=== PATIENT | female | born 1965 | race Caucasian/White ===

== ENCOUNTER → 2016-03-25 | Outpatient (CLI) | payer OTHER ==
[~2016-03-25] MED LIST: REGADENOSON 0.4 MG/5 ML SYRINGE IV ONE
--- NOTE | 2016-03-25 11:43 | EST ---
DATE OF SERVICE: 03/25/2016 AGE: 51Y SEX: F HT: WT: 154 lbs. Lexiscan Cardiolite Stress Test *Heart Rate Blood Pressure *Rest: 77 Rest: 140/80 * *Max. Achieved: 111 Maximum BP: 202/99 85% PMHR: - 100% PMHR: - *METS: - INDICATIONS: Chest pain. MEDICATIONS: Lisinopril, alprazolam, hydrocodone, gabapentin, Tizanidine, Tramadol, ibuprofen. STRESS DATA: Heart rate 77, pressure is 140/80 mmHg. Baseline EKG showed sinus rhythm; 0.4 mg of Lexiscan was given to the patient over 15 seconds per protocol. Max heart rate was 111 beats per minute, maximum pressure was 202/99 mmHg. Clinically, the patient did not have any symptoms and the EKG did not show any significant ST or T-wave abnormalities consistent with ischemia. CONCLUSION: 1. Nondiagnostic electrocardiogram stress test in response to Lexiscan. 2. Please follow up on the Cardiolite portion on a separate report from the Radiology Department.
--- NOTE | 2016-03-25 12:16 | NM ---
EXAMINATION TYPE: NM stress lexiscan cardiolite DATE OF EXAM: 03/25/2016 12:09 PM COMPARISON: NONE HISTORY: Heart palpitations TECHNIQUE: After the intravenous administration of 10.4 mCi Tc 99m Sestamibi - Cardiolite resting SP ECT images acquired 45 minutes post injection. The patient received 0.4mg Lexiscan, 27 mCi Tc 99m Sestamibi - Stress images obtained 30 minutes post injection. Patient was stressed with Lexiscan. FINDINGS: Review of stress and rest SPECT images demonstrates no distinct perfusion abnormality. Gated analysi s shows normal wall motion with an estimated left ventricular ejection fraction of 79 %. Gated wall motion is normal. No suspicious perfusion defects are evident. IMPRESSION: Normal ejection fraction No scintigraphic evidence for reversible ischemia.
== END | disposition home or self-care (01) ==
LOC: RADNMMAIN 09:01
PROVIDERS: ATTEND Family Medicine
DX: R00.2 Palpitations (principal)
CPT/HCPCS: 93017; 78452; A9500; J2785

== ENCOUNTER 2016-05-20 14:55 | Inpatient (IN) | payer OTHER ==
[2016-05-19 11:59] VITALS: BMI 26.6
[2016-05-27] MEDS ORDERED: TRANEXAMIC ACID 1,000 MG in SODIUM CHLORIDE 0.9% 100 ML IVPB ONE ×4 (05:00)
[2016-05-27] MEDS ORDERED: MELOXICAM 7.5 MG TAB PO ONE (05:00)
[2016-05-27] MEDS ORDERED: ACETAMINOPHEN TAB 500 MG TAB PO ONE (05:00)
[2016-05-27] MEDS ORDERED: ONDANSETRON 4 MG/2 ML VIAL IVP ONE ×2 (05:00→05:35)
[2016-05-27] MEDS ORDERED: ceFAZolin 2 GM in SODIUM CHLORIDE 0.9% 100 ML IVPB ONE (05:00)
[2016-05-27] MEDS ORDERED: MIDAZOLAM 2 MG/2 ML VIAL IV PRN (05:35)
[2016-05-27] MEDS ORDERED: DEXAMETHASONE SOD PHOSPHATE 10 MG/ML 1 ML VIAL IV ONE (05:35)
[2016-05-27] MEDS ORDERED: HYDROmorphone 1 MG/ML 1 ML SYRINGE IVP PRN ×4 (05:35→15:25)
[2016-05-27] MEDS ORDERED: ROPIVACAINE 246.25 MG, EPINEPHrine 0.5 MG, KETOROLAC 30 MG, cloNIDine HCL/PF 80 MCG, WA... MISCELLANE ONE ×5 (09:39)
[2016-05-27] MEDS: LACTATED RINGERS 1,000 ML IV SCH ×2 (13:05→20:41)
[2016-05-27] MEDS ORDERED: LIDOCAINE 1% 20 ML VIAL (10MG/ML) FOR IV START INTRADERMA ONE (13:05)
[2016-05-27] MEDS ORDERED: fentaNYL (PF) 50 MCG/ML 2 ML AMP ONE (13:20)
[2016-05-27] MEDS ORDERED: PROPOFOL 10 MG/ML 20 ML VIAL IV ONE (13:20)
[2016-05-27] MEDS ORDERED: ceFAZolin 3,000 MG in SODIUM CHLORIDE 0.9% IRRIGATIO 3,000 ML IRRIGATION ONE (13:20)
[2016-05-27] MEDS ORDERED: MIDAZOLAM 2 MG/2 ML VIAL ONE (13:20)
[2016-05-27] MEDS ORDERED: NALBUPHINE 10 MG/ML AMPUL IV PRN (14:10)
[2016-05-27] MEDS ORDERED: diphenhydrAMINE 50 MG/ML 1 ML VIAL IVP PRN (14:10)
[2016-05-27] MEDS ORDERED: MORPHINE SULFATE 4 MG/ML SYRINGE IVP PRN (14:10)
[2016-05-27] MEDS ORDERED: PROMETHAZINE INJ 6.25 MG in SODIUM CHLORIDE 0.9% 50 ML IVPB PRN (14:10)
[2016-05-27] MEDS ORDERED: NALOXONE 0.4 MG/ML 1 ML VIAL IV PRN (14:10)
[2016-05-27] MEDS ORDERED: LACTATED RINGERS 1,000 ML IV ONE (14:30)
[2016-05-27] MEDS ORDERED: ONDANSETRON 4 MG/2 ML VIAL IVP PRN (15:25)
[2016-05-27] MEDS ORDERED: TEMAZEPAM 15 MG CAP PO PRN (15:25)
[2016-05-27] MEDS ORDERED: HYDROcodone/APAP 7.5-325MG 1 EACH TAB PO PRN (15:25)
[2016-05-27] MEDS ORDERED: ACETAMINOPHEN TAB 325 MG TAB PO PRN (15:25)
[2016-05-27] MEDS ORDERED: NA PHOS,M-B/NA PHOS,DI-BA 133 ML ENEMA RECTAL PRN (15:25)
[2016-05-27] MEDS ORDERED: BISACODYL 10 MG SUPP RECTAL PRN (15:25)
[2016-05-27] MEDS ORDERED: MAGNESIUM HYDROXIDE 2,400 MG/10 ML CUP PO PRN (15:25)
--- NOTE | 2016-05-27 15:57 | XR ---
EXAMINATION TYPE: XR knee limited LT DATE OF EXAM: 05/27/2016 3:51 PM COMPARISON: NONE HISTORY: Post knee replacement TECHNIQUE: 2 views left knee FINDINGS: Tibial and femoral components are present. No acute fractures are evident. Postsurgical juan manuel nges are evident. IMPRESSION: 1. No acute fractures post knee replacement
[2016-05-27] MEDS ORDERED: MORPHINE SULFATE 2 MG/ML SYRINGE IVP PRN (19:00)
[2016-05-27] MEDS: SENNOSIDES-DOCUSATE SODIUM 1 EACH TAB PO SCH (20:42)
[2016-05-27] MEDS: ASPIRIN 325 MG TAB PO SCH (20:43)
[2016-05-27] MEDS: ceFAZolin 2 GM in SODIUM CHLORIDE 0.9% 100 ML IVPB SCH (20:43)
[2016-05-27] MEDS ORDERED: ALBUTEROL NEBULIZED 2.5 MG/3 ML INHALATION PRN (22:14)
[2016-05-27] MEDS ORDERED: FAMOTIDINE 20 MG TAB PO PRN (22:14)
[2016-05-28] MEDS ORDERED: NALBUPHINE 10 MG/ML AMPUL ONE (01:20)
--- NOTE | 2016-05-28 04:19 | OP ---
DATE OF SERVICE: SURGEON: ML ORTIZ MD CLOTH REELER: ELBERT CR PA-C. PREOPERATIVE DIAGNOSIS: Left knee osteoarthrosis. POSTOPERATIVE DIAGNOSIS: Left knee osteoarthrosis. OPERATION: Left total knee arthroplasty. ANESTHESIA: Spinal with sedation. ESTIMATED BLOOD LOSS: 100 mL. Tourniquet time: 59 minutes at 250 mmHg. SPECIMENS REMOVED: COMPLICATIONS: None apparent. DRAINS: None. DISPOSITION: Postanesthesia care unit. OPERATIVE FINDINGS: INDICATIONS: Is a 51-year-old female with long-standing history of left knee pain. History and physical examination are consistent with advanced left knee osteoarthrosis. She has been through significant nonoperative management up to this point. Further treatment options were discussed and she has decided to go forward with a left total knee arthroplasty. The risks of the procedure were discussed with her in detail. These risks include, but are not limited to risk of infection, nerve damage, bleeding, pain, and a small risk of deep vein thrombosis, which could lead to fatal pulmonary embolism. There is also a risk of loosening of the implant, which could require revision operation. The patient understands these risks. All of her questions were answered to her satisfaction. Appropriate informed consent was obtained. DESCRIPTION OF THE PROCEDURE: The patient was identified in the preoperative holding area. The surgical site was marked by both the patient and myself. She was given 2 grams of Ancef IV for prophylactic purposes. She was then transferred to the operative suite where she was placed supine on the operating room table. Spinal anesthetic was administered and dosed per the anesthesia department without apparent complication. Examination under anesthesia was then performed. The patient was 2 to 3 degrees shy of full extension. She had 100 degrees of flexion. The medial collateral ligament, lateral collateral ligament and posterior cruciate ligaments were stable. Tourniquet was then placed high on the left upper thigh, well-padded in preparation for surgery. The patient's left lower extremity was then prepped and draped usual sterile fashion. Standard surgical pause was then undertaken to ensure that we were operating on the correct site and that appropriate preoperative antibiotics had been given. All staff in the room were in agreement and we proceeded. The outlines of the patella were then marked with a surgical pen. A planned 12 cm vertical incision centered over the patella was marked with a surgical pen. The leg was then exsanguinated with an Esmarch dressing. The knee was then flexed and tourniquet was inflated to 250 mmHg. Total tourniquet time for the procedure was 59 minutes. Incision was then made with a 10 blade scalpel. Dissection was carried down sharply to the overlying fascia. Great care was taken to minimize the skin flaps. The knee was then exposed using a standard medial parapatellar approach. Small cuff of quadriceps tendon was left for suturing. She was in a bit of varus preoperatively. A standard medial release was then made. Superficial medial collateral ligament was dissected off the bone around to the posterior aspect of the proximal tibia. The medial meniscus was then excised as well. The lateral meniscus was also released anteriorly. The leg was then externally rotated. The patella was then everted and the knee was flexed. Retractors were then placed to protect the collateral ligaments. I then proceeded to remove the infrapatellar fat pad. This was excised sharply tangentially with the fibers of the patellar tendon. I then proceeded to remove the peripheral osteophytes. This was done with a rongeur. I then proceeded with distal femoral resection. She was at near full extension. A planned 9 mm resection was done. The femoral canal was then entered in the midline of the femur approximately 10 mm anterior to the dorsum of the posterior cruciate ligament. The sindi was then advanced down the center of the femur and placed intramedullary. Based on preoperative radiographs, the angle between the anatomic and mechanical axis of the femur was approximately 4 to 5 degrees. The valgus angle of the distal femoral cutting guide was then set at 4 degrees for the left knee. The distal femoral cutting guide was then advanced over the intramedullary sindi. This was seated firmly against the femur. I then, as mentioned, planned to take 9 mm off the distal femur. The cutting block was then secured onto the femur with pins. Jig was then removed and the distal femoral cut was made through the slot of the block. The pins then removed and the distal femoral cutting block was removed. The accuracy of the distal femoral cuts was checked with 2 flat bars. I then proceeded with femoral sizing. The posterior referencing sizing guide was held firmly against resected distal surface of the femur. Posterior condyles were resting on the posterior plane of the guide. The sizing stylus was then placed onto the anterior femur. Size measured a size 7. I then assessed for femoral rotation. The plan was for 3 degrees of external rotation. 3 degrees of external rotation was placed onto the jig. These holes were then marked. I then confirmed the rotation by 3 separate methods. This was done using epicondylar axis as well as Whitesides line and posterior referencing. It was deemed that the external rotation was proper. I then went forward with placing the femoral cutting block. This was placed over the previously placed pinholes. The robert wing was then placed onto the anterior slots to ensure we would not notch the anterior femur with the anterior femoral cut. I then proceeded with the anterior femoral cut. This was flush with the anterior cortex of femur. Posterior cuts were then made followed by the anterior chamfer cut and then the posterior chamfer cut. The cutting block was then removed. Throughout the resection, the collateral ligaments were protected with retractors. I then placed a trial size 7 femur. It fit very nice medial to lateral and fit flush with the distal end of the femur. Drill holes were then made. I then proceeded with the tibial cut. I planned for cruciate-retaining knee. The knee was then placed and set for varus valgus and for slope. The height was set for an approximately 2 mm resection from the medial tibial plateau, which was the lower side. I was happy with the alignment and the amount of resection. The cutting block was then pinned to the proximal tibia. The alignment sindi was removed and the proximal tibia was resected with reciprocating saw. Again, this was done with retractors, protecting the collateral ligaments as well as posterior cruciate ligament. I then proceeded to evaluate the flexion and extension gaps. A 10 mm block was placed. Flexion-extension gaps were equal. I then proceeded with resection of the posterior osteophytes. She had very extensive posterior osteophytes. This was done using a curved osteotome. This resected the posterior osteophytes and posterior capsule stripping was also done off the posterior aspect of the femur at this time. The osteophytes were then removed. I then proceeded with resection of the patella. Thickness of the patella was measured using the caliper. The thickness was 24 mm. The thickness of the anticipated patellar dome was taken into account. Resection was then performed and confirmed to be equal in 4 quadrants using the caliper. Approximately 14 mm of bone remained after the resection, A 32 x 8.5 standard patellar trial was then placed. The holes were then drilled and trial was then placed. I then proceeded with sizing tibial plate. A size D tibial plate fit very nicely. I then placed a trial femur, the tibial tray and the patellar button. A 10 mm trial insert was placed. I then trialed up to a 13 mm tibial insert. The components fit very nicely. She had full flexion-extension. The extension and flexion gaps were equal and stable to both varus and valgus stress. The patella tracked appropriately. Tibial tray rotation was marked with a Bovie. This was externally rotated properly. I then proceeded with tibial preparation. I first drilled femoral holes and removed femoral component. The tibial tray was then set for proper external rotation as well as mediolateral placement onto the tibia. It was then pinned into place. I then proceeded with punching the keel. I then decided to proceed with cementing of all of our components. The knee was thoroughly irrigated with sterile saline solution via pulse lavage. The lateral geniculate artery was identified and cauterized. All blood was removed from the bone of the tibia, femur and patella with pulse lavage. I then proceeded with cementing. 2 packs of antibiotic bone cement were prepared on the back table by the surgical garment inspector. I then proceeded with cementing of the tibia first. The cement was impacted in the keel as well as deeply seated into bone. A second coat of cement was then placed. The tibia was then impacted into place. Excess cement was removed with Gerald's and jokers. I then proceeded with cementing the femoral component. The femoral component was also cemented using standard technique. Excess cement was removed. A 13 mm trial insert was then placed into the knee. It was brought into full extension with a constant axial load placed until the cement had hardened. The patellar component was then cemented. This was held firmly with a compressive device until the cement had dried. Once the cement had dried, the knee was taken out of extension. All excess cement was removed from around the prosthesis. I then trialed the knee with a 13 mm insert. Flexion-extension gaps felt very good. The knee was stable. It came into full extension. I decided to go forward with 13 mm cross-linked cruciate-retaining tibial insert. Polyethylene was then placed onto the tibial tray and the pin locked into place. The knee was then reduced. The knee was again further irrigated with sterile saline solution with antibiotic added. The tourniquet was then deflated. Total tourniquet time for the procedure was 59 minutes at 250 mmHg. Final components were Yang persona, size 7 narrow cruciate-retaining femoral component, a size D tibial tray, a 13 mm medial congruent cruciate retaining polyethylene insert and a 32 x 8.5 mm patella. I then proceeded with closure. Again, the knee was thoroughly irrigated. The quadriceps tendon and the sindi medial retinaculum were reapproximated with #2 Ethibond suture. The extensor mechanism was then closed with running #2 Quill suture. Subcutaneous tissues then closed with 2-0 Vicryl interrupted suture and the skin of the skin was closed with a running 3-0 Quill suture. Dermabond was applied to the incision. Sterile compressive dressings were then applied. All sponge and needle counts were deemed correct prior to closure. The patient tolerated the procedure without apparent complication. She was transferred to recovery room in stable condition.
[2016-05-28] MEDS: ceFAZolin 2 GM in SODIUM CHLORIDE 0.9% 100 ML IVPB SCH (05:17)
[2016-05-28] MEDS: LACTATED RINGERS 1,000 ML IV SCH ×6 (05:18→21:19)
[2016-05-28] MEDS: GABAPENTIN 300 MG CAP PO SCH ×4 (05:48→20:23)
[2016-05-28] MEDS: LISINOPRIL-HCTZ 20-25 MG 1 EACH TAB PO SCH ×3 (05:49→20:22)
[2016-05-28] MEDS: MAGNESIUM OXIDE 400 MG TAB PO SCH ×2 (05:49→07:12)
--- NOTE | 2016-05-28 06:26 | CONS ---
DATE OF CONSULTATION: 05/27/2016 REASON FOR CONSULTATION: Medical management requested Dr. Jiang. CONSULTATION: This is a very pleasant 51-year-old patient of Dr. Moreland. Chronic stable medical conditions include fibromyalgia, GERD, hypertension, chronic urinary retention, bipolar disorder. The patient does self catheterize herself. She is having a workup done by Dr. Landon ( ) involved. Patient does have chronic pain in multiple joints. Patient today has undergone a left total knee arthroplasty. Some pain is also present. Having some muscle cramps too. Denies any cardiac history. REVIEW OF SYSTEMS: CONSTITUTIONAL: Tired. HEENT: None. RESPIRATORY: None. CARDIOVASCULAR: None. GASTROINTESTINAL: Heartburn. GENITOURINARY: Does self-catheterization. DERMATOLOGICAL: None. HEMATOLOGICAL: None. LYMPHATIC: None. PSYCHIATRY: Some anxiety. NEUROLOGICAL: Urinary retention. PAST MEDICAL HISTORY: Fibromyalgia, GERD, hypertension, urinary retention, bipolar disorder. PAST SURGICAL HISTORY: Back surgery, tubal ligation, cervical decompression, discectomy. SOCIAL HISTORY: Smoking a bit right now, smoking since the age of 13. No alcohol. FAMILY HISTORY: Reviewed, noncontributory to presentation. HOME MEDICATIONS: 1. Ultram 200 mg p.o. b.i.d. 2. Zanaflex 4 mg p.o. t.i.d. p.r.n. 3. Vitamin E 400 units p.o. daily. 4. Fish oil 1 capsule p.o. daily. 5. Magnesium oxide 250 mg p.o. daily. 6. Zestoretic 20/25 one tablet p.o. daily and half tablet at night. 7. Motrin 800 mg p.o. t.i.d. p.r.n. 8. Tavares 7.5 one tablet p.o. t.i.d. p.r.n. 9. Garlic 1 tablet p.o. daily. 10. Neurontin 600 mg p.o. t.i.d. 11. Pepcid AC 10 mg p.o. q.12 p.r.n. 12. Echinacea 400 mg p.o. daily. 13. Vitamin B12, 2000 mcg p.o. daily. 14. Vitamin D3, 1000 units p.o. daily. 15. Vitamin C 1000 mg p.o. daily. 16. Ventolin HFA 2 puffs q.6 p.r.n. 17. Tylenol 1000 mg p.o. q.4 p.r.n. 18. Xanax 0.25 p.o. t.i.d. p.r.n. Allergies to CIPRO, BACTRIM. On examination, temperature 97, pulse 51, respiration 18, blood pressure 158/84, pulse ox 100% on room air. GENERAL APPEARANCE: Average build, lying in bed, not in distress. EYES: Pupils equal. Conjunctivae normal. HEENT: Oral cavity normal. NECK: JVD not raised. Mass not palpable. RESPIRATORY: Effort normal. LUNGS: Slightly decreased breath sounds. CARDIOVASCULAR: First and second sounds normal. No edema. ABDOMEN: Soft, nontender. Liver and spleen not palpable. LYMPHATIC: No lymph node palpable in neck or axillae. PSYCHIATRY: Alert and oriented x3. Mood and affect slightly anxious appearing. NEUROLOGICAL: Pupils equal. Cranial nerves grossly intact. INVESTIGATIONS: No blood work today. ASSESSMENT: 1. Left total knee arthroplasty. 2. Chronic fibromyalgia. 3. Gastroesophageal reflux disease. 4. Essential hypertension. 5. Chronic urinary retention. Patient does self-catheterization. 6. Bipolar disorder, chronic, controlled. PLAN: Patient's home medications are resumed. DVT prophylaxis per Dr. Jiang. Pain control is in place. Care was discussed with the patient. Also getting IV fluids. Thank you Dr. Jiang.
[2016-05-28] MEDS: ASPIRIN 325 MG TAB PO SCH ×2 (07:11→20:22)
[2016-05-28 07:43] LABS: Basophils % (A) 0 %; Eosinophils % (A) 0 %; HCT 32.5 % (34.0-46.0); HGB 11.2 gm/dL (11.4-16.0); Luc % (Auto) 1; Lymphocytes # (A) 1.5 k/uL (1.0-4.8); Lymphocytes % (A) 13 %; MCH 36.8 pg (25.0-35.0); MCHC 34.6 g/dL (31.0-37.0); MCV 106.3 fL (80.0-100.0); Macrocytosis Slight; Mean Platelet Volume 7.2; Monocytes # (A) 0.5 k/uL (0-1.0); Monocytes % (A) 5 %; Neutrophils # (A) 9.7 k/uL (1.3-7.7); Neutrophils % (A) 82 %; RBC 3.06 m/uL (3.80-5.40); RDW 12.4 % (11.5-15.5); WBC 11.9 k/uL (3.8-10.6); WBC (Perox) 11.28
[2016-05-28] MEDS: HYDROcodone/APAP 7.5-325MG 1 EACH TAB PO PRN ×2 (08:58→14:55)
[2016-05-28] MEDS: ALPRAZolam 0.25 MG TAB PO PRN ×2 (08:58→17:32)
--- NOTE | 2016-05-28 10:22 | P.PN ---
Progress Note - Text Date:05/28 Time:710 Patient is status post tkr. Patient seen this morning with VAS score of 4. c/o of pruritus, no c/o nausea/vomiting, comfortable and doing well.
[2016-05-28] MEDS ORDERED: VANCOMYCIN 1,000 MG in SODIUM CHLORIDE 0.9% 250 ML IVPB STA (11:22)
--- NOTE | 2016-05-28 11:28 | P.PN ---
Subjective Principal diagnosis: Status post left total knee arthroplasty Patient is postop day #1 from a left total knee arthroplasty performed by Dr. Jiang. She is pain at the surgical site as expected. She denies other new complaints. She denies new numbness,tingling or calf pain. Review of systems is negative for fever, chills, chest pain, shortness of breath, nausea, vomiting , abdominal pain or other. Objective - Vital Signs Vital signs: Vital Signs Temp 97.8 F 05/28/16 02:16 Pulse 64 05/28/16 02:16 Resp 16 05/28/16 02:16 BP 137/69 05/28/16 02:16 Pulse Ox 98 05/28/16 03:00 Intake & Output 05/27/16 05/28/16 05/28/16 18:59 06:59 18:59 Intake Total 1702 1700 600 Output Total 450 1650 1000 Balance 1252 50 -400 Weight 70.307 kg Intake: IV 1702 1200 Lactated Ringers 1,000 ml 1200 @ 100 mls/hr IV .Q10H SHORTY Rx#:[id number] Oral 500 600 Output: Urine 350 1650 1000 Uretheral (Berman) 1650 600 Estimated Blood Loss 100 Other: Voiding Method Indwelling Catheter Indwelling Catheter - Exam Inspection of the left lower extremity reveals benign surgical wound. There is no active bleeding, dehiscence or drainage. Sensation to touch is intact throughout the left lower extremity. She has active motor at the ankle, foot and toes. Calf is soft and nontender. 2+ dorsalis pedis pulse and less than 2 second cap refill is present. - Constitutional General appearance: Present: no acute distress - Psychiatric Psychiatric: Present: A&O x's 3, appropriate affect, intact judgment & insight - Labs CBC & Chem 7: 05/28/16 07:02 Labs: Abnormal Lab Results - Last 24 Hours (Table) 05/28/16 Range/Units 07:02 WBC 11.9 H (3.8-10.6) k/uL RBC 3.06 L (3.80-5.40) m/uL Hgb 11.2 L (11.4-16.0) gm/dL Hct 32.5 L (34.0-46.0) % MCV 106.3 H (80.0-100.0) fL MCH 36.8 H (25.0-35.0) pg Neutrophils # 9.7 H (1.3-7.7) k/uL Assessment and Plan (1) Osteoarthritis of left knee Narrative/Plan: Patient will continue with routine postop orthopedic protocol including pain management, wound care, physical therapy, DVT prophylaxis and medical management. Her her nasal swabs were positive for MRSA and thus she will be given a dose of vancomycin today. Expect that she will discharge to home in the next 1-2 days. Status: Acute Time with Patient: Less than 30
[2016-05-28] MEDS: tiZANidine 4 MG TAB PO PRN ×2 (12:23→17:31)
[2016-05-28] MEDS: DIAZEPAM 5 MG TAB PO PRN (12:27)
[2016-05-28] MEDS: traMADol 50 MG TAB PO PRN ×2 (12:36→17:31)
[2016-05-28] MEDS: NICOTINE 14MG/24HR PATCH TRANSDERM SCH (13:41)
[2016-05-28] MEDS: MULTIVITAMINS, THERA 1 EACH TAB PO SCH (13:44)
[2016-05-28] MEDS: hydrOXYzine PAMOATE 25 MG CAP PO PRN (14:56)
[2016-05-28] MEDS: SENNOSIDES-DOCUSATE SODIUM 1 EACH TAB PO SCH (20:17)
[2016-05-28] MEDS: HYDROcodone/APAP 10-325MG 1 EACH TAB PO PRN (20:21)
--- NOTE | 2016-05-28 22:59 | PN ---
DATE OF SERVICE: 05/28/2016 This patient is status post left knee surgery, having had cramps in the left leg. Patient does have chronic pain. Did tolerate a diet. Review of systems done for constitutional, cardiovascular, GI, pulmonary, musculoskeletal relevant findings as above. Current medications are reviewed. On examination, temperature 98.3, pulse 65, respiratory rate 16, blood pressure 162/79, pulse ox 99% on room air. GENERAL APPEARANCE: Sitting up, not in distress. EYES: Pupils equal, conjunctivae normal. NECK: JVD not raised. Mass not palpable. RESPIRATORY: Effort normal. Lungs are clear. CARDIOVASCULAR: First and second sounds normal. No edema. ABDOMEN: Soft, nontender. PSYCHIATRY: Alert and oriented times three. Mood and affect normal. EXTREMITIES: No edema. INVESTIGATIONS: White count 11.9, hemoglobin 11.2. ASSESSMENT: 1. Left total knee arthroplasty. 2. Muscle spasm in the operative site. 3. Chronic fibromyalgia. 4. Gastroesophageal reflux disease. 5. Essential hypertension. 6. Chronic urinary retention. Patient self-catheterizes. 7. Bipolar disorder, chronic, controlled. PLAN: Care was discussed with the patient. Continue current medication and treatment plan. Thank you Dr. Jiang.
[2016-05-28 23:17] LABS: Appearance,Urine Clear (Clear); Bilirubin,Urine Negative (Negative); Glucose,Urine (UA) Negative (Negative); Ketones,Urine Negative (Negative); Leukocyte Esterase,Urine Negative (Negative); Nitrite,Urine Negative (Negative); Protein,Urine Negative (Negative); Specific Gravity,Urine 1.003 (1.001-1.035); UA Billing (MACRO vs. MICRO) CHEM; Urobilinogen,Urine <2.0 mg/dL (<2.0)
[2016-05-29] MEDS: DIAZEPAM 5 MG TAB PO PRN ×3 (00:47→21:56)
[2016-05-29] MEDS: hydrOXYzine PAMOATE 25 MG CAP PO PRN ×5 (01:20→21:24)
[2016-05-29] MEDS: HYDROcodone/APAP 10-325MG 1 EACH TAB PO PRN ×5 (01:20→21:23)
[2016-05-29] MEDS: ALPRAZolam 0.25 MG TAB PO PRN ×2 (01:23→08:25)
[2016-05-29] MEDS: ASPIRIN 325 MG TAB PO SCH ×2 (08:12→21:23)
[2016-05-29] MEDS: GABAPENTIN 300 MG CAP PO SCH ×3 (08:13→21:56)
[2016-05-29] MEDS: MAGNESIUM OXIDE 400 MG TAB PO SCH (08:13)
[2016-05-29] MEDS: LISINOPRIL-HCTZ 20-25 MG 1 EACH TAB PO SCH ×2 (08:13→21:23)
[2016-05-29] MEDS: NICOTINE 14MG/24HR PATCH TRANSDERM SCH (08:14)
[2016-05-29] MEDS: MULTIVITAMINS, THERA 1 EACH TAB PO SCH (08:15)
--- NOTE | 2016-05-29 10:17 | P.PN ---
Progress Note - Text Patient is a very pleasant 51-year-old female who is well known to our service who is seen and examined at the bedside for follow-up evaluation after undergoing a left total knee arthroplasty on 05/27/[address] Lex Jiang. Patient has been progressing postsurgically. She continues to have pain at the left knee following surgical intervention. She feels some tightness and muscle spasm of the left lateral thigh. She's been able to increase ambulation with the assistance of a walker. She was able to work with physical therapy this morning. Her pain has not been adequate control with [place] 7.5 mg/325 mg and has been increased to [place] 10 mg/325 mg. She continues straight catheterization for difficulty with voiding which is a chronic condition for her over the last 6-7 years. Physical Exam Total Knee Arthroplasty: Status post surgical day number 2 Patient is awake, alert, and oriented 3 Vital signs stable Good chest excursion with deep inspiration and expiration Abdomen soft nontender No signs or symptoms of DVT; no calf pain Dressing is clean, dry, and intact; no erythema, purulence, or signs of infection Some generalized swelling over the left knee at the surgical site Patient has full foot and ankle motion without difficulty bilateral lower extremities Dorsiflexion, plantar flexion, and extensor hallucis longus positive sustained bilaterally Neurovascular status left lower extremity intact Capillary refill lower extremity is bilaterally less than 2 seconds Assessment: Status post left total knee arthroplasty Left knee pain Plan: 1. Patient to remain weight-bear as tolerated on the lower extremity; patient may work with physical therapy to increase mobility and ambulation 2. Continue pain control; patient will continue to receive [place] 10 mg/325 mg 1 -2 tabs every 6 hours as needed for pain 3. Medicine to continue following the patient 4. Patient to continue with anticoagulation therapy with aspirin 325 mg twice a day 5. We'll continue to follow the patient; if the patient continues to progress, we will plan for discharge home tomorrow, 05/30/2016 6. Patient can follow-up with Dr. Lex Jiang at [facility] in 2 weeks following discharge
[2016-05-29] MEDS: traMADol 50 MG TAB PO PRN ×2 (13:26→19:48)
--- NOTE | 2016-05-29 14:54 | PN ---
DATE OF VISIT: 05/29/2016 Elisabeth is postoperative day #2, status post left total knee arthroplasty. She is resting comfortably. She does have some pain in the knee but it is a fairly well controlled with oral pain medicine at this point. She otherwise has no new complaints. PHYSICAL EXAM: T-max 98.7. Blood pressure was high this morning 184/84, pulse rate is 79 and she is satting 97% on room air. Laboratory values from yesterday white count 11.9, hemoglobin 11.2, platelets are 211. Elisabeth is sitting up at the bedside when I saw her today. The incision is dry. There is no drainage. She has a normal amount of mild postoperative knee swelling. There is no increased swelling in the thigh or in the calf. The calf is soft. She has intact flexion extension, inversion eversion of the left foot. She has intact lateral, medial, plantar and first dorsal web space sensation in the foot. She is 2+ posterior tibial pulse and brisk capillary refill in all digits. IMPRESSION: Postoperative day #2, status post left total knee arthroplasty. RECOMMENDATIONS: Elisabeth is doing quite well postoperatively. She is likely to be going home tomorrow. We will keep her one more day today for another day of physical therapy. She is on an aspirin for postoperative DVT prophylaxis. All of Elisabeth's questions were answered to her satisfaction.
[2016-05-29] MEDS: LACTATED RINGERS 1,000 ML IV SCH (15:32)
[2016-05-29 19:27] LABS: Appearance,Urine Clear (Clear); Bilirubin,Urine Negative (Negative); Glucose,Urine (UA) Negative (Negative); Ketones,Urine Negative (Negative); Leukocyte Esterase,Urine Negative (Negative); Nitrite,Urine Negative (Negative); Protein,Urine Negative (Negative); Specific Gravity,Urine 1.005 (1.001-1.035); UA Billing (MACRO vs. MICRO) CHEM; Urobilinogen,Urine <2.0 mg/dL (<2.0)
[2016-05-29] MEDS: SENNOSIDES-DOCUSATE SODIUM 1 EACH TAB PO SCH (21:23)
[2016-05-30] MEDS: traMADol 50 MG TAB PO PRN (02:05)
[2016-05-30] MEDS: LACTATED RINGERS 1,000 ML IV SCH ×2 (02:06)
[2016-05-30] MEDS: hydrOXYzine PAMOATE 25 MG CAP PO PRN ×3 (02:43→13:02)
[2016-05-30] MEDS: HYDROcodone/APAP 10-325MG 1 EACH TAB PO PRN ×3 (02:44→13:02)
--- NOTE | 2016-05-30 07:21 | PN ---
DATE OF SERVICE: 05/29/2016 PRESENTING COMPLAINT: Left knee surgery. INTERVAL HISTORY: Patient is status post left knee surgery. Pain is better controlled. Did walk more with physical therapy and leg cramping somewhat better. Patient did make some urine on her own. Also had a bowel movement. Did tolerate his diet. Eating well. Review of systems done for constitutional, cardiovascular, GI, pulmonary; relevant findings as above. Current medications are reviewed. On examination, temperature 97.2, pulse 75, respiratory rate 16, blood pressure 126/74, pulse ox 96% on room air. GENERAL APPEARANCE: Sitting up, comfortable. EYES: Pupils equal. Conjunctivae normal. NECK: JVD not raised. Mass not palpable. RESPIRATORY: Effort normal. Lungs are clear. CARDIOVASCULAR: First and second sounds normal. No edema. ABDOMEN: Soft, nontender. Liver and spleen not palpable. PSYCHIATRY: Alert and oriented times three. Mood and affect normal. EXTREMITIES: No edema. INVESTIGATIONS: No blood work from today. ASSESSMENT: 1. Left total knee arthroplasty. 2. Muscle spasm at the operative site. 3. Chronic fibromyalgia. 4. Gastroesophageal reflux disease. 5. Essential hypertension. 6. Chronic urinary retention. Patient self-catheterizes. 7. Bipolar disorder, chronic, controlled. PLAN: Care was discussed with the patient. Continue current medications and treatment plan. Follow.
[2016-05-30 07:47] LABS: Basophils % (A) 0 %; CH 35.4; CHCM 32.4; Eosinophils # (A) 0.2 k/uL (0-0.7); Eosinophils % (A) 2 %; HCT 35.6 % (34.0-46.0); HGB 11.5 gm/dL (11.4-16.0); Luc % (Auto) 1; Lymphocytes # (A) 2.2 k/uL (1.0-4.8); Lymphocytes % (A) 28 %; MCH 35.6 pg (25.0-35.0); MCHC 32.4 g/dL (31.0-37.0); MCV 110.1 fL (80.0-100.0); Macrocytosis Marked; Mean Platelet Volume 6.9; Monocytes # (A) 0.5 k/uL (0-1.0); Monocytes % (A) 6 %; Neutrophils # (A) 5.1 k/uL (1.3-7.7); Neutrophils % (A) 63 %; RBC 3.23 m/uL (3.80-5.40); RDW 13.1 % (11.5-15.5); WBC 8.1 k/uL (3.8-10.6); WBC (Perox) 8.68
[2016-05-30 08:07] VITALS: BP 131/82; PULSE 84; RESP 16; TEMP 97.8
[2016-05-30] MEDS: ASPIRIN 325 MG TAB PO SCH (08:07)
[2016-05-30] MEDS: MAGNESIUM OXIDE 400 MG TAB PO SCH (08:08)
[2016-05-30] MEDS: GABAPENTIN 300 MG CAP PO SCH (08:08)
[2016-05-30] MEDS: NICOTINE 14MG/24HR PATCH TRANSDERM SCH (08:08)
[2016-05-30] MEDS: LISINOPRIL-HCTZ 20-25 MG 1 EACH TAB PO SCH (08:08)
[2016-05-30] MEDS: DIAZEPAM 5 MG TAB PO PRN (08:13)
[2016-05-30 08:20] LABS: Manual Review Performed
--- NOTE | 2016-05-30 11:43 | P.DS ---
Providers Date of admission: 05/27/16 12:04 Expected date of discharge: 05/30/16 Attending physician: Lex Jiang Consults: 05/27/16 15:25 Consult Physician Routine Consulting Provider: James Moreland Consult Reason/Comments: post op medical management Do you want consulting provider notified?: Yes Primary care physician: James Moreland - Discharge Diagnosis(es) (1) S/P total knee arthroplasty Current Visit: Yes Status: Acute (2) Osteoarthritis of left knee Current Visit: Yes Status: Acute Priority: Medium Hospital Course: This is a pleasant 51-year-old female who presented with left knee osteoarthritis who failed outpatient conservative therapy. She admitted for a left total knee arthroplasty performed by Dr. Lex Jiang. The patient tolerated the procedure well and did well postoperatively. She has been improving postsurgically and has been able to increase ambulation. She was having significant spasms of the left lateral thigh that has been improving. Patient states she is ready for discharge home. Condition on day of discharge stable. Patient was cleared preoperatively for surgery by Dr. Moreland. Patient currently denies any nausea, vomiting, fever, or chills. Patient is eating and voiding freely without difficulty. She does perform straight catheterization for urinary retention which is a chronic condition that is been ongoing for approximately 6-7 years. Patient may shower with Dermabond dressing intact over the left knee if no drainage for 48 hours. Patient should avoid soaking in the tub. She should continue to keep dressing over the left knee clean, dry, and intact except while showering. She may continue to weight- bear as tolerated on left lower extremity. She may continue to elevate and ice for comfort and support as needed. She was prescribed Faucett 7.5 mg/325 mg to be given at discharge. She was having some difficulty with pain control and Faucett was increased to 10 mg/325 mg. She'll be given a new prescription for Faucett 10 mg/325 mg 1-2 tabs every 6 hours as needed for pain. The prescription for Faucett 7.5 mg/325 mg will be discontinued. She will also continue with anticoagulation therapy with aspirin 325 mg twice per day. She's given a prescription for aspirin 325 mg by mouth 2 tabs per day dispense 60. Physical Exam on day of discharge: Status post surgical day number 3 Patient is awake, alert, and oriented 3 Vital signs stable Good chest excursion with deep inspiration and expiration Abdomen soft nontender No signs or symptoms of DVT; no calf pain Dressing is clean, dry, and intact; no erythema, purulence, or signs of infection Some generalized swelling over the left knee at the surgical site Patient has full foot and ankle motion without difficulty bilateral lower extremities Dorsiflexion, plantar flexion, and extensor hallucis longus positive sustained bilaterally Neurovascular status left lower extremity intact Capillary refill lower extremity is bilaterally less than 2 seconds Procedures: Left total knee arthroplasty Patient Condition at Discharge: Stable Plan - Discharge Summary New Discharge Prescriptions: Aspirin 325 mg PO BID #60 tab HYDROcodone/APAP 10-325MG [Faucett 10] 1 - 2 each PO Q6H PRN #90 tab PRN Reason: Pain Discharge Medication List Gabapentin [Neurontin] 600 mg PO TID 06/24/15 [History] traMADol HCl [Ultram] 200 mg PO BID 06/24/15 [History] ALPRAZolam [Xanax] 0.25 mg PO TID PRN 07/29/15 [History] Famotidine [Pepcid AC] 10 mg PO Q12H PRN 07/29/15 [History] Ibuprofen [Motrin] 800 mg PO TID PRN 07/29/15 [History] Acetaminophen [Tylenol] 1,000 mg PO Q4H PRN 05/19/16 [History] Albuterol Inhaler [Ventolin Hfa Inhaler] 2 puff INHALATION RT-Q6H PRN 05/19/16 [ History] Ascorbic Acid [Vitamin C] 1,000 mg PO DAILY 05/19/16 [History] Cholecalciferol [Vitamin D3] 1,000 unit PO DAILY 05/19/16 [History] Cyanocobalamin (Vitamin B-12) [Vitamin B-12] 2,000 mcg PO DAILY 05/19/16 [ History] Echinacea 400 mg PO DAILY 05/19/16 [History] Garlic 1 tab PO DAILY 05/19/16 [History] Hydrocodone/Acetaminophen [Faucett 7.5-325] 1 tab PO TID PRN 05/19/16 [History] Lisinopril-Hctz 20-25 mg [Zestoretic 20-25] 0.5 tab PO HS 05/19/16 [History] Lisinopril-Hctz 20-25 mg [Zestoretic 20-25] 1 tab PO DAILY 05/19/16 [History] Magnesium Oxide [Mag-Ox] 250 mg PO DAILY 05/19/16 [History] [place]-3 Fatty Acids/Fish Oil [Fish Oil 1,000 mg Softgel] 1 cap PO DAILY [History] Vitamin E (Dl,Tocopheryl Acet) [Vitamin E] 400 unit PO DAILY 05/19/16 [History] tiZANidine [Zanaflex] 4 mg PO TID PRN 05/19/16 [History] Aspirin 325 mg PO BID #60 tab 05/28/16 [Rx] HYDROcodone/APAP 10-325MG [Faucett 10] 1 - 2 each PO Q6H PRN #90 tab 05/30/16 [Rx] Follow up Appointment(s)/Referral(s): Lex Jiang MD [STAFF PHYSICIAN] - 2 Weeks Activity/Diet/Wound Care/Special Instructions: 1. Patient may shower with Dermabond dressing intact over the left knee if no drainage for 48 hours. 2. Patient should avoid soaking in the tub. 3. Patient should continue to keep dressing over the left knee clean, dry, and intact except while showering. 4. Patient may continue to weight-bear as tolerated on left lower extremity. 5. Patient may continue to elevate and ice for comfort and support as needed. 6. Patient should continue taking medications as prescribed 7. For questions or concerns, patient may call [facility] at [phone] [facility] -[phone] Discharge Disposition: HOME SELF-CARE
== END 2016-05-30 13:11 | disposition home or self-care (01) | DRG 470 ==
LOC: 2ORMAIN 05-27 12:04 → 3SUR 05-27 15:28
PROVIDERS: ADMIT Orthopaedic Surgery Sports Medicine; ATTEND Orthopaedic Surgery Sports Medicine
PROC: 0SRD0J9 Replacement of Left Knee Joint with Synthetic Substitute, Cemented, Open Approach (ICD-10-PCS; principal; 2016-05-27 13:25)
DX: M17.12 Unilateral primary osteoarthritis, left knee (principal); I10 Essential (primary) hypertension; F31.9 Bipolar disorder, unspecified; G89.29 Other chronic pain; K21.9 Gastro-esophageal reflux disease without esophagitis; M79.7 Fibromyalgia; R33.9 Retention of urine, unspecified; Z79.82 Long term (current) use of aspirin; Z79.899 Other long term (current) drug therapy; Z88.1 Allergy status to other antibiotic agents; Z88.2 Allergy status to sulfonamides
CPT/HCPCS: 81003; 81025; 85025; 88300

== ENCOUNTER → 2016-05-25 | Outpatient (CLI) | payer OTHER ==
[2016-05-25 16:15] LABS: CH 35.4; HDW 2.21; MCH 35.1 pg (25.0-35.0); MCHC 32.5 g/dL (31.0-37.0); Macrocytosis Moderate; Mean Platelet Volume 6.7; RBC 3.98 m/uL (3.80-5.40); RDW 12.9 % (11.5-15.5); WBC 8.3 k/uL (3.8-10.6)
[2016-05-25 16:24] LABS: Appearance,Urine Clear (Clear); Bilirubin,Urine Negative (Negative); Glucose,Urine (UA) Negative (Negative); Ketones,Urine Negative (Negative); Leukocyte Esterase,Urine Negative (Negative); Mucus,Urine Rare /hpf; Nitrite,Urine Negative (Negative); Particle Count 435; Protein,Urine Negative (Negative); RBC,Urine 1 /hpf (0-5); Specific Gravity,Urine 1.002 (1.001-1.035); Squamous Epithelial Cell,Urine <1 /hpf (0-4); UA Billing (MACRO vs. MICRO) MICRO; Urobilinogen,Urine <2.0 mg/dL (<2.0)
[2016-05-25 16:27] LABS: ALT 28 U/L (9-52); AST 26 U/L (14-36); Alkaline Phosphatase 129 U/L (38-126); Anion Gap 12 mmol/L; Blood Urea Nitrogen 9 mg/dL (7-17); Calcium 10.2 mg/dL (8.4-10.2); Carbon Dioxide 26 mmol/L (22-30); Chloride 94 mmol/L (98-107); Glucose 87 mg/dL (74-99); Non-African American GFR(MDRD) >60 (>60 ml/min/1.73 sqM); Potassium 4.7 mmol/L (3.5-5.1); Sodium 132 mmol/L (137-145); Total Bilirubin 0.6 mg/dL (0.2-1.3); Total Protein 7.8 g/dL (6.3-8.2)
[2016-05-25 16:40] LABS: Prothrombin Time 10.1 sec (9.0-12.0)
== END ==
LOC: LABPAT 15:50
PROVIDERS: ATTEND Orthopaedic Surgery Sports Medicine
DX: Z01.818 Encounter for other preprocedural examination (principal); Z01.810 Encounter for preprocedural cardiovascular examination; Z01.812 Encounter for preprocedural laboratory examination
CPT/HCPCS: 80053; 81001; 85027; 85610; 85730; 87070

== ENCOUNTER → 2016-07-13 | Outpatient (CLI) | payer OTHER ==
[2016-07-13 16:07] LABS: Blood Urea Nitrogen 8 mg/dL (7-17); Non-African American GFR(MDRD) >60 (>60 ml/min/1.73 sqM)
--- NOTE | 2016-07-13 17:13 | MR ---
EXAMINATION TYPE: MR lumbar spine wo con DATE OF EXAM: 07/13/2016 COMPARISON: NONE HISTORY: LBP, LLE radic for several years, hx MS CONTRAST: 0 mL intravenous MultiHance. TECHNIQUE: Multiplanar, multisequence images of the lumbar spine were acquired. FINDINGS: L5-S1: There is a small central protrusion. This has anterior thecal sac contact without deformity. No spinal canal stenosis or neural foraminal stenosis is present. Mild facet hypertrophy with ligamen shelton flavum laxity is present. L4-L5: Facet hypertrophy is present with ligamentum flavum laxity. This has posterior lateral thecal sac compression. Broad-based disc bulge has moderate anterior thecal sac flattening. No AP spinal can al stenosis present. The neural foramen are patent. L3-L4: Minimal disc contact with the anterior thecal sac is present. No stenosis is present. Facet hy pertrophy has mild posterior lateral thecal sac contact. L2-L3: No focal disc herniation or significant disc bulge is evident. Facet hypertrophy is mild right posterior lateral thecal sac contact. No stenosis is present. L1-L2: No significant disc bulge or disc herniation. No spinal canal stenosis. No foraminal stenosi s. Mild facet hypertrophy is present with posterior lateral thecal sac compression.. T12-L1: No significant disc bulge or disc herniation. No spinal canal stenosis. No foraminal stenos is. Mild facet hypertrophy is present with posterior lateral thecal sac compression.. Cord terminates at the L1 level. IMPRESSION: 1. Mild disc bulging L4-5 L3-4. 2. Small central protrusion L5-S1. 3. Multilevel facet hypertrophy with some ligamentum flavum laxity through the lumbar spine. These pardo ve mild posterior lateral thecal sac compression and appear greatest at the L4-5 level.
--- NOTE | 2016-07-13 18:34 | MR ---
EXAMINATION TYPE: MR brain wo/w con DATE OF EXAM: 07/13/2016 COMPARISON: NONE HISTORY: Dizziness, White matter changes, MS CONTRAST: Standard multiplanar, multisequence MRI departmental protocol utilizing 15 mL intravenous MultiHance gadolinium contrast. FINDINGS: Craniovertebral junction is normal. Pituitary appears within normal limits for the patient age. Diffusion-weighted imaging is performed. No suspicious hyperintensity is suggesting acute areas of gl iosis or acute ischemic change is evident. Cerebellar pontine angles and internal auditory canals appear normal. There are normal vascular flow voids are within the distal internal carotid arteries A1 and M1 segments and posterior cerebral vascu lature as visualized. Ventricles and sulci are appropriate for the patient age. There are scattered white matter changes in the subcortical white matter within the centrum semiovale . The largest is within the left parietal lobe and measures 1.1 x 0.9 x 0.7 cm. Series 501, image 19, series 601 image 7. Multiple additional punctate areas are present bilaterally. Following intravenous administration of contrast no abnormal enhancement is evident. IMPRESSIONS: 1. Multiple white matter changes are nonspecific. Gliosis such as from microvascular ischemic change could be considered. Multiple sclerosis should be considered. Differential diagnosis would also inclu de Lyme disease and vasculitis.
== END | disposition home or self-care (01) ==
LOC: RADMRIMAIN 15:38
PROVIDERS: ATTEND Nurse Practitioner Acute Care
DX: M51.27 Other intervertebral disc displacement, lumbosacral region (principal); M51.26 Other intervertebral disc displacement, lumbar region; M53.86 Other specified dorsopathies, lumbar region; M24.28 Disorder of ligament, vertebrae; R90.82 White matter disease, unspecified; G93.89 Other specified disorders of brain
CPT/HCPCS: 82565; 84520; 70553; 72148; A9577

== ENCOUNTER → 2017-03-08 | Outpatient (CLI) | payer OTHER ==
[2017-03-08 19:15] LABS: Total Protein,CSF 42 mg/dL (12-60)
[2017-03-08 20:03] LABS: Appearance,CSF Clear; CSF Tube Number 4; CSF Tube Volume 2.5; Nucleated Cells, CSF 0 u/L (0-5); Red Blood Cell,CSF 0 u/L (0-10)
[2017-03-15 13:13] LABS: IgG - CSF 3.2 mg/dL (0.0 - 3.4); IgG/Albumin Index (CSF) 0.48 (0.00 - 0.77)
== END | disposition home or self-care (01) ==
LOC: LABWHC1 13:25
PROVIDERS: ATTEND Nurse Practitioner Acute Care
DX: R90.82 White matter disease, unspecified (principal); H53.8 Other visual disturbances; R42 Dizziness and giddiness
CPT/HCPCS: 36415; 82040; 82042; 82784; 83873; 83916; 84157; 87476; 88108; 89050

== ENCOUNTER 2017-04-21 12:08 | Day surgery (SDC) | payer OTHER ==
[~2017-04-21 12:08] MED LIST changes: +LACTATED RINGERS 1,000 ML IV SCH; +LIDOCAINE 1% 20 ML VIAL (10MG/ML) FOR IV START INTRADERMA PRN; -REGADENOSON 0.4 MG/5 ML SYRINGE IV ONE
[2017-04-21 12:25] VITALS: TEMP 98
[2017-04-21] MEDS ORDERED: LACTATED RINGERS 1,000 ML IV ONE (12:25)
[2017-04-21] MEDS ORDERED: PROPOFOL 10 MG/ML 20 ML VIAL IV ONE (13:51)
[2017-04-21] MEDS ORDERED: LIDOCAINE 1% INJ 10MG/ML (20 ML MDV) ONE (13:51)
--- NOTE | 2017-04-21 14:27 | P.PCN ---
Date of Procedure: 04/21/17 Procedure(s) Performed: Procedure: Total colonoscopy. Preoperative diagnosis: Screening for neoplasia. Postoperative diagnosis: Sigmoid diverticulosis with no evidence of acute diverticulitis, strictures, polyps or cancer. Preparation: HalfLytely prep. Sedation: Was provided by anesthesia. Brief clinical history: The patient is a 52-year-old female who is scheduled for this evaluation for screening for neoplasia age being her risk factor. There is no family history of colon cancer and this would be her first colonoscopy. The patient has occasional issues with alternating bowel movements but no alarm symptoms. Procedure: With the patient on her left lateral decubitus position and after informed consent and adequate sedation, the perianal area was inspected and it did not show any fissures or fistulas. There were no masses felt on digital rectal examination. The Olympus CFQ 160L video colonoscope was then inserted in the rectum in the usual fashion and advanced to the cecum. I intubated the ileocecal valve and examined the terminal ileum. There was few small diverticular orifices seen scattered in the sigmoid with no evidence of acute diverticulitis or strictures. Otherwise, exam of the colon and terminal ileum was within normal limits. There were no polyps or tumors seen or any evidence of inflammation. I retroflexed the endoscope in the rectum before the endoscope was withdrawn. The patient tolerated the procedure well. Plan: The patient was reassured. Discussed dietary measures. She will follow- up with you as planned and I recommended repeat exam in 10 years.
[2017-04-21 14:52] VITALS: BP 123/77; PULSE 81
[2017-04-21 14:55] VITALS: RESP 16
== END 2017-04-21 15:17 | disposition home or self-care (01) ==
LOC: ORWHC2ENDO 12:08
DX: Z12.11 Encounter for screening for malignant neoplasm of colon (principal); K57.30 Diverticulosis of large intestine without perforation or abscess without bleeding; K21.9 Gastro-esophageal reflux disease without esophagitis; F17.210 Nicotine dependence, cigarettes, uncomplicated; I10 Essential (primary) hypertension; J45.909 Unspecified asthma, uncomplicated; M79.7 Fibromyalgia; Z88.2 Allergy status to sulfonamides; Z88.1 Allergy status to other antibiotic agents; Z79.1 Long term (current) use of non-steroidal anti-inflammatories (NSAID); Z79.899 Other long term (current) drug therapy; Z79.891 Long term (current) use of opiate analgesic; Z79.51 Long term (current) use of inhaled steroids
CPT/HCPCS: 45378; J2001; J2704

== ENCOUNTER → 2017-10-04 | Outpatient (CLI) | payer OTHER ==
--- NOTE | 2017-10-04 14:33 | XR ---
EXAMINATION TYPE: XR wrist complete LT DATE OF EXAM: 10/04/2017 CLINICAL HISTORY: Pain and swelling per patient. Effusion per order. TECHNIQUE: Frontal, lateral, scaphoid, and oblique images of the left wrist are obtained. COMPARISON: None FINDINGS: There is no acute fracture/dislocation evident in the left wrist. There is advanced joint space loss at radiocarpal articulation. There is marked widening of the scapholunate joint space with small ossific bone fragments. There is destruction of the proximal one half of the scaphoid. Hamate is proximally displaced now articulating with the distal radius. There is moderate focal soft tissue swelling along the radial aspect. Mild narrowing at base of first metacarpal is present. 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
--- NOTE | 2017-10-06 12:03 | MM ---
Reason for exam: screening (asymptomatic). Last mammogram was performed 2 years and 8 months ago. History: Patient is postmenopausal. Physical Findings: A clinical breast exam by your physician is recommended on an annual basis and results should be correlated with mammographic findings. MG Screening Mammo w CAD Bilateral CC and MLO view(s) were taken. XCCL view(s) were taken of the right breast. Prior study comparison: January 29, 2015, bilateral MG 3d diag mammo w/cad LUPE. The breast tissue is heterogeneously dense. This may lower the sensitivity of mammography. There is no discrete abnormality including area of concern. No significant changes when compared with prior studies. ASSESSMENT: Negative, BI-RAD 1 RECOMMENDATION: Routine screening mammogram of both breasts in 1 year.
== END | disposition home or self-care (01) ==
LOC: RADMAMWWP 13:40
PROVIDERS: ATTEND Family Medicine
DX: Z12.31 Encounter for screening mammogram for malignant neoplasm of breast (principal); M25.432 Effusion, left wrist
CPT/HCPCS: 77067

== ENCOUNTER → 2018-01-14 | Outpatient (CLI) | payer OTHER ==
--- NOTE | 2018-01-14 21:11 | MR ---
EXAMINATION TYPE: MR brain wo/w con DATE OF EXAM: 01/14/2018 COMPARISON: NONE HISTORY: Dizziness, lightheadedness, suspect multiple sclerosis TECHNIQUE: Multiplanar, multisequence images of the brain and brainstem is performed without and with IV contras t, utilizing 7.5 mL intravenous Gadavist . FINDINGS: Diffusion weighted images demonstrate no evidence of a recent infarct or other diffusion ab normality. There is no extra-axial fluid collection. The ventricular system and cisternal spaces ar e normal in size and appearance. The brain volume is age appropriate. Scattered areas of high FLAIR and T2 signal are seen in the periventricular white matter without evidence of enhancement or diffusi on restriction. The largest is in the periventricular left white matter again measuring 1.1 x 0.9 cm (FLAIR sequence 21). These are all similar when compared to the prior study. Midline structures demonstrate normal morphology. The craniocervical junction appears within normal limits. Post contrast images demonstrate no abnormal enhancement. The dural venous sinuses appear pa tent. The visualized sinuses are clear and the globes are intact. Post contrast images demonstrate no evidence of enhancement. IMPRESSION: Redemonstration of multiple bilateral periventricular white matter changes. Distribution and signal c haracteristics are identical to prior study of 07/13/2016. Largest is again located in the left centru m semiovale and measures up to 1.1 cm. None of these abnormal signal focuses demonstrate any diffusio n restriction or enhancement. Etiology remains similar and a demyelinating process such as multiple s clerosis remains a primary differential.
== END | disposition home or self-care (01) ==
LOC: RADMRIMAIN 14:28
PROVIDERS: ATTEND Psychiatry & Neurology Neurology
DX: R90.82 White matter disease, unspecified (principal)
CPT/HCPCS: 70553; A9585

== ENCOUNTER 2018-02-14 07:51 | Emergency (ER) | payer OTHER ==
[2018-02-14 08:38] VITALS: RESP 16
--- NOTE | 2018-02-14 08:54 | CT ---
EXAMINATION TYPE: CT brain s[place] DATE OF EXAM: 02/14/2018 COMPARISON: None HISTORY: 52-year-old female with pain after Fall CT DLP: 1293.5 mGycm Automated exposure control for dose reduction was used. Technique: Examination of the head was done in axial plane without intravenous contrast. Coronal and sagittal reconstructions performed. CT of the cervical spine was obtained in axial plane without intravenous injection of contrast mater ial. Coronal and sagittal reformatted images were obtained from the axial views for evaluation of f ractures, spinal alignment and canal. FINDINGS: Head: There is no evidence of acute intracranial hemorrhage, acute ischemic changes, mass, mass-effect, or extra-axial fluid collection. There is no effacement of cerebral sulci or basal subarachnoid cister ns. There is no hydrocephalus. There is no midline shift. Barth-white matter distinction is preserv ed. Some patchy subcortical hypodensity in the lateral aspect of the left frontal lobe is unchanged from 2011 suggesting some chronic change, possibly related to chronic small vessel ischemic disease. Paranasal sinuses and mastoid air cells well pneumatized. Orbits and globes are intact. No calvarial fracture. Cervical spine: Retropharyngeal course left ICA. No craniocervical junction abnormality, predental space widening, or prevertebral soft tissue swellin g. Degenerative changes at the C1 dens articulation. Reversal of the normal cervical lordosis. Trace grade 1 anterolisthesis (C4-C5) above the patient's C5-C7 ACDF. Metal hardware artifact limit a ssessment of the spinal canal particularly at the surgical levels but there is residual posterior ost eophytic ridging minimally to mildly narrowing the spinal canal along the surgical levels. No acute fracture of the cervical spine. Uncovertebral joint arthropathy above the fusion. Moderate right neuroforaminal stenosis at C4-C5, mild to moderate bilateral C5-C6, moderate left grea ter than right at C6-C7. Sagittal and coronal reformatted images confirm above findings. COMBINED IMPRESSION: 1. No acute intracranial abnormality seen. 2. No acute fracture of the cervical spine. Uncomplicated appearance to the C5-C7 ACDF. Degenerative trace grade 1 anterolisthesis above the fusion at C4-C5. Variable bony neuroforaminal narrowing as me ntioned above and some residual posterior osteophytic ridging at the surgical levels.
--- NOTE | 2018-02-14 08:54 | ED ---
General Adult HPI <Chirag Parker - Last Filed: 02/14/18 10:59> - General Source: patient, RN notes reviewed Mode of arrival: EMS Limitations: no limitations <Clive Mckeon - Last Filed: 02/14/18 11:35> - General Chief complaint: Extremity Injury, Upper Stated complaint: [place] pain/injury Time Seen by Provider: 02/14/18 08:14 - History of Present Illness Initial comments: Patient's a 52-year-old female presenting to the emergency room today by EMS, the chief complaint of increased pain to the right shoulder. She does admit that she was drinking last night and when she was walking into the house she tripped over the rug falling into she believes the refrigerator. Patient states she did not lose consciousness. She does admit that she was alcohol last night. She does admit that she's has noticed that having difficult time with certain movements of the right hand. She states she's had numbness tingling from the elbow down. Patient states pain with movement of the right shoulder. Patient denies any other complaints or injuries at this time. Patient denies any recent fever, chills, shortness of breath, chest pain, back pain, abdominal pain, nausea or vomiting, headaches or visual changes, or any other complaints. (Clive Mckeon) - Related Data Home Medications Medication Instructions Recorded Confirmed Gabapentin [Neurontin] 600 mg PO TID 06/24/15 04/18/17 Famotidine [Pepcid AC] 10 mg PO Q12H PRN 07/29/15 04/18/17 Ibuprofen [Motrin] 800 mg PO TID PRN 07/29/15 04/18/17 Acetaminophen [Tylenol] 1,000 mg PO Q4H PRN 05/19/16 04/18/17 Albuterol Inhaler [Ventolin Hfa 2 puff INHALATION RT-Q6H PRN 05/19/16 04/18/17 Inhaler] Ascorbic Acid [Vitamin C] 1,000 mg PO DAILY 05/19/16 04/18/17 Cholecalciferol [Vitamin D3] 1,000 unit PO DAILY 05/19/16 04/18/17 Cyanocobalamin (Vitamin B-12) 2,000 mcg PO DAILY 05/19/16 04/18/17 [Vitamin B-12] Echinacea 400 mg PO DAILY 05/19/16 04/18/17 Garlic 1 tab PO DAILY 05/19/16 04/18/17 Hydrocodone/Acetaminophen [[place] 1 tab PO TID PRN 05/19/16 04/18/17 7.5-325] Lisinopril-Hctz 20-25 mg 0.5 tab PO HS 05/19/16 04/18/17 [Zestoretic 20-25] Lisinopril-Hctz 20-25 mg 1 tab PO DAILY 05/19/16 04/18/17 [Zestoretic 20-25] Magnesium Oxide [Mag-Ox] 250 mg PO DAILY 05/19/16 04/18/17 [place]-3 Fatty Acids/Fish Oil [Fish 1 cap PO DAILY 05/19/16 04/18/17 Oil 1,000 mg Softgel] Vitamin E (Dl,Tocopheryl Acet) 400 unit PO DAILY 05/19/16 04/18/17 [Vitamin E] Previous Rx's Medication Instructions Recorded Clindamycin HCl 300 mg PO Q6H #40 cap 02/14/18 Allergies Allergy/AdvReac Type Severity Reaction Status Date / Time ciprofloxacin [From Cipro] Allergy Swelling. Verified 02/14/18 08:38 SOB. ciprofloxacin HCl Allergy Swelling. Verified 02/14/18 08:38 [From Cipro] SOB. sulfamethoxazole Allergy Unknown Verified 02/14/18 08:38 [From Bactrim] trimethoprim [From Bactrim] Allergy Unknown Verified 02/14/18 08:38 Review of Systems ROS Other: All systems not noted in ROS Statement are negative. <Chirag Parker - Last Filed: 02/14/18 10:59> ROS Other: All systems not noted in ROS Statement are negative. <Clive Mckeon - Last Filed: 02/14/18 11:35> ROS Statement: Those systems with pertinent positive or pertinent negative responses have been documented in the HPI. Past Medical History Past Medical History: Fibromyalgia, GERD/Reflux, Hypertension, Musculoskeletal Disorder Additional Past Medical History / Comment(s): OCC. PALPITATIONS, herniated disks , NECK PAIN, NUMBNESS IN ARMS and left leg, PT DOES SELF CATHETERIZATION. , HX OF ANEMIA. DIZZINESS. VIRAL MENIGITIS WHEN YOUNGER, History of Any Multi-Drug Resistant Organisms: None Reported Past Surgical History: Back Surgery, Tubal Ligation Additional Past Surgical History / Comment(s): CERVICAL DECOMPRESSION/DISCESTOMY /FUSION Past Anesthesia/Blood Transfusion Reactions: Previous Problems w/ Anesthesia Additional Past Anesthesia/Blood Transfusion Reaction / Comment(s): PT WOKE UP ANGRY.- STATES HER DAUGHTER HAS THE SAME REACTION. Past Psychological History: Anxiety, Bipolar, Depression, Panic Disorder Smoking Status: Current every day smoker Past Alcohol Use History: Abuse, Daily Past Drug Use History: None Reported - Past Family History Father Family Medical History: Coronary Artery Disease (CAD), Diabetes Mellitus Mother Additional Family Medical History / Comment(s): SUBDURAL HEMATOMA <Clive Mckeon - Last Filed: 02/14/18 11:35> General Exam <NicholeayushChirag Trish - Last Filed: 02/14/18 10:59> Limitations: no limitations <Clive Mckeon - Last Filed: 02/14/18 11:35> - General Exam Comments Initial Comments: General: The patient is awake and alert, mild distress. Eye: Pupils are equal, round and reactive to light, extra-ocular movements are intact. No nystagmus. There is normal conjunctiva bilaterally. No signs of icterus. Ears, nose, mouth and throat: There are moist mucous membranes and no oral lesions. Neck: The neck is supple. Cardiovascular: There is a regular rate and rhythm. No murmur, rub or gallop is appreciated. Respiratory: Lungs are clear to auscultation, respirations are non-labored, breath sounds are equal. No wheezes, stridor, rales, or rhonchi. Musculoskeletal: Patient shows limited range of motion of the right arm due to pain. Patient does have feeling to touch down into the right hand and fingers. She is able to open and close fingers but not able to make tight fist or fully extend fingers. Patient able to flex at the right wrist but with extension only comes back to neutral position. Normal appearance of the cervical and thoracic spine. No step-off or deformity. Mild tenderness at the base of the cervical spine from C5 to C6. Radial pulses equal bilaterally 2+. Neurological: A&O x 3. CN II-XII intact, There are no obvious motor or sensory deficits. Coordination appears grossly intact. Speech is normal. Skin: Skin is warm and dry and no rashes or lesions are noted. Psychiatric: Cooperative, appropriate mood & affect, normal judgment. (Clive Mckeon) Vital Signs 02/14/18 02/14/18 02/14/18 08:35 09:56 10:00 Temperature 98.0 F Pulse Rate 75 76 81 Respiratory 16 16 16 Rate Blood Pressure 106/85 123/70 123/90 O2 Sat by Pulse 96 96 97 Oximetry Procedures - Orthopedic Joint Reduction Joint #1 Consent Obtained: written consent Time Out Performed: Yes Side: right Analgesia: procedural sedation Shoulder Technique Used (if applicable): traction/counter-traction, external rotation Post-Reduction Neuro Exam: no change Post-Reduction Vascular Exam: no change Post Reduction X-Ray Obtained: Yes Post Reduction X-Ray Results: reduced Splint Applied: Yes Patient Tolerated Procedure: well, no complications - Procedural Sedation Procedural Sedation Start Time: 09:56 Procedural Sedation Stop Time: 10:36 Indications: fracture/dislocation reduction ASA Class: II Mallampati Airway Score: 3 Preparation: utility worker film processing applied, pulse oximeter, capnometry used, supplemental O2 applied, suction/airway equipment at bedside, IV secured IV Etomidate Dose (mgs): 20 Complications: none Patient Tolerated Procedure: well <Chirag Parker - Last Filed: 02/14/18 10:59> Medical Decision Making <Chirag Parker - Last Filed: 02/14/18 10:59> <Clive Mckeon - Last Filed: 02/14/18 11:35> - Medical Decision Making 52-year-old female, fall onto right upper extremity, patient has dislocated shoulder anteriorly. Consents are signed, procedural sedation for shoulder dislocation is performed with 2 providers, respiratory therapist, and nurse at bedside. Patient tolerates the procedure well, she has reduction of right shoulder. She does have some weakness and extension at the wrist and some numbness in the distal right upper extremity probably dorsally. This was present prior to reduction. Patient is able to emergency department after sedation, no complications, will follow up with orthopedics. (Chirag Parker) Patient's x-ray did show a anterior right shoulder dislocation. Patient prior to reduction did have slight deficits to the right hand and wrist area. Post reduction deficits remain the same. Patient still able to open and close hand but not with a tight fist or fully extend the fingers. Patient is able to flex at the wrist but has difficult time with extension past a neutral position. Conscious sedation and reduction was performed by attending physician Dr. Parker. Patient's CT the head neck shows no acute abnormality. Results were discussed with the patient. She's been placed in an arm sling. Patient will have a ride coming to get her to take her home. She is advised follow-up with orthopedics over the next 2 days. Patient also was stated that she has a small spot to her buttocks and a history of MRSA and was concerned that this may be the beginnings. Patient will be started on clindamycin due to ALLERGY to Bactrim. (Clive Mckeon) Disposition <Chirag Parker - Last Filed: 02/14/18 10:59> Is patient prescribed a controlled substance at d/c from ED?: No Time of Disposition: 11:35 <Clive Mckeon - Last Filed: 02/14/18 11:35> Clinical Impression: Shoulder dislocation Disposition: HOME SELF-CARE Condition: Good Instructions: Shoulder Dislocation (ED) Additional Instructions: Please use medication as discussed. Please follow-up with orthopedic/family doctor in the next 2 days. Please return to emergency room if the symptoms increase or worsen or for any other concerns. Prescriptions: Clindamycin HCl 300 mg PO Q6H #40 cap Referrals: James Moreland DO [Primary Care Provider] - 1-2 days Patel Alonzo MD [STAFF PHYSICIAN] - 1-2 days
--- NOTE | 2018-02-14 08:55 | XR ---
EXAMINATION TYPE: XR shoulder limited RT DATE OF EXAM: 02/14/2018 COMPARISON: NONE HISTORY: 52-year-old female with pain after fall TECHNIQUE: 2 views FINDINGS: Images demonstrate in the anterior subcoracoid glenohumeral joint dislocation. Suspect moderate to se maryjane degenerative change at the AC joint. Visualized right hemithorax is clear. No acute fracture see n. IMPRESSION: Anterior, subcoracoid glenohumeral joint dislocation.
[2018-02-14] MEDS ORDERED: MORPHINE SULFATE 4 MG/ML SYRINGE IV STA (09:30)
[2018-02-14] MEDS ORDERED: KETOROLAC 30 MG/ML 1 ML VIAL IVP STA (09:32)
[2018-02-14] MEDS: ETOMIDATE 2 MG/ML 10 ML VIAL IVP STA ×2 (09:56→10:06)
--- NOTE | 2018-02-14 10:24 | XR ---
EXAMINATION TYPE: XR shoulder limited RT DATE OF EXAM: 02/14/2018 COMPARISON: Exam performed earlier same day HISTORY: Pain TECHNIQUE: Shoulder examined in a single AP view. FINDINGS: The humeral head articulates with the glenoid. The acromio-clavicular junction is normal. No acute fractures or dislocations are evident. IMPRESSION: 1. Reduction of previously dislocated right shoulder.
[2018-02-14 11:54] VITALS: BP 111/73; PULSE 75; TEMP 97.9
== END 2018-02-14 11:56 | disposition home or self-care (01) ==
LOC: EC 07:51
DX: S43.004A Unspecified dislocation of right shoulder joint, initial encounter (principal); M79.7 Fibromyalgia; K21.9 Gastro-esophageal reflux disease without esophagitis; I10 Essential (primary) hypertension; F17.200 Nicotine dependence, unspecified, uncomplicated; Z79.899 Other long term (current) drug therapy; Z88.1 Allergy status to other antibiotic agents; Z88.2 Allergy status to sulfonamides; Z98.1 Arthrodesis status; W01.0XXA Fall on same level from slipping, tripping and stumbling without subsequent striking against object, initial encounter; Y93.01 Activity, walking, marching and hiking
CPT/HCPCS: 99284; 23650; 99152; 99153 ×2; 96374; 96375; 73020; 72125; 70450; J2270; J1885; 82075

== ENCOUNTER 2018-07-07 16:20 | Inpatient (IN) | payer OTHER ==
[2018-07-07] MEDS ORDERED: SODIUM CHLORIDE 0.9% 1,000 ML IV STA ×2 (17:16)
[2018-07-07] MEDS ORDERED: PANTOPRAZOLE 40 MG/10 ML VIAL IVP STA (17:40)
--- NOTE | 2018-07-07 17:40 | ED ---
General Adult HPI - General Chief complaint: Weakness Stated complaint: Weakness Time Seen by Provider: 07/07/18 16:47 Source: patient, RN notes reviewed, old records reviewed Mode of arrival: ambulatory Limitations: no limitations - History of Present Illness Initial comments: 53-year-old female presents emergency department today via EMS. She reports that her ex- called EMS for her. According to a note from her ex- Patient was recently discharged from [facility] with concerns for anemia, uterus enlargement, UTI, acute kidney injury and a thrush. Patient at that time received multiple units of blood had low blood pressures. Patient states that she's been having some abdominal pain since discharge. Patient's 's note also reports that she's been very dizzy unable to ambulate to the bathroom and not able to remember that she needs to feed herself. Patient's reportedly have increased confusion according to . Patient does admit to generalized weakness and having black tarry hard stools. Patient has upper abdominal pain at this time. She denies any chest pain or shortness breath. - Related Data Home Medications Medication Instructions Recorded Confirmed Gabapentin [Neurontin] 600 mg PO TID 06/24/15 04/18/17 Famotidine [Pepcid AC] 10 mg PO Q12H PRN 07/29/15 04/18/17 Ibuprofen [Motrin] 800 mg PO TID PRN 07/29/15 04/18/17 Acetaminophen [Tylenol] 1,000 mg PO Q4H PRN 05/19/16 04/18/17 Albuterol Inhaler [Ventolin Hfa 2 puff INHALATION RT-Q6H PRN 05/19/16 04/18/17 Inhaler] Ascorbic Acid [Vitamin C] 1,000 mg PO DAILY 05/19/16 04/18/17 Cholecalciferol [Vitamin D3] 1,000 unit PO DAILY 05/19/16 04/18/17 Cyanocobalamin (Vitamin B-12) 2,000 mcg PO DAILY 05/19/16 04/18/17 [Vitamin B-12] Echinacea 400 mg PO DAILY 05/19/16 04/18/17 Garlic 1 tab PO DAILY 05/19/16 04/18/17 Hydrocodone/Acetaminophen [[place] 1 tab PO TID PRN 05/19/16 04/18/17 7.5-325] Lisinopril-Hctz 20-25 mg 0.5 tab PO HS 05/19/16 04/18/17 [Zestoretic 20-25] Lisinopril-Hctz 20-25 mg 1 tab PO DAILY 05/19/16 04/18/17 [Zestoretic 20-25] Magnesium Oxide [Mag-Ox] 250 mg PO DAILY 05/19/16 04/18/17 [place]-3 Fatty Acids/Fish Oil [Fish 1 cap PO DAILY 05/19/16 04/18/17 Oil 1,000 mg Softgel] Vitamin E (Dl,Tocopheryl Acet) 400 unit PO DAILY 05/19/16 04/18/17 [Vitamin E] Previous Rx's Medication Instructions Recorded Clindamycin HCl 300 mg PO Q6H #40 cap 02/14/18 Allergies Allergy/AdvReac Type Severity Reaction Status Date / Time ciprofloxacin [From Cipro] Allergy Swelling. Verified 02/14/18 08:38 SOB. ciprofloxacin HCl Allergy Swelling. Verified 02/14/18 08:38 [From Cipro] SOB. sulfamethoxazole Allergy Unknown Verified 02/14/18 08:38 [From Bactrim] trimethoprim [From Bactrim] Allergy Unknown Verified 02/14/18 08:38 Review of Systems ROS Statement: Those systems with pertinent positive or pertinent negative responses have been documented in the HPI. ROS Other: All systems not noted in ROS Statement are negative. Past Medical History Past Medical History: Fibromyalgia, GERD/Reflux, Hypertension, Musculoskeletal Disorder Additional Past Medical History / Comment(s): OCC. PALPITATIONS, herniated disks, NECK PAIN, NUMBNESS IN ARMS and left leg, PT DOES SELF CATHETERIZATION. , HX OF ANEMIA. DIZZINESS. VIRAL MENIGITIS WHEN YOUNGER, History of Any Multi-Drug Resistant Organisms: None Reported Past Surgical History: Back Surgery, Tubal Ligation Additional Past Surgical History / Comment(s): CERVICAL DECOMPRESSION/DISCES POLLY/FUSION Past Anesthesia/Blood Transfusion Reactions: Previous Problems w/ Anesthesia Additional Past Anesthesia/Blood Transfusion Reaction / Comment(s): PT WOKE UP ANGRY.- STATES HER DAUGHTER HAS THE SAME REACTION. Past Psychological History: Anxiety, Bipolar, Depression, Panic Disorder Smoking Status: Current every day smoker Past Alcohol Use History: Abuse, Daily Past Drug Use History: None Reported - Past Family History Father Family Medical History: Coronary Artery Disease (CAD), Diabetes Mellitus Mother Additional Family Medical History / Comment(s): SUBDURAL HEMATOMA General Exam - General Exam Comments Initial Comments: 33-year-old female. Somewhat confused conversation. Alert and oriented 3, tangential conversations noted. Limitations: no limitations General appearance: alert, in no apparent distress Head exam: Present: atraumatic, normocephalic, normal inspection Eye exam: Present: normal appearance, PERRL, EOMI. Absent: scleral icterus, conjunctival injection, periorbital swelling ENT exam: Present: normal exam, mucous membranes moist Neck exam: Present: normal inspection. Absent: tenderness, meningismus, lym phadenopathy Respiratory exam: Present: normal lung sounds bilaterally. Absent: respiratory distress, wheezes, rales, rhonchi, stridor Cardiovascular Exam: Present: regular rate, normal rhythm, normal heart sounds. Absent: systolic murmur, diastolic murmur, rubs, gallop, clicks GI/Abdominal exam: Present: soft, tenderness (Epigastric pain), normal bowel sounds. Absent: distended, guarding, rebound, rigid Extremities exam: Present: normal inspection, full ROM, normal capillary refill. Absent: tenderness, pedal edema, joint swelling, calf tenderness Back exam: Present: normal inspection Neurological exam: Present: alert, oriented X3, CN II-XII intact Psychiatric exam: Present: normal affect, normal mood Skin exam: Present: warm, dry, intact, normal color. Absent: rash Course Vital Signs 07/07/18 07/07/18 16:33 19:37 Temperature 98.7 F 98.8 F Pulse Rate 93 89 Respiratory 18 20 Rate Blood Pressure 127/84 130/82 O2 Sat by Pulse 100 97 Oximetry - Reevaluation(s) Reevaluation #1: 07/07/18 17:37 Please see note attached to patient's chart from patient's ex-. Medical Decision Making - Medical Decision Making 53-year-old female presents emergency department today encouraged by her for multiple complaints of increased confusion dark stools, or and increased confusion and weakness. Upon reviewing patient's chart as [facility] recent admission she is admitted for a uterine enlargement concern for possible cancer and ureteral instructions that time. She was on antibiotics. She was also found to be significantly anemic at that time and received blood transfusions. Her hemoglobin was 6 and discharged with a hemoglobin of 9. Patient reports that she is scheduled to have an upper endoscopy in a few weeks. She does states she's had continued abdominal pain. Her husbands concern for decline in mental status, worsening dark stools. On arrival Patient had EKG which touch significant anterior and lateral ischemic T-wave changes. Patient's hemoglobin is 9.9. On rectal exam she had no significant black tarry stool, occult completed. Patient kidney function was reviewed and normal. Urinalysis did show some sign of infection, Patient does have to straight catheterized herself for the past 5 years. Patient will be started on Rocephin, Protonix and aspirin. Troponin was noted to be elevated at 0.92. Unconcerned start the Patient on heparin with the concerns for GI bleed. - Lab Data Result diagrams: 07/07/18 17:50 07/07/18 17:50 Lab Results 07/07/18 07/07/18 07/07/18 Range/Units 17:50 17:50 17:50 WBC 9.2 (3.8-10.6) k/uL RBC 2.84 L (3.80-5.40) m/uL Hgb 9.9 L (11.4-16.0) gm/dL Hct 30.4 L (34.0-46.0) % MCV 107.2 H (80.0-100.0) fL MCH 34.8 (25.0-35.0) pg MCHC 32.5 (31.0-37.0) g/dL RDW 19.2 H (11.5-15.5) % Plt Count 280 (150-450) k/uL Neutrophils % 70 % Lymphocytes % 23 % Monocytes % 5 % Eosinophils % 1 % Basophils % 1 % Neutrophils # 6.4 (1.3-7.7) k/uL Lymphocytes # 2.1 (1.0-4.8) k/uL Monocytes # 0.4 (0-1.0) k/uL Eosinophils # 0.1 (0-0.7) k/uL Basophils # 0.0 (0-0.2) k/uL Anisocytosis Slight Macrocytosis Marked A PT (9.0-12.0) sec INR (<1.2) APTT (22.0-30.0) sec Sodium 137 (137-145) mmol/L Potassium 3.8 (3.5-5.1) mmol/L Chloride 108 H (98-107) mmol/L Carbon Dioxide 18 L (22-30) mmol/L Anion Gap 11 mmol/L BUN 14 (7-17) mg/dL Creatinine 0.82 (0.52-1.04) mg/dL Est GFR (CKD-EPI)AfAm >90 (>60 ml/min/1.73 sqM) Est GFR (CKD-EPI)NonAf 81 (>60 ml/min/1.73 sqM) Glucose 89 (74-99) mg/dL Plasma Lactic Acid Ayo (0.7-2.0) mmol/L Calcium 11.2 H (8.4-10.2) mg/dL Magnesium 1.7 (1.6-2.3) mg/dL Total Bilirubin 0.8 (0.2-1.3) mg/dL AST 84 H (14-36) U/L ALT 45 (9-52) U/L Alkaline Phosphatase 245 H (38-126) U/L Troponin I (0.000-0.034) ng/mL Total Protein 7.4 (6.3-8.2) g/dL Albumin 3.7 (3.5-5.0) g/dL Urine Color Urine Appearance (Clear) Urine pH (5.0-8.0) Ur Specific [place] (1.001-1.035) Urine Protein (Negative) Urine Glucose (UA) (Negative) Urine Ketones (Negative) Urine Blood (Negative) Urine Nitrite (Negative) Urine Bilirubin (Negative) Urine Urobilinogen (<2.0) mg/dL Ur Leukocyte Esterase (Negative) Urine RBC (0-5) /hpf Urine WBC (0-5) /hpf Ur Squamous Epith Cells (0-4) /hpf Amorphous Sediment (None) /hpf Urine Bacteria (None) /hpf Urine Mucus (None) /hpf Blood Type O Positive Blood Type Recheck No Antibody Screen NEGATIVE Spec Expiration Date 07/10/2018 - 234907/07/18 07/07/18 07/07/18 Range/Units 17:50 17:50 17:50 WBC (3.8-10.6) k/uL RBC (3.80-5.40) m/uL Hgb (11.4-16.0) gm/dL Hct (34.0-46.0) % MCV (80.0-100.0) fL MCH (25.0-35.0) pg MCHC (31.0-37.0) g/dL RDW (11.5-15.5) % Plt Count (150-450) k/uL Neutrophils % % Lymphocytes % % Monocytes % % Eosinophils % % Basophils % % Neutrophils # (1.3-7.7) k/uL Lymphocytes # (1.0-4.8) k/uL Monocytes # (0-1.0) k/uL Eosinophils # (0-0.7) k/uL Basophils # (0-0.2) k/uL Anisocytosis Macrocytosis PT 10.7 (9.0-12.0) sec INR 1.0 (<1.2) APTT 22.2 (22.0-30.0) sec Sodium (137-145) mmol/L Potassium (3.5-5.1) mmol/L Chloride (98-107) mmol/L Carbon Dioxide (22-30) mmol/L Anion Gap mmol/L BUN (7-17) mg/dL Creatinine (0.52-1.04) mg/dL Est GFR (CKD-EPI)AfAm (>60 ml/min/1.73 sqM) Est GFR (CKD-EPI)NonAf (>60 ml/min/1.73 sqM) Glucose (74-99) mg/dL Plasma Lactic Acid Ayo 1.2 (0.7-2.0) mmol/L Calcium (8.4-10.2) mg/dL Magnesium (1.6-2.3) mg/dL Total Bilirubin (0.2-1.3) mg/dL AST (14-36) U/L ALT (9-52) U/L Alkaline Phosphatase (38-126) U/L Troponin I 0.092 H* (0.000-0.034) ng/mL Total Protein (6.3-8.2) g/dL Albumin (3.5-5.0) g/dL Urine Color Urine Appearance (Clear) Urine pH (5.0-8.0) Ur Specific [place] (1.001-1.035) Urine Protein (Negative) Urine Glucose (UA) (Negative) Urine Ketones (Negative) Urine Blood (Negative) Urine Nitrite (Negative) Urine Bilirubin (Negative) Urine Urobilinogen (<2.0) mg/dL Ur Leukocyte Esterase (Negative) Urine RBC (0-5) /hpf Urine WBC (0-5) /hpf Ur Squamous Epith Cells (0-4) /hpf Amorphous Sediment (None) /hpf Urine Bacteria (None) /hpf Urine Mucus (None) /hpf Blood Type Blood Type Recheck Antibody Screen Spec Expiration Date 07/07/18 Range/Units 18:08 WBC (3.8-10.6) k/uL RBC (3.80-5.40) m/uL Hgb (11.4-16.0) gm/dL Hct (34.0-46.0) % MCV (80.0-100.0) fL MCH (25.0-35.0) pg MCHC (31.0-37.0) g/dL RDW (11.5-15.5) % Plt Count (150-450) k/uL Neutrophils % % Lymphocytes % % Monocytes % % Eosinophils % % Basophils % % Neutrophils # (1.3-7.7) k/uL Lymphocytes # (1.0-4.8) k/uL Monocytes # (0-1.0) k/uL Eosinophils # (0-0.7) k/uL Basophils # (0-0.2) k/uL Anisocytosis Macrocytosis PT (9.0-12.0) sec INR (<1.2) APTT (22.0-30.0) sec Sodium (137-145) mmol/L Potassium (3.5-5.1) mmol/L Chloride (98-107) mmol/L Carbon Dioxide (22-30) mmol/L Anion Gap mmol/L BUN (7-17) mg/dL Creatinine (0.52-1.04) mg/dL Est GFR (CKD-EPI)AfAm (>60 ml/min/1.73 sqM) Est GFR (CKD-EPI)NonAf (>60 ml/min/1.73 sqM) Glucose (74-99) mg/dL Plasma Lactic Acid Ayo (0.7-2.0) mmol/L Calcium (8.4-10.2) mg/dL Magnesium (1.6-2.3) mg/dL Total Bilirubin (0.2-1.3) mg/dL AST (14-36) U/L ALT (9-52) U/L Alkaline Phosphatase (38-126) U/L Troponin I (0.000-0.034) ng/mL Total Protein (6.3-8.2) g/dL Albumin (3.5-5.0) g/dL Urine Color Yellow Urine Appearance Cloudy H (Clear) Urine pH 6.0 (5.0-8.0) Ur Specific [place] 1.014 (1.001-1.035) Urine Protein 1+ H (Negative) Urine Glucose (UA) Negative (Negative) Urine Ketones Negative (Negative) Urine Blood Trace H (Negative) Urine Nitrite Negative (Negative) Urine Bilirubin Negative (Negative) Urine Urobilinogen <2.0 (<2.0) mg/dL Ur Leukocyte Esterase Moderate H (Negative) Urine RBC 3 (0-5) /hpf Urine WBC 37 H (0-5) /hpf Ur Squamous Epith Cells 68 H (0-4) /hpf Amorphous Sediment Occasional H (None) /hpf Urine Bacteria Few H (None) /hpf Urine Mucus Rare H (None) /hpf Blood Type Blood Type Recheck Antibody Screen Spec Expiration Date 07/07/18 19:16 EKG shows normal sinus rhythm with sinus arrhythmia, inferior infarct agent determined. ST and marked to evaluate consider anterolateral ischemia prolonged QT. Genitourinary 94 beats were minute. Was 140 ms. She caodaism 94 ms. QT QTc is 428/435 ms. Patient has significant change in EKG compared to prior EKG in 2016. - Radiology Data Radiology results: report reviewed Chest x-ray shows negative for cardio pulmonary disease. Normal heart. No change. CT of the brain shows mild atrophy. No acute intracranial abnormality. No change. Disposition Clinical Impression: UTI (urinary tract infection), Non-STEMI (non-ST elevated myocardial infarction), Anemia, Prolonged QT interval, Confusion state Disposition: ADMITTED IP TO THIS HOSP Condition: Good Is patient prescribed a controlled substance at d/c from ED?: No Referrals: James Moreland DO [Primary Care Provider] - 1-2 days Time of Disposition: 19:53
[2018-07-07 18:02] LABS: Anisocytosis Slight; Basophils % (A) 1 %; Eosinophils # (A) 0.1 k/uL (0-0.7); Eosinophils % (A) 1 %; HCT 30.4 % (34.0-46.0); HGB 9.9 gm/dL (11.4-16.0); Lymphocytes # (A) 2.1 k/uL (1.0-4.8); Lymphocytes % (A) 23 %; MCH 34.8 pg (25.0-35.0); MCHC 32.5 g/dL (31.0-37.0); MCV 107.2 fL (80.0-100.0); Macrocytosis Marked; Mean Platelet Volume 8.4; Monocytes # (A) 0.4 k/uL (0-1.0); Monocytes % (A) 5 %; Neutrophils # (A) 6.4 k/uL (1.3-7.7); Neutrophils % (A) 70 %; Platelet Count 280 k/uL (150-450); RBC 2.84 m/uL (3.80-5.40); RDW 19.2 % (11.5-15.5); WBC 9.2 k/uL (3.8-10.6)
[2018-07-07 18:11] LABS: ALT 45 U/L (9-52); AST 84 U/L (14-36); Albumin 3.7 g/dL (3.5-5.0); Alkaline Phosphatase 245 U/L (38-126); Anion Gap 11 mmol/L; Blood Urea Nitrogen 14 mg/dL (7-17); Calcium 11.2 mg/dL (8.4-10.2); Carbon Dioxide 18 mmol/L (22-30); Chloride 108 mmol/L (98-107); Glucose 89 mg/dL (74-99); Magnesium 1.7 mg/dL (1.6-2.3); Potassium 3.8 mmol/L (3.5-5.1); Sodium 137 mmol/L (137-145); Total Bilirubin 0.8 mg/dL (0.2-1.3); Total Protein 7.4 g/dL (6.3-8.2)
[2018-07-07 18:16] LABS: Partial Thromboplastin Time 22.2 sec (22.0-30.0); Prothrombin Time 10.7 sec (9.0-12.0)
[2018-07-07 18:21] LABS: Amorphous Sediment,Urine Occasional /hpf; Appearance,Urine Cloudy (Clear); Bacteria,Urine Few /hpf; Bilirubin,Urine Negative (Negative); Blood,Urine Trace (Negative); Color,Urine Yellow; Glucose,Urine (UA) Negative (Negative); Ketones,Urine Negative (Negative); Leukocyte Esterase,Urine Moderate (Negative); Mucus,Urine Rare /hpf; Nitrite,Urine Negative (Negative); Protein,Urine 1+ (Negative); RBC,Urine 3 /hpf (0-5); Specific Gravity,Urine 1.014 (1.001-1.035); Squamous Epithelial Cell,Urine 68 /hpf (0-4); Urobilinogen,Urine <2.0 mg/dL (<2.0)
--- NOTE | 2018-07-07 18:54 | CT ---
EXAMINATION TYPE: CT brain wo con DATE OF EXAM: 07/07/2018 COMPARISON: 02/14/2018 HISTORY: weakness CT DLP: 1123.4 mGycm Automated exposure control for dose reduction was used. FINDINGS: There is mild cerebral cortical atrophy. There is no mass effect nor midline shift. There is no sign of intracranial hemorrhage. The calvarium is intact. IMPRESSION: MILD ATROPHY. NO ACUTE INTRACRANIAL ABNORMALITY. NO CHANGE.
--- NOTE | 2018-07-07 19:06 | XR ---
EXAMINATION TYPE: XR chest 2V DATE OF EXAM: 07/07/2018 COMPARISON: 06/05/2015 HISTORY: Weakness TECHNIQUE: Frontal and lateral views of the chest are obtained. FINDINGS: Heart and mediastinum are normal. Lungs are clear of consolidation. There is no pleural ef fusion. Bony thorax is intact. There is increased density over the left lower lung field that is prob ably nipple shadow. IMPRESSION: No active cardiopulmonary disease. Normal heart. No change.
[2018-07-07] MEDS ORDERED: ASPIRIN 325 MG TAB PO STA (19:48)
[2018-07-07] MEDS ORDERED: POTASSIUM CHLORIDE ER 20 MEQ TAB.ER PO STA (19:51)
[2018-07-07] MEDS ORDERED: NITROGLYCERIN SL TABS 0.4 MG TAB SUBLINGUAL PRN (20:02)
[2018-07-07] MEDS: ATORVASTATIN 40 MG TAB PO SCH (23:18)
[2018-07-07] MEDS: HYDROcodone/APAP 7.5-325MG 1 EACH TAB PO PRN (23:18)
[2018-07-08 05:54] LABS: Cholesterol 113 mg/dL (<200); HDL Cholesterol 42 mg/dL (40-60); LDL Cholesterol,Calculated 49 mg/dL (0-99); Triglycerides 112 mg/dL (<150)
--- NOTE | 2018-07-08 08:05 | P.CRDCN ---
History of Present Illness Consult date: 07/08/18 Requesting physician: Carmen Coughlin Reason for Consult (text): Abnormal troponin Chief complaint: Abdominal discomfort, weakness, mental status changes History of present illness: This is a 53-year-old female history is very difficult to obtain from the patient, she doesn't recall exactly why she is here, she doesn't remember any recent workup that she has had although apparently she's been in [facility] recently. She is very weak, she has some chills and shaking. Appare ntly according to the emergency records, she was recently in [facility] with concerns for anemia, uterus enlargement, UTI, acute kidney injury, and thrush. She apparently had received multiple units of blood and had low blood pressures there. Since her discharge from [facility] she's been having abdominal discomfort, she's been dizzy and unable to ambulate, she's also forgetting to even eat. Increased confusion at home and significant weakness. According to the patient she does remember having black tarry stools, she is unsure exactly of what the workup was at [facility]. The patient states that she does have a history of high blood pressure, nicotine dependence, she denies being a diabetic, no hyperlipidemia according to her. A CAT scan of the brain was performed on arrival here which revealed mild atrophy with no acute intracranial abnormality. Chest x-ray did not reveal any active cardiopulmonary disease. Her EKG on arrival shows a normal sinus rhythm with significant ST-T wave changes noted in the ant/ lateral leads as well as inferior leads. We do have an EKG from 2016, that time she had a normal sinus rhythm with no changes. White blood cell count 9.2, hemoglobin 9.9, platelet count 280. Sodium 137, potassium 3.8, BUN 14 and creatinine 0.8. AST 84 ALT 45 alk phos 245 magnesium 1.7. Troponin 0.092, 0.117, 0.094. According to the patient, she states that she has been experiencing intermittent chest discomfort. Again her history is very difficult to obtain, once she says something then she shakes her head and is unsure if that was the correct answer or not. Past Medical History Past Medical History: Fibromyalgia, GERD/Reflux, Hypertension, Musculoskeletal Disorder, Osteoarthritis (OA) Additional Past Medical History / Comment(s): OCC. PALPITATIONS, herniated disks, NECK PAIN, NUMBNESS IN ARMS and left leg, PT DOES SELF CATHETERIZATION. , HX OF ANEMIA. DIZZINESS. VIRAL MENIGITIS WHEN YOUNGER, History of Any Multi-Drug Resistant Organisms: None Reported Past Surgical History: No Surgical Hx Reported Additional Past Surgical History / Comment(s): . Past Anesthesia/Blood Transfusion Reactions: Previous Problems w/ Anesthesia Additional Past Anesthesia/Blood Transfusion Reaction / Comment(s): PT WOKE UP ANGRY.- STATES HER DAUGHTER HAS THE SAME REACTION. Past Psychological History: Anxiety, Bipolar, Depression, Panic Disorder Smoking Status: Current every day smoker Past Alcohol Use History: Abuse, Daily Additional Past Alcohol Use History / Comment(s): started smoking age 13, smokes occationally now Past Drug Use History: None Reported - Past Family History Father Family Medical History: Coronary Artery Disease (CAD), Diabetes Mellitus Mother Additional Family Medical History / Comment(s): SUBDURAL HEMATOMA Medications and Allergies Home Medications Medication Instructions Recorded Confirmed Type Gabapentin [Neurontin] 600 mg PO BID 06/24/15 07/07/18 History Ibuprofen [Motrin] 800 mg PO TID PRN 07/29/15 07/07/18 History Albuterol Inhaler [Ventolin Hfa 2 puff INHALATION RT-Q6H PRN 05/19/16 07/07/18 History Inhaler] Hydrocodone/Acetaminophen [[place] 1 tab PO TID PRN 05/19/16 07/07/18 History 7.5-325] Ipratropium [place] [Atrovent Hfa] 2 puff INHALATION RT-TID 07/07/18 07/07/18 History Lisinopril-Hctz 10-12.5 mg 1 tab PO BID 07/07/18 07/07/18 History [Zestoretic 10-12.5] Meclizine [Antivert] 12.5 mg PO BID 07/07/18 07/07/18 History Omeprazole 20 mg PO DAILY 07/07/18 07/07/18 History Allergies Allergy/AdvReac Type Severity Reaction Status Date / Time ciprofloxacin [From Cipro] Allergy Swelling. Verified 07/07/18 20:17 SOB. ciprofloxacin HCl Allergy Swelling. Verified 07/07/18 20:17 [From Cipro] SOB. sulfamethoxazole Allergy Unknown Verified 07/07/18 20:17 [From Bactrim] trimethoprim [From Bactrim] Allergy Unknown Verified 07/07/18 20:17 Physical Exam Vitals: Vital Signs Temp Pulse Pulse Resp BP BP Pulse Ox 07/08/18 04:00 97.6 F 89 18 110/60 93 L 07/08/18 00:14 98.6 F 87 18 117/67 100 07/07/18 20:54 98.4 F 87 20 124/88 100 07/07/18 19:37 98.8 F 89 20 130/82 97 07/07/18 16:33 98.7 F 93 18 127/84 100 Intake and Output 07/07/18 07/08/18 07/08/18 22:59 06:59 14:59 Intake Total 100 Balance 100 Intake: IV 100 Sodium Chloride 0.9% 1, 100 000 ml @ 100 mls/hr IV . Q10H STA Rx#:[id number] Other: Voiding Method Self-Catheterization Weight 65.771 kg 65 kg PHYSICAL EXAMINATION: GENERAL: 53-year-old female in no acute distress at the time of my examination HEENT: Head is atraumatic, normocephalic. Pupils equal, round. Sclera anicteric. Conjunctiva are clear. Mucous membranes of the mouth are moist. Neck is supple. There is no elevated jugular venous pressure. No carotid bruit is heard. HEART EXAMINATION: S1 and S2 1 systolic murmur is heard CHEST EXAMINATION: Lungs are clear to auscultation and precussion. No chest wall tenderness is noted on palpation or with deep breathing. ABDOMEN: Soft, generalized tenderness throughout. Bowel sounds are heard. No organomegaly noted. EXTREMITIES: 2+ peripheral pulses with no evidence of peripheral edema and no calf tenderness noted. NEUROLOGIC patient is awake, alert and oriented 1 . . Results 07/07/18 17:50 07/07/18 17:50 Cardiac Enzymes 07/07/18 07/07/18 07/07/18 Range/Units 17:50 17:50 23:04 AST 84 H (14-36) U/L Troponin I 0.092 H* 0.117 H* (0.000-0.034) ng/mL 07/08/18 Range/Units 05:31 AST (14-36) U/L Troponin I 0.094 H* (0.000-0.034) ng/mL Coagulation 07/07/18 Range/Units 17:50 PT 10.7 (9.0-12.0) sec APTT 22.2 (22.0-30.0) sec Lipids 07/08/18 Range/Units 05:31 Triglycerides 112 (<150) mg/dL Cholesterol 113 (<200) mg/dL HDL Cholesterol 42 (40-60) mg/dL CBC 07/07/18 Range/Units 17:50 WBC 9.2 (3.8-10.6) k/uL RBC 2.84 L (3.80-5.40) m/uL Hgb 9.9 L (11.4-16.0) gm/dL Hct 30.4 L (34.0-46.0) % Plt Count 280 (150-450) k/uL Comprehensive Metabolic Panel 07/07/18 Range/Units 17:50 Sodium 137 (137-145) mmol/L Potassium 3.8 (3.5-5.1) mmol/L Chloride 108 H (98-107) mmol/L Carbon Dioxide 18 L (22-30) mmol/L BUN 14 (7-17) mg/dL Creatinine 0.82 (0.52-1.04) mg/dL Glucose 89 (74-99) mg/dL Calcium 11.2 H (8.4-10.2) mg/dL AST 84 H (14-36) U/L ALT 45 (9-52) U/L Alkaline Phosphatase 245 H (38-126) U/L Total Protein 7.4 (6.3-8.2) g/dL Albumin 3.7 (3.5-5.0) g/dL Current Medications Generic Name Dose Route Start Last Admin Trade Name Freq PRN Reason Stop Dose Admin Hydrocodone Bitart/Acetaminophen 1 each 07/07/18 23:10 07/07/18 23:18 [place] 7.5-325 PO 1 each BID PRN Administration Pain Aspirin 325 mg 07/08/18 09:00 Aspirin PO DAILY SHORTY Atorvastatin Calcium 40 mg 07/07/18 21:00 07/07/18 23:18 Lipitor PO 40 mg HS SHORTY Administration Lisinopril 10 mg 07/08/18 09:00 Zestril PO DAILY SHORTY Nitroglycerin 0.4 mg 07/07/18 20:02 Nitrostat SUBLINGUAL Q5M PRN Chest Pain Intake and Output 07/07/18 07/08/18 07/08/18 22:59 06:59 14:59 Intake Total 100 Balance 100 Intake: IV 100 Sodium Chloride 0.9% 1, 100 000 ml @ 100 mls/hr IV . Q10H STA Rx#:[id number] Other: Voiding Method Self-Catheterization Weight 65.771 kg 65 kg 07/07/18 17:50 07/07/18 17:50 EKG Interpretations (text) EKG shows a normal sinus rhythm with ST-T wave changes noted in the anterior lateral and inferior leads. Deep T-wave inversions. Assessment and Plan Plan: Assessment and plan #1 symptoms of abdominal discomfort with associated weakness #2 recent hospitalization to [facility], unsure exactly of the details, she apparently was admitted with anemia and received several units of blood #3 chest discomfort, EKG shows normal sinus rhythm with anterior lateral and inferior T wave inversion. Troponins 0.092, 0.117, 0.094. #4 history of hypertension #5 nicotine dependence #6 anemia, hemoglobin 9.9, stool for occult blood is negative. #7 abnormal AST and alk phos Plan We will continue her aspirin and Lipitor along with Zestril. We'll obtain an echocardiogram with Doppler study. We will also obtain records from [facility] regarding the patient's recent admission there. Patient's EKG does have significant changes from her old EKG performed here, and does have associated abnormality in troponin. She will require cardiac catheterization to rule out underlying coronary artery disease, and we will await clearance from GI service for this. Further recommendations to follow. DNP note has been reviewed, I agree with a documented findings and plan of care. Patient was seen and examined.
--- NOTE | 2018-07-08 09:51 | P.HPIM ---
History of Present Illness Chief Complaint: Confusion, weakness This is a 53-year-old female who is brought in by the EMS for above-mentioned complaint. Patient the time examination was alert oriented 3 but she was acting confused. She didn't know why she was here and when I asked her who her primary was here in of any of the primary and she thinks that she's been in for a while. Ex- was there at the bedside later on during the second attempt seeing her. He says that her confusion has been going on for at least 6 weeks where it was noticed by one of the friends. The daughter is also concerned when they went to see the patient at Mother's Day. thinks that she is probably having early onset dementia. She was taken to [facility] and she was admitted for possible uterine mass, anemia, UTI and thrush. She was treated for UTI but her confusion still remains. Apparently the patient also has not been eating much patient is complaining of abdominal pain while at [facility]. She was also having black tarry stools while in [facility]. Plan was to do an EGD as an outpatient. At the time examination of the here the patient does not complain of any shortness of breath or cough she does complain of chest pain in the center of the chest, she does not complain any abdominal pain she says that she is nauseous but no vomiting, she does not complain of any diarrhea constipation. She does not complain of any tingling numbness of any extremities, and additional rash. Next ER course-temperature 97.6 pulse 89 respiration 18 blood pressure 110/60 satting 93% on room air. Labwork was initial W BC 9.2 hemoglobin 9.9 platelets 280 sodium 137 potassium 3.8 bun 14 and creatinine 0.82 troponins were elevated. They've air 0.092, 0.117 and 0.094 respectively. Patient was thus admitted to [facility] hospitalist service a further management management with cardiology and GI on consult Review of Systems All systems: negative Past Medical History Past Medical History: Fibromyalgia, GERD/Reflux, Hypertension, Musculoskeletal Disorder, Osteoarthritis (OA) Additional Past Medical History / Comment(s): OCC. PALPITATIONS, herniated disks, NECK PAIN, NUMBNESS IN ARMS and left leg, PT DOES SELF CATHETERIZATION. , HX OF ANEMIA. DIZZINESS. VIRAL MENIGITIS WHEN YOUNGER, History of Any Multi-Drug Resistant Organisms: None Reported Past Surgical History: No Surgical Hx Reported Additional Past Surgical History / Comment(s): . Past Anesthesia/Blood Transfusion Reactions: Previous Problems w/ Anesthesia Additional Past Anesthesia/Blood Transfusion Reaction / Comment(s): PT WOKE UP ANGRY.- STATES HER DAUGHTER HAS THE SAME REACTION. Past Psychological History: Anxiety, Bipolar, Depression, Panic Disorder Smoking Status: Current every day smoker Past Alcohol Use History: Abuse, Daily Additional Past Alcohol Use History / Comment(s): started smoking age 13, smokes occationally now Past Drug Use History: None Reported - Past Family History Father Family Medical History: Coronary Artery Disease (CAD), Diabetes Mellitus Mother Additional Family Medical History / Comment(s): SUBDURAL HEMATOMA Medications and Allergies Home Medications Medication Instructions Recorded Confirmed Type Gabapentin [Neurontin] 600 mg PO BID 06/24/15 07/07/18 History Ibuprofen [Motrin] 800 mg PO TID PRN 07/29/15 07/07/18 History Albuterol Inhaler [Ventolin Hfa 2 puff INHALATION RT-Q6H PRN 05/19/16 07/07/18 History Inhaler] Hydrocodone/Acetaminophen [[place] 1 tab PO TID PRN 05/19/16 07/07/18 History 7.5-325] Ipratropium [place] [Atrovent Hfa] 2 puff INHALATION RT-TID 07/07/18 07/07/18 History Lisinopril-Hctz 10-12.5 mg 1 tab PO BID 07/07/18 07/07/18 History [Zestoretic 10-12.5] Meclizine [Antivert] 12.5 mg PO BID 07/07/18 07/07/18 History Omeprazole 20 mg PO DAILY 07/07/18 07/07/18 History Allergies Allergy/AdvReac Type Severity Reaction Status Date / Time ciprofloxacin [From Cipro] Allergy Swelling. Verified 07/07/18 20:17 SOB. ciprofloxacin HCl Allergy Swelling. Verified 07/07/18 20:17 [From Cipro] SOB. sulfamethoxazole Allergy Unknown Verified 07/07/18 20:17 [From Bactrim] trimethoprim [From Bactrim] Allergy Unknown Verified 07/07/18 20:17 Physical Exam Vitals: Vital Signs Temp Pulse Pulse Resp BP BP Pulse Ox 07/08/18 04:00 97.6 F 89 18 110/60 93 L 07/08/18 00:14 98.6 F 87 18 117/67 100 07/07/18 20:54 98.4 F 87 20 124/88 100 07/07/18 19:37 98.8 F 89 20 130/82 97 07/07/18 16:33 98.7 F 93 18 127/84 100 Intake and Output 07/07/18 07/08/18 07/08/18 22:59 06:59 14:59 Intake Total 100 Balance 100 Intake: IV 100 Sodium Chloride 0.9% 1, 100 000 ml @ 100 mls/hr IV . Q10H STA Rx#:[id number] Other: Voiding Method Self-Catheterization # Voids 0 # Bowel Movements 0 Weight 65.771 kg 65 kg On exam, alert and oriented x3. She is confused having tangential thoughts HEENT: Conjunctivae normal. eyes normal. NECK: No JVD. No thyroid enlargement. No LNs CARDIOVASCULAR: S1, S2 muffled. No murmur RESPIRATION: Breath sounds diminished in the bases. No rhonchi or crackles. No bronchial breathing. ABDOMEN: Soft, nontender . No guarding. no masses palpable. No ascites, No hepatosplenomegaly.Bowel sounds heard. LEGS: No edema. no swelling NERVOUS SYSTEM: Cranial N 2-12 grossly normal. Moves all 4 limbs. No focal deficits. No sensory deficit. No signs of cerebellar dysfucntion. Results CBC & Chem 7: 07/07/18 17:50 07/07/18 17:50 Labs: Abnormal Lab Results - Last 24 Hours (Table) 07/07/18 07/07/18 07/07/18 Range/Units 17:50 17:50 17:50 RBC 2.84 L (3.80-5.40) m/uL Hgb 9.9 L (11.4-16.0) gm/dL Hct 30.4 L (34.0-46.0) % MCV 107.2 H (80.0-100.0) fL RDW 19.2 H (11.5-15.5) % Macrocytosis Marked A Chloride 108 H (98-107) mmol/L Carbon Dioxide 18 L (22-30) mmol/L Plasma Lactic Acid Ayo (0.7-2.0) mmol/L Calcium 11.2 H (8.4-10.2) mg/dL AST 84 H (14-36) U/L Alkaline Phosphatase 245 H (38-126) U/L Troponin I 0.092 H* (0.000-0.034) ng/mL Urine Appearance (Clear) Urine Protein (Negative) Urine Blood (Negative) Ur Leukocyte Esterase (Negative) Urine WBC (0-5) /hpf Ur Squamous Epith Cells (0-4) /hpf Amorphous Sediment (None) /hpf Urine Bacteria (None) /hpf Urine Mucus (None) /hpf 07/07/18 07/07/18 07/08/18 Range/Units 18:08 23:04 00:20 RBC (3.80-5.40) m/uL Hgb (11.4-16.0) gm/dL Hct (34.0-46.0) % MCV (80.0-100.0) fL RDW (11.5-15.5) % Macrocytosis Chloride (98-107) mmol/L Carbon Dioxide (22-30) mmol/L Plasma Lactic Acid Ayo 0.6 L (0.7-2.0) mmol/L Calcium (8.4-10.2) mg/dL AST (14-36) U/L Alkaline Phosphatase (38-126) U/L Troponin I 0.117 H* (0.000-0.034) ng/mL Urine Appearance Cloudy H (Clear) Urine Protein 1+ H (Negative) Urine Blood Trace H (Negative) Ur Leukocyte Esterase Moderate H (Negative) Urine WBC 37 H (0-5) /hpf Ur Squamous Epith Cells 68 H (0-4) /hpf Amorphous Sediment Occasional H (None) /hpf Urine Bacteria Few H (None) /hpf Urine Mucus Rare H (None) /hpf 07/08/18 Range/Units 05:31 RBC (3.80-5.40) m/uL Hgb (11.4-16.0) gm/dL Hct (34.0-46.0) % MCV (80.0-100.0) fL RDW (11.5-15.5) % Macrocytosis Chloride (98-107) mmol/L Carbon Dioxide (22-30) mmol/L Plasma Lactic Acid Ayo (0.7-2.0) mmol/L Calcium (8.4-10.2) mg/dL AST (14-36) U/L Alkaline Phosphatase (38-126) U/L Troponin I 0.094 H* (0.000-0.034) ng/mL Urine Appearance (Clear) Urine Protein (Negative) Urine Blood (Negative) Ur Leukocyte Esterase (Negative) Urine WBC (0-5) /hpf Ur Squamous Epith Cells (0-4) /hpf Amorphous Sediment (None) /hpf Urine Bacteria (None) /hpf Urine Mucus (None) /hpf Microbiology - Last 24 Hours (Table) 07/07/18 18:08 Urine Culture - Preliminary Urine,Voided Thrombosis Risk Factor Assmnt - Choose All That Apply Any of the Below Risk Factors Present?: Yes Each Factor Represents 1 point: Age 41-60 years Other Risk Factors: No Thrombosis Risk Factor Assessment Total Risk Factor Score: 1 Thrombosis Risk Factor Assessment Level: Low Risk Assessment and Plan Assessment: - Encephalopathy probably having early onset dementia need to rule out underlying infection as a source - Non-STEMI - Anemia - History of hypertension - History of alcoholism apparently she recently quit drinking - Nicotine dependence - Weakness Plan - Patient is admitted to stepdown with telemetry - Cardiology is consulted. Appreciate the recommendations - Patient is nothing by mouth as of now. GI is consulted for possible endoscopy. Patient apparently has a history of alcoholism and she recently quit drinking. So there is a risk of upper GI bleed. Her FOBT is negative for now. Patient might need interventions like cardiac cath with cardiology and there is any stent placed, patient might need to be on antiplatelets. It would be better on the patient's part to have the scope done to see if there is any ulcer or any cause of bleeding that can be fixed. - We'll resume the patient's home medications - We will also call neurology for encephalopathy. - DVT and GI prophylaxis - We'll order for lab work in the morning - Expected length of stay more than 2 midnights - Patient is full code Time with Patient: Greater than 30
[2018-07-08] MEDS: ASPIRIN 325 MG TAB PO SCH (12:28)
[2018-07-08] MEDS: LISINOPRIL 10 MG TAB PO SCH (12:28)
--- NOTE | 2018-07-08 12:49 | P.CONS ---
History of Present Illness - Reason for Consult Consult date: 07/08/18 Anemia, melena Requesting physician: Juan Christopher - Chief Complaint Weakness - History of Present Illness 53-year-old female who was brought in by EMS due to concerns over confusion. Of note history is been taken in conversation with the patient, the nursing staff and on review of the EMR. Reports are that the patient has been confused for at least 6 weeks with concerns for possible early onset dementia. The patient was recently hospitalized at [facility] where she was seen for vaginal bleeding and a possible uterine mass with the ACCOUNTS MANAGER service on consult. There are notes indicate concern for possible fibroids. The patient was also noted to be anemic with a hemoglobin in the 6 range and refused transfusion with packed red blood cells. She was also treated for a UTI and thrush. There is also concern that the patient has been having dark stools for approximately 2 weeks. However the patient reports that she has not noted any dark stool, and she also had stool testing for occult blood which was negative. Laboratory evaluation on admission were significant for a WBC 9.2, hemoglobin 9.9, platelet count 280,000, MCV 107.2, total bilirubin 0.8, alkaline phosphatase 245, AST 84 and ALT 45. The patient was also noted to have elevation in her troponins and EKG changes and concern at this time is for an NSTEMI with plans for cardiac catheterization. He reports yellow color on wiping after her last bowel movement. She does report some left sided achy abdominal pain which is mild and constant. At home the patient is taking Motrin 800 mg up to twice daily for treatment of osteoarthritis. She is unsure if she has had an EGD or colonoscopy in the past but believes so. Currently she is denying any vaginal bleeding. Review of Systems REVIEW OF SYSTEMS: CONSTITUTIONAL: Denies any fevers, chills, weight change or fatigue. CARDIOVASCULAR: Denies any chest pain, palpitations high or low blood pressures RESPIRATORY: Denies any shortness of breath, hemoptysis or cough. GENITOURINARY: No dysuria or hematuria. MUSCULOSKELETAL: No weakness reported. SKIN: Denies any new rashes or lesions, jaundice or pallor. PSYCHIATRIC: Denies any depression or anxiety. NEUROLOGY: Denies headache, denies any new focal deficits, there is concern that patient has been having increasing forgetfulness. EARS/NOSE/THROAT: No recent hearing change, congestion, nasal discharge or sore throat. EYES: No pain in eyes, discharge or change in vision. GASTROINTESTINAL: As per HPI. Past Medical History Past Medical History: Fibromyalgia, GERD/Reflux, Hypertension, Musculoskeletal Disorder, Osteoarthritis (OA) Additional Past Medical History / Comment(s): OCC. PALPITATIONS, herniated disks, NECK PAIN, NUMBNESS IN ARMS and left leg, PT DOES SELF CATHETERIZATION. , HX OF ANEMIA. DIZZINESS. VIRAL MENIGITIS WHEN YOUNGER, History of Any Multi-Drug Resistant Organisms: None Reported Past Surgical History: No Surgical Hx Reported Additional Past Surgical History / Comment(s): . Past Anesthesia/Blood Transfusion Reactions: Previous Problems w/ Anesthesia Additional Past Anesthesia/Blood Transfusion Reaction / Comm: PT WOKE UP ANGRY.- STATES HER DAUGHTER HAS THE SAME REACTION. Past Psychological History: Anxiety, Bipolar, Depression, Panic Disorder Smoking Status: Current every day smoker Past Alcohol Use History: Abuse, Daily Additional Past Alcohol Use History / Comment(s): started smoking age 13, smokes occationally now Past Drug Use History: None Reported - Past Family History Father Family Medical History: Coronary Artery Disease (CAD), Diabetes Mellitus Mother Additional Family Medical History / Comment(s): SUBDURAL HEMATOMA Medications and Allergies Home Medications Medication Instructions Recorded Confirmed Type Gabapentin [Neurontin] 600 mg PO BID 06/24/15 07/07/18 History Ibuprofen [Motrin] 800 mg PO TID PRN 07/29/15 07/07/18 History Albuterol Inhaler [Ventolin Hfa 2 puff INHALATION RT-Q6H PRN 05/19/16 07/07/18 History Inhaler] Hydrocodone/Acetaminophen [[place] 1 tab PO TID PRN 05/19/16 07/07/18 History 7.5-325] Ipratropium [place] [Atrovent Hfa] 2 puff INHALATION RT-TID 07/07/18 07/07/18 H istory Lisinopril-Hctz 10-12.5 mg 1 tab PO BID 07/07/18 07/07/18 History [Zestoretic 10-12.5] Meclizine [Antivert] 12.5 mg PO BID 07/07/18 07/07/18 History Omeprazole 20 mg PO DAILY 07/07/18 07/07/18 History Allergies Allergy/AdvReac Type Severity Reaction Status Date / Time ciprofloxacin [From Cipro] Allergy Swelling. Verified 07/07/18 20:17 SOB. ciprofloxacin HCl Allergy Swelling. Verified 07/07/18 20:17 [From Cipro] SOB. sulfamethoxazole Allergy Unknown Verified 07/07/18 20:17 [From Bactrim] trimethoprim [From Bactrim] Allergy Unknown Verified 07/07/18 20:17 Physical Exam Vitals: Vital Signs Temp Pulse Pulse Pulse Resp BP BP 07/08/18 08:00 97.7 F 82 20 109/74 07/08/18 04:00 97.6 F 89 18 110/60 07/08/18 00:14 98.6 F 87 18 117/67 07/07/18 20:54 98.4 F 87 20 124/88 07/07/18 19:37 98.8 F 89 20 130/82 07/07/18 16:33 98.7 F 93 18 127/84 Pulse Ox 07/08/18 08:00 100 07/08/18 04:00 93 L 07/08/18 00:14 100 07/07/18 20:54 100 07/07/18 19:37 97 07/07/18 16:33 100 Intake and Output 07/07/18 07/08/18 07/08/18 22:59 06:59 14:59 Intake Total 100 Balance 100 Intake: IV 100 Sodium Chloride 0.9% 1, 100 000 ml @ 100 mls/hr IV . Q10H STA Rx#:[id number] Other: Voiding Method Self-Catheterization Self-Catheterization # Voids 0 # Bowel Movements 0 Weight 65.771 kg 65 kg On physical examination, patient appears comfortable in no apparent distress. HEAD: Normocephalic, atraumatic. EYES: No scleral icterus. No conjunctival injection. MOUTH: No lesions, tongue midline. NECK: Trachea midline, no gross abnormalities. CHEST: Clear to auscultation with no wheezing or rhonchi appreciated. HEART: Regular rate and rhythm. ABDOMEN: Soft, obese. Bowel sounds are positive. No organomegaly. No guarding or rigidity. EXTREMITIES: No pedal edema. SKIN: No rashes, no jaundice. NEUROLOGIC: Alert and oriented x3, with poor long-term memory. No focal deficits. Results CBC & Chem 7: 07/07/18 17:50 07/07/18 17:50 Labs: Abnormal Lab Results - Last 24 Hours (Table) 07/07/18 07/07/18 07/07/18 Range/Units 17:50 17:50 17:50 RBC 2.84 L (3.80-5.40) m/uL Hgb 9.9 L (11.4-16.0) gm/dL Hct 30.4 L (34.0-46.0) % MCV 107.2 H (80.0-100.0) fL RDW 19.2 H (11.5-15.5) % Macrocytosis Marked A Chloride 108 H (98-107) mmol/L Carbon Dioxide 18 L (22-30) mmol/L Plasma Lactic Acid Ayo (0.7-2.0) mmol/L Calcium 11.2 H (8.4-10.2) mg/dL AST 84 H (14-36) U/L Alkaline Phosphatase 245 H (38-126) U/L Troponin I 0.092 H* (0.000-0.034) ng/mL Urine Appearance (Clear) Urine Protein (Negative) Urine Blood (Negative) Ur Leukocyte Esterase (Negative) Urine WBC (0-5) /hpf Ur Squamous Epith Cells (0-4) /hpf Amorphous Sediment (None) /hpf Urine Bacteria (None) /hpf Urine Mucus (None) /hpf 07/07/18 07/07/18 07/08/18 Range/Units 18:08 23:04 00:20 RBC (3.80-5.40) m/uL Hgb (11.4-16.0) gm/dL Hct (34.0-46.0) % MCV (80.0-100.0) fL RDW (11.5-15.5) % Macrocytosis Chloride (98-107) mmol/L Carbon Dioxide (22-30) mmol/L Plasma Lactic Acid Ayo 0.6 L (0.7-2.0) mmol/L Calcium (8.4-10.2) mg/dL AST (14-36) U/L Alkaline Phosphatase (38-126) U/L Troponin I 0.117 H* (0.000-0.034) ng/mL Urine Appearance Cloudy H (Clear) Urine Protein 1+ H (Negative) Urine Blood Trace H (Negative) Ur Leukocyte Esterase Moderate H (Negative) Urine WBC 37 H (0-5) /hpf Ur Squamous Epith Cells 68 H (0-4) /hpf Amorphous Sediment Occasional H (None) /hpf Urine Bacteria Few H (None) /hpf Urine Mucus Rare H (None) /hpf 07/08/18 Range/Units 05:31 RBC (3.80-5.40) m/uL Hgb (11.4-16.0) gm/dL Hct (34.0-46.0) % MCV (80.0-100.0) fL RDW (11.5-15.5) % Macrocytosis Chloride (98-107) mmol/L Carbon Dioxide (22-30) mmol/L Plasma Lactic Acid Ayo (0.7-2.0) mmol/L Calcium (8.4-10.2) mg/dL AST (14-36) U/L Alkaline Phosphatase (38-126) U/L Troponin I 0.094 H* (0.000-0.034) ng/mL Urine Appearance (Clear) Urine Protein (Negative) Urine Blood (Negative) Ur Leukocyte Esterase (Negative) Urine WBC (0-5) /hpf Ur Squamous Epith Cells (0-4) /hpf Amorphous Sediment (None) /hpf Urine Bacteria (None) /hpf Urine Mucus (None) /hpf Microbiology - Last 24 Hours (Table) 07/07/18 18:08 Urine Culture - Preliminary Urine,Voided Assessment and Plan (1) Anemia Narrative/Plan: 53-year-old female presenting due to increasing confusion and found to be anemic on presentation. Patient has a macrocytic anemia of unknown etiology with reports of recent transfusion at [facility] with the patient was found to have a hemoglobin in the 6 range, currently hemoglobin is 9.9. There was concern over vaginal bleeding on her admission to [facility], with reports of melena as well. Currently the patient is reporting non-melanotic, nonbloody stools and also had stool testing for occult blood which was negative. It is unclear if anemia is secondary to acute blood loss, either vaginal or from the GI tract, secondary to chronic disease or other etiology. Current Visit: Yes Status: Acute Code(s): D64.9 - ANEMIA, UNSPECIFIED SNOMED Code(s): 173774801 (2) Melena Narrative/Plan: Reports of dark stool from patient's family, however she states bowel movements have been nonbloody melanotic, nonbloody and had stool testing for occult blood which was negative. The patient does have risk factors such as Motrin use but is also on GI prophylaxis with Pepcid at home. Patient is unclear of her endoscopic history. Current Visit: Yes Status: Acute Code(s): K92.1 - MELENA SNOMED Code(s): 5622170 (3) Non-STEMI (non-ST elevated myocardial infarction) Current Visit: Yes Status: Acute Code(s): I21.4 - NON-ST ELEVATION (NSTEMI) MYOCARDIAL INFARCTION SNOMED Code(s): 11759102 Plan: Supportive care Okay for diet Continue twice daily Protonix therapy Continue to monitor hemoglobin and hematocrit and transfuse as needed No plan for endoscopic evaluation at this time, will wait and see what p.m. hemoglobin is, if patient has any signs or symptoms of GI bleeding or further fall in hemoglobin will consider upper endoscopy for further evaluation Okay for further workup per cardiology service who are planning on cardiac catheterization Will order folate, B12 and iron levels Thank you for allowing us to participate in the care of the patient we will continue to follow
[2018-07-08 18:17] LABS: Anisocytosis Slight; HCT 24.5 % (34.0-46.0); Hypochromasia Slight; MCH 34.6 pg (25.0-35.0); MCHC 32.7 g/dL (31.0-37.0); MCV 105.7 fL (80.0-100.0); Macrocytosis Marked; Mean Platelet Volume 8.6; Platelet Count 294 k/uL (150-450); RBC 2.32 m/uL (3.80-5.40); RDW 18.7 % (11.5-15.5); WBC 7.8 k/uL (3.8-10.6)
[2018-07-08] MEDS: HYDROcodone/APAP 7.5-325MG 1 EACH TAB PO PRN (21:05)
[2018-07-08] MEDS: ATORVASTATIN 40 MG TAB PO SCH (21:08)
[2018-07-08] MEDS: PANTOPRAZOLE 40 MG TABLET PO SCH (21:08)
[2018-07-09 06:29] LABS: Anisocytosis Slight; HGB 7.5 gm/dL (11.4-16.0); Hypochromasia Slight; MCH 34.5 pg (25.0-35.0); MCHC 31.3 g/dL (31.0-37.0); MCV 110.4 fL (80.0-100.0); Platelet Count 294 k/uL (150-450); RBC 2.17 m/uL (3.80-5.40); RDW 19.4 % (11.5-15.5); WBC 6.2 k/uL (3.8-10.6)
[2018-07-09 06:31] LABS: Macrocytosis Marked
[2018-07-09] MEDS: PANTOPRAZOLE 40 MG TABLET PO SCH ×2 (06:32→17:24)
[2018-07-09 06:38] LABS: Calcium 9.7 mg/dL (8.4-10.2); Potassium 3.4 mmol/L (3.5-5.1)
[2018-07-09] MEDS: LISINOPRIL 10 MG TAB PO SCH (09:05)
[2018-07-09] MEDS: ASPIRIN 325 MG TAB PO SCH (09:05)
--- NOTE | 2018-07-09 11:03 | P.PN ---
Subjective Progress Note Date: 07/09/18 Principal diagnosis: Macrocytic anemia The patient is seen sitting bedside with her ex-. No acute events overnight.Tolerating diet. no abdominal pain. Objective - Vital Signs Vital signs: Vital Signs Temp 98.2 F 07/09/18 08:00 Pulse 89 07/09/18 08:00 Resp 20 07/09/18 08:00 BP 132/83 07/09/18 08:00 Pulse Ox 100 07/09/18 08:00 Intake & Output 07/08/18 07/09/18 07/09/18 18:59 06:59 18:59 Intake Total 120 Output Total 400 Balance -400 120 Weight 66.7 kg Intake: Oral 120 Output: Urine 400 Other: Voiding Method Self-Catheterization Self-Catheterization # Voids 2 3 1 # Bowel Movements 0 - Exam On physical examination, patient appears comfortable in no apparent distress. HEAD: Normocephalic, atraumatic. EYES: No scleral icterus. No conjunctival injection. MOUTH: No lesions, tongue midline. NECK: Trachea midline, no gross abnormalities. CHEST: Clear to auscultation with no wheezing or rhonchi appreciated. HEART: Regular rate and rhythm. ABDOMEN: Soft, obese. Bowel sounds are positive. No organomegaly. No guarding or rigidity. EXTREMITIES: No pedal edema. SKIN: No rashes, no jaundice. NEUROLOGIC: Alert and oriented x3, but continues. No focal deficits. - Labs CBC & Chem 7: 07/09/18 05:31 07/09/18 05:31 Labs: Abnormal Lab Results - Last 24 Hours (Table) 07/08/18 07/09/18 07/09/18 Range/Units 17:47 05:31 05:31 RBC 2.32 L 2.17 L (3.80-5.40) m/uL Hgb 8.0 L D 7.5 L (11.4-16.0) gm/dL Hct 24.5 L 24.0 L (34.0-46.0) % MCV 105.7 H 110.4 H (80.0-100.0) fL RDW 18.7 H 19.4 H (11.5-15.5) % Macrocytosis Marked A Marked A Potassium 3.4 L (3.5-5.1) mmol/L Chloride 115 H (98-107) mmol/L Carbon Dioxide 16 L (22-30) mmol/L Microbiology - Last 24 Hours (Table) 07/07/18 20:46 Blood Culture - Preliminary Blood No Growth after 24 hours 07/07/18 18:08 Urine Culture - Preliminary Urine,Voided Group D Enterococcus Assessment and Plan (1) Anemia Narrative/Plan: 53-year-old female presenting due to increasing confusion and found to be anemic on presentation. Patient has a macrocytic anemia of unknown etiology with reports of recent transfusion at [facility] with the patient was found to have a hemoglobin in the 6 range, currently hemoglobin is 9.9. There was concern over vaginal bleeding on her admission to [facility], with reports of melena as well. Currently the patient is reporting non-melanotic, nonbloody stools and also had stool testing for occult blood which was negative. It is unclear if anemia is secondary to acute blood loss, either vaginal or from the GI tract, secondary to chronic disease or other etiology. Current Visit: Yes Status: Acute Code(s): D64.9 - ANEMIA, UNSPECIFIED SNOMED Code(s): 869257234 (2) Melena Narrative/Plan: Reports of dark stool from patient's family, however she states bowel movements have been nonbloody melanotic, nonbloody and had stool testing for occult blood which was negative. The patient does have risk factors such as Motrin use but is also on GI prophylaxis with Pepcid at home. Patient is unclear of her endoscopic history. Current Visit: Yes Status: Acute Code(s): K92.1 - MELENA SNOMED Code(s): 0065059 (3) Non-STEMI (non-ST elevated myocardial infarction) Current Visit: Yes Status: Acute Code(s): I21.4 - NON-ST ELEVATION (NSTEMI) MYOCARDIAL INFARCTION SNOMED Code(s): 89454183 Plan: Supportive care Okay for diet Continue twice daily Protonix therapy Continue to monitor hemoglobin and hematocrit and transfuse as needed Plan for EGD tomorrow for further evaluation of anemia Okay for further workup per cardiology service who are planning on cardiac catheterization Folate, B12 and iron levels pending Thank you for allowing us to participate in the care of the patient we will continue to follow
--- NOTE | 2018-07-09 11:26 | P.PN ---
Subjective Progress Note Date: 07/09/18 Principal diagnosis: Acute non-ST elevation ID This is a pleasant 53-year-old female patient with a past medical history significant for smoking, and history of hypertension, and history of possible GI bleed, was admitted to the hospital with feeling of weak and tiredness. She was ruled in for acute non-ST patient myocardial infarction. The troponin came in to be abnormal and the EKG showed ischemic changes. On follow-up with the patient today, she remains asymptomatic at this point. The patient's hemoglobin dropped to 7.5 this morning. She was seen by the GI service and the plan is to pursue with endoscopy tomorrow. Meanwhile I will continue the current medical regimen, with the patient to have the upper endoscopy, and then possibly proceed with coronary angiogram after that. Objective - Vital Signs Vital signs: Vital Signs Temp 98.2 F 07/09/18 08:00 Pulse 89 07/09/18 08:00 Resp 20 07/09/18 08:00 BP 132/83 07/09/18 08:00 Pulse Ox 100 07/09/18 08:00 Intake & Output 07/08/18 07/09/18 07/09/18 18:59 06:59 18:59 Intake Total 120 Output Total 400 Balance -400 120 Weight 66.7 kg Intake: Oral 120 Output: Urine 400 Other: Voiding Method Self-Catheterization Self-Catheterization # Voids 2 3 1 # Bowel Movements 0 - Constitutional General appearance: Present: no acute distress - Respiratory Respiratory: bilateral: CTA - Cardiovascular Rhythm: regular Heart sounds: normal: S1, S2 - Labs CBC & Chem 7: 07/09/18 05:31 07/09/18 05:31 Labs: Abnormal Lab Results - Last 24 Hours (Table) 07/08/18 07/09/18 07/09/18 Range/Units 17:47 05:31 05:31 RBC 2.32 L 2.17 L (3.80-5.40) m/uL Hgb 8.0 L D 7.5 L (11.4-16.0) gm/dL Hct 24.5 L 24.0 L (34.0-46.0) % MCV 105.7 H 110.4 H (80.0-100.0) fL RDW 18.7 H 19.4 H (11.5-15.5) % Macrocytosis Marked A Marked A Potassium 3.4 L (3.5-5.1) mmol/L Chloride 115 H (98-107) mmol/L Carbon Dioxide 16 L (22-30) mmol/L Microbiology - Last 24 Hours (Table) 07/07/18 20:46 Blood Culture - Preliminary Blood No Growth after 24 hours 07/07/18 18:08 Urine Culture - Preliminary Urine,Voided Group D Enterococcus Assessment and Plan Assessment: Assessment #1 acute non-ST elevation ID #2 GI bleeding #3 blood loss anemia secondary to the above #4 history of smoking Plan #1 continue the current medical regimen #2 awaiting to the endoscopy to be done tomorrow #3 follow-up on the echocardiogram #4 follow-up with the patient
[2018-07-09] MEDS: QUEtiapine 25 MG TAB PO SCH (13:02)
[2018-07-09] MEDS: NITROFURANTOIN MONOHYD/M-CRYST 100 MG CAP PO SCH (13:02)
--- NOTE | 2018-07-09 14:06 | P.PN ---
Subjective This is a 53-year-old female who is brought in by the EMS for above-mentioned complaint. Patient the time examination was alert oriented 3 but she was acting confused. She didn't know why she was here and when I asked her who her primary was here in of any of the primary and she thinks that she's been in for a while. Ex- was there at the bedside later on during the second attempt seeing her. He says that her confusion has been going on for at least 6 weeks where it was noticed by one of the friends. The daughter is also concerned when they went to see the patient at Mother's Day. thinks that she is probably having early onset dementia. She was taken to [facility] and she was admitted for possible uterine mass, anemia, UTI and thrush. She was treated for UTI but her confusion still remains. Apparently the patient also has not been eating much patient is complaining of abdominal pain while at [facility]. She was also having black tarry stools while in [facility]. Plan was to do an EGD as an outpatient. At the time examination of the here the patient does not complain of any shortn ess of breath or cough she does complain of chest pain in the center of the chest, she does not complain any abdominal pain she says that she is nauseous but no vomiting, she does not complain of any diarrhea constipation. She does not complain of any tingling numbness of any extremities, and additional rash. On 07/09/2018 Patient still confused. But alert No chest pain or racing heart She's complaining of pain in her belly. Urine culture shows enterococcus group D Objective - Vital Signs Vital signs: Vital Signs Temp 98.0 F 07/09/18 12:00 Pulse 89 07/09/18 12:00 Resp 20 07/09/18 12:00 BP 144/67 07/09/18 12:00 Pulse Ox 100 07/09/18 12:00 Intake & Output 07/08/18 07/09/18 07/09/18 18:59 06:59 18:59 Intake Total 600 Output Total 400 500 Balance -400 100 Weight 66.7 kg Intake: Oral 600 Output: Urine 400 500 Other: Voiding Method Self-Catheterization Self-Catheterization # Voids 2 3 1 # Bowel Movements 0 - Exam On exam, alert and oriented x3. She is confused having tangential thoughts HEENT: Conjunctivae normal. eyes normal. NECK: No JVD. No thyroid enlargement. No LNs CARDIOVASCULAR: S1, S2 muffled. No murmur RESPIRATION: Breath sounds diminished in the bases. No rhonchi or crackles. No bronchial breathing. ABDOMEN: Soft, nontender . No guarding. no masses palpable. No ascites, No hepatosplenomegaly.Bowel sounds heard. LEGS: No edema. no swelling NERVOUS SYSTEM: Cranial N 2-12 grossly normal. Moves all 4 limbs. No focal deficits. No sensory deficit. No signs of cerebellar dysfucntion. - Labs CBC & Chem 7: 07/09/18 05:31 07/09/18 05:31 Labs: Abnormal Lab Results - Last 24 Hours (Table) 07/08/18 07/09/18 07/09/18 Range/Units 17:47 05:31 05:31 RBC 2.32 L 2.17 L (3.80-5.40) m/uL Hgb 8.0 L D 7.5 L (11.4-16.0) gm/dL Hct 24.5 L 24.0 L (34.0-46.0) % MCV 105.7 H 110.4 H (80.0-100.0) fL RDW 18.7 H 19.4 H (11.5-15.5) % Macrocytosis Marked A Marked A Potassium 3.4 L (3.5-5.1) mmol/L Chloride 115 H (98-107) mmol/L Carbon Dioxide 16 L (22-30) mmol/L Microbiology - Last 24 Hours (Table) 07/07/18 20:46 Blood Culture - Preliminary Blood No Growth after 24 hours 07/07/18 18:08 Urine Culture - Preliminary Urine,Voided Group D Enterococcus Assessment and Plan Assessment: - Encephalopathy probably having early onset dementia need to rule out underlying infection as a source - Non-STEMI - Anemia - History of hypertension - History of alcoholism apparently she recently quit drinking - Nicotine dependence - Weakness Plan - Patient is admitted to stepdown with telemetry - Cardiology is consulted. Appreciate the recommendations - Patient is nothing by mouth as of now. GI is consulted for possible endoscopy. Patient apparently has a history of alcoholism and she recently quit drinking. So there is a risk of upper GI bleed. Her FOBT is negative for now. Patient might need interventions like cardiac cath with cardiology and there is any stent placed, patient might need to be on antiplatelets. It would be better on the patient's part to have the scope done to see if there is any ulcer or any cause of bleeding that can be fixed. - We'll resume the patient's home medications - We will also call neurology for encephalopathy. - DVT and GI prophylaxis - We'll order for lab work in the morning - Expected length of stay more than 2 midnights - Patient is full code 07/09/2018 - We'll start her on Macrobid for possible UTI due to enterococcus. Is probably is a contaminant - Patient probably get an EGD tomorrow morning -Cardiology will probably do a cath after the EGD is done depending upon these results - Continue rest of the medical care - We'll start her on Seroquel 25 mg daily - We'll follow up on the patient Time with Patient: Less than 30
--- NOTE | 2018-07-09 14:33 | P.CNNES ---
History of Present Illness Consult date: 07/09/18 Chief complaint: Confusion History of Present Illness: Patient is a 53-year-old female who has three-week history of episodes of intermittent mental confusion. Patient was recently admitted to [facility] for mass in the uterus, anemia UTI acute kidney injury and thrush. Agent required multiple units of blood transfusions. In the past 3 weeks she has developed episodes of mental confusion, in which she is in and out of childlike behavior. Sometimes she is hyper verbal, other times her parents have several years ago and she has regular conversation with her parents. Patient still knows date time and is well oriented. No focal weakness. Her ex- was also present, who states the patient has been feeling very weak, unsteady, dizzy, sometimes have tendency to fall. Patient does agree that she has depression Patient has history of tobacco use of one pack per day for 30 years, cutback to 5-8 cigarettes per day in the past 1 year. She used to drink fairly heavily, sometimes up to 12 pack of beer a day. In the last 2 years, she has cut back significantly down, and drinks only once in a while. Denies any drugs. Patient had an MRI of brain with and without contrast on 01/14/2018, which revealed redemonstration of multiple bilateral periventricular white matter changes. Distribution and signal characteristics are identical to prior study of 07/13/2016. Largest is again located in the left centrum semiovale and measures up to 1.1 cm. None of these abnormal signal focuses demonstrate any diffusion restriction or enhancement. Etiology remains similar and demyelinating process such as multiple sclerosis remains a primary differential. MRI of the lumbar spine from 07/13/2016 showed mild disc bulging at L4 5, L3 4. Small central protrusion L5-S1. No significant spinal stenosis documented. MRI of the cervical spine from 2016 showed straightening of the cervical spine with degenerative changes most pronounced at C5 6 level. There is significant spinal canal effacement with abnormal cord signal suggesting some cord edema is present. Neurosurgical follow-up is advised. Patient had undergone cervical decompressive surgery. Patient also follows up with neurologist Dr. Ivelisse merida MD. Patient has a spinal fluid also performed, in which her proteins was 42 which is normal. Oligoclonal bands were positive in the CSF as well as in the serum, therefore was not supportive evidence of MS. Myelin basic proteins negative. Lyme titer in CSF was negative. Patient previously had normal B12 was 621, B6 was slightly low 4, vitamin D 14.5.. Review of Systems As mentioned above. Denies any chest pain shortness of breath wheezing or cough. Denies diplopia, loss of vision. Denies slurred speech dysphagia. No history of diabetes, CVA. Past Medical History Past Medical History: Fibromyalgia, GERD/Reflux, Hypertension, Musculoskeletal Disorder, Osteoarthritis (OA) Additional Past Medical History / Comment(s): OCC. PALPITATIONS, herniated disks, NECK PAIN, NUMBNESS IN ARMS and left leg, PT DOES SELF CATHETERIZATION. , HX OF ANEMIA. DIZZINESS. VIRAL MENIGITIS WHEN YOUNGER, History of Any Multi-Drug Resistant Organisms: None Reported Past Surgical History: No Surgical Hx Reported Additional Past Surgical History / Comment(s): . Past Anesthesia/Blood Transfusion Reactions: Previous Problems w/ Anesthesia Additional Past Anesthesia/Blood Transfusion Reaction / Comment(s): PT WOKE UP ANGRY.- STATES HER DAUGHTER HAS THE SAME REACTION. Past Psychological History: Anxiety, Bipolar, Depression, Panic Disorder Smoking Status: Current every day smoker Past Alcohol Use History: Abuse, Daily Additional Past Alcohol Use History / Comment(s): started smoking age 13, smokes occationally now Past Drug Use History: None Reported - Past Family History Father Family Medical History: Coronary Artery Disease (CAD), Diabetes Mellitus Mother Additional Family Medical History / Comment(s): SUBDURAL HEMATOMA Medications and Allergies Home Medications Medication Instructions Recorded Confirmed Type Gabapentin [Neurontin] 600 mg PO BID 06/24/15 07/07/18 History Ibuprofen [Motrin] 800 mg PO TID PRN 07/29/15 07/07/18 History Albuterol Inhaler [Ventolin Hfa 2 puff INHALATION RT-Q6H PRN 05/19/16 07/07/18 History Inhaler] Hydrocodone/Acetaminophen [[place] 1 tab PO TID PRN 05/19/16 07/07/18 History 7.5-325] Ipratropium [place] [Atrovent Hfa] 2 puff INHALATION RT-TID 07/07/18 07/07/18 History Lisinopril-Hctz 10-12.5 mg 1 tab PO BID 07/07/18 07/07/18 History [Zestoretic 10-12.5] Meclizine [Antivert] 12.5 mg PO BID 07/07/18 07/07/18 History Omeprazole 20 mg PO DAILY 07/07/18 07/07/18 History Allergies Allergy/AdvReac Type Severity Reaction Status Date / Time ciprofloxacin [From Cipro] Allergy Swelling. Verified 07/07/18 20:17 SOB. ciprofloxacin HCl Allergy Swelling. Verified 07/07/18 20:17 [From Cipro] SOB. sulfamethoxazole Allergy Unknown Verified 07/07/18 20:17 [From Bactrim] trimethoprim [From Bactrim] Allergy Unknown Verified 07/07/18 20:17 Physical Examination - Vital Signs Vital Signs: Vital Signs Temp Pulse Pulse Resp BP Pulse Ox 07/09/18 12:00 98.0 F 89 20 144/67 100 07/09/18 08:00 98.2 F 89 20 132/83 100 07/09/18 04:00 97.9 F 81 81 18 110/66 97 07/09/18 00:00 98.2 F 90 90 18 125/69 99 07/08/18 20:00 97.3 F L 96 96 18 133/66 100 07/08/18 16:00 96 20 125/75 100 Intake and Output 07/08/18 07/09/18 07/09/18 22:59 06:59 14:59 Intake Total 600 Output Total 400 500 Balance -400 100 Intake: Oral 600 Output: Urine 400 500 Other: Voiding Method Self-Catheterization Self-Catheterization # Voids 2 3 1 Weight 66.7 kg On examination patient is a middle aged female, in no distress. Patient is alert and awake, fairly well oriented. Patient knows it is 2018, and that she is in [facility]. There is no aphasia or dysarthria. Patient does have some altered affect. He can sometimes laughs and sometimes cries for no reason. On cranial exertion pupils are round and reactive to light visual sheppard are full. Face is symmetric and tongue protrudes the midline. Muscle strength testing there is no pronator drift and the strength is normal in arms and legs distally and proximally. Right shoulder not checked because of recent surgery. Reflexes are 2+ and plantars are downgoing sensory touch is equal. No ataxia for [id number] testing. Tone and bulk of muscles normal. Gait deferred. fully oriented. Results - Laboratory Findings CBC and BMP: 07/09/18 05:31 07/09/18 05:31 Abnormal Lab Findings: Abnormal Labs 07/07/18 07/07/18 07/07/18 17:50 17:50 17:50 RBC 2.84 L Hgb 9.9 L Hct 30.4 L MCV 107.2 H RDW 19.2 H Macrocytosis Marked A Potassium Chloride 108 H Carbon Dioxide 18 L Plasma Lactic Acid Ayo Calcium 11.2 H AST 84 H Alkaline Phosphatase 245 H Troponin I 0.092 H* Urine Appearance Urine Protein Urine Blood Ur Leukocyte Esterase Urine WBC Ur Squamous Epith Cells Amorphous Sediment Urine Bacteria Urine Mucus 07/07/18 07/07/18 07/08/18 18:08 23:04 00:20 RBC Hgb Hct MCV RDW Macrocytosis Potassium Chloride Carbon Dioxide Plasma Lactic Acid Ayo 0.6 L Calcium AST Alkaline Phosphatase Troponin I 0.117 H* Urine Appearance Cloudy H Urine Protein 1+ H Urine Blood Trace H Ur Leukocyte Esterase Moderate H Urine WBC 37 H Ur Squamous Epith Cells 68 H Amorphous Sediment Occasional H Urine Bacteria Few H Urine Mucus Rare H 07/08/18 07/08/18 07/09/18 05:31 17:47 05:31 RBC 2.32 L 2.17 L Hgb 8.0 L D 7.5 L Hct 24.5 L 24.0 L MCV 105.7 H 110.4 H RDW 18.7 H 19.4 H Macrocytosis Marked A Marked A Potassium Chloride Carbon Dioxide Plasma Lactic Acid Ayo Calcium AST Alkaline Phosphatase Troponin I 0.094 H* Urine Appearance Urine Protein Urine Blood Ur Leukocyte Esterase Urine WBC Ur Squamous Epith Cells Amorphous Sediment Urine Bacteria Urine Mucus 07/09/18 05:31 RBC Hgb Hct MCV RDW Macrocytosis Potassium 3.4 L Chloride 115 H Carbon Dioxide 16 L Plasma Lactic Acid Ayo Calcium AST Alkaline Phosphatase Troponin I Urine Appearance Urine Protein Urine Blood Ur Leukocyte Esterase Urine WBC Ur Squamous Epith Cells Amorphous Sediment Urine Bacteria Urine Mucus Assessment and Plan Assessment: * Altered mental status, probably due to depressive disorder with some delusional features. Neurologically patient appears stable. * Weakness, unclear etiology. Her neurological examination is normal. Could be depression related. * History of cervical spinal stenosis, status post decompressive surgery in 2016. * History of vitamin B6 deficiency * Tobacco user * Previous history of alcoholism. Plan: * Patient is undergoing B12, folate level checked. * Neurologically patient is stable. * Suggest psychiatric consultation to evaluate for affective disorder. * Patient should continue to follow up with her neurologist as outpatient
[2018-07-09] MEDS ORDERED: LORazepam 2 MG/ML INJ IV PRN ×3 (14:45)
[2018-07-09] MEDS ORDERED: THIAMINE 100 MG/ML 2 ML VIAL IM STA (14:45)
[2018-07-09] MEDS: THIAMINE 100 MG TAB PO SCH (17:24)
[2018-07-10] MEDS: ATORVASTATIN 40 MG TAB PO SCH (00:03)
[2018-07-10] MEDS: NITROFURANTOIN MONOHYD/M-CRYST 100 MG CAP PO SCH ×2 (00:03→10:24)
[2018-07-10] MEDS: GABAPENTIN 300 MG CAP PO SCH ×2 (00:03→10:24)
[2018-07-10 05:45] LABS: Anisocytosis Slight; HCT 25.4 % (34.0-46.0); HGB 8.1 gm/dL (11.4-16.0); Hypochromasia Slight; MCH 34.6 pg (25.0-35.0); MCHC 31.8 g/dL (31.0-37.0); MCV 108.8 fL (80.0-100.0); Mean Platelet Volume 7.7; Platelet Count 368 k/uL (150-450); RBC 2.34 m/uL (3.80-5.40); RDW 19.2 % (11.5-15.5); WBC 6.6 k/uL (3.8-10.6)
[2018-07-10 05:46] LABS: Macrocytosis Marked
[2018-07-10 06:07] LABS: Calcium 10.7 mg/dL (8.4-10.2); Potassium 3.4 mmol/L (3.5-5.1)
[2018-07-10] MEDS: PANTOPRAZOLE 40 MG TABLET PO SCH ×2 (08:47→17:05)
[2018-07-10] MEDS: ASPIRIN 325 MG TAB PO SCH ×2 (08:47→10:24)
[2018-07-10] MEDS: THIAMINE 100 MG TAB PO SCH ×2 (08:47→17:05)
[2018-07-10] MEDS: LISINOPRIL 10 MG TAB PO SCH (10:24)
[2018-07-10] MEDS: QUEtiapine 25 MG TAB PO SCH (10:24)
--- NOTE | 2018-07-10 10:48 | P.PN ---
Subjective Progress Note Date: 07/10/18 Principal diagnosis: Acute non-ST elevation [place] This is a pleasant 53-year-old female patient with a past medical history significant for smoking, and history of hypertension, and history of possible GI bleed, was admitted to the hospital with feeling of weak and tiredness. She was ruled in for acute non-ST patient myocardial infarction. The troponin came in to be abnormal and the EKG showed ischemic changes. On follow-up with the patient today, 07/10/2018, she remains asymptomatic from a cardiovascular standpoint of view. She supposedly was going to have an endoscopy today but that was postponed until tomorrow. The hemoglobin this morning is above 8. She is on aspirin as well as a statin as well as lisinopril. I'm going to add metoprolol to her current medical regimen. Follow-up on the echocardiogram. Follow-up on the endoscopy. Objective - Vital Signs Vital signs: Vital Signs Temp 98.2 F 07/10/18 06:00 Pulse 95 07/10/18 06:00 Resp 20 07/10/18 06:00 BP 136/85 07/10/18 06:00 Pulse Ox 99 07/10/18 06:00 Intake & Output 07/09/18 07/10/18 07/10/18 18:59 06:59 18:59 Intake Total 600 Output Total 750 700 Balance -150 -700 Weight 67.5 kg Intake: Oral 600 Output: Urine 750 700 Other: Voiding Method Self-Catheterization # Voids 1 0 - Constitutional General appearance: Present: no acute distress - Respiratory Respiratory: bilateral: CTA - Cardiovascular Rhythm: regular Heart sounds: normal: S1, S2 - Labs CBC & Chem 7: 07/10/18 05:35 07/10/18 05:35 Labs: Abnormal Lab Results - Last 24 Hours (Table) 07/10/18 07/10/18 Range/Units 05:35 05:35 RBC 2.34 L (3.80-5.40) m/uL Hgb 8.1 L (11.4-16.0) gm/dL Hct 25.4 L (34.0-46.0) % MCV 108.8 H (80.0-100.0) fL RDW 19.2 H (11.5-15.5) % Macrocytosis Marked A Potassium 3.4 L (3.5-5.1) mmol/L Chloride 116 H (98-107) mmol/L Carbon Dioxide 14 L (22-30) mmol/L Calcium 10.7 H (8.4-10.2) mg/dL Microbiology - Last 24 Hours (Table) 07/07/18 18:08 Urine Culture - Final Urine,Voided Enterococcus faecalis 07/07/18 20:46 Blood Culture - Preliminary Blood No Growth after 48 hours Assessment and Plan Assessment: Assessment #1 acute non-ST elevation [place] #2 GI bleeding #3 blood loss anemia secondary to the above #4 history of smoking Plan #1 continue the current medical regimen #2 awaiting to the endoscopy to be done tomorrow #3 follow-up on the echocardiogram #4 add metoprolol to the current medical regimen
--- NOTE | 2018-07-10 12:26 | P.PN ---
Subjective Progress Note Date: 07/10/18 Principal diagnosis: Macrocytic anemia The patient is seen sitting bedside with her ex- and daughter. Patient is eaten very little since yesterday and the patient reports no bowel movement since yesterday with her daughter confirming. No signs or symptoms of GI bleeding. Objective - Vital Signs Vital signs: Vital Signs Temp 98.2 F 07/10/18 06:00 Pulse 95 07/10/18 06:00 Resp 20 07/10/18 06:00 BP 136/85 07/10/18 06:00 Pulse Ox 99 07/10/18 06:00 Intake & Output 07/09/18 07/10/18 07/10/18 18:59 06:59 18:59 Intake Total 600 Output Total 750 700 Balance -150 -700 Weight 67.5 kg Intake: Oral 600 Output: Urine 750 700 Other: Voiding Method Self-Catheterization # Voids 1 0 - Exam On physical examination, patient appears comfortable in no apparent distress. HEAD: Normocephalic, atraumatic. EYES: No scleral icterus. No conjunctival injection. MOUTH: No lesions, tongue midline. NECK: Trachea midline, no gross abnormalities. CHEST: Clear to auscultation with no wheezing or rhonchi appreciated. HEART: Regular rate and rhythm. ABDOMEN: Soft, obese. Bowel sounds are positive. No organomegaly. No guarding or rigidity. EXTREMITIES: No pedal edema. SKIN: No rashes, no jaundice. NEUROLOGIC: Alert and oriented x3, but continues. No focal deficits. - Labs CBC & Chem 7: 07/10/18 05:35 07/10/18 05:35 Labs: Abnormal Lab Results - Last 24 Hours (Table) 07/10/18 07/10/18 Range/Units 05:35 05:35 RBC 2.34 L (3.80-5.40) m/uL Hgb 8.1 L (11.4-16.0) gm/dL Hct 25.4 L (34.0-46.0) % MCV 108.8 H (80.0-100.0) fL RDW 19.2 H (11.5-15.5) % Macrocytosis Marked A Potassium 3.4 L (3.5-5.1) mmol/L Chloride 116 H (98-107) mmol/L Carbon Dioxide 14 L (22-30) mmol/L Calcium 10.7 H (8.4-10.2) mg/dL Microbiology - Last 24 Hours (Table) 07/07/18 18:08 Urine Culture - Final Urine,Voided Enterococcus faecalis 07/07/18 20:46 Blood Culture - Preliminary Blood No Growth after 48 hours Assessment and Plan (1) Anemia Narrative/Plan: 53-year-old female presenting due to increasing confusion and found to be anemic on presentation. Patient has a macrocytic anemia of unknown etiology with reports of recent transfusion at [facility] with the patient was found to have a hemoglobin in the 6 range, currently hemoglobin is 9.9. There was concern over vaginal bleeding on her admission to [facility], with reports of melena as well. Currently the patient is reporting non-melanotic, nonbloody stools and also had stool testing for occult blood which was negative. It is unclear if anemia is secondary to acute blood loss, either vaginal or from the GI tract, secondary to chronic disease or other etiology. Current Visit: Yes Status: Acute Code(s): D64.9 - ANEMIA, UNSPECIFIED SNOMED Code(s): 001330149 (2) Melena Narrative/Plan: Reports of dark stool from patient's family, however she states bowel movements have been nonbloody melanotic, nonbloody and had stool testing for occult blood which was negative. The patient does have risk factors such as Motrin use but is also on GI prophylaxis with Pepcid at home. Patient is unclear of her endoscopic history. Current Visit: Yes Status: Acute Code(s): K92.1 - MELENA SNOMED Code(s): 6408008 (3) Non-STEMI (non-ST elevated myocardial infarction) Current Visit: Yes Status: Acute Code(s): I21.4 - NON-ST ELEVATION (NSTEMI) MYOCARDIAL INFARCTION SNOMED Code(s): 30238737 Plan: Supportive care Okay for diet Continue twice daily Protonix therapy Continue to monitor hemoglobin and hematocrit and transfuse as needed Plan for EGD tomorrow for further evaluation of anemia Okay for further workup per cardiology service who are planning on cardiac catheterization, likely on Tuesday Folate, B12 and iron levels pending Thank you for allowing us to participate in the care of the patient we will continue to follow
--- NOTE | 2018-07-10 14:46 | ECHOF ---
Referral Reason:nstemi MEASUREMENTS -------- HEIGHT: 162.6 cm WEIGHT: 67.1 kg BP: 136/85 RVIDd: 2.4 cm (< 3.3) IVSd: 1.2 cm (0.6 - 1.1) LVIDd: 5.3 cm (3.9 - 5.3) LVPWd: 1.2 cm (0.6 - 1.1) IVSs: 1.7 cm LVIDs: 3.0 cm LVPWs: 1.7 cm LA Diam: 2.6 cm (2.7 - 3.8) Ao Diam: 3.2 cm (2.0 - 3.7) AV Cusp: 2.2 cm (1.5 - 2.6) MV EXCURSION: 20.651 mm (> 18.000) MV EF SLOPE: 168 mm/s (70 - 150) EPSS: 0.5 cm MV E Catarino: 0.63 m/s MV DecT: 261 ms MV A Catarino: 0.80 m/s MV E/A Ratio: 0.79 FINDINGS -------- Sinus rhythm. This was a technically adequate study. The left ventricular size is normal. There is borderline concentric left ventricular hypertrophy. Overall left ventricular systolic function is mild-moderately impaired with, an EF between 40 - 45 % . Apical anterior LV wall motion is hypokinetic. Apical lateral LV wall motion is hypokinetic. Apical inferior LV wall motion is hypokinetic. Apical septum LV wall motion is hypokinetic. The right ventricle is normal in size. Normal LA size by volume 22+/-6 ml/m2. The right atrium is normal in size. Interatrial and interventricular septum intact. There is mild aortic valve sclerosis. The mitral valve leaflets are mildly thickened. Mild mitral annular calcification present. There is trace mitral regurgitation. The tricuspid valve appears structurally normal. Trace/mild (physiologic) pulmonic regurgitation. The aortic root size is normal. Normal inferior vena cava with normal inspiratory collapse consistent with estimated right atrial pre ssure of 5 mmHg. The inferior vena cava is mildly dilated. There is no pericardial effusion. CONCLUSIONS -------- 1. Sinus rhythm. 2. This was a technically adequate study. 3. The left ventricular size is normal. 4. There is borderline concentric left ventricular hypertrophy. 5. Overall left ventricular systolic function is mild-moderately impaired with, an EF between 40 - 45 %. 6. Apical anterior LV wall motion is hypokinetic. 7. Apical lateral LV wall motion is hypokinetic. 8. Apical inferior LV wall motion is hypokinetic. 9. Apical septum LV wall motion is hypokinetic. 10. The right ventricle is normal in size. 11. Normal LA size by volume 22+/-6 ml/m2. 12. The right atrium is normal in size. 13. Interatrial and interventricular septum intact. 14. There is mild aortic valve sclerosis. 15. The mitral valve leaflets are mildly thickened. 16. Mild mitral annular calcification present. 17. There is trace mitral regurgitation. 18. The tricuspid valve appears structurally normal. 19. Trace/mild (physiologic) pulmonic regurgitation. 20. The aortic root size is normal. 21. Normal inferior vena cava with normal inspiratory collapse consistent with estimated right atrial pressure of 5 mmHg. 22. The inferior vena cava is mildly dilated. 23. There is no pericardial effusion. INHALATION THERAPIST: Eliana Cheng RDCS
--- NOTE | 2018-07-10 17:00 | P.PN ---
Subjective Progress Note Date: 07/10/18 Patient's family members were present. Heparin she continues to be delusional at times. Patient would be talking, and starts telling stories, sometimes has truth, whereas at other times are fabricating stories. Almost appears delusional. No speech or language problems. Objective - Vital Signs Vital signs: Vital Signs Temp 97.8 F 07/10/18 16:00 Pulse 84 07/10/18 16:00 Resp 20 07/10/18 16:00 BP 131/88 07/10/18 16:00 Pulse Ox 100 07/10/18 16:00 Intake & Output 07/09/18 07/10/18 07/10/18 18:59 06:59 18:59 Intake Total 600 120 Output Total 750 700 850 Balance -150 -700 -730 Weight 67.5 kg Intake: Oral 600 120 Output: Urine 750 700 850 Other: Voiding Method Self-Catheterization Self-Catheterization # Voids 1 0 1 - Exam Patient sitting in the recliner, in no distress. She has slightly odd affect. Strength is equal. - Labs CBC & Chem 7: 07/10/18 05:35 07/10/18 05:35 Labs: Abnormal Lab Results - Last 24 Hours (Table) 07/10/18 07/10/18 Range/Units 05:35 05:35 RBC 2.34 L (3.80-5.40) m/uL Hgb 8.1 L (11.4-16.0) gm/dL Hct 25.4 L (34.0-46.0) % MCV 108.8 H (80.0-100.0) fL RDW 19.2 H (11.5-15.5) % Macrocytosis Marked A Potassium 3.4 L (3.5-5.1) mmol/L Chloride 116 H (98-107) mmol/L Carbon Dioxide 14 L (22-30) mmol/L Calcium 10.7 H (8.4-10.2) mg/dL Microbiology - Last 24 Hours (Table) 07/07/18 18:08 Urine Culture - Final Urine,Voided Enterococcus faecalis 07/07/18 20:46 Blood Culture - Preliminary Blood No Growth after 48 hours Assessment and Plan Assessment: * Altered mental status, probably due to depressive disorder with some delusional features. Neurologically patient appears stable. * Weakness, unclear etiology. Her neurological examination is normal. Could be depression related. * History of cervical spinal stenosis, status post decompressive surgery in 2016. * History of abnormal brain MRI, with evidence of demyelinating disease. * History of vitamin B6 deficiency * Tobacco user * Previous history of alcoholism. Plan: * Patient is undergoing B12, folate level checked. * Neurologically patient is stable. * Await psychiatric consultation to evaluate for affective/delusional disorder. * Continue thiamine 100 mg. * Patient should continue to follow up with her neurologist as outpatient
--- NOTE | 2018-07-10 20:18 | P.PN ---
Subjective This is a 53-year-old female who is brought in by the EMS for above-mentioned complaint. Patient the time examination was alert oriented 3 but she was acting confused. She didn't know why she was here and when I asked her who her primary was here in of any of the primary and she thinks that she's been in for a while. Ex- was there at the bedside later on during the second attempt seeing her. He says that her confusion has been going on for at least 6 weeks where it was noticed by one of the friends. The daughter is also concerned when they went to see the patient at Mother's Day. thinks that she is probably having early onset dementia. She was taken to [facility] and she was admitted for possible uterine mass, anemia, UTI and thrush. She was treated for UTI but her confusion still remains. Apparently the patient also has not been eating much patient is complaining of abdominal pain while at [facility]. She was also having black tarry stools while in [facility]. Plan was to do an EGD as an outpatient. At the time examination of the here the patient does not complain of any shortn ess of breath or cough she does complain of chest pain in the center of the chest, she does not complain any abdominal pain she says that she is nauseous but no vomiting, she does not complain of any diarrhea constipation. She does not complain of any tingling numbness of any extremities, and additional rash. On 07/09/2018 Patient still confused. But alert No chest pain or racing heart She's complaining of pain in her belly. Urine culture shows enterococcus group D 07/10/18 Pt still confused and delusional says she wants to eat. Objective - Vital Signs Vital signs: Vital Signs Temp 97.8 F 07/10/18 16:00 Pulse 84 07/10/18 16:00 Resp 20 07/10/18 16:00 BP 131/88 07/10/18 16:00 Pulse Ox 100 07/10/18 16:00 Intake & Output 07/10/18 07/10/18 07/11/18 06:59 18:59 06:59 Intake Total 245 Output Total 700 850 Balance -700 -605 Weight 67.5 kg Intake: Oral 245 Output: Urine 700 850 Other: Voiding Method Self-Catheterization Self-Catheterization # Voids 0 1 - Exam On exam, alert and oriented x3. She is confused having tangential thoughts HEENT: Conjunctivae normal. eyes normal. NECK: No JVD. No thyroid enlargement. No LNs CARDIOVASCULAR: S1, S2 muffled. No murmur RESPIRATION: Breath sounds diminished in the bases. No rhonchi or crackles. No bronchial breathing. ABDOMEN: Soft, nontender . No guarding. no masses palpable. No ascites, No hepatosplenomegaly.Bowel sounds heard. LEGS: No edema. no swelling NERVOUS SYSTEM: Cranial N 2-12 grossly normal. Moves all 4 limbs. No focal deficits. No sensory deficit. No signs of cerebellar dysfucntion. - Labs CBC & Chem 7: 07/10/18 05:35 07/10/18 05:35 Labs: Abnormal Lab Results - Last 24 Hours (Table) 07/10/18 07/10/18 Range/Units 05:35 05:35 RBC 2.34 L (3.80-5.40) m/uL Hgb 8.1 L (11.4-16.0) gm/dL Hct 25.4 L (34.0-46.0) % MCV 108.8 H (80.0-100.0) fL RDW 19.2 H (11.5-15.5) % Macrocytosis Marked A Potassium 3.4 L (3.5-5.1) mmol/L Chloride 116 H (98-107) mmol/L Carbon Dioxide 14 L (22-30) mmol/L Calcium 10.7 H (8.4-10.2) mg/dL Microbiology - Last 24 Hours (Table) 07/07/18 18:08 Urine Culture - Final Urine,Voided Enterococcus faecalis 07/07/18 20:46 Blood Culture - Preliminary Blood No Growth after 48 hours Assessment and Plan Assessment: - Encephalopathy probably having early onset dementia need to rule out underlying infection as a source - Non-STEMI - UTI with enterococcus - Anemia - Abd pain - Mild hypercalcemia - History of hypertension - History of alcoholism apparently she recently quit drinking - Nicotine dependence - Weakness Plan - Patient is admitted to stepdown with telemetry - Cardiology is consulted. Appreciate the recommendations - Patient is nothing by mouth as of now. GI is consulted for possible endoscopy. Patient apparently has a history of alcoholism and she recently quit drinking. So there is a risk of upper GI bleed. Her FOBT is negative for now. Patient might need interventions like cardiac cath with cardiology and there is any stent placed, patient might need to be on antiplatelets. It would be better on the patient's part to have the scope done to see if there is any ulcer or any cause of bleeding that can be fixed. - We'll resume the patient's home medications - We will also call neurology for encephalopathy. - DVT and GI prophylaxis - We'll order for lab work in the morning - Expected length of stay more than 2 midnights - Patient is full code 07/09/2018 - We'll start her on Macrobid for possible UTI due to enterococcus. Is probably is a contaminant - Patient probably get an EGD tomorrow morning -Cardiology will probably do a cath after the EGD is done depending upon these results - Continue rest of the medical care - We'll start her on Seroquel 25 mg daily - We'll follow up on the patient 07/10/18 - will change anx to cipro - will get egd tomorrow and then cath he next day - Pt also c/o abd pain, apparently was found to have uterine mass in the [facility]. - She will need to be manager event after cath is completed. - Also he ca is mildly high . follow up on the calcium tomorrow - consulted psych for delusional behavior. Time with Patient: Greater than 30
[2018-07-11] MEDS: ATORVASTATIN 40 MG TAB PO SCH ×2 (00:03→21:30)
[2018-07-11] MEDS: METOPROLOL TARTRATE 12.5 MG TAB PO SCH ×3 (00:04→21:30)
[2018-07-11] MEDS: GABAPENTIN 300 MG CAP PO SCH ×3 (00:04→21:30)
[2018-07-11] MEDS: NITROFURANTOIN MONOHYD/M-CRYST 100 MG CAP PO SCH ×3 (05:11→21:30)
[2018-07-11 07:23] LABS: Anisocytosis Slight; HCT 26.2 % (34.0-46.0); HGB 8.1 gm/dL (11.4-16.0); Hypochromasia Slight; MCH 33.6 pg (25.0-35.0); MCHC 30.9 g/dL (31.0-37.0); Macrocytosis Marked; Platelet Count 404 k/uL (150-450); RDW 19.4 % (11.5-15.5); WBC 8.9 k/uL (3.8-10.6)
[2018-07-11 07:45] LABS: Potassium 3.5 mmol/L (3.5-5.1)
[2018-07-11] MEDS: ASPIRIN 325 MG TAB PO SCH (09:43)
[2018-07-11] MEDS: PANTOPRAZOLE 40 MG TABLET PO SCH (09:43)
[2018-07-11] MEDS: THIAMINE 100 MG TAB PO SCH ×2 (09:44→17:06)
[2018-07-11] MEDS: LISINOPRIL 10 MG TAB PO SCH (09:44)
[2018-07-11] MEDS: HYDROcodone/APAP 7.5-325MG 1 EACH TAB PO PRN ×2 (09:45→16:17)
[2018-07-11] MEDS: QUEtiapine 25 MG TAB PO SCH (09:45)
--- NOTE | 2018-07-11 13:35 | P.PN ---
Subjective Progress Note Date: 07/11/18 This is a 53-year-old female history is very difficult to obtain from the patient, she doesn't recall exactly why she is here, she doesn't remember any recent workup that she has had although apparently she's been in [facility] recently. She is very weak, she has some chills and shaking. Apparently according to the emergency records, she was recently in [facility] with concerns for anemia, uterus enlargement, UTI, acute kidney injury, and thrush. She apparently had received multiple units of blood and had low blood pressures there. Since her discharge from [facility] she's been having abdominal discomfort, she's been dizzy and unable to ambulate, she's also forgetting to even eat. Increased confusion at home and significant weakness. According to the patient she does remember having black tarry stools, she is unsure exactly of what the workup was at [facility]. The patient states that she does have a history of high blood pressure, nicotine dependence, she denies being a diabetic, no hyperlipidemia according to her. A CAT scan of the brain was performed on arrival here which revealed mild atrophy with no acute intracranial abnormality. Chest x-ray did not reveal any active cardiopulmonary disease. Her EKG on arrival shows a normal sinus rhythm with significant ST-T wave changes noted in the ant/ lateral leads as well as inferior leads. We do have an EKG from 2016, that time she had a normal sinus rhythm with no changes. White blood cell count 9.2, hemoglobin 9.9, platelet count 280. Sodium 137, potassium 3.8, BUN 14 and creatinine 0.8. AST 84 ALT 45 alk phos 245 magnesium 1.7. Troponin 0.092, 0.117, 0.094. According to the patient, she states that she has been experiencing intermittent chest discomfort. Again her history is very difficult to obtain, once she says something then she shakes her head and is unsure if that was the correct answer or not. 07/11/2018 Patient was seen and examined this morning, no complaints overall. She is scheduled to undergo an EGD today with . Blood pressure 104/54 with a heart rate in the 90s, 98% on room air. White blood cell count 8.9, hemoglobin 8.1, platelet count 404. Sodium 140, potassium 3.5, BUN 8 and creatinine 0.9. Objective - Vital Signs Vital signs: Vital Signs Temp 98.7 F 07/11/18 08:00 Pulse 91 07/11/18 12:00 Resp 16 07/11/18 11:29 BP 104/54 07/11/18 11:29 Pulse Ox 98 07/11/18 11:29 Intake & Output 07/10/18 07/11/18 07/11/18 18:59 06:59 18:59 Intake Total 245 0 Output Total 850 500 Balance -605 -500 0 Weight 62.5 kg Intake: Oral 245 0 Output: Urine 850 500 Other: Voiding Method Self-Catheterization Self-Catheterization Self-Catheterization # Voids 1 1 1 - Exam PHYSICAL EXAMINATION: GENERAL: 53-year-old female in no acute distress at the time of my examination HEENT: Head is atraumatic, normocephalic. Pupils equal, round. Sclera anicteric. Conjunctiva are clear. Mucous membranes of the mouth are moist. Neck is supple. There is no elevated jugular venous pressure. No carotid bruit is heard. HEART EXAMINATION: S1 and S2 1 systolic murmur is heard CHEST EXAMINATION: Lungs are clear to auscultation and precussion. No chest wall tenderness is noted on palpation or with deep breathing. ABDOMEN: Soft, generalized tenderness throughout. Bowel sounds are heard. No organomegaly noted. EXTREMITIES: 2+ peripheral pulses with no evidence of peripheral edema and no calf tenderness noted. NEUROLOGIC patient is awake, alert and oriented 2 . - Labs CBC & Chem 7: 07/11/18 06:03 07/11/18 06:03 Labs: Abnormal Lab Results - Last 24 Hours (Table) 07/11/18 07/11/18 Range/Units 06:03 06:03 RBC 2.40 L (3.80-5.40) m/uL Hgb 8.1 L (11.4-16.0) gm/dL Hct 26.2 L (34.0-46.0) % MCV 109.0 H (80.0-100.0) fL MCHC 30.9 L (31.0-37.0) g/dL RDW 19.4 H (11.5-15.5) % Macrocytosis Marked A Chloride 115 H (98-107) mmol/L Carbon Dioxide 16 L (22-30) mmol/L Microbiology - Last 24 Hours (Table) 07/07/18 20:46 Blood Culture - Preliminary Blood No Growth after 72 hours Assessment and Plan Plan: Assessment and plan #1 symptoms of abdominal discomfort with associated weakness #2 recent hospitalization to [facility], unsure exactly of the details, she farheen arently was admitted with anemia and received several units of blood #3 chest discomfort, EKG shows normal sinus rhythm with anterior lateral and inferior T wave inversion. Troponins 0.092, 0.117, 0.094. #4 history of hypertension #5 nicotine dependence #6 anemia, hemoglobin 9.9, stool for occult blood is negative. #7 abnormal AST and alk phos Plan From cardiology's perspective, we will continue to follow the patient, if the EGD is negative, we would recommend a hematology consultation. Patient will require cardiac catheterization. DNP note has been reviewed, I agree with a documented findings and plan of care. Patient was seen and examined.
[2018-07-11] MEDS ORDERED: fentaNYL (PF) 50 MCG/ML 2 ML AMP ONE (13:36)
[2018-07-11] MEDS ORDERED: PROPOFOL 10 MG/ML 20 ML VIAL IV ONE (13:36)
[2018-07-11] MEDS ORDERED: LIDOCAINE 1% INJ 10MG/ML (20 ML MDV) ONE (13:36)
[2018-07-11] MEDS ORDERED: MIDAZOLAM 2 MG/2 ML VIAL ONE (13:36)
[2018-07-11] MEDS ORDERED: SODIUM CHLORIDE 0.9% 500 ML 500 ML IV ONE (13:43)
[2018-07-11] MEDS ORDERED: Potassium Replacement Protocol 1 EACH MISC MISCELLANE PRN (13:46)
--- NOTE | 2018-07-11 14:09 | P.PCN ---
Date of Procedure: 07/11/18 Description of Procedure: BRIEF HISTORY: 53-year-old female who was brought in by EMS due to concerns over confusion. Reports are that the patient has been confused for at least 6 weeks with concerns for possible early onset dementia. The patient was recently hospitalized at [facility] where she was seen for vaginal bleeding and a possible uterine mass with the [employer] service on consult. There are notes indicate concern for possible fibroids. The patient was also noted to be anemic with a hemoglobin in the 6 range and refused transfusion with packed red blood cells. She was also treated for a UTI and thrush. There is also concern that the patient has been having dark stools for approximately 2 weeks. However the patient reports that she has not noted any dark stool, and she also had stool testing for occult blood which was negative. Laboratory evaluation on admission were significant for a WBC 9.2, hemoglobin 9.9, platelet count 280,000, MCV 107.2, total bilirubin 0.8, alkaline phosphatase 245, AST 84 and ALT 45. At home the patient is taking Motrin 800 mg up to twice daily for treatment of osteoarthritis. She is unsure if she has had an EGD or colonoscopy in the past but believes so. PROCEDURE PERFORMED: Esophagogastroduodenoscopy. PREOPERATIVE DIAGNOSIS: Melena, anemia acute blood loss. ESTIMATED BLOOD LOSS: Minimal. IV sedation per anesthesia. PROCEDURE: After informed consent was obtained, the patient was brought into the endoscopy unit. IV sedation was administered by Anesthesia under continuous monitoring. Initially the Olympus GIF-190 video endoscope was inserted into the mouth. Esophagus intubated without any difficulty. It was gradually advanced into the stomach and duodenum and carefully examined. 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 The scope at this time was withdrawn to the stomach, adequately insufflated with air, and upon careful examination, mucosa of the antrum, body, cardia and the fundus appeared grossly normal there was mild erythema and nodularity throughout the entire stomach suggestive of mild gastritis with biopsies of the antrum and body taken. The scope was then withdrawn into the esophagus. The GE junction was located at 39 cm from the incisors. The esophagus appeared normal. There were no erosions or ulcerations seen and the patient tolerated the procedure well. IMPRESSION: 1. 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 2. Mild gastritis, biopsied. Duodenal biopsies. RECOMMENDATIONS: The findings of this examination were discussed with the patient and her family. Okay to resume diet. Continue daily Protonix therapy. Okay for cardiac catheterization and anticoagulation as needed. Patient will need to follow-up in the outpatient setting for colonoscopy and possible video capsule endoscopy.
[2018-07-11 14:37] LABS: Reticulocyte % 2.2 % (0.5-2.0)
[2018-07-11 14:48] LABS: Iron Saturation 15.82 (12.00-45.00)
[2018-07-11 14:49] LABS: Folate, Serum QNS ng/mL (())
[2018-07-11] MEDS: POTASSIUM CHLORIDE ER 20 MEQ TAB.ER PO SCH ×2 (16:17→17:06)
--- NOTE | 2018-07-11 20:14 | P.PN ---
Subjective Progress Note Date: 07/11/18 Patient's daughter was present today. She states that patient has been having episodes of confusion, delusions, talking ramble. This has been getting worse. No other focal symptoms present. Patient sleeping at this time. No speech or language problems. Objective - Vital Signs Vital signs: Vital Signs Temp 97.6 F 07/11/18 16:00 Pulse 75 07/11/18 16:00 Resp 18 07/11/18 16:00 BP 132/72 07/11/18 16:00 Pulse Ox 100 07/11/18 16:00 Intake & Output 07/11/18 07/11/18 07/12/18 06:59 18:59 06:59 Intake Total 300 Output Total 500 Balance -500 300 Weight 62.5 kg Intake: IV 100 Oral 200 Output: Urine 500 Other: Voiding Method Self-Catheterization Self-Catheterization # Voids 1 1 - Exam Patient sleeping at this time. Examination deferred. - Labs CBC & Chem 7: 07/11/18 06:03 07/11/18 06:03 Labs: Abnormal Lab Results - Last 24 Hours (Table) 07/08/18 07/11/18 07/11/18 Range/Units 17:47 06:03 06:03 RBC 2.40 L (3.80-5.40) m/uL Hgb 8.1 L (11.4-16.0) gm/dL Hct 26.2 L (34.0-46.0) % MCV 109.0 H (80.0-100.0) fL MCHC 30.9 L (31.0-37.0) g/dL RDW 19.4 H (11.5-15.5) % Macrocytosis Marked A Retic Count (0.5-2.0) % Chloride 115 H (98-107) mmol/L Carbon Dioxide 16 L (22-30) mmol/L Iron 28 L (50-170) ug/dL TIBC 177 L (228-460) ug/dL 07/11/18 Range/Units 06:03 RBC (3.80-5.40) m/uL Hgb (11.4-16.0) gm/dL Hct (34.0-46.0) % MCV (80.0-100.0) fL MCHC (31.0-37.0) g/dL RDW (11.5-15.5) % Macrocytosis Retic Count 2.2 H (0.5-2.0) % Chloride (98-107) mmol/L Carbon Dioxide (22-30) mmol/L Iron (50-170) ug/dL TIBC (228-460) ug/dL Microbiology - Last 24 Hours (Table) 07/07/18 20:46 Blood Culture - Preliminary Blood No Growth after 72 hours Assessment and Plan Assessment: * Altered mental status, probably due to depressive disorder with some delusional features. Neurologically patient appears stable. * Weakness, unclear etiology. Her neurological examination is normal. Could be depression related. * History of cervical spinal stenosis, status post decompressive surgery in 2016. * History of abnormal brain MRI, with evidence of demyelinating disease. * History of vitamin B6 deficiency * Tobacco user * Previous history of alcoholism. Plan: * Patient's B12 is normal 797. * We will check EEG. * Await psychiatric consultation to evaluate for affective/delusional disorder. * Continue thiamine 100 mg. * Patient should continue to follow up with her neurologist as outpatient
[2018-07-11] MEDS ORDERED: HYDROcodone/APAP 7.5-325MG 1 EACH TAB PO ONE (21:52)
[2018-07-12] MEDS: THIAMINE 100 MG TAB PO SCH ×2 (06:20→17:16)
[2018-07-12] MEDS: PANTOPRAZOLE 40 MG TABLET PO SCH (06:20)
[2018-07-12] MEDS: METOPROLOL TARTRATE 12.5 MG TAB PO SCH ×2 (07:46→21:34)
[2018-07-12] MEDS: ASPIRIN 81 MG PO SCH (07:46)
[2018-07-12] MEDS: LISINOPRIL 10 MG TAB PO SCH (07:46)
[2018-07-12] MEDS: NITROFURANTOIN MONOHYD/M-CRYST 100 MG CAP PO SCH ×2 (07:46→21:34)
[2018-07-12] MEDS: GABAPENTIN 300 MG CAP PO SCH ×2 (07:46→21:34)
[2018-07-12] MEDS: QUEtiapine 25 MG TAB PO SCH (08:03)
[2018-07-12] MEDS: HYDROcodone/APAP 7.5-325MG 1 EACH TAB PO PRN (08:07)
--- NOTE | 2018-07-12 10:33 | P.PN ---
Subjective Progress Note Date: 07/12/18 Principal diagnosis: Melena acute blood loss anemia Status post EGD with findings of nonbleeding duodenal AVM status post cold probe ablation. Passed black-colored bowel movement last night. Denies abdominal pain. Objective - Vital Signs Vital signs: Vital Signs Temp 97.9 F 07/12/18 07:56 Pulse 80 07/12/18 07:57 Resp 18 07/12/18 07:57 BP 137/66 07/12/18 07:56 Pulse Ox 100 07/12/18 07:56 Intake & Output 07/11/18 07/12/18 07/12/18 18:59 06:59 18:59 Intake Total 300 Output Total 425 Balance 300 -425 Weight 65.1 kg Intake: IV 100 Oral 200 Output: Urine 425 Other: Voiding Method Self-Catheterization Self-Catheterization Self-Catheterization # Voids 1 1 1 # Bowel Movements 0 - Exam General appearance: The patient is alert, oriented, in no acute distress. HET: Head is normocephalic and atraumatic. Pupils are equal and reactive. Oropharynx is clear without lesions. Neck: Supple without lymphadenopathy. Trachea midline. Heart: S1 S2. Regular rate and rhythm. Lungs: No crackles or wheezes are heard. Abdomen: Soft, nontender, nondistended with bowel sounds. No peritoneal signs. No palpable organomegaly or masses. Extremities: Normal skin color and turgor. No cyanosis, rash, ulceration, clubbing, or edema. Radial and pedal pulses are 2/4 bilaterally. Neurological: No focal deficits. Strength and sensation are grossly intact. - Labs CBC & Chem 7: 07/11/18 06:03 07/11/18 06:03 Labs: Abnormal Lab Results - Last 24 Hours (Table) 07/08/18 07/11/18 Range/Units 17:47 06:03 Retic Count 2.2 H (0.5-2.0) % Iron 28 L (50-170) ug/dL TIBC 177 L (228-460) ug/dL Microbiology - Last 24 Hours (Table) 07/07/18 20:46 Blood Culture - Preliminary Blood No Growth after 96 hours Assessment and Plan (1) Duodenal arteriovenous malformation Current Visit: Yes Status: Acute Code(s): K31.819 - ANGIODYSPLASIA OF STOMAC H AND DUODENUM WITHOUT BLEEDING SNOMED Code(s): 971563496 (2) GI bleed Current Visit: Yes Status: Acute Code(s): K92.2 - GASTROINTESTINAL HEMORRHAGE, UNSPECIFIED SNOMED Code(s): 04382301 (3) Acute blood loss anemia Current Visit: Yes Status: Acute Code(s): D62 - ACUTE POSTHEMORRHAGIC ANEMIA SNOMED Code(s): 485537249 (4) Melena Current Visit: Yes Status: Acute Code(s): K92.1 - MELENA SNOMED Code(s): 6875187 Plan: 1. Protonix 40 mg daily. Daily CBC monitoring. Dr. Little recommends proceeding with cardiac catheterization and anti-correlation is needed. We'll continue to follow. Assessment and plan a care discussed with Dr. Little
[2018-07-12 13:04] LABS: Anisocytosis Slight; Basophils % (A) 0 %; Eosinophils # (A) 0.2 k/uL (0-0.7); Eosinophils % (A) 3 %; HGB 8.3 gm/dL (11.4-16.0); Hypochromasia Marked; Lymphocytes # (A) 1.6 k/uL (1.0-4.8); Lymphocytes % (A) 20 %; MCH 34.2 pg (25.0-35.0); MCHC 30.9 g/dL (31.0-37.0); MCV 110.7 fL (80.0-100.0); Macrocytosis Marked; Mean Platelet Volume 8.4; Monocytes # (A) 0.5 k/uL (0-1.0); Monocytes % (A) 6 %; Neutrophils # (A) 5.7 k/uL (1.3-7.7); Neutrophils % (A) 70 %; Platelet Count 409 k/uL (150-450); RBC 2.44 m/uL (3.80-5.40); WBC 8.2 k/uL (3.8-10.6)
[2018-07-12] MEDS ORDERED: ASPIRIN 325 MG TAB PO STA (14:06)
[2018-07-12] MEDS ORDERED: ATORVASTATIN 80 MG TAB PO STA (14:06)
[2018-07-12] MEDS ORDERED: ALPRAZolam 0.5 MG TAB PO PRN (14:06)
[2018-07-12] MEDS ORDERED: ALPRAZolam 0.25 MG TAB PO PRN (14:06)
[2018-07-12] MEDS ORDERED: SODIUM CHLORIDE 0.9% 1,000 ML in EMPTY BAG 1 BAG IV ONE (14:06)
--- NOTE | 2018-07-12 15:06 | P.PN ---
Subjective Progress Note Date: 07/12/18 Patient just had her EEG completed. Patient is alert and awake. She is slightly odd affect. Right shoulder pain. No other focal symptoms present. No speech or language problems. Per pressure testing technician, patient was very noncooperative with the testing. She would cry for no reason. Objective - Vital Signs Vital signs: Vital Signs Temp 97.6 F 07/12/18 14:11 Pulse 73 07/12/18 14:11 Resp 18 07/12/18 14:11 BP 128/74 07/12/18 14:11 Pulse Ox 100 07/12/18 14:11 Intake & Output 07/11/18 07/12/18 07/12/18 18:59 06:59 18:59 Intake Total 300 Output Total 825 Balance 300 -825 Weight 65.1 kg Intake: IV 100 Oral 200 Output: Urine 825 Other: Voiding Method Self-Catheterization Self-Catheterization Self-Catheterization # Voids 1 1 1 # Bowel Movements 0 - Exam Patient is alert and awake. Patient states the year is 2018, could not tell the month, perhaps April. She thinks it is still winter season. When I asked about president, she states "it's not Trump". "It's a girl president". Then she said no, it's not a girl, it's a male and stated was "[place]". I asked which country, states [place]. Patient knows that she is in [facility] and that she is in the hospital does not know the name. Her speech and language functions are normal. Some poor thought content, flight of ideas. On cranial nerve examination pupils are round and reacting, visual sheppard are full, face is symmetric and tongue protrudes the midline. Muscle strength testing the strength is normal in the arms except right shoulder, which she could not cooperate well due to pain. Strength in the lower extremities is normal except hip flexion, which may be 5-only on the right, normal on left. Sensations are equal. No ataxia for [id number] testing. Tone and bulk of muscles normal. Patient started crying when she could not remember name of the president. - Labs CBC & Chem 7: 07/12/18 12:15 07/11/18 06:03 Labs: Abnormal Lab Results - Last 24 Hours (Table) 07/11/18 07/12/18 Range/Units 06:03 12:15 RBC 2.44 L (3.80-5.40) m/uL Hgb 8.3 L (11.4-16.0) gm/dL Hct 27.0 L (34.0-46.0) % MCV 110.7 H (80.0-100.0) fL MCHC 30.9 L (31.0-37.0) g/dL RDW 19.0 H (11.5-15.5) % Macrocytosis Marked A Retic Count 2.2 H (0.5-2.0) % Microbiology - Last 24 Hours (Table) 07/07/18 20:46 Blood Culture - Preliminary Blood No Growth after 96 hours Assessment and Plan Assessment: * Altered mental status, probably due to depressive disorder with some delusional features. Neurologically patient appears stable. * Weakness, unclear etiology. Her neurological examination is normal. Could be depression related. * History of cervical spinal stenosis, status post decompressive surgery in 2016. * History of abnormal brain MRI, with evidence of demyelinating disease. * History of vitamin B6 deficiency * Tobacco user * Previous history of alcoholism. Plan: * Patient's B12 is normal 797. * Will review EEG. * Follow-up with psychiatry for affective/delusional disorder. * Continue thiamine 100 mg. * Patient should continue to follow up with her neurologist as outpatient
[2018-07-12] MEDS ORDERED: SODIUM CHLORIDE 0.9% 500 ML 500 ML IV ONE (16:14)
[2018-07-12] MEDS ORDERED: IV FLUID CONTINUATION 1,000 ML IV ONE (16:14)
[2018-07-12] MEDS ORDERED: LIDOCAINE 1% INJ 10MG/ML (20 ML MDV) ONE (16:28)
[2018-07-12] MEDS ORDERED: VERAPAMIL 2.5 MG/ML 2 ML AMP ONE (16:28)
[2018-07-12] MEDS ORDERED: LIDOCAINE 1% INJ 10MG/ML (20 ML MDV) SQ ONE (16:37)
[2018-07-12] MEDS ORDERED: MIDAZOLAM (PF) 2 MG/2 ML VIAL IV ONE (16:38)
[2018-07-12] MEDS: VERAPAMIL SYRINGE (5 MG/10 ML) INTRAARTER ONE ×2 (16:39→16:48)
[2018-07-12] MEDS ORDERED: fentaNYL (PF) 50 MCG/ML 2 ML AMP ONE (16:40)
[2018-07-12] MEDS ORDERED: HEPARIN SODIUM 1,000 UN/ML (10ML VL) ONE (16:40)
[2018-07-12] MEDS ORDERED: fentaNYL (PF) 50 MCG/ML 2 ML AMP IV ONE (16:42)
[2018-07-12] MEDS ORDERED: HEPARIN SODIUM 1,000 UN/ML (10ML VL) IV ONE (16:47)
[2018-07-12] MEDS ORDERED: RX INFO: IV CONTRAST WAS GIVEN 1 EACH MISC MISCELLANE PRN (16:55)
--- NOTE | 2018-07-12 16:56 | EEG ---
ELECTROENCEPHALOGRAM REPORT ELECTROENCEPHALOGRAM REPORT: DATE OF SERVICE: 07/12/2018. PREAMBLE: This is a 53-year-old female with altered mental status. This study is performed to evaluate for encephalopathy and to rule out any epileptiform activity. CURRENT MEDICATIONS: 1. Potassium. 2. Lorazepam. 3. Lisinopril. 4. Gabapentin. 5. Lipitor. 6. Aspirin. 7. Seroquel. 8. Pantoprazole. EEG FINDINGS: A routine 21-channel awake digital EEG recording was accomplished utilizing 10-20 international system with bipolar and referential montages. The background consists of well-developed but poorly regulated, predominantly 7-8 Hz activity mixed with some lower frequency delta and theta activity. Background does not seem to be reactive to eye opening or closing. A lot of myogenic activity was seen throughout this study. Different stages of sleep were not seen. Photic driving response was not seen. No focal or generalized epileptiform activity was seen. IMPRESSION: This is an abnormal EEG due to background disorganization and slowing. This is suggestive of generalized cerebral dysfunction, as can be seen with toxic metabolic encephalopathy or related to diffuse structural brain abnormality. Clinical correlation is recommended. No definitive epileptiform activity was seen. This study was technically limited due to frequent movement artifact. If your suspicion for seizures is high, consider prolonged or sleep-deprived EEG. MMODL / IJN: [id number] /
[2018-07-12] MEDS ORDERED: SODIUM CHLORIDE 0.9% 1,000 ML IV SCH (17:00)
[2018-07-12] MEDS ORDERED: IOPAMIDOL-370 125ML BTL INJ ONE (17:02)
[2018-07-12 17:08] LABS: Folate, Serum 3.6 ng/mL
--- NOTE | 2018-07-12 18:40 | P.CONS ---
History of Present Illness - Reason for Consult Consult date: 07/12/18 Anemia Requesting physician: Monique Terrzaas - Chief Complaint Altered mental status - History of Present Illness Patient was initially admitted on 07/07 with altered mental status and confusion. Since that time patient has had EGD with biopsies that were negative for any malignant process, she is also had a cardiac catheterization with stent placement. Patient's hemoglobin today is 8.1, elevated MCV of 109. Patient denies any known history of anemia, she states some black stools recently, denies hematemesis, abdominal pain or bloating, history of chronic urinary c atheterization-she is unable to tell me why-she does see occasional hematuria, nothing new or unusual, patient has been in menopause for about 5 years. Patient was having some difficulties answering my questions, [id number] was at the bedside, her was not available for questioning. She denies ever having a colonoscopy, she did not remember having the EGD. Review of Systems Collected what data I was able to ROS unobtainable: due to mental status Past Medical History Past Medical History: Fibromyalgia, GERD/Reflux, Hypertension, Musculoskeletal Disorder, Osteoarthritis (OA) Additional Past Medical History / Comment(s): OCC. PALPITATIONS, herniated disks, NECK PAIN, NUMBNESS IN ARMS and left leg, PT DOES SELF CATHETERIZATION. , HX OF ANEMIA. DIZZINESS. VIRAL MENIGITIS WHEN YOUNGER, History of Any Multi-Drug Resistant Organisms: None Reported Past Surgical History: No Surgical Hx Reported Additional Past Surgical History / Comment(s): . Past Anesthesia/Blood Transfusion Reactions: Previous Problems w/ Anesthesia Additional Past Anesthesia/Blood Transfusion Reaction / Comm: PT WOKE UP ANGRY.- STATES HER DAUGHTER HAS THE SAME REACTION. Past Psychological History: Anxiety, Bipolar, Depression, Panic Disorder Smoking Status: Current every day smoker Past Alcohol Use History: Abuse, Daily Additional Past Alcohol Use History / Comment(s): started smoking age 13, smokes occationally now Past Drug Use History: None Reported - Past Family History Father Family Medical History: Coronary Artery Disease (CAD), Diabetes Mellitus Mother Additional Family Medical History / Comment(s): SUBDURAL HEMATOMA Medications and Allergies Home Medications Medication Instructions Recorded Confirmed Type Gabapentin [Neurontin] 600 mg PO BID 06/24/15 07/07/18 History Ibuprofen [Motrin] 800 mg PO TID PRN 07/29/15 07/07/18 History Albuterol Inhaler [Ventolin Hfa 2 puff INHALATION RT-Q6H PRN 05/19/16 07/07/18 History Inhaler] Hydrocodone/Acetaminophen [[place] 1 tab PO TID PRN 05/19/16 07/07/18 History 7.5-325] Ipratropium [place] [Atrovent Hfa] 2 puff INHALATION RT-TID 07/07/18 07/07/18 History Lisinopril-Hctz 10-12.5 mg 1 tab PO BID 07/07/18 07/07/18 History [Zestoretic 10-12.5] Meclizine [Antivert] 12.5 mg PO BID 07/07/18 07/07/18 History Omeprazole 20 mg PO DAILY 07/07/18 07/07/18 History Allergies Allergy/AdvReac Type Severity Reaction Status Date / Time ciprofloxacin [From Cipro] Allergy Swelling. Verified 07/07/18 20:17 SOB. ciprofloxacin HCl Allergy Swelling. Verified 07/07/18 20:17 [From Cipro] SOB. sulfamethoxazole Allergy Unknown Verified 07/07/18 20:17 [From Bactrim] trimethoprim [From Bactrim] Allergy Unknown Verified 07/07/18 20:17 Physical Exam Vitals: Vital Signs Temp Pulse Pulse Pulse Resp BP Pulse Ox 07/12/18 18:10 16 121/56 96 07/12/18 17:40 81 18 114/63 96 07/12/18 17:25 76 18 108/58 96 07/12/18 17:10 75 18 116/56 96 07/12/18 16:25 98.7 F 75 76 18 127/74 100 07/12/18 14:11 97.6 F 73 18 128/74 100 07/12/18 12:15 97.6 F 75 18 125/73 100 07/12/18 11:19 75 80 18 07/12/18 07:57 80 18 07/12/18 07:56 97.9 F 80 18 137/66 100 07/12/18 04:58 98.2 F 71 14 116/66 99 07/12/18 01:28 71 15 93/53 97 07/11/18 21:28 98.6 F 77 15 119/61 97 Intake and Output 0507/12/18 07/12/18 06:59 14:59 22:59 Intake Total 640 Output Total 825 300 Balance -825 340 Intake: IV 100 Intake, IV Titration 300 Amount Sodium Chloride 0.9% 1, 300 000 ml @ 75 mls/hr IV . [id number] SHORTY Rx#:[id number] Oral 240 Output: Urine 825 300 Other: Voiding Method Self-Catheterization Self-Catheterization Self-Catheterization # Voids 1 1 1 # Bowel Movements 0 Weight 65.1 kg - Constitutional General appearance: average body habitus, cooperative, mild distress - EENT Eyes: anicteric sclerae, EOMI ENT: hearing grossly normal, normal oropharynx - Neck Neck: no lymphadenopathy - Respiratory Respiratory: bilateral: diminished - Cardiovascular Heart sounds: normal: S1, S2 leg Peripheral Edema: bilateral: None - Gastrointestinal General gastrointestinal: no absent bowel sounds, no decreased bowel sounds, no distended, no hepatomegaly, no hyperactive bowel sounds, normal bowel sounds, no organomegaly, no rigid, no scaphoid, soft, no splenomegaly, no tenderness, no umbilical hernia, no ventral hernia - Integumentary Integumentary: pale - Neurologic Slight generalized tremor noted in the upper extremities Neurologic: CNII-XII intact - Musculoskeletal Musculoskeletal: generalized weakness - Psychiatric Mild confusion, unable to stand topic, oriented to self and her [id number]. Results CBC & Chem 7: 07/12/18 12:15 07/11/18 06:03 Labs: Abnormal Lab Results - Last 24 Hours (Table) 07/12/18 07/12/18 Range/Units 12:15 12:15 RBC 2.44 L (3.80-5.40) m/uL Hgb 8.3 L (11.4-16.0) gm/dL Hct 27.0 L (34.0-46.0) % MCV 110.7 H (80.0-100.0) fL MCHC 30.9 L (31.0-37.0) g/dL RDW 19.0 H (11.5-15.5) % Macrocytosis Marked A Ferritin 1521.6 H (10.0-291.0) ng/mL Microbiology - Last 24 Hours (Table) 07/07/18 20:46 Blood Culture - Preliminary Blood No Growth after 96 hours Assessment and Plan (1) Macrocytic anemia Narrative/Plan: Anemia is of new onset, macrocytosis noted back into 2016. Patient is noted to be folate deficient. Her iron studies are more suggestive of inflammation as the ferritin is significantly elevated greater than 1000. Patient has been started on a B supplement at this time. Multiple other labs ordered for evaluation Would recommend continuing her supplementation ordered. CBC follow-up over the next several months. Current Visit: Yes Status: Acute Priority: High Code(s): D53.9 - NUTRITIONAL ANEMIA, UNSPECIFIED SNOMED Code(s): 13413116
[2018-07-12] MEDS: ATORVASTATIN 40 MG TAB PO SCH (21:34)
--- NOTE | 2018-07-12 22:14 | CC ---
CARDIAC CATHETERIZATION REPORT DATE OF SERVICE: 07/12/2018 PERFORMING PHYSICIAN: Mendez Tejada MD, yardage control operator. PROCEDURES PERFORMED: 1. Selective right and left coronary angiogram. 2. Left heart catheterization. INDICATION: This is a pleasant 53-year-old female patient with history of hypertension, dyslipidemia, and significant history of smoking. She presented to the hospital with chest discomfort and ruled in for acute [id number] myocardial infarction. She also was found to have GI bleeding. She underwent upper endoscopy and that revealed no evidence of active bleeding. Because of that, a heart catheterization was advised. APPROACH: Right radial artery. COMPLICATIONS: None. LEVEL OF SEDATION: Moderate, with sedation length of 14 minutes. PROCEDURE DESCRIPTION: After obtaining informed consent, the patient was brought to the cardiac labor employment associate. The right radial artery was cannulated using micropuncture technique. The micropuncture wire passed easily. Then I placed a 6-Romansh sheath in the right radial artery. After that I did selective right and left coronary angiogram using JR4 and JL3.5 catheters. Left heart catheterization was performed using the JR4 catheter, which crossed the and was then pulled back across the aortic valve. The procedure was completed without any complication. The patient was given 10,000 units of heparin IV. SELECTIVE CORONARY ANGIOGRAM: The right coronary artery is a large caliber vessel and appeared to be angiographically normal. The left main is angiographically normal. angiographically normal. LAD appeared to be angiographically normal as well. HEMODYNAMICS: The left ventricular end-diastolic pressure was 12 mmHg without significant gradient across the aortic valve. CONCLUSION: 1. Normal coronary angiogram. 2. Normal left ventricular end-diastolic pressure. POST-PROCEDURE MANAGEMENT: Medical treatment. MMODL / IJN: [id number] /
--- NOTE | 2018-07-12 22:44 | P.PN ---
Subjective Progress Note Date: 07/11/18 Principal diagnosis: Acute metabolic encephalopathy Delirium Enterococcus urinary tract infection Acute blood loss anemia secondary to GI bleed This is a 53-year-old female who is brought in by the EMS for above-mentioned complaint. Patient the time examination was alert oriented 3 but she was acting confused. She didn't know why she was here and when I asked her who her primary was here in of any of the primary and she thinks that she's been in for a while. Ex- was there at the bedside later on during the second attempt seeing her. He says that her confusion has been going on for at least 6 weeks where it was noticed by one of the friends. The daughter is also concerned when they went to see the patient at Mother's Day. thinks that she is probably having early onset dementia. She was taken to [facility] and she was admitted for possible uterine mass, anemia, UTI and thrush. She was treated for UTI but her confusion still remains. Apparently the patient also has not been eating much patient is complaining of abdominal pain while at [facility]. She was also having black tarry stools while in [facility]. Plan was to do an EGD as an outpatient. At the time examination of the here the patient does not complain of any shortness of breath or cough she does complain of chest pain in the center of the chest, she does not complain any abdominal pain she says that she is nauseous but no vomiting, she does not complain of any diarrhea constipation. She does not complain of any tingling numbness of any extremities, and additional rash. On 07/09/2018 Patient still confused. But alert No chest pain or racing heart She's complaining of pain in her belly. Urine culture shows enterococcus group D 07/10/18 Pt still confused and delusional says she wants to eat. 07/11/2018 Patient is able to sit in the chair comfortably but otherwise she is still confused and is starting to nonexistent persons. 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 Hemoglobin is 8.1. No complaints of chest pain or shortness of breath. No nausea vomiting or diarrhea. No abdominal pain. Gastroenterology, cardiology and neurology is following. Complete review of systems could not be apparent from the patient. Current medications reviewed. Objective - Vital Signs Vital signs: Vital Signs Temp 98.6 F 07/11/18 21:28 Pulse 77 07/11/18 21:28 Resp 15 07/11/18 21:28 BP 119/61 07/11/18 21:28 Pulse Ox 97 07/11/18 21:28 Intake & Output 07/11/18 07/11/18 07/12/18 06:59 18:59 06:59 Intake Total 300 Output Total 500 Balance -500 300 Weight 62.5 kg Intake: IV 100 Oral 200 Output: Urine 500 Other: Voiding Method Self-Catheterization Self-Catheterization # Voids 1 1 - Exam On exam, alert and oriented x2-3. She is confused having tangential thoughts HEENT: Conjunctivae normal. eyes normal. NECK: No JVD. No thyroid enlargement. No LNs CARDIOVASCULAR: S1, S2 muffled. No murmur RESPIRATION: Breath sounds diminished in the bases. No rhonchi or crackles. No bronchial breathing. ABDOMEN: Soft, nontender . No guarding. no masses palpable. No ascites, No hepatosplenomegaly.Bowel sounds heard. LEGS: No edema. no swelling NERVOUS SYSTEM: Cranial N 2-12 grossly normal. Moves all 4 limbs. No focal deficits. No sensory deficit. No signs of cerebellar dysfucntion. - Labs CBC & Chem 7: 07/12/18 12:15 07/11/18 06:03 Labs: Abnormal Lab Results - Last 24 Hours (Table) 07/08/18 07/11/18 07/11/18 Range/Units 17:47 06:03 06:03 RBC 2.40 L (3.80-5.40) m/uL Hgb 8.1 L (11.4-16.0) gm/dL Hct 26.2 L (34.0-46.0) % MCV 109.0 H (80.0-100.0) fL MCHC 30.9 L (31.0-37.0) g/dL RDW 19.4 H (11.5-15.5) % Macrocytosis Marked A Retic Count (0.5-2.0) % Chloride 115 H (98-107) mmol/L Carbon Dioxide 16 L (22-30) mmol/L Iron 28 L (50-170) ug/dL TIBC 177 L (228-460) ug/dL 07/11/18 Range/Units 06:03 RBC (3.80-5.40) m/uL Hgb (11.4-16.0) gm/dL Hct (34.0-46.0) % MCV (80.0-100.0) fL MCHC (31.0-37.0) g/dL RDW (11.5-15.5) % Macrocytosis Retic Count 2.2 H (0.5-2.0) % Chloride (98-107) mmol/L Carbon Dioxide (22-30) mmol/L Iron (50-170) ug/dL TIBC (228-460) ug/dL Microbiology - Last 24 Hours (Table) 07/07/18 20:46 Blood Culture - Preliminary Blood No Growth after 72 hours Assessment and Plan Assessment: - Altered mental status likely secondary to delirium - Possible Acute metabolic encephalopathy with infection - Non-STEMI - UTI with enterococcus faecalis - Dark-colored stools with Acute blood loss anemia. Status post EGD showed nonbleeding AVM - Normocytic Anemia/anemia of chronic disease - Mild hypercalcemia - Hypertension - History of alcoholism apparently she recently quit drinking - History of cervical spinal stenosis status post decompressive surgery in 2016 - Nicotine dependence - Generalized Weakness - DVT prophylaxis with SCDs Plan: Patient will be continued on telemetry monitoring. Monitor H&H. Patient is status post EGD today. Cardiology is planning for catheterization tomorrow. Continue with Protonix 40 mg daily. Continue with thiamine and multivitamins. B12 within normal limits. Gastroenterology and neurology on board. EEG was ordered. Time with Patient: Greater than 30
--- NOTE | 2018-07-12 22:48 | P.PN ---
Subjective Progress Note Date: 07/12/18 Principal diagnosis: Acute metabolic encephalopathy Delirium Enterococcus urinary tract infection Acute blood loss anemia secondary to GI bleed This is a 53-year-old female who is brought in by the EMS for above-mentioned complaint. Patient the time examination was alert oriented 3 but she was acting confused. She didn't know why she was here and when I asked her who her primary was here in of any of the primary and she thinks that she's been in for a while. Ex- was there at the bedside later on during the second attempt seeing her. He says that her confusion has been going on for at least 6 weeks where it was noticed by one of the friends. The daughter is also concerned when they went to see the patient at Mother's Day. thinks that she is probably having early onset dementia. She was taken to [facility] and she was admitted for possible uterine mass, anemia, UTI and thrush. She was treated for UTI but her confusion still remains. Apparently the patient also has not been eating much patient is complaining of abdominal pain while at [facility]. She was also having black tarry stools while in [facility]. Plan was to do an EGD as an outpatient. At the time examination of the here the patient does not complain of any shortness of breath or cough she does complain of chest pain in the center of the chest, she does not complain any abdominal pain she says that she is nauseous but no vomiting, she does not complain of any diarrhea constipation. She does not complain of any tingling numbness of any extremities, and additional rash. On 07/09/2018 Patient still confused. But alert No chest pain or racing heart She's complaining of pain in her belly. Urine culture shows enterococcus group D 07/10/18 Pt still confused and delusional says she wants to eat. 07/11/2018 Patient is able to sit in the chair comfortably but otherwise she is still confused and is starting to nonexistent persons. 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 Hemoglobin is 8.1. No complaints of chest pain or shortness of breath. No nausea vomiting or diarrhea. No abdominal pain. Gastroenterology, cardiology and neurology is following. 07/12/2018 Patient is still confused and delirious. No complaints of chest pain or shortness of breath. No complains abdominal pain. Patient is status post EGD showed nonbleeding AVM in the second part of duodenum. Hemoglobin is 8.3 today. Patient is being continued on Protonix. Patient is going for cardiac catheterization today. Currently undergoing EEG No fever no chills. Complete review of systems could not be apparent from the patient. Current medications reviewed. Objective - Vital Signs Vital signs: Vital Signs Temp 98.0 F 07/12/18 21:28 Pulse 71 07/12/18 21:28 Resp 15 07/12/18 21:28 BP 104/71 07/12/18 21:28 Pulse Ox 97 07/12/18 21:28 Intake & Output 07/12/18 07/12/18 07/13/18 06:59 18:59 06:59 Intake Total 640 Output Total 1125 Balance -485 Weight 65.1 kg Intake: IV 100 Intake, IV Titration 300 Amount Sodium Chloride 0.9% 1, 300 000 ml @ 75 mls/hr IV . [id number] SHORTY Rx#:[id number] Oral 240 Output: Urine 1125 Other: Voiding Method Self-Catheterization Self-Catheterization # Voids 1 1 # Bowel Movements 0 - Exam On exam, alert and oriented x2-3. She is confused having tangential thoughts HEENT: Conjunctivae normal. eyes normal. NECK: No JVD. No thyroid enlargement. No LNs CARDIOVASCULAR: S1, S2 muffled. No murmur RESPIRATION: Breath sounds diminished in the bases. No rhonchi or crackles. No bronchial breathing. ABDOMEN: Soft, nontender . No guarding. no masses palpable. No ascites, No hepatosplenomegaly.Bowel sounds heard. LEGS: No edema. no swelling NERVOUS SYSTEM: Cranial N 2-12 grossly normal. Moves all 4 limbs. No focal deficits. No sensory deficit. No signs of cerebellar dysfucntion. - Labs CBC & Chem 7: 07/12/18 12:15 07/11/18 06:03 Labs: Abnormal Lab Results - Last 24 Hours (Table) 07/12/18 07/12/18 Range/Units 12:15 12:15 RBC 2.44 L (3.80-5.40) m/uL Hgb 8.3 L (11.4-16.0) gm/dL Hct 27.0 L (34.0-46.0) % MCV 110.7 H (80.0-100.0) fL MCHC 30.9 L (31.0-37.0) g/dL RDW 19.0 H (11.5-15.5) % Macrocytosis Marked A Ferritin 1521.6 H (10.0-291.0) ng/mL Microbiology - Last 24 Hours (Table) 07/07/18 20:46 Blood Culture - Preliminary Blood No Growth after 96 hours Assessment and Plan Assessment: - Altered mental status likely secondary to delirium - Possible Acute metabolic encephalopathy with infection - Non-STEMI - UTI with enterococcus faecalis - Dark-colored stools with Acute blood loss anemia. Status post EGD showed nonbleeding AVM - Normocytic Anemia/anemia of chronic disease - Mild hypercalcemia - Hypertension - History of alcoholism apparently she recently quit drinking - History of cervical spinal stenosis status post decompressive surgery in 2016 - Nicotine dependence - Generalized Weakness - DVT prophylaxis with SCDs Plan: Patient will be continued on telemetry monitoring. Monitor H&H. Patient is status post EGD showed AVM in the [place]. Cardiology is planning for catheterization today. Continue with Protonix 40 mg daily. Continue with thiamine and multivitamins. B12 within normal limits. Gastroenterology and neurology on board. EEG was ordered. Continue with antibiotics in the form of ciprofloxacin for enterococcus fecalis urinary tract infection. Time with Patient: Greater than 30
[2018-07-13] MEDS: PANTOPRAZOLE 40 MG TABLET PO SCH (07:14)
[2018-07-13] MEDS: THIAMINE 100 MG TAB PO SCH ×2 (07:14→12:00)
[2018-07-13 07:41] LABS: Anisocytosis Slight; HCT 27.5 % (34.0-46.0); HGB 8.5 gm/dL (11.4-16.0); Hypochromasia Marked; MCH 34.2 pg (25.0-35.0); MCHC 30.7 g/dL (31.0-37.0); MCV 111.1 fL (80.0-100.0); Macrocytosis Marked; Mean Platelet Volume 8.1; Platelet Count 464 k/uL (150-450); RBC 2.48 m/uL (3.80-5.40); WBC 8.9 k/uL (3.8-10.6)
[2018-07-13] MEDS: NITROFURANTOIN MONOHYD/M-CRYST 100 MG CAP PO SCH ×2 (08:23→20:03)
[2018-07-13] MEDS: ASPIRIN 81 MG PO SCH (08:23)
[2018-07-13] MEDS: LISINOPRIL 10 MG TAB PO SCH (08:23)
[2018-07-13] MEDS: METOPROLOL TARTRATE 12.5 MG TAB PO SCH ×2 (08:23→20:03)
[2018-07-13] MEDS: HYDROcodone/APAP 7.5-325MG 1 EACH TAB PO PRN ×2 (08:23→18:47)
[2018-07-13 08:52] LABS: Eosinophils # (M) 0.27 k/uL (0-0.7); Lymphocytes # (M) 1.16 k/uL (1.0-4.8); Monocytes # (M) 0.27 k/uL (0-1.0); Neutrophils # (M) 7.21 k/uL (1.3-7.7); Neutrophils % (M) 81 %; Nucleated Red Blood Cells 0 /100 WBC (0-0); Total Cells Counted 100
[2018-07-13 10:46] VITALS: BMI 23.9
[2018-07-13] MEDS: GABAPENTIN 300 MG CAP PO SCH ×2 (11:29→20:02)
[2018-07-13] MEDS: QUEtiapine 25 MG TAB PO SCH (11:29)
[2018-07-13] MEDS ORDERED: CYANOCOBALAMIN 1,000 MCG/ML 1 ML VIAL IM ONE (11:30)
[2018-07-13] MEDS: FOLIC ACID 1 MG TAB PO SCH (12:00)
[2018-07-13] MEDS: CHOLECALCIFEROL 1,000 UNIT TAB PO SCH (12:00)
--- NOTE | 2018-07-13 13:58 | P.CN ---
Psychiatric Consult - . Consult date: 07/13/18 Consult:: Delusional depression anxiety 07/13/18 13:44 Assessment and Plan (1) Major depressive disorder, recurrent episode with mood-incongruent psychotic features Narrative/Plan: This is a 53-year-old female presents emergency department today via EMS. She reports that her ex- called EMS for her. According to a note from her ex- Patient was recently discharged from [facility] with concerns for anemia, uterus enlargement, UTI, acute kidney injury and a thrush. Patient at that time received multiple units of blood had low blood pressures. Patient states that she's been having some abdominal pain since discharge. Patient's 's note also reports that she's been very dizzy unable to ambulate to the bathroom and not able to remember that she needs to feed herself. Patient does admit to generalized weakness and having black tarry hard stools. Patient has upper abdominal pain at this time. She denies any chest pain or shortness breath. - Related Data Home Medications Medication Instructions Recorded Confirmed Gabapentin [Neurontin] 600 mg PO TID 06/24/15 04/18/17 Famotidine [Pepcid AC] 10 mg PO Q12H PRN 07/29/15 04/18/17 Ibuprofen [Motrin] 800 mg PO TID PRN 07/29/15 04/18/17 Acetaminophen [Tylenol] 1,000 mg PO Q4H PRN 05/19/16 04/18/17 Albuterol Inhaler [Ventolin Hfa 2 puff INHALATION RT-Q6H PRN 05/19/16 04/18/17 Inhaler] Ascorbic Acid [Vitamin C] 1,000 mg PO DAILY 05/19/16 04/18/17 Cholecalciferol [Vitamin D3] 1,000 unit PO DAILY 05/19/16 04/18/17 Cyanocobalamin (Vitamin B-12) 2,000 mcg PO DAILY 05/19/16 04/18/17 [Vitamin B-12] Echinacea 400 mg PO DAILY 05/19/16 04/18/17 Garlic 1 tab PO DAILY 05/19/16 04/18/17 Hydrocodone/Acetaminophen [[place] 1 tab PO TID PRN 05/19/16 04/18/17 7.5-325] Lisinopril-Hctz 20-25 mg 0.5 tab PO HS 05/19/16 04/18/17 [Zestoretic 20-25] Lisinopril-Hctz 20-25 mg 1 tab PO DAILY 05/19/16 04/18/17 [Zestoretic 20-25] Magnesium Oxide [Mag-Ox] 250 mg PO DAILY 05/19/16 04/18/17 [place]-3 Fatty Acids/Fish Oil [Fish 1 cap PO DAILY 05/19/16 04/18/17 Oil 1,000 mg Softgel] Vitamin E (Dl,Tocopheryl Acet) 400 unit PO DAILY 05/19/16 04/18/17 [Vitamin E] Previous Rx's Medication Instructions Recorded Clindamycin HCl 300 mg PO Q6H #40 cap 02/14/18 Allergies Allergy/AdvReac Type Severity Reaction Status Date / Time ciprofloxacin [From Cipro] Allergy Swelling. Verified 02/14/18 08:38 SOB. ciprofloxacin HCl Allergy Swelling. Verified 02/14/18 08:38 [From Cipro] SOB. sulfamethoxazole Allergy Unknown Verified 02/14/18 08:38 [From Bactrim] trimethoprim [From Bactrim] Allergy Unknown Verified 02/14/18 08:38 Past Medical History Past Medical History: Fibromyalgia, GERD/Reflux, Hypertension, Musculoskeletal Disorder Additional Past Medical History / Comment(s): OCC. PALPITATIONS, herniated disks, NECK PAIN, NUMBNESS IN ARMS and left leg, PT DOES SELF CATHETERIZATION. , HX OF ANEMIA. DIZZINESS. VIRAL MENIGITIS WHEN YOUNGER, History of Any Multi-Drug Resistant Organisms: None Reported Past Surgical History: Back Surgery, Tubal Ligation Additional Past Surgical History / Comment(s): CERVICAL DECOMPRESSION/DISCESTOMY/FUSION Past Anesthesia/Blood Transfusion Reactions: Previous Problems w/ Anesthesia Additional Past Anesthesia/Blood Transfusion Reaction / Comment(s): PT WOKE UP ANGRY.- STATES HER DAUGHTER HAS THE SAME REACTION. Past Psychological History: Anxiety, Bipolar, Depression, Panic Disorder Smoking Status: Current every day smoker Past Alcohol Use History: Abuse, Daily Past Drug Use History: None Reported - Past Family History Father Family Medical History: Coronary Artery Disease (CAD), Diabetes Mellitus Mother Additional Family Medical History / Comment(s): SUBDURAL HEMATOMA Mental Status Examination - this is a pleasant 53-year-old female who was interviewed at bedside and was good historian. She was able to describe multiple stressors in life and what effect that has taken on her. She had a previous history of being on Zoloft for depression and worked rather well. General Appearance: [ casual, appears stated age Speech/Language: [spontaneous, soft] Attitude/Behavior: [ guarded, withdrawn, indifferent] Mood: [ depressed, anxious, fearful, hopelessness] Affect: [flat, blunted constricted Orientation: [time, person, place situation] Thought Content: [wnl Risk Factors: [Denies suicidal (ideations, plan), and/or Homicidal (ideations, plan), other] Perception: [wnl, denies hallucinations (auditory, visual, tactile), other] Thought Processes: [goal-oriented Concentration/Attention Span: [wnl] [Per observation and interview with the patient] Recent Memory: [wnl 2 out of 3 in 3 minutes] Remote Memory: [wnl] [past events, as related history] Intelligence: [ average] [based on history, based on vocabulary, syntax, grammar, and content] Judgement: [good] [per patient's behavior/history of present illness] Insight: [good] [understanding severity of illness/history of present illness] Psychiatric impression: Major depressive disorder recurrent severe Psychiatric recommendation: Zoloft 50 mg by mouth daily at bedtime and recommended that she see an outpatient psychiatrist and therapist. She is not a candidate for [address] [place] [address] Thank you for the consult Ed Flores D.O. PhD Current Visit: Yes Status: Acute Priority: High Code(s): F33.3 - MAJOR DEPRESSV DISORDER, RECURRENT, SEVERE W PSYCH SYMPTOMS SNOMED Code(s): 85862500 Time with Patient: Greater than 30
--- NOTE | 2018-07-13 14:06 | P.PN ---
Subjective Progress Note Date: 07/13/18 This is a 53-year-old female history is very difficult to obtain from the patient, she doesn't recall exactly why she is here, she doesn't remember any recent workup that she has had although apparently she's been in [facility] recently. She is very weak, she has some chills and shaking. Apparently according to the emergency records, she was recently in [facility] with concerns for anemia, uterus enlargement, UTI, acute kidney injury, and thrush. She apparently had received multiple units of blood and had low blood pressures there. Since her discharge from [facility] she's been having abdominal discomfort, she's been dizzy and unable to ambulate, she's also forgetting to even eat. Increased confusion at home and significant weakness. According to the patient she does remember having black tarry stools, she is unsure exactly of what the workup was at [facility]. The patient states that she does have a history of high blood pressure, nicotine dependence, she denies being a diabetic, no hyperlipidemia according to her. A CAT scan of the brain was performed on arrival here which revealed mild atrophy with no acute intracranial abnormality. Chest x-ray did not reveal any active cardiopulmonary disease. Her EKG on arrival shows a normal sinus rhythm with significant ST-T wave changes noted in the ant/ lateral leads as well as inferior leads. We do have an EKG from 2016, that time she had a normal sinus rhythm with no changes. White blood cell count 9.2, hemoglobin 9.9, platelet count 280. Sodium 137, potassium 3.8, BUN 14 and creatinine 0.8. AST 84 ALT 45 alk phos 245 magnesium 1.7. Troponin 0.092, 0.117, 0.094. According to the patient, she states that she has been experiencing intermittent chest discomfort. Again her history is very difficult to obtain, once she says something then she shakes her head and is unsure if that was the correct answer or not. 07/11/2018 Patient was seen and examined this morning, no complaints overall. She is scheduled to undergo an EGD today with . Blood pressure 104/54 with a heart rate in the 90s, 98% on room air. White blood cell count 8.9, hemoglobin 8.1, platelet count 404. Sodium 140, potassium 3.5, BUN 8 and creatinine 0.9. 07/13/2018 Patient underwent a cardiac catheterization yesterday which did not reveal any significant coronary artery disease, it was essentially normal. Patient was seen and examined today, she's been up ambulating in the hallway, denies any chest pain. Breathing is stable. Blood pressure 102/70 with a heart rate in the 80s, 96% on room air. Objective - Vital Signs Vital signs: Vital Signs Temp 98.1 F 07/13/18 11:27 Pulse 80 07/13/18 11:27 Resp 18 07/13/18 11:27 BP 103/77 07/13/18 11:27 Pulse Ox 96 07/13/18 11:27 Intake & Output 07/12/18 07/13/18 07/13/18 18:59 06:59 18:59 Intake Total 640 600 360 Output Total 1125 425 Balance -485 600 -65 Weight 63.3 kg 63.3 kg Intake: IV 100 Intake, IV Titration 300 600 Amount Sodium Chloride 0.9% 1, 300 600 000 ml @ 75 mls/hr IV . [id number] [facility] Rx#:[id number] Oral 240 360 Output: Urine 1125 425 Other: Voiding Method Self-Catheterization Self-Catheterization Self-Catheterization # Voids 1 2 1 # Bowel Movements 0 - Exam PHYSICAL EXAMINATION: GENERAL: 53-year-old female in no acute distress at the time of my examination HEENT: Head is atraumatic, normocephalic. Pupils equal, round. Sclera anicteric. Conjunctiva are clear. Mucous membranes of the mouth are moist. Neck is supple. There is no elevated jugular venous pressure. No carotid bruit is heard. HEART EXAMINATION: S1 and S2 1 systolic murmur is heard CHEST EXAMINATION: Lungs are clear to auscultation and precussion. No chest wall tenderness is noted on palpation or with deep breathing. ABDOMEN: Soft, generalized tenderness throughout. Bowel sounds are heard. No organomegaly noted. EXTREMITIES: 2+ peripheral pulses with no evidence of peripheral edema and no calf tenderness noted. Right radial site clean and dry, good distal pulse. NEUROLOGIC patient is awake, alert and oriented 2 . - Labs CBC & Chem 7: 07/13/18 07:06 07/11/18 06:03 Labs: Abnormal Lab Results - Last 24 Hours (Table) 07/12/18 07/13/18 Range/Units 12:15 07:06 RBC 2.48 L (3.80-5.40) m/uL Hgb 8.5 L (11.4-16.0) gm/dL Hct 27.5 L (34.0-46.0) % MCV 111.1 H (80.0-100.0) fL MCHC 30.7 L (31.0-37.0) g/dL RDW 19.0 H (11.5-15.5) % Plt Count 464 H (150-450) k/uL Macrocytosis Marked A Ferritin 1521.6 H (10.0-291.0) ng/mL Microbiology - Last 24 Hours (Table) 07/07/18 20:46 Blood Culture - Preliminary Blood No Growth after 120 hours Assessment and Plan Plan: Assessment and plan #1 symptoms of abdominal discomfort with associated weakness #2 recent hospitalization to [facility], unsure exactly of the details, she apparently was admitted with anemia and received several units of blood #3 chest discomfort, EKG shows normal sinus rhythm with anterior lateral and inferior T wave inversion. Troponins 0.092, 0.117, 0.094. Status post catheterization which revealed normal coronary arteries #4 history of hypertension #5 nicotine dependence #6 anemia, #7 abnormal AST and alk phos Plan From cardiology's perspective, patient may be discharged once cleared by primary. We will follow her along now on an as-needed basis only, please don't hesitate to call with any questions. DNP note has been reviewed, I agree with a documented findings and plan of care. Patient was seen and examined.
--- NOTE | 2018-07-13 15:16 | P.PN ---
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 No reports of melena or GI bleeding. Denies abdominal pain. Hemoglobin 8.5. Objective - Vital Signs Vital signs: Vital Signs Temp 98.1 F 07/13/18 11:27 Pulse 80 07/13/18 11:27 Resp 18 07/13/18 11:27 BP 103/77 07/13/18 11:27 Pulse Ox 96 07/13/18 11:27 Intake & Output 07/12/18 07/13/18 07/13/18 18:59 06:59 18:59 Intake Total 640 600 360 Output Total 1125 425 Balance -485 600 -65 Weight 63.3 kg 63.3 kg Intake: IV 100 Intake, IV Titration 300 600 Amount Sodium Chloride 0.9% 1, 300 600 000 ml @ 75 mls/hr IV . [id number] [facility] Rx#:[id number] Oral 240 360 Output: Urine 1125 425 Other: Voiding Method Self-Catheterization Self-Catheterization Self-Catheterization # Voids 1 2 1 # Bowel Movements 0 - Exam General appearance: The patient is alert, oriented, in no acute distress. HET: Head is normocephalic and atraumatic. Pupils are equal and reactive. Oropharynx is clear without lesions. Neck: Supple without lymphadenopathy. Trachea midline. Heart: S1 S2. Regular rate and rhythm. Lungs: No crackles or wheezes are heard. Abdomen: Soft, nontender, nondistended with bowel sounds. No peritoneal signs. No palpable organomegaly or masses. Extremities: Normal skin color and turgor. No cyanosis, rash, ulceration, clubbing, or edema. Radial and pedal pulses are 2/4 bilaterally. Neurological: No focal deficits. Strength and sensation are grossly intact. - Labs CBC & Chem 7: 07/13/18 07:06 07/11/18 06:03 Labs: Abnormal Lab Results - Last 24 Hours (Table) 07/12/18 07/13/18 Range/Units 12:15 07:06 RBC 2.48 L (3.80-5.40) m/uL Hgb 8.5 L (11.4-16.0) gm/dL Hct 27.5 L (34.0-46.0) % MCV 111.1 H (80.0-100.0) fL MCHC 30.7 L (31.0-37.0) g/dL RDW 19.0 H (11.5-15.5) % Plt Count 464 H (150-450) k/uL Macrocytosis Marked A Ferritin 1521.6 H (10.0-291.0) ng/mL Microbiology - Last 24 Hours (Table) 07/07/18 20:46 Blood Culture - Preliminary Blood No Growth after 120 hours Assessment and Plan (1) Duodenal arteriovenous malformation Current Visit: Yes Status: Acute Code(s): K31.819 - ANGIODYSPLASIA OF STOMACH AND DUODENUM WITHOUT BLEEDING SNOMED Code(s): 130635877 (2) GI bleed Current Visit: Yes Status: Acute Code(s): K92.2 - GASTROINTESTINAL HEMORRHAGE, UNSPECIFIED SNOMED Code(s): 37016404 (3) Acute blood loss anemia Current Visit: Yes Status: Acute Code(s): D62 - ACUTE POSTHEMORRHAGIC ANEMIA SNOMED Code(s): 250972195 (4) Melena Current Visit: Yes Status: Acute Code(s): K92.1 - MELENA SNOMED Code(s): 6852585 Plan: 1. Protonix 40 mg daily. Daily CBC monitoring. We'll follow on an as-needed basis. Assessment and plan a care discussed with Dr. Little
--- NOTE | 2018-07-13 15:52 | P.PN ---
Subjective Progress Note Date: 07/13/18 Principal diagnosis: anemia In f/u today pt remains very confused and suspect hallucinating, she is talking to people who are not there, crying at times. Objective - Vital Signs Vital signs: Vital Signs Temp 98.1 F 07/13/18 11:27 Pulse 80 07/13/18 11:27 Resp 18 07/13/18 11:27 BP 103/77 07/13/18 11:27 Pulse Ox 96 07/13/18 11:27 Intake & Output 07/12/18 07/13/18 07/13/18 18:59 06:59 18:59 Intake Total 640 600 360 Output Total 1125 425 Balance -485 600 -65 Weight 63.3 kg 63.3 kg Intake: IV 100 Intake, IV Titration 300 600 Amount Sodium Chloride 0.9% 1, 300 600 000 ml @ 75 mls/hr IV . [id number] [facility] Rx#:[id number] Oral 240 360 Output: Urine 1125 425 Other: Voiding Method Self-Catheterization Self-Catheterization Self-Catheterization # Voids 1 2 1 # Bowel Movements 0 - Constitutional General appearance: Present: average body habitus - EENT Eyes: Present: anicteric sclerae, EOMI ENT: Present: hearing grossly normal - Respiratory Respiratory: bilateral: CTA - Cardiovascular Heart sounds: normal: S1, S2 - Peripheral edema leg Peripheral Edema: bilateral: None - Gastrointestinal General gastrointestinal: Present: normal bowel sounds, soft - Integumentary Integumentary: Present: normal - Musculoskeletal Musculoskeletal: Present: strength equal bilaterally - Psychiatric Psychiatric Comment(s): alert, oriented to self, place Psychiatric: Absent: appropriate affect, intact judgment & insight - Labs CBC & Chem 7: 07/13/18 07:06 07/11/18 06:03 Labs: Abnormal Lab Results - Last 24 Hours (Table) 07/12/18 07/13/18 Range/Units 12:15 07:06 RBC 2.48 L (3.80-5.40) m/uL Hgb 8.5 L (11.4-16.0) gm/dL Hct 27.5 L (34.0-46.0) % MCV 111.1 H (80.0-100.0) fL MCHC 30.7 L (31.0-37.0) g/dL RDW 19.0 H (11.5-15.5) % Plt Count 464 H (150-450) k/uL Macrocytosis Marked A Ferritin 1521.6 H (10.0-291.0) ng/mL Microbiology - Last 24 Hours (Table) 07/07/18 20:46 Blood Culture - Preliminary Blood No Growth after 120 hours Assessment and Plan (1) Macrocytic anemia Narrative/Plan: Anemia is of new onset, macrocytosis noted back into 2015. Stable, no transfusion needed today Folate deficient, being supplemented. MMA ordered for low normal B12 level Ordered small bowel follow through, looking for blind loop as a potential cause for her folate deficiency, pending results Pt PCP Dr. Moreland office called while I was in room. Pt was being contacted to start OTC vit D supplement, 2000IU daily. This was ordered for her EGD revelaing AVM, path negative for malignant process-GI evaluation and recommendations Current Visit: Yes Status: Acute Priority: High Code(s): D53.9 - NUTRITIONAL ANEMIA, UNSPECIFIED SNOMED Code(s): 88813562
[2018-07-13 16:12] LABS: Protein, Total 5.9 g/dL (6.2-8.2)
[2018-07-13] MEDS: NICOTINE 14MG/24HR PATCH TRANSDERM SCH (16:43)
[2018-07-13] MEDS: ATORVASTATIN 40 MG TAB PO SCH (20:03)
[2018-07-13] MEDS ORDERED: SERTRALINE 50 MG TAB PO SCH (21:00)
--- NOTE | 2018-07-13 23:41 | PN ---
PROGRESS NOTE DATE OF SERVICE: 07/13/2018 PRESENTING COMPLAINT: Tired. INTERVAL HISTORY: This patient presented with some confusion. The patient until about 4 weeks ago was drinking significant amounts of alcohol. Patient was admitted to an outside hospital. On this admission patient has had rather extensive testing; all is coming back negative. The patient was seen earlier today by Dr. Flores, who thinks the patient has depression and has put her on Zoloft. The patient is slow to answer questions. According to the family, she has stopped drinking. She has been intermittently confused. The patient did tolerate diet. Sitting at the edge of the bed. REVIEW OF SYSTEMS: Done for constitutional, cardiovascular, GI, pulmonary; relevant findings as above. CURRENT MEDICATIONS: Reviewed. They include: 1. Lipitor. 2. Aspirin. 3. Neurontin 600 mg twice a day. 4. Ativan p.r.n. 5. Lopressor. 6. Seroquel 25 mg a day. 7. Zoloft was started for tonight. PHYSICAL EXAMINATION: Temperature 98.1, pulse 80, respiration 18, blood pressure 103/77, pulse ox 96% on room air. GENERAL APPEARANCE: Sitting up on the edge of the bed with a slightly flat affect. EYES: Pupils equal. Conjunctivae normal. HEENT: External appearance of nose and ears normal. Oral cavity normal. NECK: JVD not raised. Mass not palpable. RESPIRATORY: Effort normal. LUNGS: Fair air entry. CARDIOVASCULAR: First and second sounds normal. No edema. ABDOMEN: Soft, non-tender. PSYCHIATRY: Patient knows where she is. She knows the year, knows the month. Somewhat slow to answer questions, though. INVESTIGATIONS: White count 8.9, hemoglobin 8.5, platelets 464. ASSESSMENT: 1. Macrocytic anemia from history of chronic alcoholism. 2. Metabolic acidosis. Bicarb is 16. 3. Major depressive disorder, recurrent episode, with mood-incongruent psychotic features. 4. Possible mild cognitive impairment from underlying chronic alcoholism. 5. Chronic fibromyalgia. 6. Gastroesophageal reflux disease. 7. Essential hypertension. 8. Primary osteoarthritis. 9. Chronic nicotine dependence. Patient was a smoker until recently. There may be an element of a sedative effect from significant doses of Neurontin. PLAN: Patient's current medications will be continued. Will stop patient's Seroquel. Will also cut back on the dose of Neurontin. Family is requesting a second opinion from Psychiatry. Will tend to that tomorrow morning. In the meantime, patient is looking to go to inpatient rehab at [facility]. I did speak at length with the patient's daughter at the bedside and the patient. We will see how the patient is tomorrow morning. Total time spent today was about 45 minutes, with over 25 to 30 minutes of discussion. RAYSHAWN / STEVEN: [id number] /
[2018-07-14 06:04] VITALS: TEMP 97.6
[2018-07-14] MEDS: METOPROLOL TARTRATE 12.5 MG TAB PO SCH (07:36)
[2018-07-14] MEDS: NICOTINE 14MG/24HR PATCH TRANSDERM SCH (07:37)
[2018-07-14] MEDS: ASPIRIN 81 MG PO SCH ×2 (07:37→13:24)
[2018-07-14] MEDS: LISINOPRIL 10 MG TAB PO SCH (07:37)
[2018-07-14] MEDS: CHOLECALCIFEROL 1,000 UNIT TAB PO SCH ×2 (07:37→13:24)
[2018-07-14] MEDS: THIAMINE 100 MG TAB PO SCH ×2 (07:37→13:24)
[2018-07-14] MEDS: FOLIC ACID 1 MG TAB PO SCH ×2 (07:37→13:24)
[2018-07-14] MEDS: PANTOPRAZOLE 40 MG TABLET PO SCH (07:37)
[2018-07-14] MEDS: NITROFURANTOIN MONOHYD/M-CRYST 100 MG CAP PO SCH ×2 (07:39→13:24)
[2018-07-14] MEDS: HYDROcodone/APAP 7.5-325MG 1 EACH TAB PO PRN (07:49)
[2018-07-14 10:06] LABS: Anisocytosis Slight; Basophils % (A) 0 %; Eosinophils # (A) 0.2 k/uL (0-0.7); Eosinophils % (A) 3 %; HCT 27.1 % (34.0-46.0); HGB 7.9 gm/dL (11.4-16.0); Hypochromasia Marked; Lymphocytes # (A) 1.6 k/uL (1.0-4.8); Lymphocytes % (A) 19 %; MCH 32.9 pg (25.0-35.0); MCHC 29.3 g/dL (31.0-37.0); MCV 112.1 fL (80.0-100.0); Macrocytosis Marked; Mean Platelet Volume 8.1; Monocytes # (A) 0.5 k/uL (0-1.0); Monocytes % (A) 6 %; Neutrophils # (A) 6.2 k/uL (1.3-7.7); Neutrophils % (A) 72 %; Platelet Count 484 k/uL (150-450); RBC 2.41 m/uL (3.80-5.40); RDW 18.5 % (11.5-15.5); WBC 8.7 k/uL (3.8-10.6)
[2018-07-14 11:07] LABS: Toxic Vacuolation Present
--- NOTE | 2018-07-14 11:41 | FL ---
EXAMINATION TYPE: FL UGI w small bowel DATE OF EXAM: 07/14/2018 COMPARISON: NONE HISTORY: Folate related deficiency, anemia, possible blind loop. TECHNIQUE: A single contrast UGI study is performed with small bowel follow through. Exam was subopt imal due to patient's underlying altered mental status. FINDINGS: Health Plan Specialist image of the abdomen shows no gross abnormality. The esophagus shows dysmotility with abnormal secondary tertiary contractions. No evidence of hiatal hernia or stricture noted. The stomach shows no large pooling ulcer. Limited evaluation due to lack of air contrast. Some gastro esophageal reflux noted during real-time performance. The duodenal bulb and sweep are unremarkable. The small bowel study shows normal transit to the colon in less than 60 minutes. There is normal muc osal fold pattern throughout the small bowel. There is no evidence of any stricture or filling defec t noted. The terminal ileum is unremarkable. IMPRESSION: Suboptimal study with esophageal dysmotility and gastroesophageal reflux. Unremarkable s mall bowel follow-through.
[2018-07-14] MEDS ORDERED: GABAPENTIN 300 MG CAP PO SCH (14:00)
[2018-07-14 14:16] VITALS: BP 116/73; PULSE 68; RESP 16
--- NOTE | 2018-07-14 15:03 | DS ---
DISCHARGE SUMMARY DATE OF ADMISSION: 07/07/2018 DATE OF DISCHARGE: 07/14/2018 FINAL DIAGNOSES: 1. Major depressive disorder, recurrent episode with mood incongruent psychotic features. 2. Macrocytic anemia from history of chronic alcoholism. 3. Metabolic acidosis. 4. Mild cognitive impairment from underlying chronic alcoholism, now discontinued. 5. Chronic fibromyalgia. 6. Gastroesophageal reflux disease. 7. Essential hypertension. 8. Primary osteoarthritis. 9. Chronic nicotine dependence, patient was a smoker until recently. 10.Dilated cardiomyopathy, possibly related to alcoholic cardiomyopathy. HOSPITAL COURSE: This is a patient who was admitted with some change in mental status, confused. Patient was seen by Dr. Flores from Psychiatry, felt the patient admitted with depression with some psychotic features. Doing much better now with Zoloft. Patient's dose of Neurontin was also cut back. Patient recently was at [facility] and she was treated there for UTI, uterine mass, anemia. Patient used to follow up as an outpatient with a [employer]. Patient also had black tarry stools. Patient did undergo EGD by Dr. Little. Patient was found to have known bleeding AV malformation in the second portion of duodenum and was treated with a cold probe ablation. Also was found to have mild gastritis. Patient is able answer simple questions. Patient also was worked up by Neurology and did have an EEG, is suggestive of toxic metabolic encephalopathy. There was no seizure activity. A 2D echocardiogram showed an EF of 40%-45%. Has no wall motion abnormalities. Will have patient follow up with Cardiology as an outpatient for the same. No active cardiac symptoms. CT scan of the brain showed some mild atrophy. CONSULTATIONS: 1. Dr. Weldon from Neurology. 2. Dr. Little from GI. 3. Mallory Rush from Cardiology. PHYSICAL EXAMINATION: Temperature 97.6, pulse 64, respiration 20, blood pressure 112/71, pulse ox 93% on room air. Sitting up answering simple questions. LUNGS: Fair air entry. INVESTIGATIONS: Hemoglobin 7.9, BUN and creatinine are normal. Patient's ferritin is 1521. Free kappa light chain and free lambda light chain is high. Patient did have a cardiac catheterization that did show normal coronaries. Today, I spoke at length to the patient's family at the bedside. Questions were answered. DISCHARGE MEDICATIONS: 1. Ventolin HFA 2 puffs q.6 p.r.n. 2. Atrovent HFA 2 puffs t.i.d. 3. Omeprazole 20 mg p.o. daily. 4. Aspirin 81 mg p.o. daily. 5. Lipitor 40 mg q.h.s. 6. Vitamin D3 two thousand units p.o. daily. 7. Folic acid 1 mg p.o. daily. 8. Neurontin 300 mg p.o. t.i.d. 9. [place] 7.5 one tablet p.o. t.i.d. p.r.n. 10.Zestril 2.5 mg p.o. q.h.s. 11.Nicotine 14 mg patch daily. 12.Macrobid 100 mg p.o. b.i.d. 6 capsules. 13.Zoloft 50 mg q.h.s. 14.Thiamine 100 mg p.o. b.i.d. 15.Lopressor 12.5 p.o. b.i.d. Follow up with [facility] Urban in 1 week. Follow up with Dr. Tejada on 07/24/2018. Follow up with Dr. Little on 08/07/2018. Follow up with Dr. Moreland after DC from [facility]. Follow up with Dr. Bray at the [facility]. DISPOSITION: [facility]. Discussion and discharge planning more than 35 minutes. MMODL / IJN: [id number] /
--- NOTE | 2018-07-14 19:18 | P.PN ---
Subjective Progress Note Date: 07/13/18 Patient was sitting in the bed, daughter and X- were present. She continues to be confused off and on. Often has flight of ideas. Psychiatric seen the patient, who have started her on Zoloft. Patient had 2-D echo performed, which revealed low ejection fraction 40-45%, with multiple wall motion abnormalities. Left atrial and right atrial size normal. Cardiology is on the case. Patient is on aspirin 81 mg daily. Objective - Vital Signs Vital signs: Vital Signs Temp 98.1 F 07/13/18 11:27 Pulse 80 07/13/18 11:27 Resp 18 07/13/18 11:27 BP 103/77 07/13/18 11:27 Pulse Ox 96 07/13/18 11:27 Intake & Output 07/12/18 07/13/18 07/13/18 18:59 06:59 18:59 Intake Total 640 600 360 Output Total 1125 425 Balance -485 600 -65 Weight 63.3 kg 63.3 kg Intake: IV 100 Intake, IV Titration 300 600 Amount Sodium Chloride 0.9% 1, 300 600 000 ml @ 75 mls/hr IV . [id number] [facility] Rx#:[id number] Oral 240 360 Output: Urine 1125 425 Other: Voiding Method Self-Catheterization Self-Catheterization Self-Catheterization # Voids 1 2 1 # Bowel Movements 0 - Exam Patient is alert and awake. Her speech and language functions are normal. Some poor thought content, flight of ideas. On cranial nerve examination pupils are round and reacting, visual sheppard are full, face is symmetric and tongue protrudes the midline. Muscle strength testing the strength is normal in the arms except right shoulder, which she could not cooperate well due to pain. Strength in the lower extremities is normal except hip flexion, which may be 4+ bilaterally. Knees ankles and toes are normal. Sensations are equal. No ataxia for [id number] testing. Tone and bulk of muscles normal. - Labs CBC & Chem 7: 07/14/18 09:19 07/11/18 06:03 Labs: Abnormal Lab Results - Last 24 Hours (Table) 07/12/18 07/13/18 07/13/18 Range/Units 12:15 07:06 07:06 RBC 2.48 L (3.80-5.40) m/uL Hgb 8.5 L (11.4-16.0) gm/dL Hct 27.5 L (34.0-46.0) % MCV 111.1 H (80.0-100.0) fL MCHC 30.7 L (31.0-37.0) g/dL RDW 19.0 H (11.5-15.5) % Plt Count 464 H (150-450) k/uL Macrocytosis Marked A Ferritin 1521.6 H (10.0-291.0) ng/mL Total Protein (PEP) 5.9 L (6.2-8.2) g/dL Microbiology - Last 24 Hours (Table) 07/07/18 20:46 Blood Culture - Preliminary Blood No Growth after 120 hours Assessment and Plan Assessment: * Altered mental status, probably due to mild encephalopathy. Patient's anemia, vitamin deficiency (folate), CHF may be contributory to encephalopathy. * Weakness, unclear etiology. Her neurological examination is nonfocal. She does have slight weakness of hip flexion bilaterally but otherwise normal. * History of cervical spinal stenosis, status post decompressive surgery in 2016. * History of abnormal brain MRI, with evidence of demyelinating disease. * Folate deficiency * Anemia * CHF. * History of vitamin B6 deficiency * Tobacco user * Previous history of alcoholism. Plan: * Patient's B12 is normal 797. * Folate is low 3.6, currently on folic acid replacement 1 mg daily. Patient also on vitamin D and thiamine replacement. * Your medical management for anemia. * EEG showed background slowing and disorganization, suggestive of toxic metabolic encephalopathy, or medication effect. No epileptiform activity was seen. I suspect her anemia, CHF, vitamin deficiency or medications may be the cause. * Continue thiamine 100 mg. * Patient should continue to follow up with her neurologist as outpatient * Neurologically patient is clear.
[2018-07-15 13:50] LABS: Albumin 2.47 g/dL (3.80-4.90); Gamma Globulin 1.77 g/dL (0.70-1.50)
== END 2018-07-14 16:13 | DRG 280 ==
LOC: EC 16:20 → 4MS4W 20:10 → 3SCARD 20:32 → 4MS4W 07-13 20:49
PROVIDERS: ADMIT Hospitalist; ATTEND Hospitalist
PROC: 4A023N7 Measurement of Cardiac Sampling and Pressure, Left Heart, Percutaneous Approach (ICD-10-PCS; principal; 2018-07-07)
PROC: B2111ZZ Fluoroscopy of Multiple Coronary Arteries using Low Osmolar Contrast (ICD-10-PCS; 2018-07-07)
PROC: B2151ZZ Fluoroscopy of Left Heart using Low Osmolar Contrast (ICD-10-PCS; 2018-07-07)
PROC: 0DB98ZX Excision of Duodenum, Via Natural or Artificial Opening Endoscopic, Diagnostic (ICD-10-PCS; 2018-07-11)
PROC: 0DB68ZX Excision of Stomach, Via Natural or Artificial Opening Endoscopic, Diagnostic (ICD-10-PCS; 2018-07-11)
PROC: 0W3P8ZZ Control Bleeding in Gastrointestinal Tract, Via Natural or Artificial Opening Endoscopic (ICD-10-PCS; 2018-07-11)
DX: I21.4 Non-ST elevation (NSTEMI) myocardial infarction (principal); K31.811 Angiodysplasia of stomach and duodenum with bleeding; G93.41 Metabolic encephalopathy; N39.0 Urinary tract infection, site not specified; D62 Acute posthemorrhagic anemia; F33.3 Major depressive disorder, recurrent, severe with psychotic symptoms; E87.2 Acidosis; I42.6 Alcoholic cardiomyopathy; I45.81 Long QT syndrome; M79.7 Fibromyalgia; K21.9 Gastro-esophageal reflux disease without esophagitis; I10 Essential (primary) hypertension; M19.90 Unspecified osteoarthritis, unspecified site; D63.8 Anemia in other chronic diseases classified elsewhere; F41.9 Anxiety disorder, unspecified; M19.91 Primary osteoarthritis, unspecified site; R29.6 Repeated falls; K29.70 Gastritis, unspecified, without bleeding; F10.21 Alcohol dependence, in remission; F03.90 Unspecified dementia, unspecified severity, without behavioral disturbance, psychotic disturbance, mood disturbance, and anxiety; F17.210 Nicotine dependence, cigarettes, uncomplicated; D52.9 Folate deficiency anemia, unspecified; E78.5 Hyperlipidemia, unspecified; E83.52 Hypercalcemia; B95.2 Enterococcus as the cause of diseases classified elsewhere; F41.0 Panic disorder [episodic paroxysmal anxiety]; I11.0 Hypertensive heart disease with heart failure; I50.9 Heart failure, unspecified; Z79.899 Other long term (current) drug therapy; Z82.49 Family history of ischemic heart disease and other diseases of the circulatory system; Z83.3 Family history of diabetes mellitus; Z88.1 Allergy status to other antibiotic agents; Z79.82 Long term (current) use of aspirin; Z88.2 Allergy status to sulfonamides
CPT/HCPCS: 36415; 43239; 43270; 70450; 71046; 74245; 80048; 80053; 80061; 81001; 82272; 82607; 82728; 82746; 83540; 83550; 83605; 83735; 83883; 83921; 84165; 84484; 85025; 85027; 85045; 85610; 85730; 86334; 86850; 86900; 86901; 87040; 87077; 87086; 87186; 88305; 93005; 93306; 93458; 94760; 95816; 96361; 96374; 99285

== ENCOUNTER 2019-01-10 14:38 | Emergency (ER) | payer OTHER ==
[2019-01-10 14:58] VITALS: RESP 20; TEMP 97.8
[2019-01-10 15:23] LABS: Appearance,Urine Cloudy (Clear); Bacteria,Urine Few /hpf; Bilirubin,Urine Negative (Negative); Blood,Urine Negative (Negative); Color,Urine Light Yellow; Glucose,Urine (UA) Negative (Negative); Hyaline Casts,Urine 1 /lpf (0-2); Ketones,Urine Negative (Negative); Leukocyte Esterase,Urine Large (Negative); Mucus,Urine Rare /hpf; Nitrite,Urine Positive (Negative); Protein,Urine Trace (Negative); RBC,Urine 11 /hpf (0-5); Specific Gravity,Urine 1.004 (1.001-1.035); Urobilinogen,Urine <2.0 mg/dL (<2.0); WBC,Urine 57 /hpf (0-5)
[2019-01-10] MEDS ORDERED: cefTRIAXone 1,000 MG VIAL (IM USE) IM STA (15:42)
--- NOTE | 2019-01-10 15:51 | ED ---
Nausea/Vomiting/Diarrhea HPI - General Chief complaint: Nausea/Vomiting/Diarrhea Stated complaint: UNABLE TO URINATE Time Seen by Provider: 01/10/19 14:39 Source: patient, EMS, RN notes reviewed, old records reviewed Mode of arrival: EMS Limitations: no limitations - History of Present Illness Initial comments: Ezrypft-[id number] female presented today for urinary retention. She has chronic urinary retention is been out of her Berman catheters. She's not been able to self count. Self cath herself since last night. She complains for severe suprapubic pain and distention and fullness. Patient states that she's had no fevers or chills. Denies any other complaints at this time. Patient reports that she is not able to get her. Straight catheter equipment until next week. - Related Data Home Medications Medication Instructions Recorded Confirmed Albuterol Inhaler [Ventolin Hfa 2 puff INHALATION RT-Q6H PRN 05/19/16 07/07/18 Inhaler] Ipratropium [place] [Atrovent Hfa] 2 puff INHALATION RT-TID 07/07/18 07/07/18 Omeprazole 20 mg PO DAILY 07/07/18 07/07/18 Previous Rx's Medication Instructions Recorded Aspirin 81 mg PO DAILY chew 07/14/18 Atorvastatin [Lipitor] 40 mg PO HS tab 07/14/18 Cholecalciferol [Vitamin D3 (25 2,000 unit PO DAILY tab 07/14/18 Mcg = 1000 Iu)] Folic Acid 1 mg PO DAILY tab 07/14/18 Gabapentin [Neurontin] 300 mg PO TID #9 cap 07/14/18 Hydrocodone/Acetaminophen [[place] 1 tab PO TID PRN #9 tablet 07/14/18 7.5-325] Lisinopril [Zestril] 2.5 mg PO HS #1 tab 07/14/18 Lisinopril [Zestril] 10 mg PO DAILY tab 07/14/18 Metoprolol Tartrate [Lopressor] 12.5 mg PO BID #1 dose 07/14/18 Nicotine 14Mg/24Hr Patch [Habitrol] 1 patch TRANSDERM DAILY #14 patch 07/14/18 Nitrofurantoin Monohyd/M-Cryst 100 mg PO BID #6 cap 07/14/18 [Macrobid] Sertraline [Zoloft] 50 mg PO HS tab 07/14/18 Thiamine [Vitamin B-1] 100 mg PO BID-W/MEALS tab 07/14/18 Cephalexin [Keflex] 500 mg PO Q6H #28 cap 01/10/19 Allergies Allergy/AdvReac Type Severity Reaction Status Date / Time ciprofloxacin [From Cipro] Allergy Swelling. Verified 07/07/18 20:17 SOB. ciprofloxacin HCl Allergy Swelling. Verified 07/07/18 20:17 [From Cipro] SOB. sulfamethoxazole Allergy Unknown Verified 07/07/18 20:17 [From Bactrim] trimethoprim [From Bactrim] Allergy Unknown Verified 07/07/18 20:17 Review of Systems ROS Statement: Those systems with pertinent positive or pertinent negative responses have been documented in the HPI. ROS Other: All systems not noted in ROS Statement are negative. Past Medical History Past Medical History: Fibromyalgia, GERD/Reflux, Hypertension, Musculoskeletal Disorder, Osteoarthritis (OA) Additional Past Medical History / Comment(s): OCC. PALPITATIONS, herniated disks, NECK PAIN, NUMBNESS IN ARMS and left leg, PT DOES SELF CATHETERIZATION. , HX OF ANEMIA. DIZZINESS. VIRAL MENIGITIS WHEN YOUNGER, History of Any Multi-Drug Resistant Organisms: None Reported Past Surgical History: No Surgical Hx Reported Additional Past Surgical History / Comment(s): . Past Anesthesia/Blood Transfusion Reactions: Previous Problems w/ Anesthesia Additional Past Anesthesia/Blood Transfusion Reaction / Comment(s): PT WOKE UP ANGRY.- STATES HER DAUGHTER HAS THE SAME REACTION. Past Psychological History: Anxiety, Bipolar, Depression, Panic Disorder Smoking Status: Current every day smoker Past Alcohol Use History: Abuse, Daily Past Drug Use History: None Reported - Past Family History Father Family Medical History: Coronary Artery Disease (CAD), Diabetes Mellitus Mother Additional Family Medical History / Comment(s): SUBDURAL HEMATOMA General Exam - General Exam Comments Initial Comments: 53-year-old female. Patient is a moderate discomfort. Limitations: no limitations General appearance: alert, in no apparent distress Head exam: Present: atraumatic, normocephalic, normal inspection Eye exam: Present: normal appearance, PERRL, EOMI. Absent: scleral icterus, conjunctival injection, periorbital swelling ENT exam: Present: normal exam, mucous membranes moist Neck exam: Present: normal inspection. Absent: tenderness, meningismus, lymphadenopathy Respiratory exam: Present: normal lung sounds bilaterally. Absent: respiratory distress, wheezes, rales, rhonchi, stridor Cardiovascular Exam: Present: regular rate, normal rhythm, normal heart sounds. Absent: systolic murmur, diastolic murmur, rubs, gallop, clicks GI/Abdominal exam: Present: soft, tenderness (Suprapubic tenderness), normal bowel sounds. Absent: distended, guarding, rebound, rigid Extremities exam: Present: normal inspection, full ROM, normal capillary refill. Absent: tenderness, pedal edema, joint swelling, calf tenderness Back exam: Present: normal inspection Neurological exam: Present: alert, oriented X3, CN II-XII intact Psychiatric exam: Present: normal affect, normal mood Course Vital Signs 01/10/19 01/10/19 01/10/19 14:52 14:57 15:57 Temperature 97.8 F Pulse Rate 80 65 Respiratory 20 20 20 Rate Blood Pressure 109/75 109/75 104/75 O2 Sat by Pulse 96 Oximetry Medical Decision Making - Medical Decision Making [id number]-[id number]-[id number] female presented today for evaluation for abdominal distention, and urinary retention. She's been out of her at-home chepe catheters to straight cath herself. Patient had a indwelling Berman catheter placed. Patient does have evidence of urinary tract infection. Urine culture be completed. We'll start the Patient on Keflex. Patient advised to follow-up with her primary care doctor to have Berman catheter removed on Tuesday she has these supplies to have a straight cath herself again. I discussed the Patient needs to take antibiotics as discussed. All questions were answered. - Lab Data Lab Results 01/10/19 Range/Units 14:50 Urine Color Light Yellow Urine Appearance Cloudy H (Clear) Urine pH 6.0 (5.0-8.0) Ur Specific [place] 1.004 (1.001-1.035) Urine Protein Trace H (Negative) Urine Glucose (UA) Negative (Negative) Urine Ketones Negative (Negative) Urine Blood Negative (Negative) Urine Nitrite Positive H (Negative) Urine Bilirubin Negative (Negative) Urine Urobilinogen <2.0 (<2.0) mg/dL Ur Leukocyte Esterase Large H (Negative) Urine RBC 11 H (0-5) /hpf Urine WBC 57 H (0-5) /hpf Urine WBC Clumps Rare H (None) /hpf Urine Bacteria Few H (None) /hpf Hyaline Casts 1 (0-2) /lpf Urine Mucus Rare H (None) /hpf Disposition Clinical Impression: UTI (urinary tract infection), Urinary retention Disposition: HOME SELF-CARE Condition: Good Instructions (If sedation given, give patient instructions): Chronic Urinary Retention in Women (ED) Additional Instructions: Patient advised to take antibiotics as prescribed. Have close follow-up with your primary care physician. Recommended having the Berman removed once you have straight cath available. Return to the emergency department if any alarming signs or symptoms occur. Prescriptions: Cephalexin [Keflex] 500 mg PO Q6H #28 cap Is patient prescribed a controlled substance at d/c from ED?: No Referrals: James Moreland DO [Primary Care Provider] - 1-2 days Time of Disposition: 15:51
[2019-01-10 16:04] VITALS: BP 104/75; PULSE 65
== END 2019-01-10 16:19 | disposition home or self-care (01) ==
LOC: EC 14:38
DX: N39.0 Urinary tract infection, site not specified (principal); R33.9 Retention of urine, unspecified; K21.9 Gastro-esophageal reflux disease without esophagitis; I10 Essential (primary) hypertension; F17.200 Nicotine dependence, unspecified, uncomplicated; Z79.899 Other long term (current) drug therapy; Z88.1 Allergy status to other antibiotic agents; Z88.2 Allergy status to sulfonamides
CPT/HCPCS: 81001; 99284; 51702; 96372; J0696

== ENCOUNTER 2019-01-18 20:43 | Emergency (ER) | payer OTHER ==
--- NOTE | 2019-01-18 21:34 | ED ---
Female Urogenital HPI - General Chief complaint: Urogenital Stated complaint: Needs catheter taken out Time Seen by Provider: 01/18/19 21:09 Source: patient Mode of arrival: ambulatory Limitations: no limitations - History of Present Illness Initial comments: This patient's 53-year-old woman with history of recurrent atonic bladder, who presents requesting removal of her Berman catheter. The patient normally performs intermittent straight catheterization for urination. She had run out of her catheterization supplies so she came here and as result she had a Berman catheter placed. She states that her supplies have now arrived in the mail and she would like the catheter out. The patient states she is currently being treated for urinary tract infection related to the indwelling catheter. She does realize she has low-grade fever, but she is refusing other workup. The patient had been at her primary physician and states she had urine and culture as well as blood tests sent today. MD Complaint: other (Catheter discomfort) -: days(s) Location: perineum Radiation: non-radiating Severity: moderate Quality: burning Consistency: constant Improves with: none Worsens with: none Patient : No - Related Data Home Medications Medication Instructions Recorded Confirmed Albuterol Inhaler [Ventolin Hfa 2 puff INHALATION RT-Q6H PRN 05/19/16 07/07/18 Inhaler] Ipratropium [place] [Atrovent Hfa] 2 puff INHALATION RT-TID 07/07/18 07/07/18 Omeprazole 20 mg PO DAILY 07/07/18 07/07/18 Previous Rx's Medication Instructions Recorded Aspirin 81 mg PO DAILY chew 07/14/18 Atorvastatin [Lipitor] 40 mg PO HS tab 07/14/18 Cholecalciferol [Vitamin D3 (25 2,000 unit PO DAILY tab 07/14/18 Mcg = 1000 Iu)] Folic Acid 1 mg PO DAILY tab 07/14/18 Gabapentin [Neurontin] 300 mg PO TID #9 cap 07/14/18 Hydrocodone/Acetaminophen [[place] 1 tab PO TID PRN #9 tablet 07/14/18 7.5-325] Lisinopril [Zestril] 2.5 mg PO HS #1 tab 07/14/18 Lisinopril [Zestril] 10 mg PO DAILY tab 07/14/18 Metoprolol Tartrate [Lopressor] 12.5 mg PO BID #1 dose 07/14/18 Nicotine 14Mg/24Hr Patch [Habitrol] 1 patch TRANSDERM DAILY #14 patch 07/14/18 Nitrofurantoin Monohyd/M-Cryst 100 mg PO BID #6 cap 07/14/18 [Macrobid] Sertraline [Zoloft] 50 mg PO HS tab 07/14/18 Thiamine [Vitamin B-1] 100 mg PO BID-W/MEALS tab 07/14/18 Cephalexin [Keflex] 500 mg PO Q6H #28 cap 01/10/19 Allergies Allergy/AdvReac Type Severity Reaction Status Date / Time ciprofloxacin [From Cipro] Allergy Swelling. Verified 01/18/19 20:59 SOB. ciprofloxacin HCl Allergy Swelling. Verified 01/18/19 20:59 [From Cipro] SOB. sulfamethoxazole Allergy Unknown Verified 01/18/19 20:59 [From Bactrim] trimethoprim [From Bactrim] Allergy Unknown Verified 01/18/19 20:59 Review of Systems ROS Statement: Those systems with pertinent positive or pertinent negative responses have been documented in the HPI. ROS Other: All systems not noted in ROS Statement are negative. Constitutional: Reports: fever. Denies: chills, weakness Respiratory: Denies: cough, dyspnea Cardiovascular: Denies: chest pain, palpitations, edema Gastrointestinal: Reports: as per HPI. Denies: abdominal pain, vomiting, diarrhea, constipation Genitourinary: Reports: as per HPI, other (Catheter related pain) Musculoskeletal: Denies: back pain Skin: Denies: rash Past Medical History Past Medical History: Fibromyalgia, GERD/Reflux, Hypertension, Musculoskeletal Disorder, Osteoarthritis (OA) Additional Past Medical History / Comment(s): OCC. PALPITATIONS, herniated disks, NECK PAIN, NUMBNESS IN ARMS and left leg, PT DOES SELF CATHETERIZATION. , HX OF ANEMIA. DIZZINESS. VIRAL MENIGITIS WHEN YOUNGER, History of Any Multi-Drug Resistant Organisms: None Reported Past Surgical History: No Surgical Hx Reported Additional Past Surgical History / Comment(s): . Past Anesthesia/Blood Transfusion Reactions: Previous Problems w/ Anesthesia Additional Past Anesthesia/Blood Transfusion Reaction / Comment(s): PT WOKE UP ANGRY.- STATES HER DAUGHTER HAS THE SAME REACTION. Past Psychological History: Anxiety, Bipolar, Depression, Panic Disorder Smoking Status: Current every day smoker Past Alcohol Use History: Abuse, Daily Past Drug Use History: None Reported - Past Family History Father Family Medical History: Coronary Artery Disease (CAD), Diabetes Mellitus Mother Additional Family Medical History / Comment(s): SUBDURAL HEMATOMA General Exam Limitations: no limitations General appearance: alert, in no apparent distress Head exam: Present: atraumatic, normocephalic Eye exam: Present: normal appearance GI/Abdominal exam: Present: soft. Absent: distended, tenderness, guarding, rebound, rigid Back exam: Present: normal inspection. Absent: CVA tenderness (R), CVA tenderness (L) Neurological exam: Present: alert, normal gait Skin exam: Present: warm, dry, intact, normal color. Absent: rash Course Vital Signs 01/18/19 21:00 Temperature 100.0 F H Pulse Rate 104 H Respiratory 20 Rate Blood Pressure 121/67 O2 Sat by Pulse 100 Oximetry Medical Decision Making - Medical Decision Making Patient's 53-year-old woman who presents with complaint that her indwelling Berman catheters causing discomfort in the perineal area. Her intermit straight cath supplies arrived and she requests that the Berman catheter be discontinued. She is refusing other workup, stating that she did see her physician today and had blood and urine sent. She deftly will return if her symptoms do not resolve after removal of the catheter. She declined perineal inspection. Discussed appropriate further care and follow-up as well as return parameters. Disposition Clinical Impression: Berman catheter problem, UTI (urinary tract infection) Disposition: HOME SELF-CARE Condition: Undetermined Instructions (If sedation given, give patient instructions): Urinary Tract Infection in Women (ED), Berman Catheter Removal (DC) Is patient prescribed a controlled substance at d/c from ED?: No Referrals: James Moreland DO [Primary Care Provider] - 1-2 days
[2019-01-18 21:38] LABS: Appearance,Urine Clear (Clear); Bacteria,Urine Rare /hpf; Bilirubin,Urine Negative (Negative); Blood,Urine Moderate (Negative); Color,Urine Light Yellow; Glucose,Urine (UA) Negative (Negative); Ketones,Urine Negative (Negative); Leukocyte Esterase,Urine Moderate (Negative); Mucus,Urine Rare /hpf; Nitrite,Urine Negative (Negative); PH, Urine 6.5 (5.0-8.0); Protein,Urine 1+ (Negative); RBC,Urine 10 /hpf (0-5); Specific Gravity,Urine 1.004 (1.001-1.035); Squamous Epithelial Cell,Urine 1 /hpf (0-4); Urobilinogen,Urine <2.0 mg/dL (<2.0)
[2019-01-18 21:44] VITALS: BP 126/72; PULSE 83; RESP 18; TEMP 99.8
== END 2019-01-18 21:44 | disposition home or self-care (01) ==
LOC: EC 20:43
DX: N39.0 Urinary tract infection, site not specified (principal); T83.091A Other mechanical complication of indwelling urethral catheter, initial encounter; K21.9 Gastro-esophageal reflux disease without esophagitis; F17.200 Nicotine dependence, unspecified, uncomplicated; Z79.899 Other long term (current) drug therapy; Z88.1 Allergy status to other antibiotic agents; Z88.2 Allergy status to sulfonamides; Z96.0 Presence of urogenital implants
CPT/HCPCS: 81001; 87086; 99283

== ENCOUNTER 2019-04-17 05:55 | Inpatient (IN) | payer OTHER ==
--- NOTE | 2019-04-17 06:13 | ED ---
Fall HPI - General Source: patient, RN/MD, EMS, RN notes reviewed, old records reviewed Mode of arrival: EMS <Brenna Ledezma - Last Filed: 04/17/19 08:04> <Chirag Madrigal - Last Filed: 04/17/19 08:21> - General Chief Complaint: Fall Stated Complaint: fall Time Seen by Provider: 04/17/19 06:03 - History of Present Illness Initial Comments: Patient's 63 year old female presents emergency department today after a fall trying to ambulate to the toilet. Patient is currently at [facility] facility. Patient reports she felt dizzy and lightheaded, and fell striking her head on the edge of the bed. Patient reports she has a bruise over her left eyebrow. She denies any loss of conscious. Patient reports she yelled for help, was on ground for short period of time before aids arrived. Patient states that she has no neck pain. She denies any nausea or vomiting. Patient reports that she does have history of intermittent urinary tract infections that she has a history of atonic bladder. She has felt increasingly weak for the pas t few days. Patient reports that she's been able to urinate well on her own without any difficulty and has not had to cath Herself recently. Patient did have blood work obtained yesterday at her [facility] facility. Was noted that she did have an elevated white blood cell count, sodium of 129 hemoglobin of 8. Hemoglobin of 8 seems to be chronic for Patient. (Brenna Ledezma) - Related Data Home Medications Medication Instructions Recorded Confirmed Acetaminophen Tab [Tylenol] 650 mg PO Q6H PRN 04/17/19 04/17/19 Methocarbamol [Robaxin] 750 mg PO TID 04/17/19 04/17/19 Multivitamins, Thera [Multivitamin 1 tab PO DAILY 04/17/19 04/17/19 (formulary)] Sennosides/Docusate Sodium [Senna 1 tab PO BID 04/17/19 04/17/19 Plus 8.6-50 mg Tablet] oxyCODONE HCL [Roxicodone] 5 mg PO Q4H PRN 04/17/19 04/17/19 Allergies Allergy/AdvReac Type Severity Reaction Status Date / Time ciprofloxacin [From Cipro] Allergy Swelling. Verified 01/18/19 20:59 SOB. ciprofloxacin HCl Allergy Swelling. Verified 01/18/19 20:59 [From Cipro] SOB. sulfamethoxazole Allergy Unknown Verified 01/18/19 20:59 [From Bactrim] trimethoprim [From Bactrim] Allergy Unknown Verified 01/18/19 20:59 Review of Systems ROS Other: All systems not noted in ROS Statement are negative. <Brenna Ledezma - Last Filed: 04/17/19 08:04> ROS Other: All systems not noted in ROS Statement are negative. <Chirag Madrigal - Last Filed: 04/17/19 08:21> ROS Statement: Those systems with pertinent positive or pertinent negative responses have been documented in the HPI. Past Medical History Past Medical History: Fibromyalgia, GERD/Reflux, Hypertension, Musculoskeletal Disorder, Osteoarthritis (OA) Additional Past Medical History / Comment(s): OCC. PALPITATIONS, herniated disks, NECK PAIN, NUMBNESS IN ARMS and left leg, PT DOES SELF CATHETERIZATION. , HX OF ANEMIA. DIZZINESS. VIRAL MENIGITIS WHEN YOUNGER, History of Any Multi-Drug Resistant Organisms: None Reported Past Surgical History: No Surgical Hx Reported Additional Past Surgical History / Comment(s): . Past Anesthesia/Blood Transfusion Reactions: Previous Problems w/ Anesthesia Additional Past Anesthesia/Blood Transfusion Reaction / Comment(s): PT WOKE UP ANGRY.- STATES HER DAUGHTER HAS THE SAME REACTION. Past Psychological History: Anxiety, Bipolar, Depression, Panic Disorder Smoking Status: Current every day smoker Past Alcohol Use History: Abuse, Daily Past Drug Use History: None Reported - Past Family History Father Family Medical History: Coronary Artery Disease (CAD), Diabetes Mellitus Mother Additional Family Medical History / Comment(s): SUBDURAL HEMATOMA <Brenna Ledezma - Last Filed: 04/17/19 08:04> General Exam Limitations: physical limitation General appearance: alert, in no apparent distress Head exam: Present: atraumatic, normocephalic, normal inspection, other (Patient has contusion over the left eyebrow. No open laceration.) Eye exam: Present: normal appearance, PERRL, EOMI. Absent: scleral icterus, conjunctival injection, periorbital swelling ENT exam: Present: normal exam, mucous membranes moist, other (Poor dentition). Absent: normal oropharynx (Dry oropharynx) Neck exam: Present: normal inspection. Absent: tenderness, meningismus, lymphadenopathy Respiratory exam: Present: normal lung sounds bilaterally. Absent: respiratory distress, wheezes, rales, rhonchi, stridor Cardiovascular Exam: Present: regular rate, normal rhythm, normal heart sounds. Absent: systolic murmur, diastolic murmur, rubs, gallop, clicks GI/Abdominal exam: Present: soft, normal bowel sounds. Absent: distended, tenderness, guarding, rebound, rigid Extremities exam: Present: normal inspection, full ROM, normal capillary refill. Absent: tenderness, pedal edema, joint swelling, calf tenderness Back exam: Present: normal inspection Neurological exam: Present: alert, oriented X3, CN II-XII intact Psychiatric exam: Present: normal affect, normal mood Skin exam: Present: warm, dry, intact, normal color. Absent: rash <Brenna Ledezma - Last Filed: 04/17/19 08:04> - General Exam Comments Initial Comments: Thin a weak-appearing 54-year-old female. (Brenna Ledezma) Course <Chirag Madrigal - Last Filed: 04/17/19 08:21> Vital Signs 04/17/19 04/17/19 04/17/19 05:57 06:40 07:46 Temperature 97.6 F Pulse Rate 115 H 111 H 105 H Respiratory 18 18 16 Rate Blood Pressure 91/57 94/55 86/55 O2 Sat by Pulse 100 99 97 Oximetry 04/17/19 08:00 Temperature Pulse Rate 102 H Respiratory 18 Rate Blood Pressure 95/59 O2 Sat by Pulse 97 Oximetry - Reevaluation(s) Reevaluation #1: 04/17/19 08:21 PA supervision: I proceeded [id number] evaluation the patient she does present with complaints of weakness and was found have a urinary tract infection as well as hypotension and lactic acidosis. Patient get IV fluids IV antibiotics and will be admitted for inpatient treatment I discuss case with Dr. Obrien. I do agree with the assessment and plan. (Chirag Madrigal) Medical Decision Making - Lab Data Result diagrams: 04/17/19 06:35 04/17/19 06:35 - Radiology Data Radiology results: report reviewed <Brenna Ledezma - Last Filed: 04/17/19 08:04> - Lab Data Result diagrams: 04/17/19 06:35 04/17/19 06:35 <Chirag Madrigal - Last Filed: 04/17/19 08:21> - Medical Decision Making 54-year-old female presents emergency department today for a fall, minor head injury, and feeling weak lightheaded. She struck her left eyebrow small bruise at this time. Patient's had progressive weakness the past 2 days. Patient is noted to be tachycardic and hypotensive on arrival. Patient had IV established blood work obtained. Patient's labs show evidence of leukocytosis of 28,000. Patient's lactic acid is 4.2. Patient's chemistry panels show some signs of de hydration as well. She is given 2 L bolus, started on 2 g of Rocephin. Patient at this time has a CT of the brain showing no acute changes. Chest x-ray shows negative for any acute cardiac process. Urinalysis did show 53 white blood cells. This catheterized sample. Urine culture and blood culture obtained. Patient was started on 2 g of Rocephin at this time. Patient's case was discussed with Dr. Madrigal who discussed the case with Dr. Obrien. Patient will be admitted at this time. (Brenna Ledezma) - Lab Data Lab Results 04/17/19 04/17/19 04/17/19 Range/Units 06:35 06:35 06:35 WBC 28.8 H (3.8-10.6) k/uL RBC 2.38 L (3.80-5.40) m/uL Hgb 8.1 L (11.4-16.0) gm/dL Hct 27.0 L (34.0-46.0) % MCV 113.5 H (80.0-100.0) fL MCH 33.8 (25.0-35.0) pg MCHC 29.8 L (31.0-37.0) g/dL RDW 13.7 (11.5-15.5) % Plt Count 674 H (150-450) k/uL Neutrophils % 91 % Lymphocytes % 6 % Monocytes % 2 % Eosinophils % 1 % Basophils % 0 % Neutrophils # 26.1 H (1.3-7.7) k/uL Lymphocytes # 1.7 (1.0-4.8) k/uL Monocytes # 0.6 (0-1.0) k/uL Eosinophils # 0.2 (0-0.7) k/uL Basophils # 0.0 (0-0.2) k/uL Hypochromasia Marked Macrocytosis Marked A PT 12.0 (9.0-12.0) sec INR 1.2 H (<1.2) APTT 18.1 L (22.0-30.0) sec Sodium 131 L (137-145) mmol/L Potassium 4.8 (3.5-5.1) mmol/L Chloride 98 (98-107) mmol/L Carbon Dioxide 16 L (22-30) mmol/L Anion Gap 17 mmol/L BUN 17 (7-17) mg/dL Creatinine 1.18 H (0.52-1.04) mg/dL Est GFR (CKD-EPI)AfAm 60 (>60 ml/min/1.73 sqM) Est GFR (CKD-EPI)NonAf 52 (>60 ml/min/1.73 sqM) Glucose 97 (74-99) mg/dL Plasma Lactic Acid Ayo (0.7-2.0) mmol/L Calcium 10.3 H (8.4-10.2) mg/dL Total Bilirubin 0.7 (0.2-1.3) mg/dL AST 22 (14-36) U/L ALT 12 (4-34) U/L Alkaline Phosphatase 168 H (38-126) U/L Total Protein 7.1 (6.3-8.2) g/dL Albumin 2.6 L (3.5-5.0) g/dL Urine Color Urine Appearance (Clear) Urine pH (5.0-8.0) Ur Specific [place] (1.001-1.035) Urine Protein (Negative) Urine Glucose (UA) (Negative) Urine Ketones (Negative) Urine Blood (Negative) Urine Nitrite (Negative) Urine Bilirubin (Negative) Urine Urobilinogen (<2.0) mg/dL Ur Leukocyte Esterase (Negative) Urine RBC (0-5) /hpf Urine WBC (0-5) /hpf Urine WBC Clumps (None) /hpf Ur Squamous Epith Cells (0-4) /hpf Urine Bacteria (None) /hpf Hyaline Casts (0-2) /lpf Urine Mucus (None) /hpf 04/17/19 04/17/19 Range/Units 06:35 07:42 WBC (3.8-10.6) k/uL RBC (3.80-5.40) m/uL Hgb (11.4-16.0) gm/dL Hct (34.0-46.0) % MCV (80.0-100.0) fL MCH (25.0-35.0) pg MCHC (31.0-37.0) g/dL RDW (11.5-15.5) % Plt Count (150-450) k/uL Neutrophils % % Lymphocytes % % Monocytes % % Eosinophils % % Basophils % % Neutrophils # (1.3-7.7) k/uL Lymphocytes # (1.0-4.8) k/uL Monocytes # (0-1.0) k/uL Eosinophils # (0-0.7) k/uL Basophils # (0-0.2) k/uL Hypochromasia Macrocytosis PT (9.0-12.0) sec INR (<1.2) APTT (22.0-30.0) sec Sodium (137-145) mmol/L Potassium (3.5-5.1) mmol/L Chloride (98-107) mmol/L Carbon Dioxide (22-30) mmol/L Anion Gap mmol/L BUN (7-17) mg/dL Creatinine (0.52-1.04) mg/dL Est GFR (CKD-EPI)AfAm (>60 ml/min/1.73 sqM) Est GFR (CKD-EPI)NonAf (>60 ml/min/1.73 sqM) Glucose (74-99) mg/dL Plasma Lactic Acid Ayo 4.2 H* (0.7-2.0) mmol/L Calcium (8.4-10.2) mg/dL Total Bilirubin (0.2-1.3) mg/dL AST (14-36) U/L ALT (4-34) U/L Alkaline Phosphatase (38-126) U/L Total Protein (6.3-8.2) g/dL Albumin (3.5-5.0) g/dL Urine Color Yellow Urine Appearance Cloudy H (Clear) Urine pH 7.0 (5.0-8.0) Ur Specific [place] 1.016 (1.001-1.035) Urine Protein 1+ H (Negative) Urine Glucose (UA) Negative (Negative) Urine Ketones Negative (Negative) Urine Blood Negative (Negative) Urine Nitrite Negative (Negative) Urine Bilirubin Negative (Negative) Urine Urobilinogen <2.0 (<2.0) mg/dL Ur Leukocyte Esterase Large H (Negative) Urine RBC 5 (0-5) /hpf Urine WBC 53 H (0-5) /hpf Urine WBC Clumps Moderate H (None) /hpf Ur Squamous Epith Cells 1 (0-4) /hpf Urine Bacteria Moderate H (None) /hpf Hyaline Casts 2 (0-2) /lpf Urine Mucus Occasional H (None) /hpf 04/17/19 06:56 EKG performed at 651 shows sinus tachycardia with premature atrial complexes. No specific ST upper malate. Abnormal EKG. Ventricular rate of 117 beats were minute period. Intervals 120 ms. QRS duration is 70 ms. QT QTc is 318/443 ms. No evidence of ST elevation. (Brenna Ledezma) - Radiology Data Chest x-ray shows no acute cardiopulmonary process. No significant change from prior. CT shows no acute intracranial hemorrhage or midline shift. Mild diffuse cerebral atrophy greatest over bilateral frontal lobes and probable mild chronic small vessel ischemic change. No change from recent CT. (Brenna Ledezma) Critical Care Time Critical Care Time: Yes Total Critical Care Time: 35 <Brenna Ledezma - Last Filed: 04/17/19 08:04> Critical Care Time: Greater than 35 minutes of critical care time when she is managing patient's sepsis, with initiation of antibiotics, fluid boluses and analyzing patient's lab work in reviewing imaging studies. (Brenna Ledezma) Disposition Is patient prescribed a controlled substance at d/c from ED?: No Time of Disposition: 08:10 <Brenna Ledezma - Last Filed: 04/17/19 08:04> <Chirag Madrigal - Last Filed: 04/17/19 08:21> Clinical Impression: Fall, Contusion of left eyebrow, Sepsis, UTI (urinary tract infection), Weakness Disposition: ADMITTED IP TO THIS HOSP Condition: Stable Referrals: Cy Pearson DO [Primary Care Provider] - 1-2 days
[2019-04-17] MEDS ORDERED: MORPHINE SULFATE 2 MG/ML SYRINGE IVP ONE (06:26)
[2019-04-17] MEDS: SODIUM CHLORIDE 0.9% 500 ML 500 ML IV SCH ×2 (06:56→07:33)
[2019-04-17] MEDS: SODIUM CHLORIDE 0.9% 1,000 ML IV SCH ×3 (06:56→20:54)
[2019-04-17 06:57] LABS: Basophils % (A) 0 %; Eosinophils # (A) 0.2 k/uL (0-0.7); Eosinophils % (A) 1 %; HGB 8.1 gm/dL (11.4-16.0); Hypochromasia Marked; Lymphocytes # (A) 1.7 k/uL (1.0-4.8); Lymphocytes % (A) 6 %; MCH 33.8 pg (25.0-35.0); MCHC 29.8 g/dL (31.0-37.0); Macrocytosis Marked; Mean Platelet Volume 7.8; Monocytes # (A) 0.6 k/uL (0-1.0); Monocytes % (A) 2 %; Neutrophils # (A) 26.1 k/uL (1.3-7.7); Neutrophils % (A) 91 %; Platelet Count 674 k/uL (150-450); RBC 2.38 m/uL (3.80-5.40); RDW 13.7 % (11.5-15.5); WBC 28.8 k/uL (3.8-10.6)
[2019-04-17 06:58] LABS: MCV 113.5 fL (80.0-100.0)
[2019-04-17] MEDS: ACETAMINOPHEN TAB 500 MG TAB PO STA ×2 (06:58→07:01)
[2019-04-17 07:10] LABS: Albumin 2.6 g/dL (3.5-5.0); Calcium 10.3 mg/dL (8.4-10.2); Potassium 4.8 mmol/L (3.5-5.1); Total Bilirubin 0.7 mg/dL (0.2-1.3); Total Protein 7.1 g/dL (6.3-8.2)
[2019-04-17 07:16] LABS: INR 1.2 (<1.2)
[2019-04-17 07:28] LABS: Partial Thromboplastin Time 18.1 sec (22.0-30.0)
--- NOTE | 2019-04-17 07:36 | CT ---
EXAMINATION TYPE: CT brain wo con DATE OF EXAM: 04/17/2019 HISTORY: Fall injury with headache. Near syncope. CT DLP: 1080.4 mGycm. Automated Exposure Control for Dose Reduction was Utilized. TECHNIQUE: CT scan of the head is performed without contrast. COMPARISON: CT brain July 07, 2018. FINDINGS: There is no acute intracranial hemorrhage or midline shift identified. There is diffuse v entricular and sulcal prominence greatest over bilateral frontal lobes redemonstrated. There is some vague area of low-attenuation in the left frontal white matter redemonstrated axial image 27, nonspe cific. The calvarium is intact. The globes are intact and the visualized sinuses are clear. IMPRESSION: No acute intracranial hemorrhage or midline shift. There is mild diffuse cerebral atrop hy greatest over bilateral frontal lobes and probable mild chronic small vessel ischemic change . No significant change from most recent CT.
--- NOTE | 2019-04-17 07:43 | XR ---
EXAMINATION TYPE: XR chest 2V DATE OF EXAM: 04/17/2019 COMPARISON: Chest x-ray July 07, 2018. HISTORY: Weakness. TECHNIQUE: Frontal and lateral views of the chest are obtained. FINDINGS: Overlying EKG leads are seen. There is some chronic parenchymal change without suspicious n ew focal air space opacity, pleural effusion, or pneumothorax seen. Slightly elevated left hemidiaph ragm redemonstrated. The cardiac silhouette size remains within normal limits. Fusion hardware lower cervical spine redemonstrated. IMPRESSION: No acute cardiopulmonary process. No significant change from prior.
[2019-04-17 07:56] LABS: Appearance,Urine Cloudy (Clear); Bacteria,Urine Moderate /hpf; Bilirubin,Urine Negative (Negative); Blood,Urine Negative (Negative); Color,Urine Yellow; Glucose,Urine (UA) Negative (Negative); Hyaline Casts,Urine 2 /lpf (0-2); Ketones,Urine Negative (Negative); Leukocyte Esterase,Urine Large (Negative); Mucus,Urine Occasional /hpf; Nitrite,Urine Negative (Negative); Protein,Urine 1+ (Negative); RBC,Urine 5 /hpf (0-5); Specific Gravity,Urine 1.016 (1.001-1.035); Squamous Epithelial Cell,Urine 1 /hpf (0-4); Urobilinogen,Urine <2.0 mg/dL (<2.0); WBC,Urine 53 /hpf (0-5)
[2019-04-17] MEDS ORDERED: Acetaminophen-Codeine 300-30mg TAB PO PRN (08:11)
[2019-04-17] MEDS ORDERED: ONDANSETRON 4 MG/2 ML VIAL IVP PRN (08:11)
[2019-04-17] MEDS ORDERED: IBUPROFEN 400 MG TAB PO PRN (08:11)
[2019-04-17] MEDS ORDERED: ACETAMINOPHEN TAB 325 MG TAB PO PRN ×2 (08:11→08:20)
[2019-04-17] MEDS ORDERED: NALOXONE 0.4 MG/ML 1 ML VIAL IV PRN (08:11)
[2019-04-17] MEDS ORDERED: MORPHINE SULFATE 4 MG/ML SYRINGE IV PRN (08:11)
[2019-04-17] MEDS ORDERED: PANTOPRAZOLE 40 MG/10 ML VIAL IV SCH (09:00)
[2019-04-17] MEDS: METHOCARBAMOL 750 MG TAB PO SCH ×3 (11:23→23:13)
[2019-04-17] MEDS: MULTIVITAMINS, THERA 1 EACH TAB PO SCH (11:23)
[2019-04-17] MEDS: SENNOSIDES-DOCUSATE SODIUM 1 EACH TAB PO SCH ×2 (11:23→20:53)
[2019-04-17 15:06] VITALS: BMI 16.4
[2019-04-17] MEDS: PSYLLIUM HUSK 100% 6 GM PACKET PO SCH ×2 (15:16→20:52)
--- NOTE | 2019-04-17 19:00 | P.HPIM ---
History of Present Illness H&P Date: 04/17/19 Chief Complaint: Dizzy and fall History of presenting complaint: This is a pleasant 54-year-old patient of Dr. Pearson. Chronic stable medical conditions include major depressive disorder, macrocytic anemia from chronic alcoholism, chronic fibromyalgia, GERD, essential hypertension, primary osteoarthritis, elevated alcoholic cardiomyopathy. Patient is currently a resident at [facility] patient got up and felt dizzy and fell down. Never really passed out. Patient appetite has not been good though she's been taking liquids. Patient has about 2 bowel movements every week. No fever no chills. No chest pain. No palpitation. No fever or chills. Able to walk herself slowly. Review of systems: GEN.: Tired EYES: None HEENT: None NECK: None RESPIRATORY: None CARDIOVASCULAR: None GASTROINTESTINAL: Constipation GENITOURINARY: None MUSCULOSKELETAL: Joint pains] LYMPHATICS: None HEMATOLOGICAL: None PSYCHIATRY: Depression controlled NEUROLOGICAL: No focal. 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 Currently at [facility]. Smoking since the age of 13.down to a few cigarettes a day.. Physical examination: VITAL SIGNS: 98.1, 1 or 2, 18, 101/76, 97% on 2 L GENERAL: BMI 16.4, laying in bed tired., Wasting of subcutaneous fat EYES: Pupils equal. Conjunctiva palel. HEENT: External appearance of nose and ears normal, oral cavity grossly normal. NECK: JVD not raised; masses not palpable. HEART: First and second heart sounds are normal; no edema. LUNGS: Respiratory rate normal; decreased breath sounds. ABDOMEN: Soft, some upper tenderness, no guarding or rigidity liver spleen not palpable, no masses palpable. PSYCH: Alert and oriented x3; mood and affect tiredl. NEUROLOGICAL: Cranial nerves grossly intact; no facial asymmetry, power and sensation grossly intact. LYMPHATICS: No lymph nodes palpable in the axilla and neck INVESTIGATIONS, reviewed in the clinical context: White count 28.8 hemoglobin 8.1. Platelet 674 Sodium 131 potassium 4.8 creatinine 1.18 calcium 10.3 albumin 2.6 EKG tracing personally reviewed by me-nonspecific ST segment changes Chest x-ray film personally reviewed by me-lung sheppard clear Computed tomography scan brain-evidence of cerebral atrophy more so in the bilateral frontal lobes Assessment: -Patient has known autonomic dysfunction likely secondary to alcoholism and dizziness was likely from the same. We'll check orthostatics. 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 Fall precautions. Ultrasound of the abdomen. We will Get GI consultation. Check anemia parameters including therefore B12 folate TSH and iron studies. Other home medications resumed. Care was discussed with the patient question were answered. Past Medical History Past Medical History: Fibromyalgia, GERD/Reflux, Hypertension, Osteoarthritis (OA) Additional Past Medical History / Comment(s): ETOH abuse, pancreatitis, splenic vein injury, idiopathic autonomic neuropathy, numbness bilateral arms/left leg, atonic bladder-self caths, UTIs, dilated cardiomyopathy, occasional palpitations, macrocytic anemia, chronic back pain, cervical pain, viral meningitis as a young person. History of Any Multi-Drug Resistant Organisms: None Reported Past Surgical History: Orthopedic Surgery Additional Past Surgical History / Comment(s): L knee meniscus/ACL surgery, 2019 cardiac cath-normal. Past Anesthesia/Blood Transfusion Reactions: Previous Problems w/ Anesthesia Additional Past Anesthesia/Blood Transfusion Reaction / Comment(s): PT WOKE UP ANGRY.- STATES HER DAUGHTER HAS THE SAME REACTION. Past Psychological History: Anxiety, Bipolar, Depression, Panic Disorder Additional Psychological History / Comment(s): Pt resides at [facility] she states for rehab. Pt has a Public legal guardian. [employer] spoke with Violeta and pt is a full code. She has a visitor restriction-[place] is not allowed to visit/receive any information about pt. [employer] shared this information with [facility] care charge nurse. Pt states she is depressed d/t her health problems but denies increased depression or any thoughts/plans of suicide. Smoking Status: Current some day smoker Past Alcohol Use History: Abuse, Daily Additional Past Alcohol Use History / Comment(s): Pt started smoking age 13, smokes occationally now. She has hx of alcohol abuse but states she has not had any alcohol for months now. Past Drug Use History: None Reported - Past Family History Father Family Medical History: Coronary Artery Disease (CAD), Diabetes Mellitus Mother Additional Family Medical History / Comment(s): SUBDURAL HEMATOMA Medications and Allergies Home Medications Medication Instructions Recorded Confirmed Type Acetaminophen Tab [Tylenol] 650 mg PO Q6H PRN 04/17/19 04/17/19 History Methocarbamol [Robaxin] 750 mg PO TID 04/17/19 04/17/19 History Multivitamins, Thera [Multivitamin 1 tab PO DAILY 04/17/19 04/17/19 History (formulary)] Sennosides/Docusate Sodium [Senna 1 tab PO BID 04/17/19 04/17/19 History Plus 8.6-50 mg Tablet] oxyCODONE HCL [Roxicodone] 5 mg PO Q4H PRN 04/17/19 04/17/19 History Allergies Allergy/AdvReac Type Severity Reaction Status Date / Time ciprofloxacin [From Cipro] Allergy Swelling. Verified 01/18/19 20:59 SOB. ciprofloxacin HCl Allergy Swelling. Verified 01/18/19 20:59 [From Cipro] SOB. sulfamethoxazole Allergy Unknown Verified 01/18/19 20:59 [From Bactrim] trimethoprim [From Bactrim] Allergy Unknown Verified 01/18/19 20:59 Physical Exam Vitals: Vital Signs Temp Pulse Resp BP Pulse Ox 04/17/19 08:54 98.1 F 102 H 18 101/76 97 04/17/19 08:00 102 H 18 95/59 97 04/17/19 07:46 105 H 16 86/55 97 04/17/19 06:40 111 H 18 94/55 99 04/17/19 05:57 97.6 F 115 H 18 91/57 100 Intake and Output 04/16/19 04/17/19 04/17/19 22:59 06:59 14:59 Other: Weight 40.823 kg 40.823 kg Results CBC & Chem 7: 04/17/19 06:35 04/17/19 06:35 Labs: Abnormal Lab Results - Last 24 Hours (Table) 03/05/0304/17/19 04/17/19 Range/Units 06:35 06:35 06:35 WBC 28.8 H (3.8-10.6) k/uL RBC 2.38 L (3.80-5.40) m/uL Hgb 8.1 L (11.4-16.0) gm/dL Hct 27.0 L (34.0-46.0) % MCV 113.5 H (80.0-100.0) fL MCHC 29.8 L (31.0-37.0) g/dL Plt Count 674 H (150-450) k/uL Neutrophils # 26.1 H (1.3-7.7) k/uL Macrocytosis Marked A INR 1.2 H (<1.2) APTT 18.1 L (22.0-30.0) sec Sodium 131 L (137-145) mmol/L Carbon Dioxide 16 L (22-30) mmol/L Creatinine 1.18 H (0.52-1.04) mg/dL Plasma Lactic Acid Ayo (0.7-2.0) mmol/L Calcium 10.3 H (8.4-10.2) mg/dL Alkaline Phosphatase 168 H (38-126) U/L Albumin 2.6 L (3.5-5.0) g/dL Urine Appearance (Clear) Urine Protein (Negative) Ur Leukocyte Esterase (Negative) Urine WBC (0-5) /hpf Urine WBC Clumps (None) /hpf Urine Bacteria (None) /hpf Urine Mucus (None) /hpf 04/17/19 04/17/19 Range/Units 06:35 07:42 WBC (3.8-10.6) k/uL RBC (3.80-5.40) m/uL Hgb (11.4-16.0) gm/dL Hct (34.0-46.0) % MCV (80.0-100.0) fL MCHC (31.0-37.0) g/dL Plt Count (150-450) k/uL Neutrophils # (1.3-7.7) k/uL Macrocytosis INR (<1.2) APTT (22.0-30.0) sec Sodium (137-145) mmol/L Carbon Dioxide (22-30) mmol/L Creatinine (0.52-1.04) mg/dL Plasma Lactic Acid Ayo 4.2 H* (0.7-2.0) mmol/L Calcium (8.4-10.2) mg/dL Alkaline Phosphatase (38-126) U/L Albumin (3.5-5.0) g/dL Urine Appearance Cloudy H (Clear) Urine Protein 1+ H (Negative) Ur Leukocyte Esterase Large H (Negative) Urine WBC 53 H (0-5) /hpf Urine WBC Clumps Moderate H (None) /hpf Urine Bacteria Moderate H (None) /hpf Urine Mucus Occasional H (None) /hpf
--- NOTE | 2019-04-17 19:22 | P.CONS ---
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 Patient reports she was asked [facility] rehab facility when she fell trying to walk to the toilet and subs equently struck her head on the edge of the bed. She denies any loss of consciousness. HEENT treated for a urinary tract infection. Currently she is denying any change in bowel habits, blood per rectum or melanotic stool. She does report some right sided abdominal pain which she reports is been present since a hospitalization for treatment of pancreatitis recently. Patient has been noted to have a macrocytic anemia in the past and previously underwent EGD in 07/01/2018 which was significant for a duodenal AVM which was treated with coagulation therapy and gastritis. Currently WBC 20.8, hemoglobin 8.1, platelet count 624,000, total bilirubin 0.7, alkaline phosphatase 168, AST 22 and ALT 12. She believes she has had a colonoscopy in the past but is unclear about the details of when this was performed. Review of Systems REVIEW OF SYSTEMS: CONSTITUTIONAL: Denies any fevers, chills, weight change or fatigue. CARDIOVASCULAR: Denies any chest pain, palpitations high or low blood pressures RESPIRATORY: Denies any shortness of breath, hemoptysis or cough. GENITOURINARY: No dysuria or hematuria, but she does report dark colored urine and is currently being treated for a urinary tract infection.. MUSCULOSKELETAL: No weakness reported. SKIN: Denies any new rashes or lesions, jaundice or pallor. PSYCHIATRIC: Patient has a history of depression. NEUROLOGY: Denies headache, denies any new focal deficits, patient had a mechanical fall prior to presentation. EARS/NOSE/THROAT: No recent hearing change, congestion, nasal discharge or sore throat. EYES: No pain in eyes, discharge or change in vision. GASTROINTESTINAL: As per HPI. Past Medical History Past Medical History: Fibromyalgia, GERD/Reflux, Hypertension, Osteoarthritis (OA) Additional Past Medical History / Comment(s): ETOH abuse, pancreatitis, splenic vein injury, idiopathic autonomic neuropathy, numbness bilateral arms/left leg, atonic bladder-self caths, UTIs, dilated cardiomyopathy, occasional palpitations, macrocytic anemia, chronic back pain, cervical pain, viral meningitis as a young person. History of Any Multi-Drug Resistant Organisms: None Reported Past Surgical History: Orthopedic Surgery Additional Past Surgical History / Comment(s): L knee meniscus/ACL surgery, 2019 cardiac cath-normal. Past Anesthesia/Blood Transfusion Reactions: Previous Problems w/ Anesthesia Additional Past Anesthesia/Blood Transfusion Reaction / Comm: PT WOKE UP ANGRY.- STATES HER DAUGHTER HAS THE SAME REACTION. Past Psychological History: Anxiety, Bipolar, Depression, Panic Disorder Additional Psychological History / Comment(s): Pt resides at [facility] she states for rehab. Pt has a Public legal guardian. Client Relationship Executive spoke with Violeta and pt is a full code. She has a visitor restriction-Emily Heather is not allowed to visit/receive any information about pt. Client Relationship Executive shared this information with Pastora care charge nurse. Pt states she is depressed d/t her health problems but denies increased depression or any thoughts/plans of suicide. Smoking Status: Current some day smoker Past Alcohol Use History: Abuse, Daily Additional Past Alcohol Use History / Comment(s): Pt started smoking age 13, smokes occationally now. She has hx of alcohol abuse but states she has not had any alcohol for months now. Past Drug Use History: None Reported - Past Family History Father Family Medical History: Coronary Artery Disease (CAD), Diabetes Mellitus Mother Additional Family Medical History / Comment(s): SUBDURAL HEMATOMA Medications and Allergies Home Medications Medication Instructions Recorded Confirmed Type Acetaminophen Tab [Tylenol] 650 mg PO Q6H PRN 04/17/19 04/17/19 History Methocarbamol [Robaxin] 750 mg PO TID 04/17/19 04/17/19 History Multivitamins, Thera [Multivitamin 1 tab PO DAILY 04/17/19 04/17/19 History (formulary)] Sennosides/Docusate Sodium [Senna 1 tab PO BID 04/17/19 04/17/19 History Plus 8.6-50 mg Tablet] oxyCODONE HCL [Roxicodone] 5 mg PO Q4H PRN 04/17/19 04/17/19 History Allergies Allergy/AdvReac Type Severity Reaction Status Date / Time ciprofloxacin [From Cipro] Allergy Swelling. Verified 01/18/19 20:59 SOB. ciprofloxacin HCl Allergy Swelling. Verified 01/18/19 20:59 [From Cipro] SOB. sulfamethoxazole Allergy Unknown Verified 01/18/19 20:59 [From Bactrim] trimethoprim [From Bactrim] Allergy Unknown Verified 01/18/19 20:59 Physical Exam Vitals: Vital Signs Temp Pulse Pulse Resp BP BP Pulse Ox 04/17/19 12:00 98.1 F 83 12 95/54 99 04/17/19 11:24 98 18 101/74 97 04/17/19 09:58 98 16 104/76 97 04/17/19 08:54 98.1 F 102 H 18 101/76 97 04/17/19 08:00 102 H 18 95/59 97 04/17/19 07:46 105 H 16 86/55 97 04/17/19 06:40 111 H 18 94/55 99 04/17/19 05:57 97.6 F 115 H 18 91/57 100 Intake and Output 04/16/19 04/17/19 04/17/19 22:59 06:59 14:59 Other: Voiding Method Self-Catheterization Weight 40.823 kg 40.823 kg On physical examination, patient appears comfortable in no apparent distress. HEAD: Normocephalic, patient does have abrasion on the left side of her for elevated from her mechanical fall. EYES: No scleral icterus. No conjunctival injection. MOUTH: No lesions, tongue midline. NECK: Trachea midline, no gross abnormalities. CHEST: Decreased air entry in all lung sheppard, no respiratory distress. HEART: Regular rate and rhythm. ABDOMEN: Soft, thin and mildly tender to palpation diffusely. Bowel sounds are positive. No organomegaly. No guarding or rigidity. EXTREMITIES: No pedal edema. SKIN: No rashes, no jaundice. NEUROLOGIC: Alert and oriented x3. No focal deficits. Results CBC & Chem 7: 04/17/19 06:35 04/17/19 06:35 Labs: Abnormal Lab Results - Last 24 Hours (Table) 04/17/19 04/17/19 04/17/19 Range/Units 06:35 06:35 06:35 WBC 28.8 H (3.8-10.6) k/uL RBC 2.38 L (3.80-5.40) m/uL Hgb 8.1 L (11.4-16.0) gm/dL Hct 27.0 L (34.0-46.0) % MCV 113.5 H (80.0-100.0) fL MCHC 29.8 L (31.0-37.0) g/dL Plt Count 674 H (150-450) k/uL Neutrophils # 26.1 H (1.3-7.7) k/uL Macrocytosis Marked A INR 1.2 H (<1.2) APTT 18.1 L (22.0-30.0) sec Sodium 131 L (137-145) mmol/L Carbon Dioxide 16 L (22-30) mmol/L Creatinine 1.18 H (0.52-1.04) mg/dL Plasma Lactic Acid Ayo (0.7-2.0) mmol/L Calcium 10.3 H (8.4-10.2) mg/dL Alkaline Phosphatase 168 H (38-126) U/L Albumin 2.6 L (3.5-5.0) g/dL Urine Appearance (Clear) Urine Protein (Negative) Ur Leukocyte Esterase (Negative) Urine WBC (0-5) /hpf Urine WBC Clumps (None) /hpf Urine Bacteria (None) /hpf Urine Mucus (None) /hpf 04/17/19 04/17/19 04/17/19 Range/Units 06:35 07:42 10:49 WBC (3.8-10.6) k/uL RBC (3.80-5.40) m/uL Hgb (11.4-16.0) gm/dL Hct (34.0-46.0) % MCV (80.0-100.0) fL MCHC (31.0-37.0) g/dL Plt Count (150-450) k/uL Neutrophils # (1.3-7.7) k/uL Macrocytosis INR (<1.2) APTT (22.0-30.0) sec Sodium (137-145) mmol/L Carbon Dioxide (22-30) mmol/L Creatinine (0.52-1.04) mg/dL Plasma Lactic Acid Ayo 4.2 H* 2.5 H* (0.7-2.0) mmol/L Calcium (8.4-10.2) mg/dL Alkaline Phosphatase (38-126) U/L Albumin (3.5-5.0) g/dL Urine Appearance Cloudy H (Clear) Urine Protein 1+ H (Negative) Ur Leukocyte Esterase Large H (Negative) Urine WBC 53 H (0-5) /hpf Urine WBC Clumps Moderate H (None) /hpf Urine Bacteria Moderate H (None) /hpf Urine Mucus Occasional H (None) /hpf Chest x-ray: report reviewed (No acute cardiopulmonary process on chest x-ray.) Assessment and Plan (1) Abdominal pain Narrative/Plan: 54-year-old female with multiple medical comorbidities as well as recent episode of acute uncomplicated pancreatitis per reports from her requiring hospitalization at an outside hospital. The patient was safely discharged and currently presents back to the hospital due to mechanical fall. She denies any acute change in her abdominal discomfort but does report some periumbilical pain which is been present since her discharge. Likely related to prior episode of p ancreatitis and recommend continuing supportive care. Current Visit: Yes Status: Acute Code(s): R10.9 - UNSPECIFIED ABDOMINAL PAIN SNOMED Code(s): 84405281 (2) Macrocytic anemia Narrative/Plan: Chronic macrocytic anemia likely multifactorial and in the setting of prior heavy alcohol abuse with no signs or symptoms of GI bleeding at this time. Last EGD in 2019 was significant for a duodenal AVM treated with coagulation therapy and gastritis. Current Visit: No Status: Acute Priority: High Code(s): D53.9 - NUTRITIONAL ANEMIA, UNSPECIFIED SNOMED Code(s): 91530374 (3) History of pancreatitis Current Visit: Yes Status: Acute Code(s): Z87.19 - PERSONAL HISTORY OF OTHER DISEASES OF THE DIGESTIVE SYSTEM SNOMED Code(s): 15197051187807 Plan: Supportive care Okay for diet as tolerated Continue Metamucil Continue monitor CBC, CMP Continue to treat underlying urinary tract infection Dietary modifications discussed with the patient No plans for endoscopic evaluation at this time Thank you for allowing us to participate in the care of the patient we will continue to follow
[2019-04-18] MEDS: SODIUM CHLORIDE 0.9% 1,000 ML IV SCH ×2 (06:35→12:25)
--- NOTE | 2019-04-18 08:20 | US ---
"EXAMINATION TYPE: US abdomen limited DATE OF EXAM: 04/18/2019 COMPARISON: MRI lumbar spine May 15, 2015 CLINICAL HISTORY: Left upper abdominal pain. Pancreatitis, abdominal pain, nausea EXAM MEASUREMENTS: Liver Length: 16.2 cm Gallbladder Wall: 0.2 cm CBD: unable to visualize Right Kidney: 8.4 x 3.9 x 5.3 cm Technical limitations due to large amount of overlying bowel content Pancreas: Obscured by bowel gas Liver: cystic areas noted, largest = 2.7 x 2.4 x 3.2cm Gallbladder: stones noted Evidence for sonographic Jiang's sign: no CBD: Obscured by overlying bowel gas Right Kidney: atrophic, no evidence of hydronephrosis Complex fluid collection RLQ adjacent to liver Exam is suboptimal secondary to overlying bowel gas per technologist. Visualized liver is heterogeneo us in appearance without mass or ductal dilatation. Anterior to the pancreas extending to the left up per quadrant there is heterogeneous oval-shaped hypoechoic area with increased through transmission m easuring 11.7 x 1.1 x 5.7 cm. No internal vascularity is seen. Visualized liver is heterogeneously hyperechoic suggesting diffuse fatty infiltration. Evaluation for focal masses suboptimal due to the heterogeneity. Technologist identifies slightly lobulated 3.2 cm thin-walled cyst with thin septa. Inferior aspect right hepatic lobe there is heterogeneous hypoechoi c fluid collection with increased through transmission and fairly thin-walled. Gallbladder shows small mobile shadowing gallstones. No surrounding fluid or wall thickening. Right k idney is somewhat small in size with some cortical thinning. No hydronephrosis. IMPRESSION: Suboptimal study. Abnormal heterogeneous 11.7 cm hyperechoic lesion central abdomen exten ding into the left upper quadrant with additional smaller fluid collection along inferior margin of t he liver. In patient with history of pancreatitis complex pseudocysts and walled off necrosis need to be considered. Strict clinical correlation is advised. Further investigation with contrast-enhanced pancreatic protocol CT is recommended. A Yellow level critical message alert has been initiated for Jose Ramon Obrien MD via the [employer] 0 | Critical Results System on 04/18/2019 8:18 AM. This message alert has been sent to Jose Ramon Obrien MD via the preferences provided by the clinician for the receipt of Radiology Critical Findings. Mess age ID [id number]."
[2019-04-18] MEDS: PSYLLIUM HUSK 100% 6 GM PACKET PO SCH ×2 (08:27→21:22)
[2019-04-18] MEDS: SENNOSIDES-DOCUSATE SODIUM 1 EACH TAB PO SCH ×2 (08:27→21:23)
[2019-04-18] MEDS: METHOCARBAMOL 750 MG TAB PO SCH ×3 (08:28→21:23)
[2019-04-18] MEDS: MULTIVITAMINS, THERA 1 EACH TAB PO SCH (08:28)
[2019-04-18 11:15] LABS: % Iron Saturation 13.45 (12.00-45.00); Folate, Serum 12.6 ng/mL
--- NOTE | 2019-04-18 12:37 | CDI ---
Documentation Clarification Form Date: 04/18/2019 11:59:00 AM From: Crissy Jackson RN, CCDS Admit Date: 04/17/2019 08:02:00 AM Patient Name: Elisabeth Coffey Visit Number: [id number] Discharge Date: ATTENTION: The Clinical Documentation Specialists (CDI) and [facility] Coding Staff appreciate your assistance in clarifying documentation. Please respond to the clarification below the line at the bottom and electronically sign. The CDI & [facility] Coding staff will review the response and follow-up if needed. Please note: Queries are made part of the Legal Health Record. If you have any questions, please contact the author of this message via ITS. Dr. Jose Ramon Obrien UTI was documented in the ED assessment but not continued in the H&P and clarification is needed to rule the diagnosis in with specified cause, or was it ruled out? History/Risk Factors: Atonic Bladder (self catheterization) intermittent urinary tract infections, Clinical Indicators: 54-year-old female presents to ED with reports of dizziness, lightheaded and fell striking her head. Vital Signs: 04/16 @05:57: 91/57 115 18 97.6; (07:46) 86/55 105 16 97 % 2/l NC 04/16 WBC: 28.8 04/16 Urinalysis: Ur Leukocyte Esterase Large, WBC Moderate, Urine bacteria Moderate Urine Culture: Pending Blood cultures: no growth after 24 hours Treatment Antibiotics: Rocephin 1 gm IVPB Q 24HR .9 Saline @ 130 mls/hr IV Please document the condition that these clinical indicators signify, whether Present on Admission, and cause if known: UTI -With Sepsis (POA) -If due to self catheterization, please document -Specify organism, if known -Identify location of infection (if known) Bladder, Kidney, Urethra Contaminated specimen Other, please specify _ Unable to determine (Last Revision: November 2016) UTI with possible sepsis, POA MTDD
--- NOTE | 2019-04-18 13:52 | P.PN ---
Progress Note - Text Progress Note Date: 04/18/19 Chief Complaint: Dizzy and fall History of presenting complaint: This is a pleasant 54-year-old patient of Dr. Pearson. Chronic stable medical conditions include major depressive disorder, macrocytic anemia from chronic alcoholism, chronic fibromyalgia, GERD, essential hypertension, primary osteoarthritis, elevated alcoholic cardiomyopathy. Patient is currently a resident at [facility] patient got up and felt dizzy and fell down. Never really passed out. Patient appetite has not been good though she's been taking liquids. Patient has about 2 bowel movements every week. No fever no chills. No chest pain. No palpitation. No fever or chills. Able to walk herself slowly. Today-laying in bed. Tolerating a liquid diet. No new issues. Review of systems: Was done for constitutional, cardiovascular, GI, pulmonary. relevant finding as above Active Medications Acetaminophen (Tylenol Tab) 650 mg PO Q6HR PRN PRN Reason: Mild Pain or Fever > 100.5 Acetaminophen (Tylenol Tab) 650 mg PO Q6H PRN PRN Reason: Pain or Fever > 100.5 Acetaminophen/Codeine Phosphate (Tylenol #3) 1 each PO Q4HR PRN PRN Reason: Moderate Pain Sodium Chloride (Saline 0.9%) 1,000 mls @ 130 mls/hr IV .Q7H42M [facility] Last Admin: 04/18/19 12:25 Dose: 130 mls/hr Documented by: Ceftriaxone Sodium 1 gm/ (Sodium Chloride) 50 mls @ 100 mls/hr IVPB Q24HR [facility] Last Admin: 04/18/19 12:21 Dose: 100 mls/hr Documented by: Ibuprofen (Motrin) 400 mg PO Q6HR PRN PRN Reason: Mild Pain or Fever > 100.5 Methocarbamol (Robaxin) 750 mg PO TID [facility] Last Admin: 04/18/19 08:28 Dose: 750 mg Documented by: Multivitamins (Theragran) 1 each PO DAILY [facility] Last Admin: 04/18/19 08:28 Dose: 1 each Documented by: Naloxone HCl (Narcan) 0.2 mg IV Q2M PRN PRN Reason: Opioid Reversal Ondansetron HCl (Zofran) 4 mg IVP Q8HR PRN PRN Reason: Nausea And Vomiting Oxycodone HCl (Oxyir) 5 mg PO Q4H PRN PRN Reason: Pain Last Admin: 04/18/19 12:22 Dose: 5 mg Documented by: Psyllium Hydrophilic Mucilloid (Metamucil) 6 gm PO BID [facility] Last Admin: 04/18/19 08:27 Dose: 6 gm Documented by: Senna/Docusate Sodium (Senokot-S) 1 each PO BID [facility] Last Admin: 04/18/19 08:27 Dose: 1 each Documented by: Physical examination: VITAL SIGNS: 98.9, 85, 18, 88/56, 100% on room air GENERAL: Laying bed-awake, Wasting of subcutaneous fat EYES: Pupils equal. Conjunctiva pale. HEENT: External appearance of nose and ears normal, oral cavity grossly normal. NECK: JVD not raised; masses not palpable. HEART: First and second heart sounds are normal; no edema. LUNGS: Respiratory rate normal; decreased breath sounds. ABDOMEN: Soft, some upper tenderness, no guarding or rigidity liver spleen not palpable, no masses palpable. PSYCH: Alert and oriented x3; mood and affect tired INVESTIGATIONS, reviewed in the clinical context: UA positive for leukoesterase WBC -Iron 16 TIBC 119 iron saturation 13.4 B12 normal folate normal Previous testing White count 28.8 hemoglobin 8.1. Platelet 674 Sodium 131 potassium 4.8 creatinine 1.18 calcium 10.3 albumin 2.6 EKG tracing personally reviewed by me-nonspecific ST segment changes Chest x-ray film personally reviewed by me-lung sheppard clear Computed tomography scan brain-evidence of cerebral atrophy more so in the bilateral frontal lobes Abdominal ultrasound-complex cystic fluid around the pancreas. Assessment: -Patient has known autonomic dysfunction likely secondary to alcoholism and di zziness was likely from the same. 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 -Major depressive disorder recurrent, currently in remission -Macrocytic anemia from history of chronic alcoholism -Cognitive impairment from chronic alcoholism -Iron deficiency anemia -Chronic fibromyalgia -GERD -Essential hypertension -Primary osteoarthritis -Moderate to severe protein calorie malnutrition from decreased oral intake -Chronic abdominal pain Plan: Discussed with Dr. Dang from GI. Her clinical findings are chronic. Not for any interventional present time. We'll cut back on IV fluids. Looking at discharge planning for tomorrow.
--- NOTE | 2019-04-18 18:59 | P.PN ---
Subjective Progress Note Date: 04/18/19 Principal diagnosis: Abdominal pain, recent hospitalization for acute pancreatitis Patient seen lying in bed reporting she tolerated her diet overnight. No acute complaints. Objective - Vital Signs Vital signs: Vital Signs Temp 98.6 F 04/18/19 15:53 Pulse 92 04/18/19 15:53 Resp 15 04/18/19 15:53 BP 124/73 04/18/19 15:53 Pulse Ox 100 04/18/19 15:53 Intake & Output 04/17/19 04/18/19 04/18/19 18:59 06:59 18:59 Intake Total 240 400 510 Balance 240 400 510 Weight 43.318 kg 44.7 kg Intake: Intake, IV Titration 400 Amount Sodium Chloride 0.9% 1, 400 000 ml @ 130 mls/hr IV . Q7H42M [facility] Rx#:[id number] Oral 240 510 Other: Voiding Method Self-Catheterization Self-Catheterization Diaper # Voids 0 1 2 - Exam On physical examination, patient appears comfortable in no apparent distress. HEAD: Normocephalic, atraumatic. EYES: No scleral icterus. No conjunctival injection. MOUTH: No lesions, tongue midline. NECK: Trachea midline, no gross abnormalities. ABDOMEN: Soft, mildly tender to palpation. Bowel sounds are positive. No organomegaly. No guarding or rigidity. EXTREMITIES: No pedal edema. SKIN: No rashes, no jaundice. NEUROLOGIC: Alert and oriented to person and place. No focal deficits. - Labs CBC & Chem 7: 04/17/19 06:35 04/17/19 06:35 Labs: Abnormal Lab Results - Last 24 Hours (Table) 04/18/19 Range/Units 05:21 Iron 16 L (50-170) ug/dL TIBC 119 L (228-460) ug/dL Microbiology - Last 24 Hours (Table) 04/17/19 07:42 Urine Culture - Preliminary Urine,Voided Gram Neg Bacilli 04/17/19 06:35 Blood Culture - Preliminary Blood No Growth after 24 hours Assessment and Plan (1) Abdominal pain Narrative/Plan: 54-year-old female with multiple medical comorbidities as well as recent episode of acute uncomplicated pancreatitis per reports from her requiring hospitalization at an outside hospital. The patient was safely discharged and currently presents back to the hospital due to mechanical fall. She denies any acute change in her abdominal discomfort but does report some periumbilical pain which is been present since her discharge. Likely related to prior episode of pancreatitis and recommend continuing supportive care. Current Visit: Yes Status: Acute Code(s): R10.9 - UNSPECIFIED ABDOMINAL PAIN SNOMED Code(s): 34545219 (2) Macrocytic anemia Narrative/Plan: Chronic macrocytic anemia likely multifactorial and in the setting of prior heavy alcohol abuse with no signs or symptoms of GI bleeding at this time. Last EGD in 2019 was significant for a duodenal AVM treated with coagulation therapy and gastritis. Current Visit: No Status: Acute Priority: High Code(s): D53.9 - NUTRITIONAL ANEMIA, UNSPECIFIED SNOMED Code(s): 96763778 (3) History of pancreatitis Narrative/Plan: Ultrasound of the abdomen show a complex pseudocyst versus wall off necrosis, likely related to recent episode of acute pancreatitis for which patient r eceived hospitalization at [facility]. Current Visit: Yes Status: Acute Code(s): Z87.19 - PERSONAL HISTORY OF OTHER DISEASES OF THE DIGESTIVE SYSTEM SNOMED Code(s): 22311361535307 Plan: Supportive care Okay for diet as tolerated Continue Metamucil Continue monitor CBC, CMP Continue to treat underlying urinary tract infection Dietary modifications discussed with the patient No plans for endoscopic evaluation at this time Discussed repeating imaging in 6-8 weeks for follow-up of complex cyst seen on ultrasound of the abdomen with either computed tomography scan or MRI in the outpatient setting after discharge Thank you for allowing us to participate in the care of the patient we will continue to follow
[2019-04-19 04:41] VITALS: RESP 16
[2019-04-19] MEDS: METHOCARBAMOL 750 MG TAB PO SCH ×2 (09:58→16:21)
[2019-04-19] MEDS: MULTIVITAMINS, THERA 1 EACH TAB PO SCH (09:58)
[2019-04-19] MEDS: PSYLLIUM HUSK 100% 6 GM PACKET PO SCH (09:58)
[2019-04-19] MEDS: SENNOSIDES-DOCUSATE SODIUM 1 EACH TAB PO SCH (10:02)
--- NOTE | 2019-04-19 12:16 | CDI ---
Documentation Clarification Form Date: 04/19/2019 11:41:37 AM From: Crissy Jackson RN, CCDS Admit Date: 04/17/2019 08:02:00 AM Patient Name: Elisabeth Coffey Visit Number: [id number] Discharge Date: ATTENTION: The Clinical Documentation Specialists (CDI) and [facility] Coding Staff appreciate your assistance in clarifying documentation. Please respond to the clarification below the line at the bottom and electronically sign. The CDI & [facility] Coding staff will review the response and follow-up if needed. Please note: Queries are made part of the Legal Health Record. If you have any questions, please contact the author of this message via ITS. Dr. Jose Ramon Obrien Moderate to Severe protein calorie malnutrition has been documented in H&P and subsequent progress notes and further specificity is needed. History/Risk Factors: Sepsis, weakness, UTI, Pancreatitis, ETOH abuse Clinical Indicators: 54-josh-old female per dietary assessment/nutrition history on 04/16 has had a poor appetite greater than 6 months. She is unsure amount of weight loss. She is not tolerating diet and said solid foods cause nausea and vomiting which cause pain. Physical appearance per dietary findings was emaciated. 04/16 Labs: WBC 28.8, Na 131, Cr 1.18, Ca 10.3 Current BMI: 15.4 Insufficient energy intake: Yes Weight Loss: >20% weight loss of UBW in 12 months Severe depletion of upper and lower body seen in quadriceps, pectoralis major, trapezius muscles. Treatment: Dietary Consult: yes; Nutrition diagnosis: Malnutrition severe, chronic Supplements: Ensure enlive and magic cup TID Monitor PO intake, weights, supplement intake In your professional opinion, can you please document the most appropriate diagnosis for this patient? Moderate Protein-Calorie Malnutrition Severe Protein-Calorie Malnutrition Other condition, please specify Unable to determine (Last Revision: August 2018) Already addressed in discharge summary MTDD
[2019-04-19 15:15] VITALS: BP 110/69; PULSE 57; TEMP 99.6
--- NOTE | 2019-04-20 07:58 | CDI ---
Documentation Clarification Form Date: 04/19/2019 07:32:00 AM From: Crissy Jackson RN, CCDS Admit Date: 04/17/2019 08:02:00 AM Patient Name: Elisabeth Coffey Visit Number: [id number] Discharge Date: 04/19/2019 04:24:00 PM ATTENTION: The Clinical Documentation Specialists (CDI) and [facility] Coding Staff appreciate your assistance in clarifying documentation. Please respond to the clarification below the line at the bottom and electronically sign. The CDI & [facility] Coding staff will review the response and follow-up if needed. Please note: Queries are made part of the Legal Health Record. If you have any questions, please contact the author of this message via ITS. Dr. Jose Ramon Obrien UTI with sepsis was documented in your response on 04/17. 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 History/Risk Factors: Atonic Bladder (self catheterization), intermittent urinary tract infections Clinical Indicators: 54-year-old female present to ED with reports of dizziness, lightheaded and fell striking her head. 3/3 Vital Signs: at 05:57 91/57 115 18 97.6 3/3 WBC: 28.8; Lactic acid 4.2, 2.5 Urinalysis: Ur Leukocyte Esterase large, Urine WBC moderate, Urine bacteria moderate 3/3 Urine Culture: Final Escherichia coli Treatment Antibiotics: Rocepnin 1 gm IV Q24 HR (now dc) Ceftin 500 mg PO BID X3 days Please document the condition that these clinical indicators signify, and cause if known: UTI with Sepsis due to Self-catheterization POA UTI with Sepsis not due to Self-catheterization Other, please specify Unable to determine (Last Revision: November 2016) UTI with sepsis due to self-catheterization, POA MTDD
--- NOTE | 2019-04-21 22:15 | P.DS ---
Providers Date of admission: 04/17/19 08:02 Expected date of discharge: 04/19/19 Attending physician: Jose Ramon Obrien Primary care physician: Cy Pearson [facility] Course: Chief Complaint: Dizzy and fall History of presenting complaint: This is a pleasant 54-year-old patient of Dr. Pearson. Chronic stable medical conditions include major depressive disorder, macrocytic anemia from chronic alcoholism, chronic fibromyalgia, GERD, essential hypertension, primary osteoarthritis, elevated alcoholic cardiomyopathy. Patient is currently a resident at [facility] patient got up and felt dizzy and fell down. Never really passed out. Patient appetite has not been good though she's been taking liquids. Patient has about 2 bowel movements every week. No fever no chills. No chest pain. No palpitation. No fever or chills. Able to walk herself slowly. Admitted with-fall secondary to autonomic dysfunction, alcoholic myopathy, acute UTI and cystitis. Abdominal ultrasound did show some chronic pseudocyst. Patient has continued to tolerate full liquid diet. Seen by GI. To be followed conservatively. Discussed with the patient. At length. Seen by discharge planning is. Today-tolerating diet. No new issues. Will be returning to stay with her ex- . Guardianship will be transferred from the court appointed public guardian to the ex-. Discussion and discharge planning more than 35 minutes Consultation: Dr. Dang from GI Physical examination: VITAL SIGNS: 99.6, 57, 16, 110/69, 94% on room air GENERAL: Laying bed-awake, Wasting of subcutaneous fat EYES: Pupils equal. Conjunctiva pale. HEENT: External appearance of nose and ears normal, oral cavity grossly normal. NECK: JVD not raised; masses not palpable. HEART: First and second heart sounds are normal; no edema. LUNGS: Respiratory rate normal; decreased breath sounds. ABDOMEN: Soft, minimal epigastric tenderness, no guarding or rigidity liver spleen not palpable, no masses palpable. PSYCH: Alert and oriented x3; mood and affect tired INVESTIGATIONS, reviewed in the clinical context: UA positive for leukoesterase WBC-E. coli -Iron 16 TIBC 119 iron saturation 13.4 B12 normal folate normal Previous testing White count 28.8 hemoglobin 8.1. Platelet 674 Sodium 131 potassium 4.8 creatinine 1.18 calcium 10.3 albumin 2.6 EKG tracing personally reviewed by me-nonspecific ST segment changes Chest x-ray film personally reviewed by me-lung sheppard clear Computed tomography scan brain-evidence of cerebral atrophy more so in the bilateral frontal lobes Abdominal ultrasound-complex cystic fluid around the pancreas. Assessment: -Patient has known autonomic dysfunction likely secondary to alcoholism and dizziness POA -Acute UTI from cystitis-E. 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 -Major depressive disorder recurrent, currently in remission -Macrocytic anemia from history of chronic alcoholism -Cognitive impairment from chronic alcoholism -Iron deficiency anemia -Chronic fibromyalgia -GERD -Essential hypertension -Primary osteoarthritis -Moderate to severe protein calorie malnutrition from decreased oral intake -Chronic abdominal pain-from pancreatitis pseudocyst. -Legal guardianship is in the process of getting changed over from public guardian to ex- Disposition: Home Patient Condition at Discharge: Stable Plan - Discharge Summary New Discharge Prescriptions: New Cefuroxime Axetil [Ceftin] 500 mg PO BID 3 Days #6 tab Psyllium Husk 100% [Metamucil Packet] 6 gm PO BID #60 packet Continue Multivitamins, Thera [Multivitamin (formulary)] 1 tab PO DAILY Methocarbamol [Robaxin] 750 mg PO TID #30 tab oxyCODONE HCL [Roxicodone] 5 mg PO Q4H PRN #30 tab PRN Reason: Pain Discontinued Acetaminophen Tab [Tylenol] 650 mg PO Q6H PRN PRN Reason: Pain Or Fever > 100.5 Sennosides/Docusate Sodium [Senna Plus 8.6-50 mg Tablet] 1 tab PO BID Discharge Medication List Multivitamins, Thera [Multivitamin (formulary)] 1 tab PO DAILY 04/17/19 [History] Cefuroxime Axetil [Ceftin] 500 mg PO BID 3 Days #6 tab 04/19/19 [Rx] Methocarbamol [Robaxin] 750 mg PO TID #30 tab 04/19/19 [Rx] Psyllium Husk 100% [Metamucil Packet] 6 gm PO BID #60 packet 04/19/19 [Rx] oxyCODONE HCL [Roxicodone] 5 mg PO Q4H PRN #30 tab 04/19/19 [Rx] Follow up Appointment(s)/Referral(s): [facility], [NON-STAFF] - James Moreland DO [STAFF PHYSICIAN] - 1 Week Nuno Little MD [STAFF PHYSICIAN] - 05/11/19 10:20 am Patient Instructions/Handouts: Fall Prevention (DC) Activity/Diet/Wound Care/Special Instructions: Home with home care Fall prevention, up with assist. Regular diet with ensure three times daily. Discharge Disposition: HOME WITH HOME HEALTH SERVICES
== END 2019-04-19 16:24 | disposition home health service (06) | DRG 698 ==
LOC: EEVIPCON 05:55 → EC 05:55 → 3SCARD 08:02 → 6NMEDSUR 04-18 18:59
PROVIDERS: ADMIT Hospitalist; ATTEND Hospitalist
DX: T83.518A Infection and inflammatory reaction due to other urinary catheter, initial encounter (principal); A41.9 Sepsis, unspecified organism; N30.00 Acute cystitis without hematuria; F33.9 Major depressive disorder, recurrent, unspecified; G72.1 Alcoholic myopathy; I42.6 Alcoholic cardiomyopathy; I42.0 Dilated cardiomyopathy; K86.3 Pseudocyst of pancreas; Z68.1 Body mass index [BMI] 19.9 or less, adult; E46 Unspecified protein-calorie malnutrition; G31.2 Degeneration of nervous system due to alcohol; N31.2 Flaccid neuropathic bladder, not elsewhere classified; D50.9 Iron deficiency anemia, unspecified; D53.9 Nutritional anemia, unspecified; F17.210 Nicotine dependence, cigarettes, uncomplicated; F41.0 Panic disorder [episodic paroxysmal anxiety]; G89.29 Other chronic pain; F10.21 Alcohol dependence, in remission; I10 Essential (primary) hypertension; K21.9 Gastro-esophageal reflux disease without esophagitis; M19.91 Primary osteoarthritis, unspecified site; M79.7 Fibromyalgia; S00.12XA Contusion of left eyelid and periocular area, initial encounter; M54.9 Dorsalgia, unspecified; E86.0 Dehydration; G31.84 Mild cognitive impairment of uncertain or unknown etiology; R42 Dizziness and giddiness; Z87.440 Personal history of urinary (tract) infections; Z79.899 Other long term (current) drug therapy; Z88.1 Allergy status to other antibiotic agents; Z88.2 Allergy status to sulfonamides; Z82.49 Family history of ischemic heart disease and other diseases of the circulatory system; Z83.3 Family history of diabetes mellitus; W18.30XA Fall on same level, unspecified, initial encounter; Y84.6 Urinary catheterization as the cause of abnormal reaction of the patient, or of later complication, without mention of misadventure at the time of the procedure
CPT/HCPCS: 36415; 70450; 71046; 76705; 80053; 81001; 82607; 82746; 83540; 83550; 83605; 85025; 85610; 85730; 87040; 87077; 87086; 87186; 93005; 94760; 96361; 96365; 96375; 96376; 99291

== ENCOUNTER 2019-04-24 14:30 | Inpatient (IN) | payer OTHER ==
[2019-04-24] MEDS ORDERED: SODIUM CHLORIDE 0.9% 500 ML 500 ML IV STA (14:58)
[2019-04-24] MEDS ORDERED: ONDANSETRON 4 MG/2 ML VIAL IVP STA (14:58)
--- NOTE | 2019-04-24 15:04 | ED ---
General Adult HPI - General Chief complaint: Recheck/Abnormal Lab/Rx Stated complaint: Abd Pain Time Seen by Provider: 04/24/19 14:40 Source: patient, RN notes reviewed, old records reviewed Mode of arrival: ambulatory Limitations: no limitations - History of Present Illness Initial comments: This a 54-year-old female with a past medical history significant for alcoholism as well as pancreatitis. Patient was recently admitted the hospital for urinary tract infection and sepsis. Patient was discharged home to the he states since then she's been losing weight been very nauseated finding it difficult to eat and becoming weaker and weaker. Patient was told to bring the patient to the emergency department today by the primary medical care doctor. There's been no fever chills but his been no chest pain difficult breathing shortness of breath. There's been no new abdominal pain but she does always complain of a little left upper quadrant abdominal pain. Patient states she does have a history of anemia. - Related Data Home Medications Medication Instructions Recorded Confirmed Multivitamins, Thera [Multivitamin 1 tab PO DAILY 04/17/19 04/17/19 (formulary)] Previous Rx's Medication Instructions Recorded Cefuroxime Axetil [Ceftin] 500 mg PO BID 3 Days #6 tab 04/19/19 Methocarbamol [Robaxin] 750 mg PO TID #30 tab 04/19/19 Psyllium Husk 100% [Metamucil 6 gm PO BID #60 packet 04/19/19 Packet] oxyCODONE HCL [Roxicodone] 5 mg PO Q4H PRN #30 tab 04/19/19 Allergies Allergy/AdvReac Type Severity Reaction Status Date / Time ciprofloxacin [From Cipro] Allergy Swelling. Verified 04/24/19 14:42 SOB. ciprofloxacin HCl Allergy Swelling. Verified 04/24/19 14:42 [From Cipro] SOB. sulfamethoxazole Allergy Unknown Verified 04/24/19 14:42 [From Bactrim] trimethoprim [From Bactrim] Allergy Unknown Verified 04/24/19 14:42 Review of Systems ROS Statement: Those systems with pertinent positive or pertinent negative responses have been documented in the HPI. ROS Other: All systems not noted in ROS Statement are negative. Past Medical History Past Medical History: Fibromyalgia, GERD/Reflux, Hypertension, Osteoarthritis (OA) Additional Past Medical History / Comment(s): ETOH abuse, pancreatitis, splenic vein injury, idiopathic autonomic neuropathy, numbness bilateral arms/left leg, atonic bladder-self caths, UTIs, dilated cardiomyopathy, occasional palpi tations, macrocytic anemia, chronic back pain, cervical pain, viral meningitis as a young person. History of Any Multi-Drug Resistant Organisms: None Reported Past Surgical History: Orthopedic Surgery Additional Past Surgical History / Comment(s): L knee meniscus/ACL surgery, 2019 cardiac cath-normal. Past Anesthesia/Blood Transfusion Reactions: Previous Problems w/ Anesthesia Additional Past Anesthesia/Blood Transfusion Reaction / Comment(s): PT WOKE UP ANGRY.- STATES HER DAUGHTER HAS THE SAME REACTION. Past Psychological History: Anxiety, Bipolar, Depression, Panic Disorder Smoking Status: Current some day smoker Past Alcohol Use History: Abuse, Daily Past Drug Use History: None Reported - Past Family History Father Family Medical History: Coronary Artery Disease (CAD), Diabetes Mellitus Mother Additional Family Medical History / Comment(s): SUBDURAL HEMATOMA General Exam - General Exam Comments Initial Comments: GENERAL: Patient is well-developed and well-nourished. Patient is nontoxic and well-hydrated and is in mild distress. ENT: Neck is soft and supple. No significant lymphadenopathy is noted. Oropharynx is clear. Moist mucous membranes. Neck has full range of motion without eliciting any pain. EYES: The sclera were anicteric and conjunctiva were pink and moist. Extraocular movements were intact and pupils were equal round and reactive to light. Eyelids were unremarkable. PULMONARY: Unlabored respirations. Good breath sounds bilaterally. No audible rales rhonchi or wheezing was noted. CARDIOVASCULAR: There is a regular rate and rhythm without any murmurs gallops or rubs. ABDOMEN: Mild left upper quadrant tenderness SKIN: Patient's skin is pale NEUROLOGIC: Patient is alert and oriented x3. Cranial nerves II through XII are grossly intact. Motor and sensory are also intact. Normal speech, volume and content. Symmetrical smile. MUSCULOSKELETAL: Normal extremities with adequate strength and full range of motion. LYMPHATICS: No significant lymphadenopathy is noted PSYCHIATRIC: Normal psychiatric evaluation. Limitations: no limitations Course Vital Signs 04/24/19 04/24/19 04/24/19 14:36 14:42 15:42 Temperature 98.7 F Pulse Rate 73 81 Respiratory 18 20 18 Rate Blood Pressure 92/58 94/51 O2 Sat by Pulse 98 99 Oximetry Medical Decision Making - Medical Decision Making EKG shows normal sinus rhythm at 84 bpm IN interval 148 QRS is 98 QT interval 370 QTC is 437. Patient's EKG shows no ST segment elevation or depression. I did a rectal exam on the patient and she had maroon stool. Recent hemoglobin was 4.5 segs started 2 units of packed red blood cells. I spoke with iesha julian agreed to admit the patient admitted the patient the ICU. I spoke with the research nurse practitioner he agreed to accept the patient. I consulted GI - Lab Data Result diagrams: 04/24/19 15:07 04/24/19 15:07 Lab Results 04/24/19 04/24/19 04/24/19 Range/Units 15:07 15:07 15:07 WBC 9.0 (3.8-10.6) k/uL RBC 1.29 L (3.80-5.40) m/uL Hgb 4.5 L* D (11.4-16.0) gm/dL Hct 14.2 L* (34.0-46.0) % MCV 109.7 H (80.0-100.0) fL MCH 34.7 (25.0-35.0) pg MCHC 31.6 (31.0-37.0) g/dL RDW 16.2 H (11.5-15.5) % Plt Count 593 H (150-450) k/uL Neutrophils % 77 % Lymphocytes % 18 % Monocytes % 3 % Eosinophils % 0 % Basophils % 0 % Neutrophils # 6.9 (1.3-7.7) k/uL Lymphocytes # 1.6 (1.0-4.8) k/uL Monocytes # 0.3 (0-1.0) k/uL Eosinophils # 0.0 (0-0.7) k/uL Basophils # 0.0 (0-0.2) k/uL Hypochromasia Slight Anisocytosis Slight Macrocytosis Marked A PT 10.6 (9.0-12.0) sec INR 1.0 (<1.2) APTT 20.5 L (22.0-30.0) sec Sodium (137-145) mmol/L Potassium (3.5-5.1) mmol/L Chloride (98-107) mmol/L Carbon Dioxide (22-30) mmol/L Anion Gap mmol/L BUN (7-17) mg/dL Creatinine (0.52-1.04) mg/dL Est GFR (CKD-EPI)AfAm (>60 ml/min/1.73 sqM) Est GFR (CKD-EPI)NonAf (>60 ml/min/1.73 sqM) Glucose (74-99) mg/dL Calcium (8.4-10.2) mg/dL Magnesium (1.6-2.3) mg/dL Total Bilirubin (0.2-1.3) mg/dL AST (14-36) U/L ALT (4-34) U/L Alkaline Phosphatase (38-126) U/L Troponin I (0.000-0.034) ng/mL Total Protein (6.3-8.2) g/dL Albumin (3.5-5.0) g/dL Amylase (30-110) U/L Lipase (23-300) U/L Urine Color Urine Appearance (Clear) Urine pH (5.0-8.0) Ur Specific [place] (1.001-1.035) Urine Protein (Negative) Urine Glucose (UA) (Negative) Urine Ketones (Negative) Urine Blood (Negative) Urine Nitrite (Negative) Urine Bilirubin (Negative) Urine Urobilinogen (<2.0) mg/dL Ur Leukocyte Esterase (Negative) Urine RBC (0-5) /hpf Urine WBC (0-5) /hpf Ur Squamous Epith Cells (0-4) /hpf Amorphous Sediment (None) /hpf Urine Bacteria (None) /hpf Urine Mucus (None) /hpf Blood Type O Positive Blood Type Recheck O Pos Bld Type Recheck Status No Antibody Screen NEGATIVE Crossmatch See Detail Spec Expiration Date 04/27/2019230604/24/19 04/24/19 04/24/19 Range/Units 15:07 15:07 15:50 WBC (3.8-10.6) k/uL RBC (3.80-5.40) m/uL Hgb (11.4-16.0) gm/dL Hct (34.0-46.0) % MCV (80.0-100.0) fL MCH (25.0-35.0) pg MCHC (31.0-37.0) g/dL RDW (11.5-15.5) % Plt Count (150-450) k/uL Neutrophils % % Lymphocytes % % Monocytes % % Eosinophils % % Basophils % % Neutrophils # (1.3-7.7) k/uL Lymphocytes # (1.0-4.8) k/uL Monocytes # (0-1.0) k/uL Eosinophils # (0-0.7) k/uL Basophils # (0-0.2) k/uL Hypochromasia Anisocytosis Macrocytosis PT (9.0-12.0) sec INR (<1.2) APTT (22.0-30.0) sec Sodium 133 L (137-145) mmol/L Potassium 3.3 L (3.5-5.1) mmol/L Chloride 105 (98-107) mmol/L Carbon Dioxide 19 L (22-30) mmol/L Anion Gap 9 mmol/L BUN 26 H (7-17) mg/dL Creatinine 0.86 (0.52-1.04) mg/dL Est GFR (CKD-EPI)AfAm 88 (>60 ml/min/1.73 sqM) Est GFR (CKD-EPI)NonAf 76 (>60 ml/min/1.73 sqM) Glucose 104 H (74-99) mg/dL Calcium 9.2 (8.4-10.2) mg/dL Magnesium 2.1 (1.6-2.3) mg/dL Total Bilirubin 0.4 (0.2-1.3) mg/dL AST 22 (14-36) U/L ALT 16 (4-34) U/L Alkaline Phosphatase 135 H (38-126) U/L Troponin I <0.012 (0.000-0.034) ng/mL Total Protein 6.3 (6.3-8.2) g/dL Albumin 2.3 L (3.5-5.0) g/dL Amylase 39 (30-110) U/L Lipase 100 (23-300) U/L Urine Color Yellow Urine Appearance Clear (Clear) Urine pH 6.5 (5.0-8.0) Ur Specific [place] 1.012 (1.001-1.035) Urine Protein Trace H (Negative) Urine Glucose (UA) Negative (Negative) Urine Ketones Negative (Negative) Urine Blood Moderate H (Negative) Urine Nitrite Negative (Negative) Urine Bilirubin Negative (Negative) Urine Urobilinogen <2.0 (<2.0) mg/dL Ur Leukocyte Esterase Large H (Negative) Urine RBC 2 (0-5) /hpf Urine WBC 7 H (0-5) /hpf Ur Squamous Epith Cells 1 (0-4) /hpf Amorphous Sediment Occasional H (None) /hpf Urine Bacteria Occasional H (None) /hpf Urine Mucus Rare H (None) /hpf Blood Type Blood Type Recheck Bld Type Recheck Status Antibody Screen Crossmatch Spec Expiration Date Critical Care Time Critical Care Time: Yes Total Critical Care Time: 35 Disposition Clinical Impression: GI bleed, Anemia Disposition: ADMITTED IP TO THIS HOSP Referrals: James Moreland DO [Primary Care Provider] - 1-2 days Time of Disposition: 16:44
[2019-04-24 15:32] LABS: Albumin 2.3 g/dL (3.5-5.0); Calcium 9.2 mg/dL (8.4-10.2); Magnesium 2.1 mg/dL (1.6-2.3); Potassium 3.3 mmol/L (3.5-5.1); Total Bilirubin 0.4 mg/dL (0.2-1.3); Total Protein 6.3 g/dL (6.3-8.2)
[2019-04-24 15:35] LABS: Anisocytosis Slight; Basophils % (A) 0 %; Eosinophils % (A) 0 %; Hypochromasia Slight; Lymphocytes # (A) 1.6 k/uL (1.0-4.8); Lymphocytes % (A) 18 %; MCH 34.7 pg (25.0-35.0); MCHC 31.6 g/dL (31.0-37.0); MCV 109.7 fL (80.0-100.0); Macrocytosis Marked; Mean Platelet Volume 7.4; Monocytes # (A) 0.3 k/uL (0-1.0); Monocytes % (A) 3 %; Neutrophils # (A) 6.9 k/uL (1.3-7.7); Neutrophils % (A) 77 %; Platelet Count 593 k/uL (150-450); RBC 1.29 m/uL (3.80-5.40); RDW 16.2 % (11.5-15.5)
[2019-04-24 15:45] LABS: HCT 14.2 % (34.0-46.0); HGB 4.5 gm/dL (11.4-16.0); Prothrombin Time 10.6 sec (9.0-12.0)
[2019-04-24 15:47] LABS: Partial Thromboplastin Time 20.5 sec (22.0-30.0)
[2019-04-24 16:16] LABS: Appearance,Urine Clear (Clear); Bilirubin,Urine Negative (Negative); Blood,Urine Moderate (Negative); Color,Urine Yellow; Glucose,Urine (UA) Negative (Negative); Ketones,Urine Negative (Negative); Nitrite,Urine Negative (Negative); PH, Urine 6.5 (5.0-8.0); Protein,Urine Trace (Negative); Specific Gravity,Urine 1.012 (1.001-1.035); Urobilinogen,Urine <2.0 mg/dL (<2.0)
[2019-04-24 16:17] LABS: Amorphous Sediment,Urine Occasional /hpf; Bacteria,Urine Occasional /hpf; Leukocyte Esterase,Urine Large (Negative); Mucus,Urine Rare /hpf; RBC,Urine 2 /hpf (0-5); Squamous Epithelial Cell,Urine 1 /hpf (0-4); WBC,Urine 7 /hpf (0-5)
[2019-04-24] MEDS ORDERED: cefTRIAXone IN SWFI 1,000 MG/10 ML SYRINGE IVP STA (16:27)
[2019-04-24] MEDS ORDERED: NALOXONE 0.4 MG/ML 1 ML VIAL IV PRN (16:51)
[2019-04-24] MEDS ORDERED: TRANEXAMIC ACID 1,000 MG in SODIUM CHLORIDE 0.9% 100 ML IVPB ONE (17:00)
[2019-04-24 19:13] LABS: Glucose,Whole Blood 87 mg/dL (75-99)
[2019-04-24] MEDS ORDERED: Potassium Replacement Protocol 1 EACH MISC MISCELLANE PRN (19:15)
[2019-04-24] MEDS ORDERED: SODIUM FERRIC GLUCONAT-SUCROSE 125 MG in SODIUM CHLORIDE 0.9% 100 ML IVPB ONE (19:23)
--- NOTE | 2019-04-24 19:27 | P.CNPUL ---
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 She had poor appetite. She was also having constipation. Her ex- given an enema yesterday. Upon arrival to the emergency room the patient was found to have hemoglobin of 4.5. She was hemodynamically stable. Rectal exam was given she had maroon color stool. She she will be getting a total of 2 units. She was already gotten one unit. . No hematemesis. No epigastric pain. She is emotional and she is having some crying bouts. She denies having any chest pain or shortness of breath. She denies drinking alcohol for now.Renal function of the within normal limits. LFTs are within normal. The total serum iron was low at 16. B12 is at 710 with a folate level of 12.6. UA is negative. The coagulation profile is within normal limits. She denies taking any form of nonsteroidal and supplement her medications at home. The patient did not notice any bloody stool at HOME. As stated earlier, the patient is an was constipated. She is having some mid abdominal pain. Amylase and lipase levels are within normal limits. She was in the hospital in early April for sepsis and UTI. At that time ultrasound of the abdomen was done and it showed a abnormal heterogeneous 11.7 cm , an area of cystic fluid around the pancreas, likely a pseudocyst. CAT scan of the brain showed no acute abnormalities are than chronic cerebral atrophy more so in the bilateral frontal lobes. Echocardiogram shows an ejection fraction of 40-45%. She has chronic depression and she has also cognitive impairment secondary to her chronic alcoholism. She is chronically malnourished also. Guardianship was being establish and this was in the process. For now she has a public guardian. Her ex- is attempting to obtain guardianship on her. Review of Systems CONSTITUTIONAL: Denies any fevers, chills, weight change, but she has increased fatigue and weakness. CARDIOVASCULAR: Denies any chest pain, palpitations high or low blood pressures RESPIRATORY: Denies any shortness of breath, hemoptysis or cough. GENITOURINARY: No dysuria or hematuria, but she does report dark colored urine and the patient has been treated for UTI in the past MUSCULOSKELETAL: No weakness reported. SKIN: Denies any new rashes or lesions, jaundice or pallor. PSYCHIATRIC: Patient has a history of depression. NEUROLOGY: Denies headache, denies any new focal deficits, patient had a mech anical fall prior to presentation. EARS/NOSE/THROAT: No recent hearing change, congestion, nasal discharge or sore throat. EYES: No pain in eyes, discharge or change in vision. GASTROINTESTINAL: As per HPI. Past Medical History Past Medical History: Fibromyalgia, GERD/Reflux, Hypertension, Osteoarthritis (OA) Additional Past Medical History / Comment(s): ETOH abuse, pancreatitis, splenic vein injury, idiopathic autonomic neuropathy, numbness bilateral arms/left leg, atonic bladder-self caths, UTIs, dilated cardiomyopathy, occasional palpitations, macrocytic anemia, chronic back pain, cervical pain, viral meningitis as a young person. History of Any Multi-Drug Resistant Organisms: None Reported Past Surgical History: Orthopedic Surgery Additional Past Surgical History / Comment(s): L knee meniscus/ACL surgery, 2019 cardiac cath-normal. Past Anesthesia/Blood Transfusion Reactions: Previous Problems w/ Anesthesia Additional Past Anesthesia/Blood Transfusion Reaction / Comment(s): PT WOKE UP ANGRY.- STATES HER DAUGHTER HAS THE SAME REACTION. Past Psychological History: Anxiety, Bipolar, Depression, Panic Disorder Smoking Status: Current some day smoker Past Alcohol Use History: Abuse, Daily Past Drug Use History: None Reported - Past Family History Father Family Medical History: Coronary Artery Disease (CAD), Diabetes Mellitus Mother Additional Family Medical History / Comment(s): SUBDURAL HEMATOMA Medications and Allergies Home Medications Medication Instructions Recorded Confirmed Type Multivitamins, Thera [Multivitamin 1 tab PO DAILY 04/17/19 04/24/19 History (formulary)] Methocarbamol [Robaxin] 750 mg PO TID #30 tab 04/19/19 04/24/19 Rx Psyllium Husk 100% [Metamucil 6 gm PO BID #60 packet 04/19/19 04/24/19 Rx Packet] oxyCODONE HCL [Roxicodone] 5 mg PO Q4H PRN #30 tab 04/19/19 04/24/19 Rx Sennosides-Docusate Sodium 1 tab PO BID PRN 04/24/19 04/24/19 History [Senokot-S] Allergies Allergy/AdvReac Type Severity Reaction Status Date / Time ciprofloxacin [From Cipro] Allergy Swelling. Verified 04/24/19 17:40 SOB. ciprofloxacin HCl Allergy Swelling. Verified 04/24/19 17:40 [From Cipro] SOB. sulfamethoxazole Allergy Unknown Verified 04/24/19 17:40 [From Bactrim] trimethoprim [From Bactrim] Allergy Unknown Verified 04/24/19 17:40 Physical Exam Vitals: Vital Signs Temp Pulse Resp BP Pulse Ox 04/24/19 18:32 98.6 F 82 20 99/60 100 04/24/19 18:08 20 04/24/19 18:02 99.6 F 82 20 99/60 100 04/24/19 18:00 85 16 99/60 04/24/19 17:52 99.2 F 85 16 04/24/19 17:00 85 16 92/67 04/24/19 16:00 85 16 04/24/19 15:42 81 18 94/51 99 04/24/19 14:42 20 04/24/19 14:36 98.7 F 73 18 92/58 98 Intake and Output 04/24/19 04/24/19 04/24/19 06:59 14:59 22:59 Intake Total 0 Balance 0 Intake: Blood Product 0 Rc As-1 Unit 0 [id number] Other: Weight 38.555 kg On physical examination, patient appears comfortable in no apparent distress. HEAD: Normocephalic, patient does have abrasion on the left side of her for elevated from her mechanical fall. EYES: No scleral icterus. No conjunctival injection. MOUTH: No lesions, tongue midline. NECK: Trachea midline, no gross abnormalities. CHEST: Decreased air entry in all lung sheppard, no respiratory distress. HEART: Cardiac exam revealed the PMI to be normally situated and sized. The rhythm was regular and no extrasystoles were noted during several minutes of auscultation. The first and second heart sounds were normal and physiologic splitting of the second heart sound was noted. There were no murmurs, rubs, clicks, or gallops. ABDOMEN: Soft, thin and mildly tender to palpation diffusely. Bowel sounds are positive. No organomegaly. No guarding or rigidity. EXTREMITIES: Examination of the extremities revealed easily palpable radial, femoral and pedal pulses. There was no cyanosis, clubbing or edema. SKIN: Examination of the skin revealed no evidence of significant rashes, suspicious appearing nevi or other concerning lesions. NEUROLOGIC: Alert and oriented x3. No focal deficits. Results - Laboratory Findings CBC and BMP: 04/24/19 15:07 04/24/19 15:07 PT/INR, D-dimer PT 10.6 sec (9.0-12.0) 04/24/19 15:07 INR 1.0 (<1.2) 04/24/19 15:07 Abnormal lab findings: Abnormal Labs 04/24/19 04/24/19 04/24/19 15:07 15:07 15:07 RBC 1.29 L Hgb 4.5 L* D Hct 14.2 L* MCV 109.7 H RDW 16.2 H Plt Count 593 H Macrocytosis Marked A APTT 20.5 L Sodium Potassium Carbon Dioxide BUN Glucose Alkaline Phosphatase Albumin Urine Protein Urine Blood Ur Leukocyte Esterase Urine WBC Amorphous Sediment Urine Bacteria Urine Mucus Crossmatch See Detail 04/24/19 04/24/19 15:07 15:50 RBC Hgb Hct MCV RDW Plt Count Macrocytosis APTT Sodium 133 L Potassium 3.3 L Carbon Dioxide 19 L BUN 26 H Glucose 104 H Alkaline Phosphatase 135 H Albumin 2.3 L Urine Protein Trace H Urine Blood Moderate H Ur Leukocyte Esterase Large H Urine WBC 7 H Amorphous Sediment Occasional H Urine Bacteria Occasional H Urine Mucus Rare H Crossmatch - Diagnostic Findings Chest x-ray: image reviewed Assessment and Plan Plan: 1 anemia acute on chronic with drop in hemoglobin down to 4.5. The patient experienced generalized weakness. No signs of any acute bleeding for now. Correlation profile is within normal. The EGD from June 2018 was noted and the patient has some mild duodenitis. No history of any esophageal variceal bleed. The patient is receiving a total of 2 units of packed RBC and hemoglobin will be repeated. She is hemodynamically stable. She is normotensive without any significant tachycardia. She'll be placed on IV Protonix. 2 history of alcoholism 3 Patient has known autonomic dysfunction likely secondary to alcoholism 4 Recent history of a Acute UTI from cystitis-E. 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 7 Major depressive disorder recurrent, currently in remission 8 Macrocytic anemia from history of chronic alcoholism 9 Cognitive impairment from chronic alcoholism 10 Iron deficiency anemia 11 Chronic fibromyalgia 12 GERD 13 Essential hypertension 14 Primary osteoarthritis 15 Moderate to severe protein calorie malnutrition from decreased oral intake 16 Chronic abdominal pain-from pancreatitis pseudocyst. 17 Legal guardianship is in the process of getting changed over from public guardian to ex- Plan This is a total of 2 units of packed RBC and repeat hemoglobin CAT scan of the abdomen to rule out any intra-abdominal bleed/retroperitoneal bleed, intracystic bleed IV iron replacement 100 mg Venofer Coagulation profile is within normal Nothing by mouth after midnight Okay for clear liquids IV Protonix CBC today. Posttransfusion No signs of encephalopathy Replace electrolytes. We'll continue to follow
[2019-04-24] MEDS ORDERED: HYDROmorphone 0.5 MG/0.5 ML SYRINGE IVP STA (19:28)
[2019-04-24] MEDS ORDERED: IOPAMIDOL CONTRAST (ORAL USE) VIAL PO PRN (19:28)
[2019-04-24] MEDS ORDERED: ACETAMINOPHEN IVPB PRN (19:30)
[2019-04-24] MEDS: SODIUM CHLORIDE 0.9% 1,000 ML IV SCH (20:02)
[2019-04-24] MEDS: PANTOPRAZOLE 40 MG/10 ML VIAL IV SCH (20:17)
[2019-04-24] MEDS: HYDROmorphone 0.5 MG/0.5 ML SYRINGE IVP PRN ×2 (20:17→23:08)
--- NOTE | 2019-04-24 21:14 | CT ---
EXAMINATION TYPE: CT abdomen wo con DATE OF EXAM: 04/24/2019 COMPARISON: None HISTORY: Acute anemia, pancreatic cyst CT DLP: 256.6 mGycm Automated exposure control for dose reduction was used. Multiple axial sections were obtained from the diaphragm to the floor the pelvis with oral contrast o nly. There is 12 mm area of nodular pleural thickening right posterior lung base. There is no pleural effu bob. Heart size is normal. There is no pericardial effusion. Spleen is intact. There is fat strandin g in the anterior pararenal space on the left side with thickening of the tail of the pancreas. There is heterogeneity in the pancreas which is showing 1.5 cm cystic area at the pancreatic head. There i s an additional 2 cm cystic area inferior pancreatic head. I see no evidence of pneumoperitoneum. The re are a few air bubbles at the tail of the pancreas. It is not clear if this is within the pancreas or in the adjacent small bowel. There is 4.5 cm irregular septated hypodense lesion in the inferior r ight lobe of the liver. There is a second similar lesion that measures 3.5 cm in the inferior medial right lobe of the liver. There is no adrenal mass. There is mild bilateral hydronephrosis. There are bilateral small renal alcon culi up to 4 mm. The ureters are not dilated. There is no evidence of mesenteric edema. There is no s ign of a bowel obstruction. Lumbar vertebra have normal alignment. There is no compression fracture. Posterior elements are intac t. IMPRESSION: Hypodense liver lesions do not have appearance of typical simple cysts. Ultrasound would be helpful t o exclude solid masses. Cystic lesions in the head of the pancreas. There is retroperitoneal fat stra nding suggestive of inflammatory process involving the tail of the pancreas. The margin is indistinct between the tail of the pancreas in the adjacent small bowel in the left upper quadrant. Pancreatic tumor not excluded. No bowel obstruction. Bilateral renal calculi. No ureteral obstructing calculus seen. Mild hydronephr osis could relate to previous episodes of obstruction.
[2019-04-24] MEDS: POTASSIUM BICARBONATE/CIT AC 20 MEQ TABLET.EFF NG-TUBE SCH (23:08)
[2019-04-24 23:36] LABS: Glucose,Whole Blood 86 mg/dL (75-99)
[2019-04-24] MEDS: POTASSIUM CHLORIDE 10 MEQ in WATER FOR INJECTION 1 100ML.BAG IVPB SCH (23:53)
[2019-04-25] MEDS: POTASSIUM CHLORIDE 10 MEQ in WATER FOR INJECTION 1 100ML.BAG IVPB SCH ×2 (00:19→00:48)
[2019-04-25 00:22] LABS: Anisocytosis Slight; Basophils % (A) 0 %; Eosinophils % (A) 0 %; HCT 21.7 % (34.0-46.0); Lymphocytes # (A) 1.9 k/uL (1.0-4.8); Lymphocytes % (A) 23 %; MCH 32.9 pg (25.0-35.0); MCHC 33.3 g/dL (31.0-37.0); MCV 98.9 fL (80.0-100.0); Macrocytosis Slight; Mean Platelet Volume 7.2; Monocytes # (A) 0.3 k/uL (0-1.0); Monocytes % (A) 4 %; Neutrophils # (A) 5.6 k/uL (1.3-7.7); Neutrophils % (A) 70 %; Platelet Count 480 k/uL (150-450); Poikilocytosis Slight; RBC 2.19 m/uL (3.80-5.40); RDW 17.7 % (11.5-15.5)
[2019-04-25] MEDS: POTASSIUM BICARBONATE/CIT AC 20 MEQ TABLET.EFF NG-TUBE SCH (00:22)
[2019-04-25] MEDS: MAG HYDROX/AL HYDROX/SIMETH 30 ML CUP PO ONE ×2 (00:22→03:44)
[2019-04-25 00:54] LABS: HGB 7.2 gm/dL (11.4-16.0)
[2019-04-25] MEDS: HYDROmorphone 0.5 MG/0.5 ML SYRINGE IVP PRN ×3 (02:45→15:02)
[2019-04-25 04:48] LABS: Anisocytosis Slight; Basophils % (A) 0 %; Eosinophils # (A) 0.1 k/uL (0-0.7); Eosinophils % (A) 1 %; HCT 21.9 % (34.0-46.0); Hypochromasia Slight; Lymphocytes # (A) 1.8 k/uL (1.0-4.8); Lymphocytes % (A) 21 %; MCH 32.8 pg (25.0-35.0); MCV 102.3 fL (80.0-100.0); Macrocytosis Moderate; Mean Platelet Volume 7.6; Monocytes # (A) 0.5 k/uL (0-1.0); Monocytes % (A) 5 %; Neutrophils # (A) 6.3 k/uL (1.3-7.7); Neutrophils % (A) 72 %; Platelet Count 505 k/uL (150-450); Poikilocytosis Slight; RBC 2.14 m/uL (3.80-5.40); RDW 18.3 % (11.5-15.5); WBC 8.8 k/uL (3.8-10.6)
[2019-04-25 04:57] LABS: African American GFR (CKD) >90 (>60 ml/min/1.73 sqM); Anion Gap 6 mmol/L; Blood Urea Nitrogen 22 mg/dL (7-17); Calcium 8.1 mg/dL (8.4-10.2); Carbon Dioxide 18 mmol/L (22-30); Chloride 107 mmol/L (98-107); Glucose 64 mg/dL (74-99); Non-African American GFR(CKD) >90 (>60 ml/min/1.73 sqM); Potassium 4.2 mmol/L (3.5-5.1); Sodium 131 mmol/L (137-145)
[2019-04-25] MEDS: SODIUM CHLORIDE 0.9% 1,000 ML IV SCH ×2 (05:18→12:21)
[2019-04-25 06:20] LABS: Glucose,Whole Blood 74 mg/dL (75-99)
[2019-04-25 08:00] LABS: Anisocytosis Slight; Basophils % (A) 0 %; Eosinophils # (A) 0.1 k/uL (0-0.7); Eosinophils % (A) 1 %; HCT 21.3 % (34.0-46.0); HGB 7.1 gm/dL (11.4-16.0); Hypochromasia Slight; Lymphocytes # (A) 1.4 k/uL (1.0-4.8); Lymphocytes % (A) 18 %; MCH 33.5 pg (25.0-35.0); MCHC 33.3 g/dL (31.0-37.0); MCV 100.5 fL (80.0-100.0); Macrocytosis Moderate; Mean Platelet Volume 7.3; Monocytes # (A) 0.3 k/uL (0-1.0); Monocytes % (A) 4 %; Neutrophils # (A) 5.8 k/uL (1.3-7.7); Neutrophils % (A) 76 %; Platelet Count 449 k/uL (150-450); Poikilocytosis Moderate; RBC 2.12 m/uL (3.80-5.40); RDW 18.7 % (11.5-15.5); WBC 7.7 k/uL (3.8-10.6)
--- NOTE | 2019-04-25 10:16 | P.PN ---
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 She had poor appetite. She was also having constipation. Her ex- given an enema yesterday. Upon arrival to the emergency room the patient was found to have hemoglobin of 4.5. She was hemodynamically stable. Rectal exam was given she had maroon color stool. She she will be getting a total of 2 units. She was already gotten one unit. . No hematemesis. No epigastric pain. She is emotional and she is having some crying bouts. She denies having any chest pain or shortness of breath. She denies drinking alcohol for now.Renal function of the within normal limits. LFTs are within normal. The total serum iron was low at 16. B12 is at 710 with a folate level of 12.6. UA is negative. The coagulation profile is within normal limits. She denies taking any form of nonsteroidal and supplement her medications at home. The patient did not notice any bloody stool at HOME. As stated earlier, the patient is an was constipated. She is having some mid abdominal pain. Amylase and lipase levels are within normal limits. She was in the hospital in early April for sepsis and UTI. At that time ultrasound of the abdomen was done and it showed a abnormal heterogeneous 11.7 cm , an area of cystic fluid around the pancreas, likely a pseudocyst. CAT scan of the brain showed no acute abnormalities are than chronic cerebral atrophy more so in the bilateral frontal lobes. Echocardiogram shows an ejection fraction of 40-45%. She has chronic depression and she has also cognitive impairment secondary to her chronic alcoholism. She is chronically malnourished also. Guardianship was being establish and this was in the process. For now she has a public guardian. Her ex- is attempting to obtain guardianship on her. Today's evaluation of the 2019 the patient is being seen for a follow-up. She is awake and alert. She is hemodynamically stable. She received a total of 2 units of packed RBC. Her hemoglobin today is 7.1. The patient is currently nothing by mouth and she is awaiting her EGD. The CAT scan of the abdomen was done yesterday and it showed evidence of hypodense liver lesions which do not have the appearance of atypical cyst. There are also cystic lesions in the head of the pancreas. There is retroperitoneal fat stranding suggestive of inflammatory process of the tail of the pancreas. Pancreatic tumor cannot be completely excluded. There is bilateral renal calculi. No ureteral obstruction. Mild hydronephrosis could not be excluded to be related with nephrolithiasis. Objective - Vital Signs Vital signs: Vital Signs Temp 98.5 F 04/25/19 04:00 Pulse 72 04/25/19 09:00 Resp 6 L 04/25/19 09:00 BP 83/53 04/25/19 09:00 Pulse Ox 100 04/25/19 09:00 Intake & Output 04/24/19 04/25/19 04/25/19 18:59 06:59 18:59 Intake Total 0 2150 390 Output Total 775 300 Balance 0 1375 90 Weight 38.555 kg 39 kg 39 kg Intake: IV 1430 390 Sodium Chloride 0.9% 1, 1430 390 000 ml @ 130 mls/hr IV . [id number] [facility] Rx#:[id number] Blood Product 0 720 Rc As-1 Unit 0 310 [id number] Rc Pheresis As-3 Unit 310 [id number] Output: Urine 775 300 Other: Voiding Method Indwelling Catheter Indwelling Catheter - Exam On physical examination, patient appears comfortable in no apparent distress. HEAD: Normocephalic, patient does have abrasion on the left side of her for elevated from her mechanical fall. EYES: No scleral icterus. No conjunctival injection. MOUTH: No lesions, tongue midline. NECK: Trachea midline, no gross abnormalities. CHEST: Decreased air entry in all lung sheppard, no respiratory distress. HEART: Cardiac exam revealed the PMI to be normally situated and sized. The rhythm was regular and no extrasystoles were noted during several minutes of auscultation. The first and second heart sounds were normal and physiologic splitting of the second heart sound was noted. There were no murmurs, rubs, clicks, or gallops. ABDOMEN: Soft, thin and mildly tender to palpation diffusely. Bowel sounds are positive. No organomegaly. No guarding or rigidity. EXTREMITIES: Examination of the extremities revealed easily palpable radial, femoral and pedal pulses. There was no cyanosis, clubbing or edema. SKIN: Examination of the skin revealed no evidence of significant rashes, suspicious appearing nevi or other concerning lesions. NEUROLOGIC: Alert and oriented x3. No focal deficits. - Labs CBC & Chem 7: 04/25/19 07:37 04/25/19 04:00 Labs: Abnormal Lab Results - Last 24 Hours (Table) 04/24/19 04/24/19 04/24/19 Range/Units 15:07 15:07 15:07 RBC 1.29 L (3.80-5.40) m/uL Hgb 4.5 L* D (11.4-16.0) gm/dL Hct 14.2 L* (34.0-46.0) % MCV 109.7 H (80.0-100.0) fL RDW 16.2 H (11.5-15.5) % Plt Count 593 H (150-450) k/uL Macrocytosis Marked A APTT 20.5 L (22.0-30.0) sec Sodium (137-145) mmol/L Potassium (3.5-5.1) mmol/L Carbon Dioxide (22-30) mmol/L BUN (7-17) mg/dL Glucose (74-99) mg/dL POC Glucose (mg/dL) (75-99) mg/dL Calcium (8.4-10.2) mg/dL Alkaline Phosphatase (38-126) U/L Albumin (3.5-5.0) g/dL Urine Protein (Negative) Urine Blood (Negative) Ur Leukocyte Esterase (Negative) Urine WBC (0-5) /hpf Amorphous Sediment (None) /hpf Urine Bacteria (None) /hpf Urine Mucus (None) /hpf Crossmatch See Detail 04/24/19 04/24/19 04/25/19 Range/Units 15:07 15:50 00:11 RBC 2.19 L (3.80-5.40) m/uL Hgb 7.2 L D (11.4-16.0) gm/dL Hct 21.7 L (34.0-46.0) % MCV (80.0-100.0) fL RDW 17.7 H (11.5-15.5) % Plt Count 480 H (150-450) k/uL Macrocytosis APTT (22.0-30.0) sec Sodium 133 L (137-145) mmol/L Potassium 3.3 L (3.5-5.1) mmol/L Carbon Dioxide 19 L (22-30) mmol/L BUN 26 H (7-17) mg/dL Glucose 104 H (74-99) mg/dL POC Glucose (mg/dL) (75-99) mg/dL Calcium (8.4-10.2) mg/dL Alkaline Phosphatase 135 H (38-126) U/L Albumin 2.3 L (3.5-5.0) g/dL Urine Protein Trace H (Negative) Urine Blood Moderate H (Negative) Ur Leukocyte Esterase Large H (Negative) Urine WBC 7 H (0-5) /hpf Amorphous Sediment Occasional H (None) /hpf Urine Bacteria Occasional H (None) /hpf Urine Mucus Rare H (None) /hpf Crossmatch 04/25/19 04/25/19 04/25/19 Range/Units 04:00 04:00 06:18 RBC 2.14 L (3.80-5.40) m/uL Hgb 7.0 L (11.4-16.0) gm/dL Hct 21.9 L (34.0-46.0) % MCV 102.3 H (80.0-100.0) fL RDW 18.3 H (11.5-15.5) % Plt Count 505 H (150-450) k/uL Macrocytosis APTT (22.0-30.0) sec Sodium 131 L (137-145) mmol/L Potassium (3.5-5.1) mmol/L Carbon Dioxide 18 L (22-30) mmol/L BUN 22 H (7-17) mg/dL Glucose 64 L (74-99) mg/dL POC Glucose (mg/dL) 74 L (75-99) mg/dL Calcium 8.1 L (8.4-10.2) mg/dL Alkaline Phosphatase (38-126) U/L Albumin (3.5-5.0) g/dL Urine Protein (Negative) Urine Blood (Negative) Ur Leukocyte Esterase (Negative) Urine WBC (0-5) /hpf Amorphous Sediment (None) /hpf Urine Bacteria (None) /hpf Urine Mucus (None) /hpf Crossmatch 04/25/19 Range/Units 07:37 RBC 2.12 L (3.80-5.40) m/uL Hgb 7.1 L (11.4-16.0) gm/dL Hct 21.3 L (34.0-46.0) % MCV 100.5 H (80.0-100.0) fL RDW 18.7 H (11.5-15.5) % Plt Count (150-450) k/uL Macrocytosis APTT (22.0-30.0) sec Sodium (137-145) mmol/L Potassium (3.5-5.1) mmol/L Carbon Dioxide (22-30) mmol/L BUN (7-17) mg/dL Glucose (74-99) mg/dL POC Glucose (mg/dL) (75-99) mg/dL Calcium (8.4-10.2) mg/dL Alkaline Phosphatase (38-126) U/L Albumin (3.5-5.0) g/dL Urine Protein (Negative) Urine Blood (Negative) Ur Leukocyte Esterase (Negative) Urine WBC (0-5) /hpf Amorphous Sediment (None) /hpf Urine Bacteria (None) /hpf Urine Mucus (None) /hpf Crossmatch Microbiology - Last 24 Hours (Table) 04/24/19 16:00 Urine Culture - Preliminary Urine,Voided Assessment and Plan Plan: 1 anemia acute on chronic with drop in hemoglobin down to 4.5. The patient experienced generalized weakness. No signs of any acute bleeding for now. Correlation profile is within normal. The EGD from June 2018 was noted and the patient has some mild duodenitis. No history of any esophageal variceal bleed. The patient is receiving a total of 2 units of packed RBC and hemoglobin will be repeated. She is hemodynamically stable. She is normotensive without any significant tachycardia. She'll be placed on IV Protonix. The patient had improvement in hemoglobin and today she is up to 7.1. She is feeling better. She got was resuscitated with IV fluids overnight. IV fluids will be cut down to 40 mL an hour. Currently she is nothing by mouth and she is going to undergo a EGD. CAT scan of the abdomen was also noted. 2 history of alcoholism 3 Patient has known autonomic dysfunction likely secondary to alcoholism 4 Recent history of a Acute UTI from cystitis-E. 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 7 Major depressive disorder recurrent, currently in remission 8 Macrocytic anemia from history of chronic alcoholism 9 Cognitive impairment from chronic alcoholism 10 Iron deficiency anemia 11 Chronic fibromyalgia 12 GERD 13 Essential hypertension 14 Primary osteoarthritis 15 Moderate to severe protein calorie malnutrition from decreased oral intake 16 Chronic abdominal pain-from pancreatitis pseudocyst. 17 Legal guardianship is in the process of getting changed over from public guardian to ex- 18 hypodense liver lesions, nonspecific in nature that needs to be further evaluated. Plan CAT scan of the abdomen was noted Keep nothing by mouth for EGD today IV Protonix Hemoglobin is improved Ultrasound of the liver was done earlier this month and the same lesions were also noted. Tumor markers including CA-19-9, CEA, alpha feto protein levels IV iron replacement 100 mg Venofer I will give a a second dose Coagulation profile is within normal IV Protonix Possible transfer to a medical floor post EGD. Would like GI to comment on the abnormal liver lesions
[2019-04-25] MEDS ORDERED: SODIUM FERRIC GLUCONAT-SUCROSE 125 MG in SODIUM CHLORIDE 0.9% 100 ML IVPB ONE (10:36)
[2019-04-25 12:01] LABS: Glucose,Whole Blood 70 mg/dL (75-99)
[2019-04-25] MEDS ORDERED: LIDOCAINE 1% INJ 10MG/ML (20 ML MDV) ONE (13:31)
[2019-04-25] MEDS ORDERED: MIDAZOLAM 2 MG/2 ML VIAL ONE (13:31)
[2019-04-25] MEDS ORDERED: PROPOFOL 10 MG/ML 20 ML VIAL IV ONE (13:31)
[2019-04-25] MEDS ORDERED: IV FLUID CONTINUATION 1,000 ML IV ONE ×2 (13:35)
[2019-04-25 13:45] LABS: Anisocytosis Slight; Basophils % (A) 0 %; Eosinophils # (A) 0.1 k/uL (0-0.7); Eosinophils % (A) 1 %; HCT 23.9 % (34.0-46.0); HGB 7.7 gm/dL (11.4-16.0); Lymphocytes # (A) 1.5 k/uL (1.0-4.8); Lymphocytes % (A) 18 %; MCH 32.1 pg (25.0-35.0); MCHC 32.2 g/dL (31.0-37.0); MCV 99.6 fL (80.0-100.0); Macrocytosis Moderate; Mean Platelet Volume 9.9; Monocytes # (A) 0.3 k/uL (0-1.0); Monocytes % (A) 4 %; Neutrophils # (A) 6.6 k/uL (1.3-7.7); Neutrophils % (A) 77 %; Platelet Count 419 k/uL (150-450); Poikilocytosis Moderate; RDW 18.5 % (11.5-15.5); WBC 8.6 k/uL (3.8-10.6)
--- NOTE | 2019-04-25 13:51 | P.PCN ---
Date of Procedure: 04/25/19 Procedure(s) Performed: BRIEF HISTORY: Patient is a 54-year-old, pleasant, white female in the hospital with a hemoglobin of 4.5 and GI bleed. She had mild 3 or 4 episodes of melena, stools. History of heavy alcohol abuse which she quit drinking a month ago. She is scheduled for an upper endoscopy to evaluate for upper GI source of bleeding. PROCEDURE PERFORMED: Esophagogastroduodenoscopy with biopsy. PREOPERATIVE DIAGNOSIS: Acute GI bleed. IV sedation per anesthesia. PROCEDURE: After informed consent was obtained, the patient was brought into the endoscopy unit. IV sedation was administered by Anesthesia under continuous monitoring. Initially the Olympus GIF-140 video endoscope was inserted into the mouth. Esophagus intubated without any difficulty. It was gradually advanced into the stomach and duodenum and carefully examined. The bulb and the second part of the duodenum appeared normal. The scope at this time was withdrawn to the stomach, adequately insufflated with air, and upon careful examination, mucosa of the antrum, appeared normal. There was significant thickened folds noted in the proximal body the stomach extending into the fundus with congested appearing mucosa consistent with portal hypertensive gastropathy. Biopsies were done from this area. The cardia and the fundus appeared normal. Small fundal varices seen. The scope was then withdrawn into the esophagus. The GE junction was located at 39 cm from the incisors. There was some circumferential erythema with fiber to the mucosa, in the distal esophagus consistent with reflux esophagitis. The rest of the esophagus appeared normal. No esophageal varices seen and the patient tolerated the procedure well. IMPRESSION: 1. Significant thickened folds noted in the proximal body the stomach with congestion of the mucosa suspicious for portal hypertensive gastropathy status post biopsies. 2. Circumferential erythema with friability of the mucosa in the distal esophagus consistent with reflux esophagitis 3. No evidence of esophageal varices. 4. Small gastric fundal varices seen with no active bleeding RECOMMENDATIONS: The findings of this examination were discussed with the patient as well as her family. She'll be started on clear liquid diet. Continue Protonix 40 mg twice daily. She will be scheduled for colonoscopy to evaluate further..
--- NOTE | 2019-04-25 15:23 | P.HPIM ---
History of Present Illness H&P Date: 04/25/19 Chief Complaint: Maroon stools History of presenting complaint: This is a pleasant 54-year-old patient of Dr. Pearson. Chronic stable medical conditions include major depressive disorder, macrocytic anemia from chronic alcoholism, chronic fibromyalgia, GERD, essential hypertension, primary osteoarthritis, pancreatic pseudocyst, alcoholic cardiomyopathy. . Patient was just discharged from the [facility] and was in the hospital from March 19 through March 23. Found to have a pseudocyst. Patient is tolerating a liquid diet before should discharge. Also in the process of changing legal guardian from a public guardian to her ex- with whom she is living now. Patient has been tolerating predominantly liquid diet. Presented with 2 days of maroon stools. Still some abdominal pain is present. Admitted to ICU. Feeling weak tired and rundown. Has not been very ambulatory much at home because of feeling weak and tired. Patient's sister had the bedside. GI was consulted. Patient's hemoglobin was down to 4.5 on presentation. Did receive 2 units of blood Review of systems: GEN.: Tired EYES: None HEENT: None NECK: None RESPIRATORY: None CARDIOVASCULAR: None GASTROINTESTINAL: Positive stools, chronic abdominal pain GENITOURINARY: None MUSCULOSKELETAL: Joint pains] LYMPHATICS: None HEMATOLOGICAL: None PSYCHIATRY: Depression controlled NEUROLOGICAL: No focal. 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 Currently living with her ex-. Process of Card[place] been changed from a public legal guardian to her ex-. Physical examination: VITAL SIGNS: 98.7, 73, 18, blood pressure 92/58, 98% room air GENERAL: BMI 14.8, laying in bed, tired. Loss of subcutaneous fat EYES: Pupils equal. Conjunctiva pale HEENT: External appearance of nose and ears normal, oral cavity grossly normal. NECK: JVD not raised; masses not palpable. HEART: First and second heart sounds are normal; no edema. LUNGS: Respiratory rate normal; decreased breath sounds. ABDOMEN: Soft, upper abdominal tenderness, no guarding or rigidity liver spleen not palpable, no masses palpable. PSYCH: Alert and oriented x3; mood and affect tired. NEUROLOGICAL: Cranial nerves grossly intact; no facial asymmetry, power and sensation grossly intact. LYMPHATICS: No lymph nodes palpable in the axilla and neck INVESTIGATIONS, reviewed in the clinical context: White count 9 hemoglobin 4.5 platelets 593 potassium 3.3 bun 26 creatinine 0.86 Labs from 04/17/2019 showed a hemoglobin of 8.1 Assessment: -Acute GI bleed presenting with volume stools likely gastric or duodenal region -Acute severe blood loss anemia symptomatic, patient requiring 2 units of blood -autonomic dysfunction likely secondary to alcoholism -Acute UTI from cystitis-E. 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 -Major depressive disorder recurrent, currently in remission -Macrocytic anemia from history of chronic alcoholism -Cognitive impairment from chronic alcoholism -Iron deficiency anemia -Chronic fibromyalgia -GERD -Essential hypertension -Primary osteoarthritis -Moderate to severe protein calorie malnutrition from decreased oral intake -Chronic abdominal pain-from pancreatitis pseudocyst. -Legal guardianship is in the process of getting changed over from public guardian to ex- Plan: Patient admitted to the ICU. Hemodynamics closely monitored. Did receive 2 units of blood. GI was consulted. Pending endoscopy this afternoon. Supervisor Quilting also consulted. Oral medications to continue. Care was discussed with the patient. Prognosis guarded. Past Medical History Past Medical History: Fibromyalgia, GERD/Reflux, Hypertension, Osteoarthritis (OA) Additional Past Medical History / Comment(s): ETOH abuse, pancreatitis, splenic vein injury, idiopathic autonomic neuropathy, numbness bilateral arms/left leg, atonic bladder-self caths, UTIs, dilated cardiomyopathy, occasional palpitations, macrocytic anemia, chronic back pain, cervical pain, viral meningitis as a young person. History of Any Multi-Drug Resistant Organisms: None Reported Past Surgical History: Orthopedic Surgery Additional Past Surgical History / Comment(s): L knee meniscus/ACL surgery, 2019 cardiac cath-normal. Past Anesthesia/Blood Transfusion Reactions: Previous Problems w/ Anesthesia Additional Past Anesthesia/Blood Transfusion Reaction / Comment(s): PT WOKE UP ANGRY.- STATES HER DAUGHTER HAS THE SAME REACTION. Past Psychological History: Anxiety, Bipolar, Depression, Panic Disorder Additional Psychological History / Comment(s): Pt resides at [facility] she states for rehab. Pt has a Public legal guardian. [employer] spoke with Violeta and pt is a full code. She has a visitor restriction-Emily Romero is not allowed to visit/receive any information about pt. [employer] shared this information with Past[facility] care charge nurse. Pt states she is depressed d/t her health problems but denies increased depression or any thoughts/plans of suicide. Smoking Status: Current some day smoker Past Alcohol Use History: Abuse, Daily Additional Past Alcohol Use History / Comment(s): Pt started smoking age 13, smokes occationally now. She has hx of alcohol abuse but states she has not had any alcohol for months now. Past Drug Use History: None Reported - Past Family History Father Family Medical History: Coronary Artery Disease (CAD), Diabetes Mellitus Mother Additional Family Medical History / Comment(s): SUBDURAL HEMATOMA Medications and Allergies Home Medications Medication Instructions Recorded Confirmed Type Multivitamins, Thera [Multivitamin 1 tab PO DAILY 04/17/19 04/24/19 History (formulary)] Methocarbamol [Robaxin] 750 mg PO TID #30 tab 04/19/19 04/24/19 Rx Psyllium Husk 100% [Metamucil 6 gm PO BID #60 packet 04/19/19 04/24/19 Rx Packet] oxyCODONE HCL [Roxicodone] 5 mg PO Q4H PRN #30 tab 04/19/19 04/24/19 Rx Sennosides-Docusate Sodium 1 tab PO BID PRN 04/24/19 04/24/19 History [Senokot-S] Allergies Allergy/AdvReac Type Severity Reaction Status Date / Time ciprofloxacin [From Cipro] Allergy Swelling. Verified 04/24/19 17:40 SOB. ciprofloxacin HCl Allergy Swelling. Verified 04/24/19 17:40 [From Cipro] SOB. sulfamethoxazole Allergy Unknown Verified 04/24/19 17:40 [From Bactrim] trimethoprim [From Bactrim] Allergy Unknown Verified 04/24/19 17:40 Physical Exam Vitals: Vital Signs Temp Pulse Resp BP Pulse Ox 04/25/19 09:00 72 6 L 83/53 100 04/25/19 08:00 70 11 L 79/48 97 04/25/19 07:00 69 18 92/61 97 04/25/19 06:00 68 16 89/65 93 L 04/25/19 05:00 69 15 81/54 98 04/25/19 04:00 98.5 F 68 18 89/55 98 04/25/19 03:00 69 13 94/60 98 04/25/19 02:00 71 18 86/57 100 04/25/19 01:00 71 15 88/60 98 04/25/19 00:00 98.9 F 71 16 96/58 97 04/24/19 23:03 99 F 65 20 108/85 100 04/24/19 23:02 98.9 F 70 16 104/63 100 04/24/19 23:00 71 21 104/63 100 04/24/19 22:08 99.1 F 66 18 100/55 99 04/24/19 22:00 73 20 98/60 91 L 04/24/19 21:38 98.6 F 96 16 98/65 97 04/24/19 21:28 99 F 73 16 98/63 04/24/19 21:18 98.2 F 73 16 117/69 97 04/24/19 21:00 77 14 117/69 96 04/24/19 20:00 98.9 F 80 16 111/71 97 04/24/19 19:20 78 10 L 111/69 99 04/24/19 19:10 80 12 111/69 94 L 04/24/19 19:00 98.1 F 81 8 L 111/69 99 04/24/19 18:32 98.6 F 82 20 99/60 100 04/24/19 18:08 20 04/24/19 18:02 99.6 F 82 20 99/60 100 04/24/19 18:00 85 16 99/60 04/24/19 17:52 99.2 F 85 16 04/24/19 17:00 85 16 92/67 04/24/19 16:00 85 16 04/24/19 15:42 81 18 94/51 99 04/24/19 14:42 20 04/24/19 14:36 98.7 F 73 18 92/58 98 Intake and Output 04/24/19 04/25/19 04/25/19 22:59 06:59 14:59 Intake Total 800 1350 390 Output Total 230 545 300 Balance 570 805 90 Intake: IV 390 1040 390 Sodium Chloride 0.9% 1, 390 1040 390 000 ml @ 130 mls/hr IV . [id number] [facility] Rx#:[id number] Blood Product 410 310 Rc As-1 Unit 310 [id number] Rc Pheresis As-3 Unit 0 310 [id number] Output: Urine 230 545 300 Other: Voiding Method Indwelling Catheter Indwelling Catheter Indwelling Catheter Weight 38.555 kg 39 kg 39 kg Results CBC & Chem 7: 04/25/19 12:32 04/25/19 04:00 Labs: Abnormal Lab Results - Last 24 Hours (Table) 04/24/19 04/24/19 04/24/19 Range/Units 15:07 15:07 15:07 RBC 1.29 L (3.80-5.40) m/uL Hgb 4.5 L* D (11.4-16.0) gm/dL Hct 14.2 L* (34.0-46.0) % MCV 109.7 H (80.0-100.0) fL RDW 16.2 H (11.5-15.5) % Plt Count 593 H (150-450) k/uL Macrocytosis Marked A APTT 20.5 L (22.0-30.0) sec Sodium (137-145) mmol/L Potassium (3.5-5.1) mmol/L Carbon Dioxide (22-30) mmol/L BUN (7-17) mg/dL Glucose (74-99) mg/dL POC Glucose (mg/dL) (75-99) mg/dL Calcium (8.4-10.2) mg/dL Alkaline Phosphatase (38-126) U/L Albumin (3.5-5.0) g/dL Urine Protein (Negative) Urine Blood (Negative) Ur Leukocyte Esterase (Negative) Urine WBC (0-5) /hpf Amorphous Sediment (None) /hpf Urine Bacteria (None) /hpf Urine Mucus (None) /hpf Crossmatch See Detail 04/24/19 04/24/19 04/25/19 Range/Units 15:07 15:50 00:11 RBC 2.19 L (3.80-5.40) m/uL Hgb 7.2 L D (11.4-16.0) gm/dL Hct 21.7 L (34.0-46.0) % MCV (80.0-100.0) fL RDW 17.7 H (11.5-15.5) % Plt Count 480 H (150-450) k/uL Macrocytosis APTT (22.0-30.0) sec Sodium 133 L (137-145) mmol/L Potassium 3.3 L (3.5-5.1) mmol/L Carbon Dioxide 19 L (22-30) mmol/L BUN 26 H (7-17) mg/dL Glucose 104 H (74-99) mg/dL POC Glucose (mg/dL) (75-99) mg/dL Calcium (8.4-10.2) mg/dL Alkaline Phosphatase 135 H (38-126) U/L Albumin 2.3 L (3.5-5.0) g/dL Urine Protein Trace H (Negative) Urine Blood Moderate H (Negative) Ur Leukocyte Esterase Large H (Negative) Urine WBC 7 H (0-5) /hpf Amorphous Sediment Occasional H (None) /hpf Urine Bacteria Occasional H (None) /hpf Urine Mucus Rare H (None) /hpf Crossmatch 04/25/19 04/25/19 04/25/19 Range/Units 04:00 04:00 06:18 RBC 2.14 L (3.80-5.40) m/uL Hgb 7.0 L (11.4-16.0) gm/dL Hct 21.9 L (34.0-46.0) % MCV 102.3 H (80.0-100.0) fL RDW 18.3 H (11.5-15.5) % Plt Count 505 H (150-450) k/uL Macrocytosis APTT (22.0-30.0) sec Sodium 131 L (137-145) mmol/L Potassium (3.5-5.1) mmol/L Carbon Dioxide 18 L (22-30) mmol/L BUN 22 H (7-17) mg/dL Glucose 64 L (74-99) mg/dL POC Glucose (mg/dL) 74 L (75-99) mg/dL Calcium 8.1 L (8.4-10.2) mg/dL Alkaline Phosphatase (38-126) U/L Albumin (3.5-5.0) g/dL Urine Protein (Negative) Urine Blood (Negative) Ur Leukocyte Esterase (Negative) Urine WBC (0-5) /hpf Amorphous Sediment (None) /hpf Urine Bacteria (None) /hpf Urine Mucus (None) /hpf Crossmatch 04/25/19 Range/Units 07:37 RBC 2.12 L (3.80-5.40) m/uL Hgb 7.1 L (11.4-16.0) gm/dL Hct 21.3 L (34.0-46.0) % MCV 100.5 H (80.0-100.0) fL RDW 18.7 H (11.5-15.5) % Plt Count (150-450) k/uL Macrocytosis APTT (22.0-30.0) sec Sodium (137-145) mmol/L Potassium (3.5-5.1) mmol/L Carbon Dioxide (22-30) mmol/L BUN (7-17) mg/dL Glucose (74-99) mg/dL POC Glucose (mg/dL) (75-99) mg/dL Calcium (8.4-10.2) mg/dL Alkaline Phosphatase (38-126) U/L Albumin (3.5-5.0) g/dL Urine Protein (Negative) Urine Blood (Negative) Ur Leukocyte Esterase (Negative) Urine WBC (0-5) /hpf Amorphous Sediment (None) /hpf Urine Bacteria (None) /hpf Urine Mucus (None) /hpf Crossmatch Microbiology - Last 24 Hours (Table) 04/24/19 16:00 Urine Culture - Preliminary Urine,Voided Thrombosis Risk Factor Assmnt - Choose All That Apply Any of the Below Risk Factors Present?: Yes Each Factor Represents 1 point: Age 41-60 years Other Risk Factors: No Other congenital or acquired thrombophilia - If yes, enter type in comment: No Thrombosis Risk Factor Assessment Total Risk Factor Score: 1 Thrombosis Risk Factor Assessment Level: Low Risk
[2019-04-25] MEDS ORDERED: PEG 3350-NA SULF,BICARB,CL/KCL 4,000 ML BOTTLE PO ONE (16:00)
[2019-04-25 16:38] LABS: Alpha Fetoprotein, Tumor Mkr <2.5 ng/mL (0.0-7.9)
[2019-04-25 17:05] LABS: Cancer Antigen 19-9 47.7 U/mL (0.0-34.9)
--- NOTE | 2019-04-25 17:29 | CONS ---
CONSULTATION DATE OF CONSULTATION: 04/25/2019 REQUESTING PHYSICIAN: Dr. Jael Moreland REASON FOR CONSULTATION: Acute GI bleed. HISTORY OF PRESENT ILLNESS: 54 -year-old female with history of heavy alcohol use in the past. He has been drinking about a month ago, history of pancreatitis complicated with pseudocyst formation. Was admitted to the hospital with severe symptomatic anemia and hemoglobin of 4.5 and maroon-colored stools. Apparently, the patient has been having progressively improving weakness and severe palpitations. Her ex- gave her an enema yesterday and she had significant amount of maroon colored stools. She came into the ER and she had a couple of more units of maroon colored stools. She was complaining of diffuse abdominal pain but no nausea or vomiting. She was given 2 units of blood transfusion for hemoglobin of 4.5 g/dL. The last hemoglobin is 7.5 g/dL. She is somewhat a poor historian. Very irritable. She had an episode of GI bleeding and underwent an upper endoscopy in June 2018 that showed angiodysplasia in the 2nd portion of the duodenum. She denies any prior history of peptic ulcer disease. She denies any recent NSAID use. She states that she lost about 50 pounds in the last 6 months duration. PAST MEDICAL HISTORY: Significant for GERD, hypertension, degenerative joint disease, fibromyalgia, alcohol abuse, pancreatitis with pseudocyst formation, chronic back pain. PAST SURGICAL HISTORY: Left knee surgery, cardiac cath. MEDICATIONS: At home, multivitamins, Metamucil, Senokot. ALLERGIES: TO CIPRO AND BACTRIM. SOCIAL HISTORY: Chronic smoker and heavy alcohol use as mentioned above. FAMILY HISTORY: Father with diabetes and coronary artery disease. Mother subdural hematoma. REVIEW OF SYSTEMS: CARDIOPULMONARY: She denies any chest pain, shortness of breath. no dysuria or hematuria. Musculoskeletal: Diffuse back pain. Neurology unremarkable. Psychiatric unremarkable. ENT/vision unremarkable. CONSTITUTIONAL: Weight loss of 50 pounds. No fever, chills, night sweats. GI as mentioned above. ENDOCRINE unremarkable. PHYSICAL EXAMINATION: Blood pressure 89/53, pulse rate is 72, temperature 98. HEENT examination: Unremarkable. Conjunctivae pale. Sclerae nonicteric. Oral cavity no lesions. NECK: No JVD or lymph node enlargement. CHEST: Clear to auscultation. HEART: Regular rate and rhythm. Abdomen is diffusely tender, slightly distended. EXTREMITIES: No pedal edema. SKIN no rashes. NEUROLOGIC: Alert and oriented x3. No focal deficits. LABS: At the time of admission to the hospital: WBC 9, hemoglobin 4.5, MCV 1.9, and platelets 598. INR 1. BUN, creatinine 26 and 0.8 respectively. AST, ALT normal, alkaline phosphatase 135. CT of the abdomen was done yesterday evening that showed evidence of hyperdense lesion in the liver not typical of cyst and ultrasound was recommended. Cystic lesions in the head of the pancreas and retroperitoneal fat stranding suggestive of inflammatory process in the tail of the pancreas. IMPRESSION: 1. Severe symptomatic anemia with a hemoglobin of 4.5 requiring 2 units of blood transfusion. The patient also had some maroon-colored stools for the last 2 days duration, active gastrointestinal bleed. Rule out upper gastrointestinal source. The patient had an EGD in June of 2018 that showed angiodysplasia of the second part of the duodenum. 2. History of heavy alcohol abuse. 3. Chronic pancreatitis with pseudocyst formation. RECOMMENDATIONS: 1. We will proceed with an EGD today and if negative, proceed with colonoscopy tomorrow. 2. Continue with Protonix 40 mg q.12 hours. 3. CBC every 6 hours. 4. Abstain from alcohol. 5. We will follow with you closely. Thank you for this consultation. RAYSHAWN / STEVEN: [id number] /
[2019-04-25 18:03] LABS: Glucose,Whole Blood 86 mg/dL (75-99)
[2019-04-25] MEDS: PANTOPRAZOLE 40 MG/10 ML VIAL IV SCH (19:55)
[2019-04-25 21:17] LABS: Anisocytosis Slight; Basophils % (A) 0 %; Eosinophils # (A) 0.1 k/uL (0-0.7); Eosinophils % (A) 1 %; HCT 22.4 % (34.0-46.0); HGB 7.3 gm/dL (11.4-16.0); Lymphocytes # (A) 2.1 k/uL (1.0-4.8); Lymphocytes % (A) 24 %; MCHC 32.6 g/dL (31.0-37.0); MCV 98.4 fL (80.0-100.0); Macrocytosis Slight; Mean Platelet Volume 10.1; Monocytes # (A) 0.4 k/uL (0-1.0); Monocytes % (A) 4 %; Neutrophils # (A) 6.2 k/uL (1.3-7.7); Neutrophils % (A) 70 %; Platelet Count 364 k/uL (150-450); Poikilocytosis Moderate; RBC 2.28 m/uL (3.80-5.40); RDW 18.7 % (11.5-15.5); WBC 8.9 k/uL (3.8-10.6)
[2019-04-26 00:15] LABS: Glucose,Whole Blood 70 mg/dL (75-99)
[2019-04-26] MEDS: HYDROmorphone 0.5 MG/0.5 ML SYRINGE IVP PRN ×5 (00:29→23:30)
[2019-04-26 01:20] LABS: Glucose,Whole Blood 111 mg/dL (75-99)
[2019-04-26 05:56] LABS: Anisocytosis Slight; Basophils % (A) 0 %; Eosinophils # (A) 0.1 k/uL (0-0.7); Eosinophils % (A) 1 %; HCT 21.4 % (34.0-46.0); HGB 7.2 gm/dL (11.4-16.0); Lymphocytes # (A) 1.8 k/uL (1.0-4.8); Lymphocytes % (A) 23 %; MCH 33.7 pg (25.0-35.0); MCHC 33.8 g/dL (31.0-37.0); MCV 99.7 fL (80.0-100.0); Macrocytosis Moderate; Mean Platelet Volume 7.7; Monocytes # (A) 0.3 k/uL (0-1.0); Monocytes % (A) 4 %; Neutrophils # (A) 5.6 k/uL (1.3-7.7); Neutrophils % (A) 71 %; Platelet Count 460 k/uL (150-450); Poikilocytosis Moderate; RBC 2.15 m/uL (3.80-5.40); RDW 18.8 % (11.5-15.5); WBC 7.8 k/uL (3.8-10.6)
[2019-04-26 06:03] LABS: African American GFR (CKD) >90 (>60 ml/min/1.73 sqM); Anion Gap 7 mmol/L; Blood Urea Nitrogen 17 mg/dL (7-17); Calcium 8.3 mg/dL (8.4-10.2); Carbon Dioxide 18 mmol/L (22-30); Chloride 107 mmol/L (98-107); Glucose 65 mg/dL (74-99); Non-African American GFR(CKD) >90 (>60 ml/min/1.73 sqM); Potassium 3.6 mmol/L (3.5-5.1); Sodium 132 mmol/L (137-145)
[2019-04-26 06:41] LABS: Glucose,Whole Blood 82 mg/dL (75-99)
[2019-04-26] MEDS ORDERED: POTASSIUM BICARBONATE/CIT AC 20 MEQ TABLET.EFF NG-TUBE SCH (07:00)
[2019-04-26] MEDS: PANTOPRAZOLE 40 MG/10 ML VIAL IV SCH ×2 (08:38→20:50)
[2019-04-26] MEDS ORDERED: PEG 3350-NA SULF,BICARB,CL/KCL 4,000 ML BOTTLE PO ONE (10:06)
[2019-04-26] MEDS: SODIUM CHLORIDE 0.9% 1,000 ML IV SCH (10:59)
--- NOTE | 2019-04-26 11:42 | P.PN ---
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 She had poor appetite. She was also having constipation. Her ex- given an enema yesterday. Upon arrival to the emergency room the patient was found to have hemoglobin of 4.5. She was hemodynamically stable. Rectal exam was given she had maroon color stool. She she will be getting a total of 2 units. She was already gotten one unit. . No hematemesis. No epigastric pain. She is emotional and she is having some crying bouts. She denies having any chest pain or shortness of breath. She denies drinking alcohol for now.Renal function of the within normal limits. LFTs are within normal. The total serum iron was low at 16. B12 is at 710 with a folate level of 12.6. UA is negative. The coagulation profile is within normal limits. She denies taking any form of nonsteroidal and supplement her medications at home. The patient did not notice any bloody stool at HOME. As stated earlier, the patient is an was constipated. She is having some mid abdominal pain. Amylase and lipase levels are within normal limits. She was in the hospital in early April for sepsis and UTI. At that time ultrasound of the abdomen was done and it showed a abnormal heterogeneous 11.7 cm , an area of cystic fluid around the pancreas, likely a pseudocyst. CAT scan of the brain showed no acute abnormalities are than chronic cerebral atrophy more so in the bilateral frontal lobes. Echocardiogram shows an ejection fraction of 40-45%. She has chronic depression and she has also cognitive impairment secondary to her chronic alcoholism. She is chronically malnourished also. Guardianship was being establish and this was in the process. For now she has a public guardian. Her ex- is attempting to obtain guardianship on her. Today's evaluation of the 2019 the patient is being seen for a follow-up. She is awake and alert. She is hemodynamically stable. She received a total of 2 units of packed RBC. Her hemoglobin today is 7.1. The patient is currently nothing by mouth and she is awaiting her EGD. The CAT scan of the abdomen was done yesterday and it showed evidence of hypodense liver lesions which do not have the appearance of atypical cyst. There are also cystic lesions in the head of the pancreas. There is retroperitoneal fat stranding suggestive of inflammatory process of the tail of the pancreas. Pancreatic tumor cannot be completely excluded. There is bilateral renal calculi. No ureteral obstruction. Mild hydronephrosis could not be excluded to be related with nephrolithiasis. On today's evaluation the patient is being seen for a follow-up on 04/26/2019. The patient underwent an EGD yesterday. There was no evidence of any esophageal varices. There was a small gastric fundal varices without any active bleeding. There was circumferential erythema with friability in the distal esophagus with reflux esophagitis. There was also significant thickening of folds noted in the proximal body of stomach congestion suspicious for portal hypertensive gastropathy. Biopsies were done. No further bouts of bleeding for now. Hemog lobin is stable at 7.2. I was told that she was passing some dark black stools. She is on clear liquid diet. She is on Protonix 40 mg by mouth twice a day. No other new complaints otherwise for now. The CA-19-9 level was slightly elevated at 45. His alpha-fetoprotein level was normal. Objective - Vital Signs Vital signs: Vital Signs Temp 37.2 F L 04/26/19 08:00 Pulse 75 04/26/19 10:00 Resp 6 L 04/26/19 10:00 BP 90/57 04/26/19 10:00 Pulse Ox 98 04/26/19 10:00 Intake & Output 04/25/19 04/26/19 04/26/19 18:59 06:59 18:59 Intake Total 1210 480 160 Output Total 815 960 365 Balance 395 -480 -205 Weight 39 kg 54.9 kg Intake: IV 850 480 160 Sodium Chloride 0.9% 1, 750 480 160 000 ml @ 40 mls/hr IV . Q24H [facility] Rx#:[id number] Oral 360 Output: Urine 815 960 365 Other: Voiding Method Indwelling Catheter Indwelling Catheter Indwelling Catheter # Bowel Movements 2 2 - Exam On physical examination, patient appears comfortable in no apparent distress. HEAD: Normocephalic, patient does have abrasion on the left side of her for elevated from her mechanical fall. EYES: No scleral icterus. No conjunctival injection. MOUTH: No lesions, tongue midline. NECK: Trachea midline, no gross abnormalities. CHEST: Decreased air entry in all lung sheppard, no respiratory distress. HEART: Cardiac exam revealed the PMI to be normally situated and sized. The rhythm was regular and no extrasystoles were noted during several minutes of auscultation. The first and second heart sounds were normal and physiologic splitting of the second heart sound was noted. There were no murmurs, rubs, clicks, or gallops. ABDOMEN: Soft, thin and mildly tender to palpation diffusely. Bowel sounds are positive. No organomegaly. No guarding or rigidity. EXTREMITIES: Examination of the extremities revealed easily palpable radial, femoral and pedal pulses. There was no cyanosis, clubbing or edema. SKIN: Examination of the skin revealed no evidence of significant rashes, suspicious appearing nevi or other concerning lesions. NEUROLOGIC: Alert and oriented x3. No focal deficits. - Labs CBC & Chem 7: 04/26/19 05:18 04/26/19 05:18 Labs: Abnormal Lab Results - Last 24 Hours (Table) 04/25/19 04/25/19 04/25/19 Range/Units 04:00 11:59 12:32 RBC 2.40 L (3.80-5.40) m/uL Hgb 7.7 L (11.4-16.0) gm/dL Hct 23.9 L (34.0-46.0) % RDW 18.5 H (11.5-15.5) % Plt Count (150-450) k/uL Sodium (137-145) mmol/L Carbon Dioxide (22-30) mmol/L Glucose (74-99) mg/dL POC Glucose (mg/dL) 70 L (75-99) mg/dL Calcium (8.4-10.2) mg/dL CA 19-9 Antigen 47.7 H (0.0-34.9) U/mL 04/25/19 04/26/19 04/26/19 Range/Units 20:37 00:12 01:18 RBC 2.28 L (3.80-5.40) m/uL Hgb 7.3 L (11.4-16.0) gm/dL Hct 22.4 L (34.0-46.0) % RDW 18.7 H (11.5-15.5) % Plt Count (150-450) k/uL Sodium (137-145) mmol/L Carbon Dioxide (22-30) mmol/L Glucose (74-99) mg/dL POC Glucose (mg/dL) 70 L 111 H (75-99) mg/dL Calcium (8.4-10.2) mg/dL CA 19-9 Antigen (0.0-34.9) U/mL 04/26/19 04/26/19 Range/Units 05:18 05:18 RBC 2.15 L (3.80-5.40) m/uL Hgb 7.2 L (11.4-16.0) gm/dL Hct 21.4 L (34.0-46.0) % RDW 18.8 H (11.5-15.5) % Plt Count 460 H (150-450) k/uL Sodium 132 L (137-145) mmol/L Carbon Dioxide 18 L (22-30) mmol/L Glucose 65 L (74-99) mg/dL POC Glucose (mg/dL) (75-99) mg/dL Calcium 8.3 L (8.4-10.2) mg/dL CA 19-9 Antigen (0.0-34.9) U/mL Microbiology - Last 24 Hours (Table) 04/24/19 16:00 Urine Culture - Final Urine,Voided 04/24/19 17:30 Blood Culture - Preliminary Blood No Growth after 24 hours Assessment and Plan Plan: 1 anemia acute on chronic with drop in hemoglobin down to 4.5. This was related to an upper GI bleed. There is some portal gastropathy and gastric varices. Biopsies were done. There is also some distal esophagitis. The patient was given IV Protonix. No is a congenial varices noted. The patient is undergoing bleeding for now. She is on clear liquid diet also. 2 history of alcoholism 3 Patient has known autonomic dysfunction likely secondary to alcoholism 4 Recent history of a Acute UTI from cystitis-E. 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 7 Major depressive disorder recurrent, currently in remission 8 Macrocytic anemia from history of chronic alcoholism 9 Cognitive impairment from chronic alcoholism 10 Iron deficiency anemia 11 Chronic fibromyalgia 12 GERD 13 Essential hypertension 14 Primary osteoarthritis 15 Moderate to severe protein calorie malnutrition from decreased oral intake 16 Chronic abdominal pain-from pancreatitis pseudocyst. 17 Legal guardianship is in the process of getting changed over from public guardian to ex- 18 hypodense liver lesions, nonspecific in nature that needs to be further evaluated. Plan CAT scan of the abdomen was noted EGD was noted IV Protonix Hemoglobin is improved Tumor markers were noted Hemoglobin is stable Chest her to a medical surgical floor Colonoscopy in a.m.
[2019-04-26 12:57] LABS: Glucose,Whole Blood 78 mg/dL (75-99)
[2019-04-26] MEDS ORDERED: MAGNESIUM CITRATE 296 ML BOTTLE PO ONE (15:33)
[2019-04-26 17:00] LABS: Glucose,Whole Blood 94 mg/dL (75-99)
--- NOTE | 2019-04-26 21:16 | P.PN ---
Progress Note - Text Progress Note Date: 04/26/19 Chief Complaint: Maroon stools History of presenting complaint: This is a pleasant 54-year-old patient of Dr. Pearson. Chronic stable medical conditions include major depressive disorder, macrocytic anemia from chronic alcoholism, chronic fibromyalgia, GERD, essential hypertension, primary osteoarthritis, pancreatic pseudocyst, alcoholic cardiomyopathy. . Patient was just discharged from the [facility] and was in the hospital from March 19 through March 23. Found to have a pseudocyst. Patient is tolerating a liquid diet before should discharge. Also in the process of changing legal guardian from a public guardian to her ex- with whom she is living now. Patient has been tolerating predominantly liquid diet. Presented with 2 days of maroon stools. Still some abdominal pain is present. Admitted to ICU. Feeling weak tired and rundown. Has not been very ambulatory much at home because of feeling weak and tired. Patient's sister had the bedside. GI was consulted. Patient's hemoglobin was down to 4.5 on presentation. Did receive 2 units of blood admitted with GI bleed. EGD showed portal gastropathy and reflux esophagitis. Today-on clear liquids getting preparation for colonoscopy. Tired. Chronic abdominal pain present. Review of systems: Was done for constitutional, cardiovascular, GI, pulmonary. relevant finding as above Active Medications Hydromorphone HCl (Dilaudid) 0.5 mg IVP ONCE PRN PRN Reason: Pain Last Admin: 04/24/19 20:17 Dose: 0.5 mg Documented by: Hydromorphone HCl (Dilaudid) 0.5 mg IVP Q4HR PRN PRN Reason: Pain Last Admin: 04/26/19 19:22 Dose: 0.5 mg Documented by: Sodium Chloride (Saline 0.9%) 1,000 mls @ 40 mls/hr IV .Q24H SHORTY Last Admin: 04/26/19 10:59 Dose: 40 mls/hr Documented by: Magnesium Citrate (Citrate Of Magnesia) 296 ml PO ONCE ONE Stop: 04/27/19 04:01 Miscellaneous Information (Potassium Per Protocol) 1 each MISCELLANE DAILY PRN; Protocol PRN Reason: Per Protocol Naloxone HCl (Narcan) 0.2 mg IV Q2M PRN PRN Reason: Opioid Reversal Pantoprazole Sodium (Protonix) 40 mg IV BID [facility] Last Admin: 04/26/19 20:50 Dose: 40 mg Documented by: Physical examination: VITAL SIGNS: 98.6, 62, 18, but pressure 106/76, 98% room air GENERAL:laying in bed, tired awake EYES: Pupils equal. Conjunctiva pale HEENT: External appearance of nose and ears normal, oral cavity grossly normal. NECK: JVD not raised; masses not palpable. HEART: First and second heart sounds are normal; no edema. LUNGS: Respiratory rate normal; decreased breath sounds. ABDOMEN: Soft, upper abdominal tenderness, no guarding or rigidity liver spleen not palpable, no masses palpable. PSYCH: Alert and oriented x3; mood and affect tired. INVESTIGATIONS, reviewed in the clinical context: White count 7.8 hemoglobin 7.2 calcium 3.6 creatinine 0.65 Previous testing White count 9 hemoglobin 4.5 platelets 593 potassium 3.3 bun 26 creatinine 0.86 Labs from 04/17/2019 showed a hemoglobin of 8.1 EGD-portal gastropathy and reflux esophagitis Assessment: -Acute GI bleed presenting with volume stools likely gastric or duodenal region -EGD-portal gastropathy and reflux esophagitis -Acute severe blood loss anemia symptomatic, patient requiring 2 units of blood -autonomic dysfunction likely secondary to alcoholism -Acute UTI from cystitis-E. 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 -Major depressive disorder recurrent, currently in remission -Macrocytic anemia from history of chronic alcoholism -Cognitive impairment from chronic alcoholism -Iron deficiency anemia -Chronic fibromyalgia -GERD -Essential hypertension -Primary osteoarthritis -Moderate to severe protein calorie malnutrition from decreased oral intake -Chronic abdominal pain-from pancreatitis pseudocyst. -Legal guardianship is in the process of getting changed over from public guardian to ex- Plan: patient getting a colonoscopy.preparation. Tired. Liquid diet. Care discussed with the patient. Follow H&H..
--- NOTE | 2019-04-26 23:32 | PN ---
PROGRESS NOTE The patient is a 54-year-old white female admitted to the hospital with severe anemia with the hemoglobin of 4.5 and maroon colored stool. She underwent an upper endoscopy done yesterday that showed evidence of some portal hypertensive gastropathy and gastritis. No active upper GI bleeding noted. She was scheduled for upper endoscopy today but she did not drink enough prep and, hence, the procedure was canceled. In the meantime she was moved to the intensive care unit. As per the nursing staff she had one small black tarry bowel movement this morning. The patient denies any symptoms and is on a clear liquid diet. PHYSICAL EXAMINATION: Blood pressure is 94/60, pulse rate is 70, temperature 98.3. HEENT examination remarkable. Conjunctivae pink. Sclerae anicteric. Oral cavity, no lesions. NECK: No JVD or lymph node enlargement. CHEST: Clear to auscultation. HEART; Regular rate and rhythm. ABDOMEN: Soft. There was mild diffuse tenderness. EXTREMITIES: No pedal edema. SKIN: No rashes. NEURO: Alert and oriented x3. No focal deficits. LABS: WBC 7.8, hemoglobin 7.2, platelets 460. Rest of the labs are within normal limits. IMPRESSION: 1. Severe symptomatic anemia with a hemoglobin of 4.5 following two units of blood transfusion. She also had some dark maroon colored stools. The EGD done yesterday showed evidence of mild portal hypertension and gastropathy with ( ) bleeding noted. Scheduled for a colonoscopy today but did not take the prep and, hence, the procedure was canceled. Hemoglobin is stable at 7.2 g/dL. 2. History of heavy alcohol abuse which she quit about a month ago. 3. Chronic pancreatitis related to alcohol use. CA 99 was slightly elevated at 47.7. RECOMMENDATION: 1. Encourage patient to continue the prep for colonoscopy tomorrow. 2. Monitor CBC. 3. Continue Protonix 40 mg daily. 4. We will follow with you closely. MMODL / IJN: [id number] /
[2019-04-26 23:42] LABS: Glucose,Whole Blood 150 mg/dL (75-99)
[2019-04-27] MEDS: HYDROmorphone 0.5 MG/0.5 ML SYRINGE IVP PRN ×4 (03:46→23:24)
[2019-04-27] MEDS ORDERED: MAGNESIUM CITRATE 296 ML BOTTLE PO ONE (04:00)
[2019-04-27 06:16] LABS: Glucose,Whole Blood 85 mg/dL (75-99)
[2019-04-27 07:13] LABS: Glucose,Whole Blood 88 mg/dL (75-99)
[2019-04-27] MEDS: PANTOPRAZOLE 40 MG/10 ML VIAL IV SCH ×2 (08:44→20:36)
[2019-04-27 10:09] LABS: Anisocytosis Slight; HCT 23.9 % (34.0-46.0); HGB 7.8 gm/dL (11.4-16.0); Hypochromasia Slight; MCH 33.2 pg (25.0-35.0); MCHC 32.7 g/dL (31.0-37.0); MCV 101.5 fL (80.0-100.0); Macrocytosis Moderate; Mean Platelet Volume 7.6; Platelet Count 451 k/uL (150-450); Poikilocytosis Slight; RBC 2.35 m/uL (3.80-5.40); WBC 9.2 k/uL (3.8-10.6)
[2019-04-27 11:27] LABS: Glucose,Whole Blood 91 mg/dL (75-99)
[2019-04-27] MEDS ORDERED: NA PHOS,M-B/NA PHOS,DI-BA 133 ML ENEMA RECTAL ONE ×2 (12:00→13:00)
[2019-04-27] MEDS: SODIUM CHLORIDE 0.9% 1,000 ML IV SCH (13:01)
[2019-04-27] MEDS ORDERED: PROPOFOL 10 MG/ML 20 ML VIAL IV ONE (14:29)
[2019-04-27] MEDS ORDERED: MIDAZOLAM 2 MG/2 ML VIAL ONE (14:29)
[2019-04-27] MEDS ORDERED: LACTATED RINGERS 1,000 ML IV ONE (14:30)
--- NOTE | 2019-04-27 14:53 | P.PN ---
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 She had poor appetite. She was also having constipation. Her ex- given an enema yesterday. Upon arrival to the emergency room the patient was found to have hemoglobin of 4.5. She was hemodynamically stable. Rectal exam was given she had maroon color stool. She she will be getting a total of 2 units. She was already gotten one unit. . No hematemesis. No epigastric pain. She is emotional and she is having some crying bouts. She denies having any chest pain or shortness of breath. She denies drinking alcohol for now.Renal function of the within normal limits. LFTs are within normal. The total serum iron was low at 16. B12 is at 710 with a folate level of 12.6. UA is negative. The coagulation profile is within normal limits. She denies taking any form of nonsteroidal and supplement her medications at home. The patient did not notice any bloody stool at HOME. As stated earlier, the patient is an was constipated. She is having some mid abdominal pain. Amylase and lipase levels are within normal limits. She was in the hospital in early April for sepsis and UTI. At that time ultrasound of the abdomen was done and it showed a abnormal heterogeneous 11.7 cm , an area of cystic fluid around the pancreas, likely a pseudocyst. CAT scan of the brain showed no acute abnormalities are than chronic cerebral atrophy more so in the bilateral frontal lobes. Echocardiogram shows an ejection fraction of 40-45%. She has chronic depression and she has also cognitive impairment secondary to her chronic alcoholism. She is ch ronically malnourished also. Guardianship was being establish and this was in the process. For now she has a public guardian. Her ex- is attempting to obtain guardianship on her. Today's evaluation of the 2019 the patient is being seen for a follow-up. She is awake and alert. She is hemodynamically stable. She received a total of 2 units of packed RBC. Her hemoglobin today is 7.1. The patient is currently nothing by mouth and she is awaiting her EGD. The CAT scan of the abdomen was done yesterday and it showed evidence of hypodense liver lesions which do not have the appearance of atypical cyst. There are also cystic lesions in the head of the pancreas. There is retroperitoneal fat stranding suggestive of inflammatory process of the tail of the pancreas. Pancreatic tumor cannot be completely excluded. There is bilateral renal calculi. No ureteral obstruction. Mild hydronephrosis could not be excluded to be related with nephrolithiasis. On today's evaluation the patient is being seen for a follow-up on 04/26/2019. The patient underwent an EGD yesterday. There was no evidence of any esophageal varices. There was a small gastric fundal varices without any active bleeding. There was circumferential erythema with friability in the distal esophagus with reflux esophagitis. There was also significant thickening of folds noted in the proximal body of stomach congestion suspicious for portal hypertensive gastropathy. Biopsies were done. No further bouts of bleeding for now. Hemoglobin is stable at 7.2. I was told that she was passing some dark black stools. She is on clear liquid diet. She is on Protonix 40 mg by mouth twice a day. No other new complaints otherwise for now. The CA-19-9 level was slightly elevated at 45. His alpha-fetoprotein level was normal. The patient is seen today 04/27/2019 in follow-up on the regular medical floor. She is awake and alert in no acute distress. Resting flat in bed. No shortness of breath, cough or congestion. Maintaining O2 saturations in the 90s on room air. Her EGD did not reveal any evidence of acute active bleeding. No esophageal varices. She is status post 2 units of packed red blood cells this admission. The plan is for colonoscopy today. Blood cultures reveal no growth. Urine culture reveals no growth. White count 9.2. Hemoglobin 7.8. Platelet count 451,000. MCV 101.5 Objective - Vital Signs Vital signs: Vital Signs Temp 98.3 F 04/27/19 07:00 Pulse 69 04/27/19 07:00 Resp 17 04/27/19 07:00 BP 78/47 04/27/19 07:00 Pulse Ox 99 04/27/19 07:00 Intake & Output 04/26/19 04/27/19 04/27/19 18:59 06:59 18:59 Intake Total 240 Output Total 500 800 Balance -260 -800 Intake: IV 240 Sodium Chloride 0.9% 1, 240 000 ml @ 40 mls/hr IV . Q24H [facility] Rx#:[id number] Output: Urine 500 800 Other: Voiding Method Indwelling Catheter Indwelling Catheter Indwelling Catheter # Bowel Movements 1 2 2 - Exam On physical examination, patient appears comfortable in no apparent distress. O n room air. HEAD: Normocephalic, patient does have abrasion on the left side of her head from her fall. EYES: No scleral icterus. No conjunctival injection. MOUTH: No lesions, tongue midline. NECK: Trachea midline, no gross abnormalities. CHEST: Decreased air entry in all lung sheppard, no respiratory distress. HEART: Cardiac exam revealed the PMI to be normally situated and sized. The rhythm was regular and no extrasystoles were noted during several minutes of auscultation. The first and second heart sounds were normal and physiologic splitting of the second heart sound was noted. There were no murmurs, rubs, clicks, or gallops. ABDOMEN: Soft, thin and mildly tender to palpation diffusely. Bowel sounds are positive. No organomegaly. No guarding or rigidity. EXTREMITIES: Examination of the extremities revealed easily palpable radial, femoral and pedal pulses. There was no cyanosis, clubbing or edema. SKIN: Examination of the skin revealed no evidence of significant rashes, suspicious appearing nevi or other concerning lesions. NEUROLOGIC: Alert and oriented x3. No focal deficits. - Labs CBC & Chem 7: 04/27/19 09:32 04/26/19 05:18 Labs: Abnormal Lab Results - Last 24 Hours (Table) 04/26/19 04/27/19 Range/Units 23:39 09:32 RBC 2.35 L (3.80-5.40) m/uL Hgb 7.8 L (11.4-16.0) gm/dL Hct 23.9 L (34.0-46.0) % MCV 101.5 H (80.0-100.0) fL RDW 19.0 H (11.5-15.5) % Plt Count 451 H (150-450) k/uL POC Glucose (mg/dL) 150 H (75-99) mg/dL Microbiology - Last 24 Hours (Table) 04/24/19 17:30 Blood Culture - Preliminary Blood No Growth after 48 hours Assessment and Plan Assessment: 1 anemia acute on chronic with drop in hemoglobin down to 4.5. This was related to an upper GI bleed. There is some portal gastropathy and gastric varices. Biopsies were done. There is also some distal esophagitis. The patient was given IV Protonix. No is a esophageal varices noted. The plan is for colonoscopy today. Hemoglobin 7.8. 2 units of packed red blood cells this admission. 2 history of alcoholism 3 Patient has known autonomic dysfunction likely secondary to alcoholism 4 Recent history of a Acute UTI from cystitis-E. 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 7 Major depressive disorder recurrent, currently in remission 8 Macrocytic anemia from history of chronic alcoholism 9 Cognitive impairment from chronic alcoholism 10 Iron deficiency anemia 11 Chronic fibromyalgia 12 GERD 13 Essential hypertension 14 Primary osteoarthritis 15 Moderate to severe protein calorie malnutrition from decreased oral intake 16 Chronic abdominal pain-from pancreatitis pseudocyst. 17 Legal guardianship is in the process of getting changed over from public guardian to ex- 18 hypodense liver lesions, nonspecific in nature that needs to be further evaluated. Plan The plan is for colonoscopy today. She is stable from the pulmonary and critical care standpoint. We'll see as needed. I, the cosigning physician, performed a history & physical examination of the patient. Lungs sounds are clear. Maintaining good O2 saturations in the 90s on room air. I discussed the assessment and plan of care with my nurse practitioner, Linda Light. I attest to the above note as dictated by her.
[2019-04-27 15:07] VITALS: BMI 20.7
--- NOTE | 2019-04-27 16:33 | P.PCN ---
Date of Procedure: 04/27/19 Procedure(s) Performed: BRIEF HISTORY: Patient is a 54-year-old pleasant white female admitted hospital with acute GI bleed. She had few episodes of maroon-colored stools. She had an upper endoscopy done 2 days ago that showed evidence of mild: Hypertensive gastropathy and thickened folds in the fundus of the stomach with small fundal varices. No active bleeding noted. At time of admission to hospital hemoglobin was 4.5 g/dL. She is hence scheduled for an elective colonoscopy as a part of variation of severe anemia PROCEDURE PERFORMED: Colonoscopy with biopsy and snare polypectomy. PREOPERATIVE DIAGNOSIS: Severe symptomatic anemia and maroon colored stools. IV sedation per Anesthesia. PROCEDURE: After informed consent was obtained, the patient, was brought into the endoscopy unit. IV sedation was administered by Anesthesia under continuous monitoring. Digital rectal examination was normal. Initially the Olympus CF-160 flexible video colonoscope was then inserted in the rectum, gradually advanced into the cecum without any difficulty. Careful examination was performed as the scope was gradually being withdrawn. Ileocecal valve and the appendiceal orifice were visualized and appeared normal. Prep was excellent. Mucosa of the cecum, ascending colon, transverse colon appeared normal. In the distal transverse colon closer to the stomach flexure there was crowding of the mucosal folds with any matters appearance involving 3-4 cm of the colon and biopsies were done from this area. The span flexure appeared normal. Distal to the splenic flexure and the proximal descending colon once again there were thickened mucosal folds with crowding of the mucosa and polypoid appearance part of which was removed by snare polypectomy followed by multiple biopsies. Also there appeared to be a fistulous communication with drainage of whitish material noted in this area. The rest of the descending colon, sigmoid colon, and rectum appeared normal. Retroflexion was performed in the rectum and small internal hemorrhoids were seen. The patient tolerated the procedure well. IMPRESSION: Crowding of the mucosal folds noted in the distal transverse colon status post biopsy Thickened mucosal folds with polypoid-like appearance noted in the proximal descending colon with a possible fistulous communication(whitish material draining through the fistula} Small internal hemorrhoids RECOMMENDATIONS: Findings of this examination were discussed with the patient as well as her family. Findings were also discussed with Dr. martínez. At this time CT of the abdomen and pelvis done 2 days ago was reviewed with Dr. Kahn. There was a large lesion noted in the tail of the pancreas but no clear fistulous, medication could be identified as a CAT scan was done without contrast. Hence she will be scheduled for repeat CT of the abdomen and pelvis with IV and oral contrast to evaluate this further. In the meantime she will be maintained on a clear liquid diet
[2019-04-27 17:02] LABS: Glucose,Whole Blood 86 mg/dL (75-99)
--- NOTE | 2019-04-27 17:11 | P.PN ---
Progress Note - Text Progress Note Date: 04/27/19 Chief Complaint: Maroon stools History of presenting complaint: This is a pleasant 54-year-old patient of Dr. Pearson. Chronic stable medical conditions include major depressive disorder, macrocytic anemia from chronic alcoholism, chronic fibromyalgia, GERD, essential hypertension, primary osteoarthritis, pancreatic pseudocyst, alcoholic cardiomyopathy. . Patient was just discharged from the [facility] and was in the hospital from March 19 through March 23. Found to have a pseudocyst. Patient is tolerating a liquid diet before should discharge. Also in the process of changing legal guardian from a public guardian to her ex- with whom she is living now. Patient has been tolerating predominantly liquid diet. Presented with 2 days of maroon stools. Still some abdominal pain is present. Admitted to ICU. Feeling weak tired and rundown. Has not been very ambulatory much at home because of feeling weak and tired. Patient's sister had the bedside. GI was consulted. Patient's hemoglobin was down to 4.5 on presentation. Did receive 2 units of blood admitted with GI bleed. EGD showed portal gastropathy and reflux esophagitis. Today-. Saw the The patient this morning. Awaiting colonoscopy. Chronic abdominal pain. Review of systems: Was done for constitutional, cardiovascular, GI, pulmonary. relevant finding as above Active Medications Hydromorphone HCl (Dilaudid) 0.5 mg IVP ONCE PRN PRN Reason: Pain Last Admin: 04/26/19 23:30 Dose: 0.5 mg Documented by: Hydromorphone HCl (Dilaudid) 0.5 mg IVP Q4HR PRN PRN Reason: Pain Last Admin: 04/27/19 08:50 Dose: 0.5 mg Documented by: Sodium Chloride (Saline 0.9%) 1,000 mls @ 40 mls/hr IV .Q24H SHORTY Last Admin: 04/27/19 13:01 Dose: 40 mls/hr Documented by: Iopamidol (Isovue-300 (For Oral Use)) 30 ml PO Q60M PRN PRN Reason: CT Scan Stop: 04/28/19 15:36 Miscellaneous Information (Potassium Per Protocol) 1 each MISCELLANE DAILY PRN; Protocol PRN Reason: Per Protocol Naloxone HCl (Narcan) 0.2 mg IV Q2M PRN PRN Reason: Opioid Reversal Pantoprazole Sodium (Protonix) 40 mg IV BID SHORTY Last Admin: 04/27/19 08:44 Dose: 40 mg Documented by: Physical examination: VITAL SIGNS: 98.3, 69, 17, blood pressure 78/47, 99% GENERAL:laying in bed, tired awake EYES: Pupils equal. Conjunctiva pale HEENT: External appearance of nose and ears normal, oral cavity grossly normal. NECK: JVD not raised; masses not palpable. HEART: First and second heart sounds are normal; no edema. LUNGS: Respiratory rate normal; decreased breath sounds. ABDOMEN: Soft, upper abdominal tenderness, no guarding or rigidity liver spleen not palpable, no masses palpable. PSYCH: Alert and oriented x3; mood and affect tired. INVESTIGATIONS, reviewed in the clinical context: White count 9.2 hemoglobin 7.8 platelets 451 Previous testing White count 9 hemoglobin 4.5 platelets 593 potassium 3.3 bun 26 creatinine 0.86 Labs from 04/17/2019 showed a hemoglobin of 8.1 EGD-portal gastropathy and reflux esophagitis Assessment: -Acute GI bleed presenting with volume stools likely gastric or duodenal region -EGD-portal gastropathy and reflux esophagitis -Acute severe blood loss anemia symptomatic, patient requiring 2 units of blood -autonomic dysfunction likely secondary to alcoholism -Acute UTI from cystitis-E. 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 -Major depressive disorder recurrent, currently in remission -Macrocytic anemia from history of chronic alcoholism -Cognitive impairment from chronic alcoholism -Iron deficiency anemia -Chronic fibromyalgia -GERD -Essential hypertension -Primary osteoarthritis -Moderate to severe protein calorie malnutrition from decreased oral intake -Chronic abdominal pain-from pancreatitis pseudocyst. -Legal guardianship is in the process of getting changed over from public guardian to ex- Plan: Patient pending colonoscopic this afternoon. Care discussed with the patient. Follow from there.
[2019-04-27 23:45] LABS: Glucose,Whole Blood 94 mg/dL (75-99)
[2019-04-28] MEDS: HYDROmorphone 0.5 MG/0.5 ML SYRINGE IVP PRN ×4 (03:24→17:25)
[2019-04-28 06:20] LABS: Glucose,Whole Blood 137 mg/dL (75-99)
[2019-04-28 07:55] VITALS: RESP 18
[2019-04-28] MEDS: PANTOPRAZOLE 40 MG/10 ML VIAL IV SCH (07:57)
[2019-04-28] MEDS: IOPAMIDOL CONTRAST (ORAL USE) VIAL PO PRN ×2 (08:26→09:23)
--- NOTE | 2019-04-28 11:06 | PN ---
PROGRESS NOTE DATE OF SERVICE: April 28, 2019 Patient is a 54-year-old pleasant white female admitted to the hospital with acute GI bleed and severe anemia. She underwent upper endoscopy 2 days ago that showed small gastroparesis and thickened folds in the fundus of the stomach. She had a colonoscopy done yesterday that showed abnormal fold thickening with questionable fistulous tract noted in the proximal descending colon close to the splenic flexure. She is scheduled for a CT of the abdomen and pelvis with contrast today to rule out colopancreatic fistula. The patient in the meantime, is doing well. She denies any symptoms. No further episodes of bleeding. On a clear liquid diet, tolerating well. PHYSICAL EXAMINATION: Appears comfortable. Blood pressure is 96/62, pulse is 71, temperature 98.5. HEENT examination unremarkable. Conjunctivae pink. Sclerae anicteric. Oral cavity no lesions. NECK: No JVD or lymph node enlargement. CHEST: Clear to auscultation. HEART: Regular rate and rhythm. ABDOMEN: Soft, it was nontender, nondistended. Bowel sounds are positive. No organomegaly. EXTREMITIES: No pedal edema. SKIN: No rashes. NEUROLOGIC: Alert and oriented x3. No focal deficits. LAB: No labs available from today. IMPRESSION: 1. Severe symptomatic anemia with a hemoglobin of 4.5, status post 3 units of blood transfusion. Hemoglobin currently at 7.8. No active bleeding. She did have an EGD 3 days ago and colonoscopy yesterday. 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 The patient is scheduled for a CT of the abdomen and pelvis to evaluate this further. 2. History of alcohol abuse in the past, quit drinking a month ago. 3. History of pancreatitis in the past and recent CT scan showed cystic changes in the head of the pancreas as well as in the tail of the pancreas. 4. Elevated CA99. RECOMMENDATIONS: Await CT of the abdomen, pelvis, and based on that, we will decide if she needs to be transferred to a tertiary institute. In the meantime, continue on a clear liquid diet, we will follow with you closely. Thank you for this consultation. MMODL / IJN: [id number] /
[2019-04-28 11:42] LABS: Glucose,Whole Blood 136 mg/dL (75-99)
[2019-04-28] MEDS: SODIUM CHLORIDE 0.9% 1,000 ML IV SCH (12:42)
--- NOTE | 2019-04-28 13:43 | CT ---
EXAMINATION TYPE: CT abdomen pelvis w con DATE OF EXAM: 04/28/2019 HISTORY: abnormal colonoscopy, splenic fistula? CT DLP: 702.2mGycm Automated Exposure Control for Dose Reduction was Utilized. CONTRAST: CT scan of the abdomen and pelvis is performed with IV Contrast, patient injected with 100 mL of Isov ue 300. COMPARISON: 04/24/2019 FINDINGS: Multifocal linear areas of hypoattenuation are seen of the splenic parenchyma extending towards the h ilum on coronal imaging. These measure greater than 5 cm and are probably 2 grade 3 splenic injury. B etween the splenic hilum and pancreatic tail there is a fluid collection measuring 3.6 x 2.2 cm surro unding splenic arterial and venous vasculature. At the inferior margin of the spleen there is another fluid collection anteriorly measuring 2.5 x 1.9 cm. Free fluid is seen anteromedial to the spleen an d along the lateral conal fascia. Hypoattenuated fluid collections are also seen in the pancreatic un cinate process and pancreatic head measuring 2.4 x 1.7 cm and 1.0 cm respectively. Abdominal ascites is also seen around the liver that measures simple fluid. More complex appearing fluid is seen around the inferior margin of the liver and ascending colon. There is an elongated complex fluid collection in the abdomen extending from the inferior hepatic mar gin over the enlarged and abnormal uterine contour towards midline on coronal image 66 through image 56. In total length this measures approximately 21 cm. In greatest thickness this measures approximat butch 3 cm. Numerous small loculated components are seen around the periphery. Again the uterus is markedly abnormal with a mass measuring up to 11.2 x 8.9 x 9.2 cm. Berman catheter is seen in the urinary bladder. Urinary bladder contains air likely from the recent catheterization. Small amount of fluid is seen in the posterior cul-de-sac and mesenteric congestion of the pelvis. Additional thick-walled inflammatory fluid collection is serpiginous in the abdomen anterior to the t ransverse colon, which appears inflamed. This measures 4.6 x 1.8 cm alone on this image but again is serpiginous extending upward of the abdomen. There is anasarca present and at least small partially visualized pleural effusions with associated b ibasilar airspace disease. Numerous hypoattenuated lesions are seen of the liver with the largest fitting criteria for benign cy sts. A more hypoattenuated hepatic lesion is subtly seen on image 27 measures approximately 2.2 cm. N o radiopaque calculi in the gallbladder. Adrenal glands are grossly unremarkable. There is moderate right hydroureteronephrosis. The right ureter is partially obscured but appears to be enlarged secondary to partial obstruction by the uterine mass. Atrophy of the right superior pole the kidney is seen with lobulated contour. No hydronephrosis on the left. No aggressive appearing oss eous lesion. Examination is suboptimal to evaluate for adenopathy although there are enlarged periaor tic lymph nodes such as on coronal image 78 measuringt 1 cm in short axis. The stomach is abnormal with grossly thickened rugal folds. Direct visualization is recommended. IMPRESSION: 1. Grade 3 splenic injury with multifocal linear splenic lacerations extending towards the hilum. Mul tiple perisplenic fluid collections have some inflammatory change and could represent hematomas, absc esses, or pseudocysts. 2. Multiple pancreatic fluid collections are seen that may represent acute necrotic fluid collections , pseudocyst, or cystic pancreatic neoplasms. Peripancreatic fat stranding is difficult to evaluate d ue to the surrounding ascites and mesenteric edema. 3. Large inflammatory serpiginous intra-abdominal fluid collection concerning for abscess extending f rom the inferior hepatic margin into the pelvis anterior to the abnormal and enlarged uterus containi ng a uterine mass. Multiple other abnormal possible abscesses are measured in the abdomen as discusse d above. 4. 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 5. Anasarca, mesenteric edema, ascites and pleural effusions, overall fluid overload. 6. As mentioned on the prior in addition to hepatic cysts there is another ill-defined hepatic lesion that is incompletely characterized measuring 2.2 cm. 7. Grossly abnormal stomach with thickened rugal folds throughout that could BE reactive however neop lasm is possible and direct visualization is recommended. A Red level critical message alert has been initiated for Lluvia Gibbons via the [employer] on 04/28/2019 1:40 PM. This message alert has been sent to Lluvia Gibbons via the preferences provided by the clinician for the receipt of Radiology Critical Findings. Message ID [id number].
--- NOTE | 2019-04-28 14:27 | CONS ---
CONSULTATION CHIEF COMPLAINT: Fistula. HISTORY OF PRESENT ILLNESS: The patient is a 54-year-old female with a history of previous pancreatic pseudocysts. She was hospitalized with increased confusion and failure to thrive. Patient was complaining of left upper quadrant abdominal pain on admission to the ER. She was anemic. She underwent recent upper or lower endoscopy. She was found to have a fistulous opening in at least one area of the splenic flexure. CT scan on admission showed inflammatory changes, left upper quadrant, with suspected fluid collection adjacent to the distal transverse colon which likely represents the fistulous communication. The patient apparently had a pseudocyst, although this was not intervened with recently. The patient is a poor historian. Most of the history is obtained from the chart and also from her . She was apparently at [facility] one month ago. He is not aware of them intervening on any of the pseudocysts. She apparently was having some anemia and rectal bleeding at that time as well. PAST MEDICAL HISTORY: Alcohol abuse, chronic pancreatitis, depression, cognitive impairment, fibromyalgia, GERD, hypertension, arthritis, cardiomyopathy. PHYSICAL EXAMINATION: HEENT is normocephalic. Sclerae nonicteric. Chest is clear to auscultation. Heart reveals regular rate and rhythm. Abdomen is soft, nondistended. Mild left upper quadrant tenderness. No rebound or guarding. Extremities are without edema. 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 Suspect communication to the patient's pseudocyst. PLAN: Repeat CT scan was already ordered for today per GI and primary service. The patient may require segmental colonic resection with definitive intervention on the pancreatic pseudocyst. Recommend tertiary care evaluation for this complicated case, particularly with the knowledge that they recently had her hospitalized at [facility]. I will review CT scan once again. MMODL / IJN: [id number] /
[2019-04-28 16:07] VITALS: BP 97/63; PULSE 73; TEMP 99.5
[2019-04-28 16:37] LABS: Glucose,Whole Blood 114 mg/dL (75-99)
--- NOTE | 2019-05-03 08:27 | CDI ---
Documentation Clarification Form Date: 05/03/19 From: Ban Drake CCS Phone: If you have a question about this query, please contact Ebony Fam, Mud Grinder at [phone] between 8am and 5pm. Admit Date: 04/24/19 Discharge Date:04/28/19 Patient Name: Elisabeth Coffey Visit Number: [id number] ATTENTION: The Clinical Documentation Specialists (CDI) and [facility] Coding Staff appreciate your assistance in clarifying documentation. Please respond to the clarification below the line at the bottom and electronically sign. The CDI & [facility] Coding staff will review the response and follow-up if needed. Please note: Queries are made part of the Legal Health Record. If you have any questions, please contact the author of this message via ITS. Dear Dr. Obrien, Moderate to severe malnutrition has been documented in H&P, Consult, PNs. History/Risk Factors: Alcoholism, Gastropathy, HTN, Fistula of intestine Clinical Indicators: Underweight Labs: Albumin 2.3 Current BMI: 14.7 Treatment: Oral supplements Dietary Consult: 04/24, 04/26- Severe PCM In your professional opinion, can you please clarify if these findings signify one of the following conditions? Mild Protein-Calorie Malnutrition Moderate Protein-Calorie Malnutrition Severe Protein-Calorie Malnutrition Malnutrition, unspecified Malnutrition following GI surgery Other condition, please specify Unable to determine Severe protein calorie malnutrition _ MTDD
--- NOTE | 2019-05-03 08:42 | CDI ---
Documentation Clarification Form Date: 05/03/19 From: Ban Drake CCS Phone: If you have a question about this query, please contact Ebony Fam, Coal Tram Driver at [phone] between 8am and 5pm. Admit Date: 04/24/19 Discharge Date: 04/28/19 Patient Name: Elisabeth Coffey Visit Number: [id number] ATTENTION: The Clinical Documentation Specialists (CDI) and [facility] Coding Staff appreciate your assistance in clarifying documentation. Please respond to the clarification below the line at the bottom and electronically sign. The CDI & [facility] Coding staff will review the response and follow-up if needed. Please note: Queries are made part of the Legal Health Record. If you have any questions, please contact the author of this message via ITS. Dear Dr. Obrien, GI bleed is documented in the H&P, PNs, Consult, ED. Patient history/risk factors: Gastritis, Gastropathy, Polyp, Alcoholism, Chronic Pancreatitis, Malnutrition Clinical Indicators: Acute anemia, Melena Colonoscopy: Duodenal polypoid, internal hemorrhoids, fistula EGD: Portal hypertensive gastropathy, Gastritis, Reflux esophagitis, Gastric varices Treatment: Protonix 40 mg IV BID, PRBC, Ferrlecit 125 mg Consults: Rowan In your professional opinion, can you please clarify the underlying cause of GI bleed if known? Gastritis Hemorrhoids Duodenal polypoid Intestinal fistula Gastropathy Other, please specify Unable to determine MTDD
--- NOTE | 2019-05-05 21:21 | P.DS ---
Providers Date of admission: 04/24/19 16:51 Expected date of discharge: 04/28/19 Attending physician: Jose Ramon Obrien Consults: 04/24/19 16:51 Consult Physician Stat Consulting Provider: Staci Donahue Consult Reason/Comments: GI bleed Do you want consulting provider notified?: Yes 04/24/19 17:02 Consult Physician Routine Consulting Provider: Sisi Carmen Consult Reason/Comments: ICU Do you want consulting provider notified?: Already Contacted 04/27/19 15:47 Consult Physician Routine Consulting Provider: Cindy Sethi Consult Reason/Comments: abnormal colonoscopy/CT abdomen Do you want consulting provider notified?: Yes Primary care physician: [facility] Course: Chief Complaint: Maroon stools History of presenting complaint: This is a pleasant 54-year-old patient of Dr. Pearson. Chronic stable medical conditions include major depressive disorder, macrocytic anemia from chronic alcoholism, chronic fibromyalgia, GERD, essential hypertension, primary osteoarthritis, pancreatic pseudocyst, alcoholic cardiomyopathy. . Patient was just discharged from the [facility] and was in the hospital from March 19 through Mar ruary 7. Found to have a pseudocyst. Patient is tolerating a liquid diet before should discharge. Also in the process of changing legal guardian from a public guardian to her ex- with whom she is living now. Patient has been tolerating predominantly liquid diet. Presented with 2 days of maroon stools. Still some abdominal pain is present. Admitted to ICU. Feeling weak tired and rundown. Has not been very ambulatory much at home because of feeling weak and tired. Patient's sister had the bedside. GI was consulted. Patient's hemoglobin was down to 4.5 on presentation. Did receive 2 units of blood admitted with GI bleed. EGD showed portal gastropathy and reflux esophagitis. Coloscopy showed to cauliflower growth and descending colon proximal part and fistula possibly. Subsequently computed tomography scan of the abdomen showed evidence of grade 3 splenic injury with linear lacerations and multiple splenic perisplenic fluid collections. Multiple pancreatic fluid collections. Large inflammation serpiginous intra-abdominal fluid collection concerning for abscess. Anasarca. April 27-today, patient was covered by [facility] for [place]. Patient was transferred to [facility]. For high level of care. Consultation: Dr. annette sow from general surgery Dr. Quita Donahue from GI Dr. Carmen from pulmonary critical care Physical examination: VITAL SIGNS: 99.5, 73, 18, 97/60, 100% room air GENERAL:laying in bed, tired awake EYES: Pupils equal. Conjunctiva pale HEENT: External appearance of nose and ears normal, oral cavity grossly normal. NECK: JVD not raised; masses not palpable. HEART: First and second heart sounds are normal; no edema. LUNGS: Respiratory rate normal; decreased breath sounds. ABDOMEN: Soft, upper abdominal tenderness, no guarding or rigidity liver spleen not palpable, no masses palpable. PSYCH: Alert and oriented x3; mood and affect tired. INVESTIGATIONS, reviewed in the clinical context: White count 9.2 hemoglobin 7.8 platelets 451 Previous testing White count 9 hemoglobin 4.5 platelets 593 potassium 3.3 bun 26 creatinine 0.86 Labs from 04/17/2019 showed a hemoglobin of 8.1 EGD-portal gastropathy and reflux esophagitis Coloscopy showed to cauliflower growth and descending colon proximal part and fistula possibly computed tomography scan of the abdomen showed evidence of grade 3 splenic injury with linear lacerations and multiple splenic perisplenic fluid collections. Multiple pancreatic fluid collections. Large inflammation serpiginous intra-abdominal fluid collection concerning for abscess. Anasarca Assessment: -Acute GI bleed presenting with bloody stools could be from fistula -Possible intra-abdominal abscess -Possible splenic laceration with bleeding -EGD-portal gastropathy and reflux esophagitis -Acute severe blood loss anemia symptomatic, patient requiring 2 units of blood -autonomic dysfunction likely secondary to alcoholism -Acute UTI from cystitis-E. 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 -Major depressive disorder recurrent, currently in remission -Macrocytic anemia from history of chronic alcoholism -Cognitive impairment from chronic alcoholism -Iron deficiency anemia -Chronic fibromyalgia -GERD -Essential hypertension -Primary osteoarthritis -Moderate to severe protein calorie malnutrition from decreased oral intake -Chronic abdominal pain-from pancreatitis pseudocyst. -Legal guardianship is in the process of getting changed over from public guardian to ex- Disposition: Transferred to [facility]. For high level of care. Patient Condition at Discharge: Undetermined Plan - Discharge Summary New Discharge Prescriptions: No Action Multivitamins, Thera [Multivitamin (formulary)] 1 tab PO DAILY Psyllium Husk 100% [Metamucil Packet] 6 gm PO BID #60 packet Methocarbamol [Robaxin] 750 mg PO TID #30 tab oxyCODONE HCL [Roxicodone] 5 mg PO Q4H PRN #30 tab PRN Reason: Pain Sennosides-Docusate Sodium [Senokot-S] 1 tab PO BID PRN PRN Reason: Constipation Discharge Medication List Multivitamins, Thera [Multivitamin (formulary)] 1 tab PO DAILY 04/17/19 [History] Methocarbamol [Robaxin] 750 mg PO TID #30 tab 04/19/19 [Rx] Psyllium Husk 100% [Metamucil Packet] 6 gm PO BID #60 packet 04/19/19 [Rx] oxyCODONE HCL [Roxicodone] 5 mg PO Q4H PRN #30 tab 04/19/19 [Rx] Sennosides-Docusate Sodium [Senokot-S] 1 tab PO BID PRN 04/24/19 [History] Follow up Appointment(s)/Referral(s): James Moreland DO [Primary Care Provider] - 1-2 days Discharge Disposition: TRANSFER TO [facility]
== END 2019-04-28 18:27 | disposition short-term general hospital (02) | DRG 393 ==
LOC: EC 14:30 → 2SICU 16:51 → 4SSUR 04-26 15:26
PROVIDERS: ADMIT Hospitalist; ATTEND Hospitalist
PROC: 30233N1 Transfusion of Nonautologous Red Blood Cells into Peripheral Vein, Percutaneous Approach (ICD-10-PCS; 2019-04-24)
PROC: 0DB68ZX Excision of Stomach, Via Natural or Artificial Opening Endoscopic, Diagnostic (ICD-10-PCS; principal; 2019-04-25 07:30)
PROC: 0DBL8ZX Excision of Transverse Colon, Via Natural or Artificial Opening Endoscopic, Diagnostic (ICD-10-PCS; 2019-04-27)
PROC: 0DBM8ZZ Excision of Descending Colon, Via Natural or Artificial Opening Endoscopic (ICD-10-PCS; 2019-04-27 14:50)
DX: K63.2 Fistula of intestine (principal); E43 Unspecified severe protein-calorie malnutrition; K29.71 Gastritis, unspecified, with bleeding; K65.1 Peritoneal abscess; F33.9 Major depressive disorder, recurrent, unspecified; K86.3 Pseudocyst of pancreas; I42.6 Alcoholic cardiomyopathy; K76.6 Portal hypertension; D62 Acute posthemorrhagic anemia; Z68.1 Body mass index [BMI] 19.9 or less, adult; K86.0 Alcohol-induced chronic pancreatitis; S36.039A Unspecified laceration of spleen, initial encounter; N13.6 Pyonephrosis; G31.2 Degeneration of nervous system due to alcohol; N31.2 Flaccid neuropathic bladder, not elsewhere classified; R62.7 Adult failure to thrive; K31.89 Other diseases of stomach and duodenum; M79.7 Fibromyalgia; K21.0 Gastro-esophageal reflux disease with esophagitis; I10 Essential (primary) hypertension; G89.29 Other chronic pain; M54.2 Cervicalgia; M54.9 Dorsalgia, unspecified; F41.0 Panic disorder [episodic paroxysmal anxiety]; F17.200 Nicotine dependence, unspecified, uncomplicated; M19.91 Primary osteoarthritis, unspecified site; F10.21 Alcohol dependence, in remission; K59.00 Constipation, unspecified; R41.89 Other symptoms and signs involving cognitive functions and awareness; K64.8 Other hemorrhoids; K63.5 Polyp of colon; I86.4 Gastric varices; B96.20 Unspecified Escherichia coli [E. coli] as the cause of diseases classified elsewhere; Z71.3 Dietary counseling and surveillance; Z87.440 Personal history of urinary (tract) infections; Z79.899 Other long term (current) drug therapy; Z88.1 Allergy status to other antibiotic agents; Z88.2 Allergy status to sulfonamides; Z86.19 Personal history of other infectious and parasitic diseases; Z83.3 Family history of diabetes mellitus; Z82.49 Family history of ischemic heart disease and other diseases of the circulatory system
CPT/HCPCS: 36415; 36430; 43239; 45380; 45385; 74150; 74177; 80048; 80053; 81001; 82105; 82150; 83690; 83735; 84484; 85025; 85027; 85610; 85730; 86301; 86850; 86900; 86901; 86920; 87040; 87086; 88305; 93005; 96361; 96365; 96375; 99291